=== PATIENT | female | born 1950 | race Caucasian/White ===

== ENCOUNTER 2017-05-10 08:34 | Observation (INO) | payer MEDICARE ==
[~2017-05-10] VITALS: Ht 147.3 cm; Wt 60.0 kg
[2017-05-10] VITALS (9 sets, daily range): BP systolic 115–145; BP diastolic 56–71; PULSE 70–76; RESP 15–18; TEMP 97.9–98.5; O2SAT 99–100
[2017-05-10] MEDS ORDERED: SODIUM CHLOR 0.9% 1000 ML INJ 1,000 ML IV SCH (09:15)
[2017-05-10] MEDS ORDERED: SODIUM CHLORIDE 0.9% FLUSH 10 ML FLUSH IVF PRN (09:15)
--- NOTE | 2017-05-10 09:28 | PD ---
HPI Chief Complaint: Abnormal Results Time Seen by Provider: 09:14 Travel History International Travel<30 days: No Contact w/Intl Traveler<30days: No Traveled to known affect area: No History of Present Illness HPI Patient is a 67-year-old female who presents to emergency room with complaints of anemia. Patient reports that she has history of anemia secondary to esophageal varices and liver cirrhosis. Patient reports that she is being worked up for her anemia by her physicians at home in [place] as she is here in [place] visiting. She reports that she has CBC checks every 2 weeks, patient reports that on Monday, she went to [facility] to have her CBC checked. Patient reports that she was called today and was told her hemoglobin was 6.7. Patient was told to come to the emergency room for a blood transfusion. Reports that she often does have blood transfusions every few weeks, reports that this is secondary to anemia. Patient reports that she is feeling weak and shortness breath at this time. Patient with no chest pain, no obvious source of bleeding at this time. Patient denies history of alcoholism the past, reports that she was told that her liver cirrhosis as well as esophageal varices was secondary to medications. PFSH Past Medical History Cardiac Catheterization: Yes Cardiovascular Problems: Yes ([place]) High Cholesterol: Yes Cirrhosis: Yes Diabetes: Yes Patient Takes Glucophage: No Hypertension: Yes Medical other: Yes (ESOPHAGEAL VARICES ) Myocardial Infarction: Yes Tetanus Vaccination: > 5 Years Influenza Vaccination: Yes ?: Not Past Surgical History Appendectomy: Yes Cardiac Surgery: Yes (1 STENT, TRIPLE BIPASS) Section: Yes Cholecystectomy: Yes Coronary Artery Bypass Graft: Yes Coronary Stent: Yes Hysterectomy: Yes Social History Alcohol Use: No Tobacco Use: No Substance Use: No Allergies-Medications (Allergen,Severity, Reaction): Coded Allergies: No Known Allergies (Unverified , 05/10/17) Review of Systems General / Constitutional: No: Fever Eyes: No: Visual changes HENT: No: Headaches Cardiovascular: No: Chest Pain or Discomfort Respiratory: Positive: Shortness of Breath, No: Cough, Wheezing Gastrointestinal: No: Abdominal Pain Genitourinary: No: Dysuria Musculoskeletal: No: Pain Skin: No Rash Neurologic: Positive: Weakness Psychiatric: No: Depression Endocrine: No: Polydipsia Hematologic/Lymphatic: No: Easy Bruising Physical Exam Narrative GENERAL: NAD SKIN: Focused skin assessment warm/dry. Pale appearing HEAD: Atraumatic. Normocephalic. EYES: Pupils equal and round. No scleral icterus. No injection or drainage. ENT: No nasal bleeding or discharge. Mucous membranes pink and moist. NECK: Trachea midline. No JVD. CARDIOVASCULAR: Regular rate and rhythm. No murmur appreciated. RESPIRATORY: No accessory muscle use. Clear to auscultation. Breath sounds equal bilaterally. GASTROINTESTINAL: Abdomen soft, non-tender, nondistended. Hepatic and splenic margins not palpable. MUSCULOSKELETAL: No obvious deformities. No clubbing. No cyanosis. No edema. NEUROLOGICAL: Awake and alert. No obvious cranial nerve deficits. Motor grossly within normal limits. Normal speech. PSYCHIATRIC: Appropriate mood and affect; insight and judgment normal. Data Data Last Documented VS Vital Signs Date Time Temp Pulse Resp B/P (MAP) Pulse Ox O2 Delivery O2 Flow Rate FiO2 05/10/17 12:59 72 15 130/60 (83) 100 Nasal Cannula 2.00 05/10/17 08:35 98.5 Orders Orders Basic Metabolic Panel (Bmp) (05/10/17 09:15) Complete Blood Count With Diff (05/10/17 09:15) Prothrombin Time / Inr (Pt) (05/10/17 09:15) Act Partial Throm Time (Ptt) (05/10/17 09:15) Type And Screen (05/10/17 09:15) Iv Access Insert/Monitor (05/10/17 09:15) Ecg Monitoring (05/10/17 09:15) Oxygen Administration (05/10/17 09:15) Sodium Chlor 0.9% 1000 Ml Inj (Ns 1000 M (05/10/17 09:15) Sodium Chloride 0.9% Flush (Ns Flush) (05/10/17 09:15) Blood Product Administration (05/10/17 14:23) Sodium Chlor 0.9% 250 Ml Inj (Ns 250 Ml (05/10/17 14:30) Red Blood Cells (Rbc) (05/10/17 15:04) Place In Observation (05/10/17 ) Vital Signs (Adult) Q4H (05/10/17 15:06) Activity Oob Ad Lesa (05/10/17 15:06) Intake + Output HUONG.QSHIFT (05/10/17 15:06) Diet Heart Healthy (05/10/17 Dinner) Sodium Chloride 0.9% Flush (Ns Flush) (05/10/17 15:15) Sodium Chloride 0.9% Flush (Ns Flush) (05/10/17 21:00) Complete Blood Count With Diff (05/11/17 06:00) Case Management Consult (05/10/17 15:06) Naloxone Inj (Narcan Inj) (05/10/17 15:15) Magnesium Hydroxide Liq (Milk Of Magnesi (05/10/17 15:15) Sennosides (Senokot) (05/10/17 15:15) Bisacodyl Supp (Dulcolax Supp) (05/10/17 15:15) Lactulose Liq (Lactulose Liq) (05/10/17 15:15) Labs Laboratory Tests Test 05/10/17 08:50 White Blood Count 2.6 TH/MM3 Red Blood Count 2.47 MIL/MM3 Hemoglobin 7.0 GM/DL Hematocrit 22.0 % Mean Corpuscular Volume 89.2 FL Mean Corpuscular Hemoglobin 28.5 PG Mean Corpuscular Hemoglobin Concent 31.9 % Red Cell Distribution Width 18.5 % Platelet Count 36 TH/MM3 Mean Platelet Volume 10.5 FL Neutrophils (%) (Auto) 74.0 % Lymphocytes (%) (Auto) 18.1 % Monocytes (%) (Auto) 4.8 % Eosinophils (%) (Auto) 2.4 % Basophils (%) (Auto) 0.7 % Neutrophils # (Auto) 1.9 TH/MM3 Lymphocytes # (Auto) 0.5 TH/MM3 Monocytes # (Auto) 0.1 TH/MM3 Eosinophils # (Auto) 0.1 TH/MM3 Basophils # (Auto) 0.0 TH/MM3 CBC Comment AUTO DIFF Differential Comment AUTO DIFF CONFIRMED Platelet Estimate LOW Platelet Morphology Comment NORMAL Ovalocytes 1+ Prothrombin Time 10.5 SEC Prothromb Time International Ratio 1.0 RATIO Activated Partial Thromboplast Time 23.7 SEC Blood Urea Nitrogen 26 MG/DL Creatinine 1.01 MG/DL Random Glucose 233 MG/DL Calcium Level 9.4 MG/DL Sodium Level 139 MEQ/L Potassium Level 4.9 MEQ/L Chloride Level 110 MEQ/L Carbon Dioxide Level 19.4 MEQ/L Anion Gap 10 MEQ/L Estimat Glomerular Filtration Rate 55 ML/MIN MDM Medical Decision Making Medical Screen Exam Complete: Yes Emergency Medical Condition: Yes Medical Record Reviewed: Yes Interpretation(s) Vital Signs Date Time Temp Pulse Resp B/P (MAP) Pulse Ox O2 Delivery O2 Flow Rate FiO2 05/10/17 09:03 73 16 Room Air 05/10/17 08:35 98.5 76 16 145/66 (92) 100 Room Air Differential Diagnosis Differential includes anemia Narrative Course 67-year-old female who presents to emergency room complaints of anemia with a hemoglobin of 6.7 which was drawn on Monday. Patient reports history of anemia requiring multiple blood transfusions in the past. She is symptomatic. CBC, BMP, type and screen ordered.. Plan to monitor on awake overnight monitor CBC & BMP Diagram 05/10/17 08:50 Calcium Level 9.4 Patient with hgb of 7.0. Call made to patient's salon assistant, Dr. 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 Request that her hemoglobin be At 7.5-8, request 1 unit of blood transfusion. Patient required admission to the hospital for blood transfusion for symptomatic anemia. Case reviewed with Dr. Lindsey who accepts pt to service Diagnosis Primary Impression: Anemia Qualified Codes: D64.9 - Anemia, unspecified Admitting Information Admitting Physician Requests: Lesli Mccormack DO May 10, 2017 09:28
[2017-05-10 09:46] LABS: AUTOMATED NEUTROPHIL # 1.9 TH/MM3 (1.8-7.7); BASOPHIL % 0.7 % (0.0-2.0); EOSINOPHIL # 0.1 TH/MM3 (0-0.4); EOSINOPHIL % 2.4 % (0.0-4.0); LYMPH % 18.1 % (9.0-44.0); LYMPHOCYTE # 0.5 TH/MM3 (1.0-4.8); MEAN CELL VOLUME 89.2 FL (80.0-100.0); MEAN CORPUSCULAR HEMOGLOBIN 28.5 PG (27.0-34.0); MEAN CORPUSCULAR HGB CONC 31.9 % (32.0-36.0); MONO % 4.8 % (0.0-8.0); PLATELET COUNT 36 TH/MM3 (150-450); RED BLOOD COUNT 2.47 MIL/MM3 (4.00-5.30); RED CELL DISTRIBUTION WIDTH 18.5 % (11.6-17.2); WHITE BLOOD COUNT 2.6 TH/MM3 (4.0-11.0)
[2017-05-10 09:54] LABS: BICARBONATE 19.4 MEQ/L (21.0-32.0); POTASSIUM 4.9 MEQ/L (3.5-5.1)
[2017-05-10 09:56] LABS: APTT (PATIENT) 23.7 SEC (24.3-30.1); PROTHROMBIN TIME - PATIENT 10.5 SEC (9.8-11.6)
[2017-05-10 10:03] LABS: HEMO FLAGS AUTO DIFF
[2017-05-10 10:27] LABS: OVALOCYTES 1+ (NORMAL); PLATELET ESTIMATE SMEAR LOW (NORMAL); PLATELET MORPHOLOGY NORMAL (NORMAL); SCAN/DIFF AUTO DIFF CONFIRMED
[2017-05-10] MEDS ORDERED: SODIUM CHLOR 0.9% 250 ML INJ 250 ML IV ONE (14:30)
[2017-05-10] MEDS ORDERED: BISACODYL 10 MG SUPP RECTAL PRN (15:15)
[2017-05-10] MEDS ORDERED: SENNOSIDES 8.6 MG TAB PO PRN (15:15)
[2017-05-10] MEDS ORDERED: SODIUM CHLORIDE 0.9% FLUSH 10 ML FLUSH IV FLUSH PRN (15:15)
[2017-05-10] MEDS ORDERED: NALOXONE HCL 0.4 MG/ML AMP IV PUSH PRN (15:15)
[2017-05-10] MEDS ORDERED: MAGNESIUM HYDROXIDE SUSP 30 ML CUP PO PRN (15:15)
[2017-05-10] MEDS ORDERED: LACTULOSE SYRUP 20 GM/30 ML CUP PO PRN (15:15)
[2017-05-10] MEDS ORDERED: GLIP5TAB8 PO (17:26)
[2017-05-10] MEDS ORDERED: METF1000 PO (17:26)
[2017-05-10] MEDS ORDERED: INSULIN ASPART SUPPLEMENTAL SCALE SQ SCH (17:40)
--- NOTE | 2017-05-10 17:45 | HHI.HP ---
[facility] Unknown Admission Diagnosis Symptomatic anemia Diagnoses: Chief Complaint: Generalized fatigue Travel History International Travel<30 Days: No Contact w/Intl Traveler <30 Da: No Traveled to Known Affected Are: No History of Present Illness 67-year-old female with a history of chronic anemia followed by hematology, CAd with history of CABG, diabetes mellitus on metformin and glipizide. Scheduled outpatient labs this Monday showed hemoglobin of 6.8, and her prepared foods production team member told her to present to the ER. Does report less fatigue over the past week. Denies any bleeding. Denies any chest pain or shortness of breath. Denies any nausea , vomiting, diarrhea, constipation. She is on vacation visiting her son for the past. She is planning to go back to [place] next week. ER physician has discussed with patient's primary oncologist, who recommends transfusion of 1 unit PRBCs, and follow-up with him as outpatient. Review of Systems Except as stated in HPI: all other systems reviewed are Neg Performed and negative except for history of present illness and past medical history. Past Family Social History Past Medical History Diabetes mellitus Coronary artery disease with CABG in the past. She is not on anticoagulation due to anemia. Chronic anemia. Past Surgical History CABG Cardiac catheter with stenting Hysterectomy Reported Medications Metformin 1000 mg by mouth twice daily Glipizide 25 mg by mouth twice daily. Allergies: Coded Allergies: No Known Allergies (Unverified , 05/10/17) Family History Family history reviewed with patient and currently noncontributory Social History Nonsmoker. Nondrinker. Denies illicit drugs. Patient is on vacation from [place]. Staying with her son and Physical Exam Vital Signs Vital Signs Date Time Temp Pulse Resp B/P (MAP) Pulse Ox O2 Delivery O2 Flow Rate FiO2 05/10/17 16:47 98.3 73 16 117/56 100 05/10/17 16:35 98.1 69 15 121/67 (85) 100 05/10/17 16:30 98.2 70 15 117/56 100 05/10/17 16:15 98.1 75 15 115/59 (77) 100 Room Air 05/10/17 16:10 98.1 71 15 115/59 100 05/10/17 16:01 98.0 73 15 128/60 100 05/10/17 12:59 72 15 130/60 (83) 100 Nasal Cannula 2.00 05/10/17 09:41 98 Nasal Cannula 2.00 05/10/17 09:03 73 16 Room Air 05/10/17 08:35 98.5 76 16 145/66 (92) 100 Room Air Physical Exam GENERAL: This is a well-nourished, well-developed patient, in no apparent distress. SKIN: No rashes, ecchymoses or lesions. Cool and dry. HEAD: Atraumatic. Normocephalic. No temporal or scalp tenderness. EYES: Pupils equal round and reactive. Extraocular motions intact. No scleral icterus. No injection or drainage. ENT: Nose without bleeding, purulent drainage or septal hematoma. Throat without erythema, tonsillar hypertrophy or exudate. Uvula midline. Airway patent. NECK: Trachea midline. No JVD or lymphadenopathy. Supple, nontender, no meningeal signs. CARDIOVASCULAR: Regular rate and rhythm without murmurs, gallops, or rubs. RESPIRATORY: Clear to auscultation. Breath sounds equal bilaterally. No wheezes , rales, or rhonchi. GASTROINTESTINAL: Abdomen soft, non-tender, nondistended. No hepato-splenomegaly , or palpable masses. No guarding. MUSCULOSKELETAL: Extremities without clubbing, cyanosis, or edema. No joint tenderness, effusion, or edema noted. No calf tenderness. Negative Homans sign bilaterally. NEUROLOGICAL: Awake and alert. Cranial nerves II through XII intact. Motor and sensory grossly within normal limits. Five out of 5 muscle strength in all muscle groups. Normal speech. Laboratory Laboratory Tests Test 05/10/17 08:50 White Blood Count 2.6 Red Blood Count 2.47 Hemoglobin 7.0 Hematocrit 22.0 Mean Corpuscular Volume 89.2 Mean Corpuscular Hemoglobin 28.5 Mean Corpuscular Hemoglobin Concent 31.9 Red Cell Distribution Width 18.5 Platelet Count 36 Mean Platelet Volume 10.5 Neutrophils (%) (Auto) 74.0 Lymphocytes (%) (Auto) 18.1 Monocytes (%) (Auto) 4.8 Eosinophils (%) (Auto) 2.4 Basophils (%) (Auto) 0.7 Neutrophils # (Auto) 1.9 Lymphocytes # (Auto) 0.5 Monocytes # (Auto) 0.1 Eosinophils # (Auto) 0.1 Basophils # (Auto) 0.0 CBC Comment AUTO DIFF Differential Comment AUTO DIFF CONFIRMED Platelet Estimate LOW Platelet Morphology Comment NORMAL Ovalocytes 1+ Prothrombin Time 10.5 Prothromb Time International Ratio 1.0 Activated Partial Thromboplast Time 23.7 Blood Urea Nitrogen 26 Creatinine 1.01 Random Glucose 233 Calcium Level 9.4 Sodium Level 139 Potassium Level 4.9 Chloride Level 110 Carbon Dioxide Level 19.4 Anion Gap 10 Estimat Glomerular Filtration Rate 55 Result Diagram: 05/10/1750 05/10/1750 Caprini VTE Risk Assessment Caprini VTE Risk Assessment: No/Low Risk (score <= 1) Caprini Risk Assessment Model Point Value = 1 Point Value = 2 Point Value = 3 Point Value = 5 Age 41-60 Minor surgery BMI > 25 kg/m2 Swollen legs Varicose veins or History of unexplained or recurrent spontaneous Oral contraceptives or hormone replacement Sepsis (< 1 month) Serious lung disease, including pneumonia (< 1 month) Abnormal pulmonary function Acute myocardial infarction Congestive heart failure (< 1 month) History of inflammatory bowel disease Medical patient at bed rest Age 61-74 Arthroscopic surgery Major open surgery (> 45 min) Laparoscopic surgery (> 45 min) Malignancy Confined to bed (> 72 hours) Immobilizing plaster cast Central venous access Age >= 75 History of VTE Family history of VTE Factor V Leiden Prothrombin [id number] Lupus anticoagulant Anticardiolipin antibodies Elevated serum homocysteine Heparin-induced thrombocytopenia Other congenital or acquired thrombophilia Stroke (< 1 month) Elective arthroplasty Hip, pelvis, or leg fracture Acute spinal cord injury (< 1 month) Prophylaxis Regimen Total Risk Factor Score Risk Level Prophylaxis Regimen 0-1 Low Early ambulation 2 Moderate Order ONE of the following: *Sequential Compression Device (SCD) *Heparin 5000 units SQ BID 3-4 Higher Order ONE of the following medications: *Heparin 5000 units SQ TID *Enoxaparin/Lovenox 40 mg SQ daily (WT < 150 kg, CrCl > 30 mL/min) *Enoxaparin/Lovenox 30 mg SQ daily (WT < 150 kg, CrCl > 10-29 mL/min) *Enoxaparin/Lovenox 30 mg SQ BID (WT < 150 kg, CrCl > 30 mL/min) AND/OR *Sequential Compression Device (SCD) 5 or more Highest Order ONE of the following medications: *Heparin 5000 units SQ TID (Preferred with Epidurals) *Enoxaparin/Lovenox 40 mg SQ daily (WT < 150 kg, CrCl > 30 mL/min) *Enoxaparin/Lovenox 30 mg SQ daily (WT < 150 kg, CrCl > 10-29 mL/min) *Enoxaparin/Lovenox 30 mg SQ BID (WT < 150 kg, CrCl > 30 mL/min) AND *Sequential Compression Device (SCD) Assessment and Plan Assessment and Plan //Acute on chronic anemia. //Pancytopenia. //Thrombocytopenia. Platelets 36. No signs of bleeding. -Chronic. -No signs of bleeding. Patient has had this for over a year. With extensive workup. receives transfusions about every month. -Hemoglobin 6.8 outpatient. 7.0 here. ED has discussed with primary oncologist recommends transfuse unit of blood. -Blood will be transfused, patient will be discharged to follow-up with prepared foods production team member as outpatient. She has repeat lab ordered outpatient for next nurse. //Diabetes. Chronic. Glucose 280 on admission. Possibly high secondary to stress. Insulin sliding scale while here. We'll discharge home on her home meds of metformin and glipizide. //CAD with history of CABG, stenting in the past. -Patient is not on anticoagulation due to chronic anemia, not on blood pressure control due to low blood pressure. Follow with primary care. //Prophylaxis. Patient is ambulatory. Discussed Condition With Patient, nurse, ED physician. Alexander Lindsey MD May 10, 2017 17:45
[2017-05-10] MEDS ORDERED: SODIUM CHLORIDE 0.9% FLUSH 10 ML FLUSH IV FLUSH SCH (21:00)
== END 2017-05-10 19:40 | disposition home or self-care (01) ==
LOC: NEPC 08:34 → NEDA 15:14 → NEPGCP 16:56
PROVIDERS: ADMIT Internal Medicine; ATTEND Internal Medicine
DX: D64.9 Anemia, unspecified (principal); I10 Essential (primary) hypertension; D61.818 Other pancytopenia; E78.00 Pure hypercholesterolemia, unspecified; K74.60 Unspecified cirrhosis of liver; E11.9 Type 2 diabetes mellitus without complications; I25.10 Atherosclerotic heart disease of native coronary artery without angina pectoris; I25.2 Old myocardial infarction; Z95.1 Presence of aortocoronary bypass graft; Z79.84 Long term (current) use of oral hypoglycemic drugs
CPT/HCPCS: 36430; 80048; 82948; 85025; 85610; 85730; 86850; 86900; 86901; 86920; 96360; 96372; 99285; G0378; J1815; J7030; J7050; P9016

== ENCOUNTER 2017-10-03 14:33 | Emergency (ER) | payer MEDICARE, MEDICAID ==
[~2017-10-03] VITALS: Ht 147.3 cm; Wt 60.0 kg
[2017-10-03] VITALS (7 sets, daily range): BP systolic 117–163; BP diastolic 61–84; PULSE 65–75; RESP 14–20; TEMP 98.1–98.3; O2SAT 99–100
[~2017-10-03 14:33] MED LIST: GLIP5TAB8 PO; METF1000 PO
[2017-10-03 16:42] LABS: BASOPHIL % 0.7 % (0.0-2.0); EOSINOPHIL # 0.1 TH/MM3 (0-0.4); EOSINOPHIL % 3.2 % (0.0-4.0); LYMPH % 19.8 % (9.0-44.0); LYMPHOCYTE # 0.6 TH/MM3 (1.0-4.8); MEAN CELL VOLUME 88.6 FL (80.0-100.0); MEAN CORPUSCULAR HEMOGLOBIN 29.4 PG (27.0-34.0); MEAN CORPUSCULAR HGB CONC 33.2 % (32.0-36.0); MEAN PLATELET VOLUME 11.1 FL (7.0-11.0); MONO % 8.2 % (0.0-8.0); MONOCYTE # 0.2 TH/MM3 (0-0.9); NEUT % 68.1 % (16.0-70.0); PLATELET COUNT 40 TH/MM3 (150-450); RED BLOOD COUNT 2.28 MIL/MM3 (4.00-5.30); RED CELL DISTRIBUTION WIDTH 16.7 % (11.6-17.2); WHITE BLOOD COUNT 2.9 TH/MM3 (4.0-11.0)
[2017-10-03 16:51] LABS: PROTHROMBIN TIME - PATIENT 10.4 SEC (9.8-11.6)
[2017-10-03 16:52] LABS: ALBUMIN 3.3 GM/DL (3.4-5.0); ALT (GPT) 28 U/L (10-53); AST (GOT) 21 U/L (15-37); BICARBONATE 20.2 MEQ/L (21.0-32.0); BLOOD UREA NITROGEN 21 MG/DL (7-18); CALCIUM 8.9 MG/DL (8.5-10.1); CHLORIDE 111 MEQ/L (98-107); CREATININE 0.91 MG/DL (0.50-1.00); GLOMERULAR FILTRATION RATE 62 ML/MIN (>89); GLUCOSE,RANDOM 210 MG/DL (74-106); SODIUM (NA) 142 MEQ/L (136-145)
[2017-10-03 16:55] LABS: ALKALINE PHOSPHATASE 132 U/L (45-117); TOTAL BILIRUBIN ADULT 0.4 MG/DL (0.2-1.0); TOTAL PROTEIN 6.4 GM/DL (6.4-8.2)
[2017-10-03 17:03] LABS: HEMATOCRIT 20.2 % (35.0-46.0); HEMOGLOBIN 6.7 GM/DL (11.6-15.3)
[2017-10-03] MEDS ORDERED: D200CAP PO (17:18)
[2017-10-03] MEDS ORDERED: ATOR20TA15 PO (17:18)
[2017-10-03] MEDS ORDERED: IRON1TAB7 PO (17:18)
[2017-10-03] MEDS ORDERED: PROP20TA3 PO (17:18)
[2017-10-03] MEDS ORDERED: PANT40TA3 PO (17:18)
[2017-10-03] MEDS ORDERED: CYAN100025 SL (17:18)
[2017-10-03] MEDS ORDERED: ASCO500T PO (17:18)
[2017-10-03] MEDS ORDERED: LISI2.5T3 PO (17:18)
[2017-10-03] MEDS ORDERED: SODIUM CHLOR 0.9% 250 ML INJ 250 ML IV ONE (17:30)
--- NOTE | 2017-10-03 17:32 | PD ---
HPI Chief Complaint: Medical Clearance Time Seen by Provider: 16:59 Travel History International Travel<30 days: No Contact w/Intl Traveler<30days: No Traveled to known affect area: No History of Present Illness HPI Is a 67-year-old woman who presents to the emergency department complaining of anemia symptoms. She is a history of long-standing pancytopenia. She has had extensive workup. She was getting transfusions every 2 weeks or so in [place] before she moved here. Is been about 2 weeks since her last transfusion. She has had extensive GI workup. She had esophageal banding. Her most recent workup was negative endoscopy after a pill endoscopy that showed a possible area of bleeding. She reports she has had low platelet counts. She will get transfused 1 or 2 units of red blood cells and occasionally some platelets every 2 weeks or so. She would also intermittent receive iron infusion. She otherwise had been feeling generally well. Still having some worsening symptoms today that she attributed to her anemia, and was worried because she has not yet been able to set up with a life insurance sales here. History Past Medical History Narrative Medical Diabetes Hypertension GERD Hyperlipidemia CAD, history of CABG History of esophageal varices History of pancytopenia Tetanus Vaccination: > 5 Years Influenza Vaccination: Yes Social History Alcohol Use: No Tobacco Use: No Allergies-Medications (Allergen,Severity, Reaction): Coded Allergies: No Known Allergies (Unverified Adverse Reaction, Unknown, 10/03/17) Reported Meds & Prescriptions Reported Meds & Active Scripts Active Reported Propranolol (Propranolol HCl) 20 Mg Tab 20 Mg PO Q12HR Pantoprazole (Pantoprazole Sodium) 40 Mg Tab 40 Mg PO DAILY Lisinopril 2.5 Mg Tab 2.5 Mg PO DAILY Nufera (Iron Combinations) 125-1-170 Tab 1 Tab PO DAILY B-12 (Cyanocobalamin) 1,000 Mcg Subl 1,000 Mcg SL DAILY D3 Super Strength (Cholecalciferol) 2,000 Unit Cap 1,000 Units PO DAILY Atorvastatin (Atorvastatin Calcium) 20 Mg Tab 20 Mg PO HS Ascorbic Acid 500 Mg Tab 1,000 Mg PO DAILY Glipizide 5 Mg Tab 10 Mg PO BIDAC Take 30 minutes before a meal Metformin (Metformin HCl) 1,000 Mg Tab 1,000 Mg PO BIDPC Review of Systems Except as stated in HPI: all other systems reviewed are Neg Physical Exam Narrative GENERAL: 67-year-old woman, generally well-appearing, little bit pale. SKIN: Focused skin assessment warm/dry. HEAD: Atraumatic. Normocephalic. EYES: Pupils equal and round. No scleral icterus. Pale conjunctiva. ENT: No nasal bleeding or discharge. Mucous membranes pink and moist. NECK: Trachea midline. No JVD. CARDIOVASCULAR: Regular rate and rhythm. No murmur appreciated. RESPIRATORY: No accessory muscle use. Clear to auscultation. Breath sounds equal bilaterally. GASTROINTESTINAL: Abdomen soft, non-tender, nondistended. Hepatic and splenic margins not palpable. MUSCULOSKELETAL: No obvious deformities. No clubbing. No cyanosis. No edema. NEUROLOGICAL: Awake and alert. No obvious cranial nerve deficits. Data Data Last Documented VS Vital Signs Date Time Temp Pulse Resp B/P (MAP) Pulse Ox O2 Delivery O2 Flow Rate FiO2 10/03/17 17:12 67 20 163/66 (98) 100 Room Air 10/03/17 14:51 98.3 Orders Orders Complete Blood Count With Diff (10/03/17 14:54) Comprehensive Metabolic Panel (10/03/17 14:54) Prothrombin Time / Inr (Pt) (10/03/17 14:54) Act Partial Throm Time (Ptt) (10/03/17 14:54) Electrocardiogram (10/03/17 ) Red Blood Cells (Rbc) (10/03/17 17:25) Blood Product Administration (10/03/17 17:25) Sodium Chlor 0.9% 250 Ml Inj (Ns 250 Ml (10/03/17 17:30) Type And Screen (10/03/17 17:25) Labs Laboratory Tests Test 10/03/17 15:53 White Blood Count 2.9 TH/MM3 Red Blood Count 2.28 MIL/MM3 Hemoglobin 6.7 GM/DL Hematocrit 20.2 % Mean Corpuscular Volume 88.6 FL Mean Corpuscular Hemoglobin 29.4 PG Mean Corpuscular Hemoglobin Concent 33.2 % Red Cell Distribution Width 16.7 % Platelet Count 40 TH/MM3 Mean Platelet Volume 11.1 FL Neutrophils (%) (Auto) 68.1 % Lymphocytes (%) (Auto) 19.8 % Monocytes (%) (Auto) 8.2 % Eosinophils (%) (Auto) 3.2 % Basophils (%) (Auto) 0.7 % Neutrophils # (Auto) 2.0 TH/MM3 Lymphocytes # (Auto) 0.6 TH/MM3 Monocytes # (Auto) 0.2 TH/MM3 Eosinophils # (Auto) 0.1 TH/MM3 Basophils # (Auto) 0.0 TH/MM3 CBC Comment AUTO DIFF Prothrombin Time 10.4 SEC Prothromb Time International Ratio 1.0 RATIO Activated Partial Thromboplast Time 23.8 SEC Blood Urea Nitrogen 21 MG/DL Creatinine 0.91 MG/DL Random Glucose 210 MG/DL Total Protein 6.4 GM/DL Albumin 3.3 GM/DL Calcium Level 8.9 MG/DL Alkaline Phosphatase 132 U/L Aspartate Amino Transf (AST/SGOT) 21 U/L Alanine Aminotransferase (ALT/SGPT) 28 U/L Total Bilirubin 0.4 MG/DL Sodium Level 142 MEQ/L Potassium Level 4.8 MEQ/L Chloride Level 111 MEQ/L Carbon Dioxide Level 20.2 MEQ/L Anion Gap 11 MEQ/L Estimat Glomerular Filtration Rate 62 ML/MIN MDM Medical Decision Making Medical Screen Exam Complete: Yes Emergency Medical Condition: Yes Interpretation(s) LABS: CBC remarkable for hemoglobin 6.7, white blood cell count 2.9, platelet count of 40. CMP remarkable for glucose 210, bicarb 20 Coags unremarkable Differential Diagnosis Pancytopenia, GI bleed, bone marrow dysfunction, other Narrative Course Medical decision making 67-year-old woman, known history of pancytopenia related to what sounds like some GI losses and also bone dysfunction. Is getting transfused biweekly. Is in the process of setting up with a primary physician and life insurance sales here. Looks otherwise well. No other evidence of bleeding or bruising or blood in the stools. At this point recommend transfusion and outpatient follow-up. Will give referral to oncology. Diagnosis Primary Impression: Pancytopenia Referrals: Bradley Nickerson MD call for appointment Additional Instructions: Follow-up with Dr. Tinajero as discussed. Return to the emergency department for any new or worsening symptoms. Med/Other Pt SpecificInfo: No Change to Meds Disposition: 01 DISCHARGE HOME Condition: Stable Viktor Polo MD Oct 03, 2017 17:32
[2017-10-04 01:45] VITALS: BP 130/66
--- NOTE | 2017-10-04 23:42 | EKG ---
Date Performed: 10/03/2017 Time Performed: 15:49:51 PTAGE: 67 years EKG: Sinus rhythm POSSIBLE LEFT ATRIAL ENLARGEMENT BORDERLINE ECG NO PREVIOUS TRACING DOCTOR: Earnest Cornejo Interpretating Date/Time 10/04/2017 23:39:18
== END 2017-10-04 01:46 | disposition home or self-care (01) ==
LOC: NEPC 14:33
DX: D61.818 Other pancytopenia (principal); E11.9 Type 2 diabetes mellitus without complications; E78.5 Hyperlipidemia, unspecified; I10 Essential (primary) hypertension; I25.10 Atherosclerotic heart disease of native coronary artery without angina pectoris; K21.9 Gastro-esophageal reflux disease without esophagitis; Z79.84 Long term (current) use of oral hypoglycemic drugs
CPT/HCPCS: 36430; 80053; 85025; 85610; 85730; 86850; 86900; 86901; 86920; 93005; 96360; 96361; 99284; J7050; P9016

== ENCOUNTER 2017-10-28 11:07 | Inpatient (IN) | payer MEDICARE, MEDICAID ==
[~2017-10-28] VITALS: Ht 147.3 cm; Wt 70.0 kg
[2017-10-28] VITALS (10 sets, daily range): BP systolic 112–149; BP diastolic 54–70; PULSE 62–75; RESP 16–21; TEMP 97.2–98.9; O2SAT 98–100
[~2017-10-28 11:07] MED LIST changes: +ASCO500T PO; +ATOR20TA15 PO; +CYAN100025 SL; +D200CAP PO; +IRON1TAB7 PO; +LISI2.5T3 PO; +PANT40TA3 PO; +PROP20TA3 PO
[2017-10-28] MEDS ORDERED: SODIUM CHLORIDE 0.9% FLUSH 10 ML FLUSH IVF PRN (11:30)
--- NOTE | 2017-10-28 11:42 | PD ---
HPI Chief Complaint: Cardiac Complaint Time Seen by Provider: 11:29 Travel History International Travel<30 days: No Contact w/Intl Traveler<30days: No Traveled to known affect area: No History of Present Illness HPI 67-year-old female patient with history of anemia, CAD status post CABG, presents to the ER today because she states that over the last few weeks she has been getting more chest discomfort and dyspnea on exertion, states that she usually feels like this when she gets anemic. She recently moved from [place] and has not yet been set up with a physician down here in [place]. She denies any fevers, diarrhea, abdominal pains, vomiting, or any other issues. She takes iron but has not noticed any changes in her stool. Modifying Factors: None Associated Signs & Symptoms: Chest discomfort, palpitations, dyspnea on exertion Risk Factors: History of anemia, cardiac history PFSH Past Medical History Anemia: Yes Arthritis: Yes Blood Disorders: No Cancer: No Cardiac Catheterization: Yes Cardiovascular Problems: Yes High Cholesterol: Yes Chest Pain: Yes Cirrhosis: Yes Diabetes: Yes Patient Takes Glucophage: Yes Diminished Hearing: No Endocrine: Yes Gastrointestinal Disorders: Yes (esophogeal varicies - banding x3) GERD: Yes Genitourinary: No Hypertension: Yes Immune Disorder: No Implanted Vascular Access Dvce: Yes Medical other: Yes (ESOPHAGEAL VARICES) Musculoskeletal: Yes (left knee replacment) Neurologic: No Psychiatric: No Reproductive: No Respiratory: No Myocardial Infarction: Yes ?: Not : 2 Para: 2 Past Surgical History Appendectomy: Yes Cardiac Surgery: Yes (1 STENT, TRIPLE BIPASS) Section: Yes (X 2) Cholecystectomy: Yes Coronary Artery Bypass Graft: Yes (TRIPLE BYPASS) Coronary Stent: Yes (X 1) Hysterectomy: Yes Joint Replacement: Yes (LEFT TOTAL KNEE REPLACEMENT) Other Surgery: Yes (triple bipass, stent, c section, gallbladder, appendix, carpel tunnel, lkr) Social History Alcohol Use: No Tobacco Use: No Substance Use: No Allergies-Medications (Allergen,Severity, Reaction): Coded Allergies: No Known Allergies (Unverified Adverse Reaction, Unknown, 10/28/17) Reported Meds & Prescriptions Reported Meds & Active Scripts Active Reported Propranolol (Propranolol HCl) 20 Mg Tab 20 Mg PO Q12HR Pantoprazole (Pantoprazole Sodium) 40 Mg Tab 40 Mg PO DAILY Lisinopril 2.5 Mg Tab 2.5 Mg PO DAILY Nufera (Iron Combinations) 125-1-170 Tab 1 Tab PO DAILY B-12 (Cyanocobalamin) 1,000 Mcg Subl 1,000 Mcg SL DAILY D3 Super Strength (Cholecalciferol) 2,000 Unit Cap 1,000 Units PO DAILY Atorvastatin (Atorvastatin Calcium) 20 Mg Tab 20 Mg PO HS Ascorbic Acid 500 Mg Tab 1,000 Mg PO DAILY Glipizide 5 Mg Tab 10 Mg PO BIDAC Take 30 minutes before a meal Metformin (Metformin HCl) 1,000 Mg Tab 1,000 Mg PO BIDPC Review of Systems Except as stated in HPI: all other systems reviewed are Neg Physical Exam Narrative GENERAL: Well-developed elderly female patient currently in mild distress. Awake and oriented 3. SKIN: Focused skin assessment warm/dry. HEAD: Atraumatic. Normocephalic. EYES: Pupils equal and round. No scleral icterus. No injection or drainage. ENT: No nasal bleeding or discharge. Mucous membranes pink and moist. NECK: Trachea midline. No JVD. Supple. CARDIOVASCULAR: Regular rate and rhythm. No murmur appreciated. RESPIRATORY: No accessory muscle use. Clear to auscultation. Breath sounds equal bilaterally. GASTROINTESTINAL: Abdomen soft, non-tender, nondistended. Hepatic and splenic margins not palpable. MUSCULOSKELETAL: No obvious deformities. No clubbing. No cyanosis. No edema. NEUROLOGICAL: Awake and alert. No obvious cranial nerve deficits. Motor grossly within normal limits. Normal speech. PSYCHIATRIC: Appropriate mood and affect; insight and judgment normal. Data Data Last Documented VS Vital Signs Date Time Temp Pulse Resp B/P (MAP) Pulse Ox O2 Delivery O2 Flow Rate FiO2 10/28/17 11:32 99 Room Air 10/28/17 11:32 98.2 72 21 149/70 (96) Orders Orders Electrocardiogram (10/28/17 ) Electrocardiogram (10/28/17 11:29) Complete Blood Count With Diff (10/28/17 11:29) Comprehensive Metabolic Panel (10/28/17 11:29) Magnesium (Mg) (10/28/17 11:29) Ckmb (Isoenzyme) Profile (10/28/17 11:29) Troponin I (10/28/17 11:29) Act Partial Throm Time (Ptt) (10/28/17 11:29) Prothrombin Time / Inr (Pt) (10/28/17 11:29) Chest, Single Ap (10/28/17 11:29) Ecg Monitoring (10/28/17 11:29) Iv Access Insert/Monitor (10/28/17 11:29) Oximetry (10/28/17 11:29) Sodium Chloride 0.9% Flush (Ns Flush) (10/28/17 11:30) Type And Screen (10/28/17 11:39) Red Blood Cells (Rbc) (10/28/17 12:18) Blood Product Administration (10/28/17 12:18) Sodium Chlor 0.9% 250 Ml Inj (Ns 250 Ml (10/28/17 12:30) Admit Order (Ed Use Only) (10/28/17 12:38) Labs Laboratory Tests Test 10/28/17 11:35 White Blood Count 2.5 TH/MM3 Red Blood Count 2.02 MIL/MM3 Hemoglobin 5.3 GM/DL Hematocrit 17.0 % Mean Corpuscular Volume 84.1 FL Mean Corpuscular Hemoglobin 26.2 PG Mean Corpuscular Hemoglobin Concent 31.1 % Red Cell Distribution Width 15.5 % Platelet Count 36 TH/MM3 Mean Platelet Volume 10.8 FL Neutrophils (%) (Auto) 66.6 % Lymphocytes (%) (Auto) 20.5 % Monocytes (%) (Auto) 8.1 % Eosinophils (%) (Auto) 4.1 % Basophils (%) (Auto) 0.7 % Neutrophils # (Auto) 1.7 TH/MM3 Lymphocytes # (Auto) 0.5 TH/MM3 Monocytes # (Auto) 0.2 TH/MM3 Eosinophils # (Auto) 0.1 TH/MM3 Basophils # (Auto) 0.0 TH/MM3 CBC Comment AUTO DIFF Prothrombin Time 10.5 SEC Prothromb Time International Ratio 1.0 RATIO Activated Partial Thromboplast Time 23.0 SEC Blood Urea Nitrogen 16 MG/DL Creatinine 0.84 MG/DL Random Glucose 263 MG/DL Total Protein 6.1 GM/DL Albumin 2.9 GM/DL Calcium Level 8.0 MG/DL Magnesium Level 1.9 MG/DL Alkaline Phosphatase 109 U/L Aspartate Amino Transf (AST/SGOT) 23 U/L Alanine Aminotransferase (ALT/SGPT) 22 U/L Total Bilirubin 0.5 MG/DL Sodium Level 135 MEQ/L Potassium Level 4.5 MEQ/L Chloride Level 107 MEQ/L Carbon Dioxide Level 19.3 MEQ/L Anion Gap 9 MEQ/L Estimat Glomerular Filtration Rate 68 ML/MIN Total Creatine Kinase 53 U/L Troponin I LESS THAN 0.02 NG/ML MDM Medical Decision Making Medical Screen Exam Complete: Yes Emergency Medical Condition: Yes Medical Record Reviewed: Yes Interpretation(s) EKG shows NSR, no ST elevation or depression, and no arrhythmias. No significant T-wave inversions. Laboratory Tests Test 10/28/17 11:35 White Blood Count 2.5 TH/MM3 (4.0-11.0) Red Blood Count 2.02 MIL/MM3 (4.00-5.30) Hemoglobin 5.3 GM/DL (11.6-15.3) Hematocrit 17.0 % (35.0-46.0) Mean Corpuscular Hemoglobin 26.2 PG (27.0-34.0) Mean Corpuscular Hemoglobin Concent 31.1 % (32.0-36.0) Platelet Count 36 TH/MM3 (150-450) Monocytes (%) (Auto) 8.1 % (0.0-8.0) Eosinophils (%) (Auto) 4.1 % (0.0-4.0) Neutrophils # (Auto) 1.7 TH/MM3 (1.8-7.7) Lymphocytes # (Auto) 0.5 TH/MM3 (1.0-4.8) Activated Partial Thromboplast Time 23.0 SEC (24.3-30.1) Random Glucose 263 MG/DL (74-106) Total Protein 6.1 GM/DL (6.4-8.2) Albumin 2.9 GM/DL (3.4-5.0) Calcium Level 8.0 MG/DL (8.5-10.1) Sodium Level 135 MEQ/L (136-145) Carbon Dioxide Level 19.3 MEQ/L (21.0-32.0) Estimat Glomerular Filtration Rate 68 ML/MIN (>89) Troponin I LESS THAN 0.02 NG/ML Last 24 hours Impressions Chest X-Ray 10/28/17 1129 Signed Impressions: Service Date/Time: Saturday, October 28, 2017 11:40 - CONCLUSION: Mild cardiomegaly without evidence of congestive heart failure. No evidence of airspace disease. Libra Keller MD Differential Diagnosis ACS versus dysrhythmias versus symptomatic anemia Narrative Course Lab work shows significant decreased hemoglobin of 5.9. 2 units of PRBCs ordered for the patient. She has pancytopenia and appears to be chronic on previous lab work as well. At this point, my plan would be to get her admitted for transfusion. Case is discussed with [facility] resident service for admission. Diagnosis Primary Impression: Pancytopenia Additional Impression: Symptomatic anemia Admitting Information Admitting Physician Requests: Admit Bandar Ackerman MD Oct 28, 2017 11:42
[2017-10-28 11:55] LABS: AUTOMATED NEUTROPHIL # 1.7 TH/MM3 (1.8-7.7); BASOPHIL % 0.7 % (0.0-2.0); EOSINOPHIL # 0.1 TH/MM3 (0-0.4); EOSINOPHIL % 4.1 % (0.0-4.0); LYMPH % 20.5 % (9.0-44.0); LYMPHOCYTE # 0.5 TH/MM3 (1.0-4.8); MEAN CELL VOLUME 84.1 FL (80.0-100.0); MEAN CORPUSCULAR HEMOGLOBIN 26.2 PG (27.0-34.0); MEAN CORPUSCULAR HGB CONC 31.1 % (32.0-36.0); MEAN PLATELET VOLUME 10.8 FL (7.0-11.0); MONO % 8.1 % (0.0-8.0); MONOCYTE # 0.2 TH/MM3 (0-0.9); NEUT % 66.6 % (16.0-70.0); PLATELET COUNT 36 TH/MM3 (150-450); RED BLOOD COUNT 2.02 MIL/MM3 (4.00-5.30); RED CELL DISTRIBUTION WIDTH 15.5 % (11.6-17.2); WHITE BLOOD COUNT 2.5 TH/MM3 (4.0-11.0)
--- NOTE | 2017-10-28 11:59 | RADRPT ---
EXAM DATE/TIME: 10/28/2017 11:40 [facility] COMPARISON: No previous studies available for comparison. INDICATIONS : Shortness of breath and palpitations. MEDICAL HISTORY : None given SURGICAL HISTORY : CABG. 1 cardiac stent. ENCOUNTER: Initial ACUITY: 1 day PAIN SCORE: 0/10 LOCATION: chest FINDINGS: AP semiupright portable view of the chest demonstrates post surgical changes related to prior CABG randle rgery. The heart is mildly enlarged. The pulmonary vasculature appears normal in caliber. The lungs a re clear. Osseous structures are unremarkable. CONCLUSION: Mild cardiomegaly without evidence of congestive heart failure. No evidence of airspace disease. Libra Keller MD on October 28, 2017 at 11:56 Board Certified Radiologist. This report was verified electronically.
[2017-10-28 12:04] LABS: PROTHROMBIN TIME - PATIENT 10.5 SEC (9.8-11.6)
[2017-10-28 12:08] LABS: HEMOGLOBIN 5.3 GM/DL (11.6-15.3)
[2017-10-28 12:10] LABS: ALBUMIN 2.9 GM/DL (3.4-5.0); AST (GOT) 23 U/L (15-37); BICARBONATE 19.3 MEQ/L (21.0-32.0); BLOOD UREA NITROGEN 16 MG/DL (7-18); CHLORIDE 107 MEQ/L (98-107); CREATININE 0.84 MG/DL (0.50-1.00); GLOMERULAR FILTRATION RATE 68 ML/MIN (>89); GLUCOSE,RANDOM 263 MG/DL (74-106); MAGNESIUM 1.9 MG/DL (1.5-2.5); SODIUM (NA) 135 MEQ/L (136-145)
[2017-10-28 12:11] LABS: ALT (GPT) 22 U/L (10-53)
[2017-10-28 12:15] LABS: ALKALINE PHOSPHATASE 109 U/L (45-117); TOTAL BILIRUBIN ADULT 0.5 MG/DL (0.2-1.0); TOTAL PROTEIN 6.1 GM/DL (6.4-8.2); TROPONIN I LESS THAN 0.02 NG/ML (0.02-0.05)
[2017-10-28] MEDS ORDERED: SODIUM CHLOR 0.9% 250 ML INJ 250 ML IV ONE (12:30)
[2017-10-28] MEDS ORDERED: SODIUM CHLORIDE 0.9% FLUSH 10 ML FLUSH IV FLUSH PRN (12:45)
[2017-10-28 12:56] LABS: OVALOCYTES 1+ (NORMAL)
[2017-10-28 13:08] LABS: IRON (FE) 16 MCG/DL (50-170)
[2017-10-28 13:17] LABS: FERRITIN 7 NG/ML (8-252); TOTAL IRON BINDING CAPACITY 400 MCG/DL (250-450)
--- NOTE | 2017-10-28 13:49 | HHI.HP ---
HPI Service Family Medicine Primary Care Physician Non-Staff Admission Diagnosis Pancytopenia/symptomatic anemia Diagnoses: International Travel<30 Days: No Contact w/Intl Traveler<30days: No Known Affected Area: No History of Present Illness Ms. Woo is a 67-year-old female with a past medical history of pancytopenia, diabetes mellitus, and hypertension presenting to the ED for fatigue, palpitations, shortness of breath of a few days duration. She was recently seen in the ED in September for anemia (hemoglobin 6.7) and received 2 units of packed red blood cells. She states when she starts feeling tired and getting the shortness of breath she knows that her blood levels have dropped. She was told by her automotive painter helper before to go to the ER if this occurs. She states that she was initially diagnosed with pancytopenia 3 years ago in 2014. She moved to [place] in August from [place], [place]. While in [place] she was seeing a automotive painter helper and verifying specialist. She had undergone 3 bone marrow aspirates, the last of which was in 2017. She stated that it was determined that she was having trouble producing blood cells, but the reason why was not known. She stated that her automotive painter helper would check a CBC and ferritin every 2 weeks. Depending on her blood level she would get a transfusion and/or therapies. She was on Procrit previously. Was initially referred to hematology for low platelets. It was also determined that she had esophageal varices. She is status post banding 6 the last of which was done in 2017. A pill camera study was done which showed bleeding in her small intestines, but when a EGD was subsequently done the source of bleeding was not found. It was determined that this bleeding was probably due to her low platelets. Recently she has had some chills, but no fever. She has felt fatigued with some feelings of weakness. No falls. She is also feeling very cold. No blood in her stools, her stools are usually dark due to iron supplementation. She has not yet established care with a PCP here in town. Her first appointment is on next week. (Latonia Jackson MD R1) Review of Systems Constitutional: COMPLAINS OF: Fatigue, Chills, Dizziness, DENIES: Fever, Change in appetite Eyes: COMPLAINS OF: Blurred vision (possible cataracts) Respiratory: COMPLAINS OF: Shortness of breath Cardiovascular: COMPLAINS OF: Palpitations, DENIES: Chest pain Gastrointestinal: DENIES: Black stools, Bloody stools Genitourinary: DENIES: Abnormal vaginal bleeding, Hematuria Hematologic/lymphatic: COMPLAINS OF: Bruising Neurologic: DENIES: Headache, Localized weakness (Latonia Jackson MD R1) Past Family Social History Past Medical History DM Hyperlipidemia Fatty liver Esophageal varices Splenomegaly Pancytopenia Past Surgical History 2 C sections hysterectomy appendectomy cholecystectomy left total knee replacement carpal tunnel surgery CAGB x3 and stent Reported Medications Reported Meds & Active Scripts Active Reported Propranolol (Propranolol HCl) 20 Mg Tab 20 Mg PO Q12HR Pantoprazole (Pantoprazole Sodium) 40 Mg Tab 40 Mg PO DAILY Lisinopril 2.5 Mg Tab 2.5 Mg PO DAILY Nufera (Iron Combinations) 125-1-170 Tab 1 Tab PO DAILY B-12 (Cyanocobalamin) 1,000 Mcg Subl 1,000 Mcg SL DAILY D3 Super Strength (Cholecalciferol) 2,000 Unit Cap 1,000 Units PO DAILY Atorvastatin (Atorvastatin Calcium) 20 Mg Tab 20 Mg PO HS Ascorbic Acid 500 Mg Tab 1,000 Mg PO DAILY Glipizide 5 Mg Tab 10 Mg PO BIDAC Take 30 minutes before a meal Metformin (Metformin HCl) 1,000 Mg Tab 1,000 Mg PO BIDPC (Latonia Jackson MD R1) Allergies: Coded Allergies: No Known Allergies (Unverified Adverse Reaction, Unknown, 10/28/17) Family History Mother- Hodgkin's lymphoma Father- CHF, DM Social History Originally from [place], [place]. Moved to [place]. Just moved to [place] in August. 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 SKIN: No rashes, ecchymoses or lesions. Cool and dry. Pale. Midline scar on chest. HEAD: Atraumatic. Normocephalic. No temporal or scalp tenderness. EYES: Pupils equal round and reactive. Extraocular motions intact. No scleral icterus. No injection or drainage. Pale sclera. ENT: Nose without bleeding, purulent drainage or septal hematoma. Throat without erythema, tonsillar hypertrophy or exudate. Uvula midline. Airway patent. NECK: Trachea midline. No JVD or lymphadenopathy. Supple, nontender, no meningeal signs. CARDIOVASCULAR: Regular rate and rhythm with a 2/6 holosystolic murmur, no gallops, or rubs. RESPIRATORY: Clear to auscultation. Breath sounds equal bilaterally. No wheezes , rales, or rhonchi. GASTROINTESTINAL: Abdomen soft, non-tender, slightly distended. No hepato- splenomegaly, or palpable masses. No guarding. MUSCULOSKELETAL: Extremities without clubbing, cyanosis, or edema. No joint tenderness, effusion, or edema noted. No calf tenderness. Vertical ridging and slight spooning of nails. NEUROLOGICAL: Awake and alert. Motor and sensory grossly within normal limits. Normal speech. Laboratory Laboratory Tests Test 10/28/17 11:35 White Blood Count 2.5 Red Blood Count 2.02 Hemoglobin 5.3 Hematocrit 17.0 Mean Corpuscular Volume 84.1 Mean Corpuscular Hemoglobin 26.2 Mean Corpuscular Hemoglobin Concent 31.1 Red Cell Distribution Width 15.5 Platelet Count 36 Mean Platelet Volume 10.8 Neutrophils (%) (Auto) 66.6 Lymphocytes (%) (Auto) 20.5 Monocytes (%) (Auto) 8.1 Eosinophils (%) (Auto) 4.1 Basophils (%) (Auto) 0.7 Neutrophils # (Auto) 1.7 Lymphocytes # (Auto) 0.5 Monocytes # (Auto) 0.2 Eosinophils # (Auto) 0.1 Basophils # (Auto) 0.0 CBC Comment AUTO DIFF Differential Comment AUTO DIFF CONFIRMED Platelet Estimate LOW Platelet Morphology Comment NORMAL Ovalocytes 1+ Prothrombin Time 10.5 Prothromb Time International Ratio 1.0 Activated Partial Thromboplast Time 23.0 Blood Urea Nitrogen 16 Creatinine 0.84 Random Glucose 263 Total Protein 6.1 Albumin 2.9 Calcium Level 8.0 Magnesium Level 1.9 Alkaline Phosphatase 109 Aspartate Amino Transf (AST/SGOT) 23 Alanine Aminotransferase (ALT/SGPT) 22 Total Bilirubin 0.5 Sodium Level 135 Potassium Level 4.5 Chloride Level 107 Carbon Dioxide Level 19.3 Anion Gap 9 Estimat Glomerular Filtration Rate 68 Iron Level 16 Total Iron Binding Capacity 400 Percent Iron Saturation 4.0 Ferritin 7 Total Creatine Kinase 53 Troponin I LESS THAN 0.02 (Latonia Jackson MD R1) Result Diagram: 10/28/17 1135 10/28/17 1135 Imaging Last Impressions Chest X-Ray 10/28/17 1129 Signed Impressions: Service Date/Time: Saturday, October 28, 2017 11:40 - CONCLUSION: Mild cardiomegaly without evidence of congestive heart failure. No evidence of airspace disease. Libra Keller MD (Latonia Jackson MD R1) Caprini VTE Risk Assessment Caprini VTE Risk Assessment: Mod/High Risk (score >= 2) VTE Pharm Contraindication: Thrombocytopenia(<50) Caprini Risk Assessment Model Point Value = 1 Point Value = 2 Point Value = 3 Point Value = 5 Age 41-60 Minor surgery BMI > 25 kg/m2 Swollen legs Varicose veins or History of unexplained or recurrent spontaneous Oral contraceptives or hormone replacement Sepsis (< 1 month) Serious lung disease, including pneumonia (< 1 month) Abnormal pulmonary function Acute myocardial infarction Congestive heart failure (< 1 month) History of inflammatory bowel disease Medical patient at bed rest Age 61-74 Arthroscopic surgery Major open surgery (> 45 min) Laparoscopic surgery (> 45 min) Malignancy Confined to bed (> 72 hours) Immobilizing plaster cast Central venous access Age >= 75 History of VTE Family history of VTE Factor V Leiden Prothrombin [id number] Lupus anticoagulant Anticardiolipin antibodies Elevated serum homocysteine Heparin-induced thrombocytopenia Other congenital or acquired thrombophilia Stroke (< 1 month) Elective arthroplasty Hip, pelvis, or leg fracture Acute spinal cord injury (< 1 month) Prophylaxis Regimen Total Risk Factor Score Risk Level Prophylaxis Regimen 0-1 Low Early ambulation 2 Moderate Order ONE of the following: *Sequential Compression Device (SCD) *Heparin 5000 units SQ BID 3-4 Higher Order ONE of the following medications: *Heparin 5000 units SQ TID *Enoxaparin/Lovenox 40 mg SQ daily (WT < 150 kg, CrCl > 30 mL/min) *Enoxaparin/Lovenox 30 mg SQ daily (WT < 150 kg, CrCl > 10-29 mL/min) *Enoxaparin/Lovenox 30 mg SQ BID (WT < 150 kg, CrCl > 30 mL/min) AND/OR *Sequential Compression Device (SCD) 5 or more Highest Order ONE of the following medications: *Heparin 5000 units SQ TID (Preferred with Epidurals) *Enoxaparin/Lovenox 40 mg SQ daily (WT < 150 kg, CrCl > 30 mL/min) *Enoxaparin/Lovenox 30 mg SQ daily (WT < 150 kg, CrCl > 10-29 mL/min) *Enoxaparin/Lovenox 30 mg SQ BID (WT < 150 kg, CrCl > 30 mL/min) AND *Sequential Compression Device (SCD) (Latonia Jackson MD R1) Assessment and Plan Assessment and Plan 67-year-old female with past medical history of pancytopenia presenting with symptomatic anemia. Hemoglobin on admission was 5.3. She is being admitted to our inpatient service Code Status Full code Discussed Condition With Doctors Helene and Elvira (Latonia Jackson MD R1) Attending Attestation Patient seen and examined. Case reviewed and discussed with the resident team. Agree with plan of care as discussed with me and documented in the resident note. pt seen on admission. agree with transfusion and close Heme follow up (Deirdre Narayan MD) Problem List: (1) Symptomatic anemia ICD Codes: D64.9 - Anemia, unspecified Status: Acute Plan: Is a 67-year-old female with 3 year history of pancytopenia of unknown cause. Upon admission hemoglobin was 5.3. Awaiting transfusion. MCV is normal at 84.1 Iron is low at 16. Ferritin is low at 7. TIBC normal at 400. -Peripheral smear ordered -Awaiting transfusion of 2 pRBCs -Repeat H&H after transfusion (2) Pancytopenia ICD Codes: D61.818 - Other pancytopenia Status: Chronic Plan: CBC on admission revealed WBC count of 2.5, hemoglobin of 5.3, platelet count at 36. Patient states that she has had extensive workup in the past including 3 bone marrow aspirates. She states that she would bring her medical records from home. She does endorse a past medical history of splenomegaly. -Neutropenic precautions -Hematology consult, appreciate recommendations (3) Diabetes mellitus ICD Codes: E11.9 - Type 2 diabetes mellitus without complications Status: Chronic Plan: Hold at home metformin and glipizide -low dose NovoLog SSI -Hypoglycemia protocol (4) Hypertension ICD Codes: I10 - Essential (primary) hypertension Status: Chronic Plan: Continue at home medications -Propranolol 20 mg p.o. every 12 hours -Lisinopril 2.5 mg p.o. daily (5) Hyperlipemia ICD Codes: E78.5 - Hyperlipidemia, unspecified Status: Chronic Plan: -Continue at home atorvastatin 20 mg p.o. at bedtime (6) FEN Status: Acute Plan: Fluids: tolerating PO Electrolytes: monitor and replete as needed Nutrition: ADA diet 1800-calorie DVT Prophylaxis: Early ambulation. Bilateral SCDs. Pharmacologic DVT prophylaxis is contraindicated due to thrombocytopenia GI Prophylaxis: Continue at home pantoprazole 40 mg p.o. daily Fever/pain management: Tylenol 650 mg as needed (Latonia Jackson MD R1) Physician Certification 2 Midnight Certification Type: Admission for Inpatient Services Order for Inpatient Services The services are ordered in accordance with Medicare regulations or non- Medicare payer requirements, as applicable. In the case of services not specified as inpatient-only, they are appropriately provided as inpatient services in accordance with the 2-midnight benchmark. Estimated LOS (days): 2 days is the estimated time the patient will need to remain in the hospital, assuming treatment plan goals are met and no additional complications. Post-Hospital Plan: Not yet determined (Latonia Jackson MD R1) Problem Qualifiers (1) Diabetes mellitus: Qualified Codes: E13.8 - Other specified diabetes mellitus with unspecified complications (2) Hypertension: Qualified Codes: I10 - Essential (primary) hypertension Latonia Jackson MD R1 Oct 28, 2017 13:49 Deirdre Narayan MD Oct 29, 2017 11:55
[2017-10-28] MEDS ORDERED: MAGNESIUM HYDROXIDE SUSP 30 ML CUP PO PRN (14:15)
[2017-10-28] MEDS ORDERED: GLUCAGON 1 MG/ML VIAL OTHER PRN (14:15)
[2017-10-28] MEDS ORDERED: LACTULOSE SYRUP 20 GM/30 ML CUP PO PRN (14:15)
[2017-10-28] MEDS ORDERED: DEXTROSE 50% IN WATER 50 ML VIAL(D50) IV PUSH PRN (14:15)
[2017-10-28] MEDS ORDERED: BISACODYL 10 MG SUPP RECTAL PRN (14:15)
[2017-10-28] MEDS ORDERED: ACETAMINOPHEN 325 MG TAB PO PRN (14:15)
[2017-10-28] MEDS ORDERED: NALOXONE HCL 0.4 MG/ML AMP IV PUSH PRN (14:15)
[2017-10-28] MEDS ORDERED: SENNOSIDES 8.6 MG TAB PO PRN (14:15)
[2017-10-28] MEDS: INSULIN ASPART SUPPLEMENTAL SCALE SQ SCH ×2 (17:00→20:52)
[2017-10-28] MEDS ORDERED: FUROSEMIDE 20 MG/2 ML VIAL IV PUSH ONE (17:30)
[2017-10-28 17:52] LABS: RETIC # 104.3 MIL/L (20.0-150.0); RETIC % 5.2 % (0.4-3.0)
[2017-10-28 18:50] LABS: FOLATE GREATER THAN 20.0 NG/ML (3.1-17.5)
[2017-10-28] MEDS: PROPRANOLOL HCL 20 MG TAB PO SCH (20:42)
[2017-10-28] MEDS: DOCUSATE SODIUM 50 MG/SENNA 8.6 MG TAB PO SCH (20:43)
[2017-10-28] MEDS: ATORVASTATIN 20 MG TAB PO SCH (20:43)
[2017-10-28] MEDS: SODIUM CHLORIDE 0.9% FLUSH 10 ML FLUSH IV FLUSH SCH (20:44)
[2017-10-29 01:27] VITALS: BP 111/65; PULSE 67; RESP 16; TEMP 98.2; O2SAT 96
[2017-10-29 04:45] VITALS: BP 108/52; PULSE 69; RESP 16; TEMP 97.8; O2SAT 97
[2017-10-29 07:05] LABS: AUTOMATED NEUTROPHIL # 1.7 TH/MM3 (1.8-7.7); BASOPHIL % 0.9 % (0.0-2.0); EOSINOPHIL # 0.1 TH/MM3 (0-0.4); EOSINOPHIL % 3.9 % (0.0-4.0); HEMOGLOBIN 7.1 GM/DL (11.6-15.3); LYMPH % 25.7 % (9.0-44.0); LYMPHOCYTE # 0.7 TH/MM3 (1.0-4.8); MEAN CELL VOLUME 81.9 FL (80.0-100.0); MEAN CORPUSCULAR HEMOGLOBIN 27.6 PG (27.0-34.0); MEAN CORPUSCULAR HGB CONC 33.6 % (32.0-36.0); MEAN PLATELET VOLUME 10.9 FL (7.0-11.0); MONO % 9.1 % (0.0-8.0); MONOCYTE # 0.3 TH/MM3 (0-0.9); NEUT % 60.4 % (16.0-70.0); PLATELET COUNT 34 TH/MM3 (150-450); RED BLOOD COUNT 2.56 MIL/MM3 (4.00-5.30); RED CELL DISTRIBUTION WIDTH 16.6 % (11.6-17.2); WHITE BLOOD COUNT 2.8 TH/MM3 (4.0-11.0)
[2017-10-29 07:53] LABS: ALKALINE PHOSPHATASE 105 U/L (45-117); ALT (GPT) 22 U/L (10-53); AST (GOT) 21 U/L (15-37); BICARBONATE 21.2 MEQ/L (21.0-32.0); BLOOD UREA NITROGEN 20 MG/DL (7-18); CALCIUM 8.5 MG/DL (8.5-10.1); CHLORIDE 110 MEQ/L (98-107); CREATININE 0.79 MG/DL (0.50-1.00); GLOMERULAR FILTRATION RATE 73 ML/MIN (>89); GLUCOSE,RANDOM 149 MG/DL (74-106); SODIUM (NA) 141 MEQ/L (136-145); TOTAL BILIRUBIN ADULT 1.4 MG/DL (0.2-1.0); TOTAL PROTEIN 5.9 GM/DL (6.4-8.2)
[2017-10-29 08:00] VITALS: BP 119/56; PULSE 65; PULSE 67; RESP 17; TEMP 98.1; O2SAT 98
[2017-10-29] MEDS: DOCUSATE SODIUM 50 MG/SENNA 8.6 MG TAB PO SCH ×3 (08:00→21:00)
[2017-10-29] MEDS: MULTIVITAMIN TAB PO SCH (08:00)
[2017-10-29] MEDS: LISINOPRIL 5 MG TAB PO SCH (08:00)
[2017-10-29] MEDS: PANTOPRAZOLE SOD 40 MG DELAYED RELEASE TAB PO SCH (08:00)
[2017-10-29] MEDS: PROPRANOLOL HCL 20 MG TAB PO SCH ×2 (08:00→23:13)
[2017-10-29] MEDS: FERROUS SULFATE 325 MG (65 MG ELEMENTAL IRON) TAB PO SCH (08:00)
[2017-10-29] MEDS: INSULIN ASPART SUPPLEMENTAL SCALE SQ SCH ×4 (08:01→21:00)
[2017-10-29] MEDS: SODIUM CHLORIDE 0.9% FLUSH 10 ML FLUSH IV FLUSH SCH ×2 (08:01→21:00)
[2017-10-29] MEDS ORDERED: IRON COMBINATIONS PO SCH (09:00)
--- NOTE | 2017-10-29 09:38 | HHI.HP ---
[facility] Service Family Medicine Primary Care Physician Non-Staff Admission Diagnosis Pancytopenia/symptomatic anemia Diagnoses: (1) Symptomatic anemia Diagnosis: Principal (2) Pancytopenia Diagnosis: Principal (3) Diabetes mellitus Diagnosis: Principal (4) Hypertension Diagnosis: Principal (5) Hyperlipemia Diagnosis: Principal (6) FEN International Travel<30 Days: No Contact w/Intl Traveler<30days: No Known Affected Area: No History of Present Illness Ms. Woo is a 67-year-old female with a past medical history of pancytopenia, diabetes mellitus, and hypertension presenting to the ED for fatigue, palpitations, shortness of breath of a few days duration. She was recently seen in the ED in September for anemia (hemoglobin 6.7) and received 2 units of packed red blood cells. She states when she starts feeling tired and getting the shortness of breath she knows that her blood levels have dropped. She was told by her astrochemist before to go to the ER if this occurs. She states that she was initially diagnosed with pancytopenia 3 years ago in 2014. She moved to [place] in August from [place], [place]. While in [place] she was seeing a astrochemist and closing manager. She had undergone 3 bone marrow aspirates, the last of which was in 2017. She stated that it was determined that she was having trouble producing blood cells, and myelodysplastic syndrome was suspected. She stated that her astrochemist would check a CBC and ferritin every 2 weeks. Depending on her blood level she would get a transfusion and/or therapies. She was on Procrit previously. Was initially referred to hematology for low platelets. It was also determined that she had esophageal varices. She is status post banding 6 the last of which was done in 2017. A pill camera study was done which showed bleeding in her small intestines, but when a EGD was subsequently done the source of bleeding was not found. It was determined that this bleeding was probably due to her low platelets. Recently she has had some chills, but no fever. She has felt fatigued with some feelings of weakness. No falls. She is also feeling very cold. No blood in her stools, her stools are usually dark due to iron supplementation. She has not yet established care with a PCP here in town. Her first appointment is on next week. She had her family member bring in old records which are in her room and include the bone marrow biopsies. She is s/p 2 units transfused and feels better today. With the exception of her H/H her CBC has remained stable with platelets in the mid thirties since Apr 2017 and a WBC less than 3 for the same time period. She has had splenomegaly and an enlarged liver and a heart murmur in her past history but feels her abdomen has enlarged recently and she has not had an echocardiogram for some time. Review of Systems Other Constitutional: COMPLAINS OF: Fatigue, Chills, Dizziness, DENIES: Fever, Change in appetite Eyes: COMPLAINS OF: Blurred vision (possible cataracts) Respiratory: COMPLAINS OF: Shortness of breath Cardiovascular: COMPLAINS OF: Palpitations, DENIES: Chest pain Gastrointestinal: DENIES: Black stools, Bloody stools Genitourinary: DENIES: Abnormal vaginal bleeding, Hematuria Hematologic/lymphatic: COMPLAINS OF: Bruising Neurologic: DENIES: Headache, Localized weakness Past Family Social History Past Medical History DM Hyperlipidemia Fatty liver Esophageal varices Splenomegaly Pancytopenia Past Surgical History 2 C sections hysterectomy appendectomy cholecystectomy left total knee replacement carpal tunnel surgery CAGB x3 and stent Allergies: Coded Allergies: No Known Allergies (Unverified Adverse Reaction, Unknown, 10/28/17) Family History Mother- Hodgkin's lymphoma Father- CHF, DM Social History Originally from [place] did her education in [place], [place]. Moved to [place]. Just moved to [place] in August. 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 No alcohol, no cigarettes, no illicit drug use Physical Exam Vital Signs Vital Signs Date Time Temp Pulse Resp B/P (MAP) Pulse Ox O2 Delivery O2 Flow Rate FiO2 10/29/17 08:00 98.1 65 17 119/56 (77) 98 10/29/17 04:45 97.8 69 16 108/52 (70) 97 10/29/17 01:27 98.2 67 16 111/65 96 10/28/17 22:48 98.9 71 16 122/57 98 10/28/17 22:33 98.4 75 17 131/63 99 10/28/17 19:43 98.8 70 16 116/54 98 10/28/17 17:57 98.4 65 18 115/55 100 10/28/17 17:40 98.4 65 18 118/58 99 10/28/17 16:00 97.7 63 17 119/58 (78) 100 10/28/17 15:00 97.2 62 18 112/58 (76) 100 10/28/17 14:30 10/28/17 13:20 97.9 65 17 126/60 (82) 100 Room Air 10/28/17 11:32 99 Room Air 10/28/17 11:32 98.2 72 21 149/70 (96) 100 Room Air 10/28/17 11:10 98.2 73 16 133/60 (84) 100 Physical Exam GENERAL: This is a well-nourished, well-developed female patient lying in bed, in no apparent distress. SKIN: No rashes, ecchymoses or lesions. Cool and dry. Pale. Midline scar on chest well healed from bypass. HEAD: Atraumatic. Normocephalic. s. EYES: Pupils equal round and reactive. Extraocular motions intact. No scleral icterus. No injection or drainage. Pale sclera. ENT: Nose without bleeding, purulent drainage or septal hematoma. Airway patent. NECK: Trachea midline. No JVD or lymphadenopathy. Supple, nontender, no meningeal signs. CARDIOVASCULAR: Regular rate and rhythm with a 2/6 holosystolic murmur, no gallops, or rubs. RESPIRATORY: Clear to auscultation. Breath sounds equal bilaterally. No wheezes , rales, or rhonchi. GASTROINTESTINAL: Abdomen soft, non-tender, slightly distended. hepato- splenomegaly with enlarged spleen palpable to near umbilicus. No guarding. MUSCULOSKELETAL: Extremities without clubbing, cyanosis, or edema. No joint tenderness, effusion, or edema noted. No calf tenderness. Vertical ridging and slight spooning of nails. NEUROLOGICAL: Awake and alert. Motor and sensory grossly within normal limits. Normal speech. Laboratory Laboratory Tests Test 10/28/17 11:35 10/29/17 05:45 White Blood Count 2.5 2.8 Red Blood Count 2.02 2.56 Hemoglobin 5.3 7.1 Hematocrit 17.0 21.0 Mean Corpuscular Volume 84.1 81.9 Mean Corpuscular Hemoglobin 26.2 27.6 Mean Corpuscular Hemoglobin Concent 31.1 33.6 Red Cell Distribution Width 15.5 16.6 Platelet Count 36 34 Mean Platelet Volume 10.8 10.9 Neutrophils (%) (Auto) 66.6 60.4 Lymphocytes (%) (Auto) 20.5 25.7 Monocytes (%) (Auto) 8.1 9.1 Eosinophils (%) (Auto) 4.1 3.9 Basophils (%) (Auto) 0.7 0.9 Neutrophils # (Auto) 1.7 1.7 Lymphocytes # (Auto) 0.5 0.7 Monocytes # (Auto) 0.2 0.3 Eosinophils # (Auto) 0.1 0.1 Basophils # (Auto) 0.0 0.0 CBC Comment AUTO DIFF AUTO DIFF Differential Comment AUTO DIFF CONFIRMED AUTO DIFF CONFIRMED Platelet Estimate LOW Platelet Morphology Comment NORMAL Ovalocytes 1+ Blood Smear Pathologist Review Reticulocyte Count 5.2 Absolute Reticulocyte Count 104.3 Haptoglobin 102 Prothrombin Time 10.5 Prothromb Time International Ratio 1.0 Activated Partial Thromboplast Time 23.0 Blood Urea Nitrogen 16 20 Creatinine 0.84 0.79 Random Glucose 263 149 Total Protein 6.1 5.9 Albumin 2.9 3.0 Calcium Level 8.0 8.5 Magnesium Level 1.9 Alkaline Phosphatase 109 105 Aspartate Amino Transf (AST/SGOT) 23 21 Alanine Aminotransferase (ALT/SGPT) 22 22 Total Bilirubin 0.5 1.4 Sodium Level 135 141 Potassium Level 4.5 4.2 Chloride Level 107 110 Carbon Dioxide Level 19.3 21.2 Anion Gap 9 10 Estimat Glomerular Filtration Rate 68 73 Iron Level 16 Total Iron Binding Capacity 400 Percent Iron Saturation 4.0 Ferritin 7 Lactate Dehydrogenase 128 Total Creatine Kinase 53 Troponin I LESS THAN 0.02 Vitamin B12 Level 909 Folate GREATER THAN 20.0 Result Diagram: 10/29/17 0545 10/29/17 0545 Imaging Last Impressions Chest X-Ray 10/28/17 1129 Signed Impressions: Service Date/Time: Saturday, October 28, 2017 11:40 - CONCLUSION: Mild cardiomegaly without evidence of congestive heart failure. No evidence of airspace disease. MD Cassandra Carrillo VTE Risk Assessment Cassandra VTE Risk Assessment: Mod/High Risk (score >= 2) VTE Pharm Contraindication: Thrombocytopenia(<50) Seanrini Risk Assessment Model Point Value = 1 Point Value = 2 Point Value = 3 Point Value = 5 Age 41-60 Minor surgery BMI > 25 kg/m2 Swollen legs Varicose veins or History of unexplained or recurrent spontaneous Oral contraceptives or hormone replacement Sepsis (< 1 month) Serious lung disease, including pneumonia (< 1 month) Abnormal pulmonary function Acute myocardial infarction Congestive heart failure (< 1 month) History of inflammatory bowel disease Medical patient at bed rest Age 61-74 Arthroscopic surgery Major open surgery (> 45 min) Laparoscopic surgery (> 45 min) Malignancy Confined to bed (> 72 hours) Immobilizing plaster cast Central venous access Age >= 75 History of VTE Family history of VTE Factor V Leiden Prothrombin [id number] Lupus anticoagulant Anticardiolipin antibodies Elevated serum homocysteine Heparin-induced thrombocytopenia Other congenital or acquired thrombophilia Stroke (< 1 month) Elective arthroplasty Hip, pelvis, or leg fracture Acute spinal cord injury (< 1 month) Prophylaxis Regimen Total Risk Factor Score Risk Level Prophylaxis Regimen 0-1 Low Early ambulation 2 Moderate Order ONE of the following: *Sequential Compression Device (SCD) *Heparin 5000 units SQ BID 3-4 Higher Order ONE of the following medications: *Heparin 5000 units SQ TID *Enoxaparin/Lovenox 40 mg SQ daily (WT < 150 kg, CrCl > 30 mL/min) *Enoxaparin/Lovenox 30 mg SQ daily (WT < 150 kg, CrCl > 10-29 mL/min) *Enoxaparin/Lovenox 30 mg SQ BID (WT < 150 kg, CrCl > 30 mL/min) AND/OR *Sequential Compression Device (SCD) 5 or more Highest Order ONE of the following medications: *Heparin 5000 units SQ TID (Preferred with Epidurals) *Enoxaparin/Lovenox 40 mg SQ daily (WT < 150 kg, CrCl > 30 mL/min) *Enoxaparin/Lovenox 30 mg SQ daily (WT < 150 kg, CrCl > 10-29 mL/min) *Enoxaparin/Lovenox 30 mg SQ BID (WT < 150 kg, CrCl > 30 mL/min) AND *Sequential Compression Device (SCD) Assessment and Plan Assessment and Plan 67-year-old female with past medical history of pancytopenia presenting with symptomatic anemia. Hemoglobin on admission was 5.3. She being admitted to our inpatient service. consulted Hematology as she will need care acutely but also longwall foreman as she has a chronic problem. Problem List: (1) Symptomatic anemia ICD Codes: D64.9 - Anemia, unspecified Status: Acute Plan: Is a 67-year-old female with 3 year history of pancytopenia from Myelodysplastic syndrome. Upon admission hemoglobin was 5.3. Hb 7.1 post transfusion MCV is normal at 84.1 Iron is low at 16. Ferritin is low at 7. TIBC normal at 400. -Peripheral smear ordered -Repeat H&H after transfusion is better unsure with her chronic inability to make the proper blood cells if she would benefit from another transfusion prior to discharge (2) Pancytopenia ICD Codes: D61.818 - Other pancytopenia Status: Chronic Plan: CBC on admission revealed WBC count of 2.5, hemoglobin of 5.3, platelet count at 36. Patient states that she has had extensive workup in the past including 3 bone marrow aspirates. She states that she would bring her medical records from home. She does endorse a past medical history of splenomegaly. -Neutropenic precautions -Hematology consult, appreciate recommendations (3) Diabetes mellitus ICD Codes: E11.9 - Type 2 diabetes mellitus without complications Status: Chronic Plan: Hold at home metformin and glipizide -low dose NovoLog SSI -Hypoglycemia protocol (4) Hypertension ICD Codes: I10 - Essential (primary) hypertension Status: Chronic Plan: Continue at home medications -Propranolol 20 mg p.o. every 12 hours, may also be for liver disease and varices -Lisinopril 2.5 mg p.o. daily (5) Hyperlipemia ICD Codes: E78.5 - Hyperlipidemia, unspecified Status: Chronic Plan: -Continue at home atorvastatin 20 mg p.o. at bedtime (6) Liver enlargement ICD Codes: R16.0 - Hepatomegaly, not elsewhere classified Status: Chronic Plan: unsure if she has worsening of her liver or splenic enlargement so will check ultrasound. her spleen was 15 cm at it's longest point on a prior ultrasound. she has had varices in her esophagus that were banded. will see if she has fatty liver vs cirrhosis (7) Murmur, cardiac ICD Codes: R01.1 - Cardiac murmur, unspecified Status: Chronic Plan: per pt she has a chronic murmur but she has not had an evaluation for some time. will check an echocardiogram (8) FEN Status: Acute Plan: Fluids: tolerating PO Electrolytes: monitor and replete as needed Nutrition: ADA diet 1800-calorie DVT Prophylaxis: Early ambulation. Bilateral SCDs. Pharmacologic DVT prophylaxis is contraindicated due to thrombocytopenia GI Prophylaxis: Continue at home pantoprazole 40 mg p.o. daily Fever/pain management: Tylenol 650 mg as needed Problem Qualifiers (1) Diabetes mellitus: Qualified Codes: E13.8 - Other specified diabetes mellitus with unspecified complications (2) Hypertension: Qualified Codes: I10 - Essential (primary) hypertension Deirdre Narayan MD Oct 29, 2017 09:38
[2017-10-29 12:00] VITALS: BP 108/53; PULSE 62; PULSE 72; RESP 17; TEMP 98.6; O2SAT 97
--- NOTE | 2017-10-29 13:08 | MB ---
cc: Catherine Archibald MD,Latonia HERMOSILLO DATE: 10/29/2017 REFERRING PHYSICIAN: Latonia Jackson MD CHIEF COMPLAINT: Dr. Jackson requests a consultation for Ms. Woo regarding pancytopenia. HISTORY OF PRESENT ILLNESS: Ms. Woo is a 67-year-old woman with history of myelodysplastic syndrome. She was diagnosed in [place] where she used to live. She was seen by several oncologists/hematologists including specialists at [facility]. She reports having several bone marrow biopsies done. She brought her records including a bone marrow biopsy from 09/15/2016 that showed a hypercellular bone marrow with mild dyshematopoiesis. 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 No increase in blasts. Peripheral blood showed pancytopenia. Dr. Fox coordinated FISH studies, next generation sequencing studies to complete the evaluation. It appears the cytogenetics shows a normal 46XX. There is no chromosomal abnormality seen. Flow cytometry shows no monoclonal B cell population, no aberrant T-cell antigen expression, no increased immunotype. There is no immunophenotypic evidence of paroxysmal nocturnal hemoglobinuria. Finally, ultrasound of the abdomen shows the liver had normal echogenicity without a focal mass. Next-Gen sequencing results were not available. Ms. Woo describes needing a transfusion or iron infusion every other week or so. She has been trying to establish herself to a primary physician and subsequently to a test driller/oncologist after her move here to the [facility]. She is living with her siblings. On 10/28/2017, she presented with chest discomfort, palpitations, and dyspnea on exertion. She was getting more symptoms over the last several weeks. She was found to have a hemoglobin of 5.3, white blood cell count of 2.5, platelet count of 36,000. Her haptoglobin is normal. B12 is normal. Folic acid is normal. Bilirubin slightly increased. She was transfused 2 units of packed red cells. The following day, her hemoglobin is 7.1. Her white cell count and platelet count are stable. Hematology/oncology is consulted for diagnosis of myelodysplastic syndrome. The rest of her review of systems is negative. PAST MEDICAL HISTORY: Diabetes, hyperlipidemia, fatty liver, esophageal varices, myelodysplastic syndrome. PAST SURGICAL HISTORY: x 2, hysterectomy, appendectomy, cholecystectomy, left total knee replacement, carpal tunnel surgery, CABG x 3, stent placement. ALLERGIES: NO KNOWN DRUG ALLERGIES. FAMILY HISTORY: Significant for mother with Hodgkin lymphoma. Father had congestive heart failure and diabetes. 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 She lives with her sister and brother. Moved here from [place], [place]. She denies any tobacco, alcohol, or illicit drug use. CURRENT MEDICATIONS: Include: 1. Protonix. 2. Lisinopril. 3. Theragran. 4. Ferrous sulfate. 5. Lipitor. 6. Inderal. PHYSICAL EXAMINATION: VITAL SIGNS: Temperature 98.1, heart rate 65, respiratory rate 17, blood pressure 119/56, saturation 98%. GENERAL: Ms. Woo is a well-developed, well-nourished elderly woman who is not in any acute distress. She has some generalized pallor. She looks comfortable. She is able to tell her history. HEENT: Pupils are round, reactive to light and accommodation. Oropharynx is clear. NECK: Supple. LUNGS: Clear. CARDIOVASCULAR: Reveals normal rate and rhythm. ABDOMEN: Benign. LOWER EXTREMITIES: With no clubbing, cyanosis, or edema. LABORATORY STUDIES: As described above. ASSESSMENT AND PLAN: Ms. Woo is a 67-year-old woman with multiple medical problems, diagnosed with myelodysplastic syndrome. She has tried erythropoietin therapy. She has required iron and red blood cell transfusions. The case was discussed with Dr. Narayan. She is stable from oncology standpoint for discharge and followup in outpatient clinic. Contact information to follow up in our oncology clinic is provided. I anticipate seeing Ms. Woo in clinic this week to repeat a CBC and transfuse as needed. Given the history provided, she has an established diagnosis of myelodysplastic syndrome. Bone marrow biopsy from 09/15/2016 is consistent with the above. We will need to obtain the next generation sequencing results that was not available. She has other medical records that we can review. I anticipate that she will require red cell transfusion and establishing in Hematology/Oncology Clinic. We could coordinate this. She offers no complaints. She has no chest pain or shortness of breath at present. She feels better after the blood transfusion. Her questions were answered to her satisfaction. MD HARRIET Miller/MIKI Araiza: 10/29/2017, 12:35 PM , 01:08 PM
[2017-10-29 16:00] VITALS: BP 119/55; PULSE 61; RESP 17; TEMP 98.6; O2SAT 99
--- NOTE | 2017-10-29 16:41 | EKG ---
Date Performed: 10/28/2017 Time Performed: 11:29:23 PTAGE: 67 years EKG: Sinus rhythm MINIMAL ST DEPRESSION Compared to previous tracing, the T wave changes are slightly more prominent B ORDERLINE ECG PREVIOUS TRACING : 10/03/2017 15.49 DOCTOR: Sumit Gonzalez Interpretating Date/Time 10/29/2017 16:41:18
--- NOTE | 2017-10-29 17:10 | RADRPT ---
EXAM DATE/TIME: 10/29/2017 16:22 [facility] COMPARISON: No previous studies available for comparison. INDICATIONS : Epigastric pain. MEDICAL HISTORY : Hypertension. Pancytopenia. Diabetes Mellitus. Esophageal varices. SURGICAL HISTORY : section. Appendectomy. Total knee replacement, left. Bone marrow aspirates x 3. Hysterectom y. Cholecystectomy. Carpal Tunnel surgery. CABG x 3 and stent. ENCOUNTER: Initial ACUITY: 2 days PAIN SCORE: 2/10 LOCATION: Right upper quadrant MEASUREMENTS: LIVER: 14.3 cm length COMMON DUCT: 5 mm RIGHT KIDNEY: 9.5 x 4.6 x 5.0 cm SPLEEN: 16.2 cm length FINDINGS: LIVER: Small heterogeneous liver with a surface that appears micronodular noted. No focal hepatic lesions se en. There is normal flow velocity and direction in the main portal vein. Small perihepatic ascites pr esent. COMMON DUCT: No intraluminal mass or stone visualized. GALLBLADDER: Previous cholecystectomy. PANCREAS: The visualized portions are within normal limits. RIGHT KIDNEY: No hydronephrosis, stone or mass. SPLEEN: No focal lesion. CONCLUSION: Small and probably cirrhotic liver. There is associated splenomegaly and small ascites. Main portal v ein patent. Edilberto Tavares MD on October 29, 2017 at 17:05 Board Certified Radiologist. This report was verified electronically.
[2017-10-29 20:00] VITALS: BP 118/57; PULSE 68; RESP 16; TEMP 98; O2SAT 97
[2017-10-29] MEDS: ATORVASTATIN 20 MG TAB PO SCH (23:13)
[2017-10-30] VITALS: BP 127/66; PULSE 63; RESP 16; TEMP 97.9; O2SAT 97
[2017-10-30 04:00] VITALS: BP 91/51; PULSE 60; RESP 16; TEMP 98.1; O2SAT 95
[2017-10-30 07:31] VITALS: BP 106/53; PULSE 69; RESP 19; TEMP 97.9; O2SAT 99
[2017-10-30] MEDS: INSULIN ASPART SUPPLEMENTAL SCALE SQ SCH ×2 (08:00→12:45)
[2017-10-30 08:04] LABS: AUTOMATED NEUTROPHIL # 1.8 TH/MM3 (1.8-7.7); EOSINOPHIL # 0.1 TH/MM3 (0-0.4); EOSINOPHIL % 4.8 % (0.0-4.0); HEMATOCRIT 22.5 % (35.0-46.0); HEMOGLOBIN 7.4 GM/DL (11.6-15.3); LYMPH % 25.7 % (9.0-44.0); LYMPHOCYTE # 0.8 TH/MM3 (1.0-4.8); MEAN CELL VOLUME 82.3 FL (80.0-100.0); MEAN CORPUSCULAR HEMOGLOBIN 27.2 PG (27.0-34.0); MONO % 8.3 % (0.0-8.0); MONOCYTE # 0.3 TH/MM3 (0-0.9); NEUT % 60.2 % (16.0-70.0); PLATELET COUNT 40 TH/MM3 (150-450); RED BLOOD COUNT 2.73 MIL/MM3 (4.00-5.30); RED CELL DISTRIBUTION WIDTH 16.6 % (11.6-17.2); WHITE BLOOD COUNT 3.1 TH/MM3 (4.0-11.0)
[2017-10-30] MEDS: PANTOPRAZOLE SOD 40 MG DELAYED RELEASE TAB PO SCH (08:13)
[2017-10-30] MEDS: FERROUS SULFATE 325 MG (65 MG ELEMENTAL IRON) TAB PO SCH (08:13)
[2017-10-30] MEDS: LISINOPRIL 5 MG TAB PO SCH (08:14)
[2017-10-30] MEDS: DOCUSATE SODIUM 50 MG/SENNA 8.6 MG TAB PO SCH (08:14)
[2017-10-30] MEDS: MULTIVITAMIN TAB PO SCH (08:14)
[2017-10-30] MEDS: PROPRANOLOL HCL 20 MG TAB PO SCH (08:17)
[2017-10-30 08:26] LABS: AST (GOT) 24 U/L (15-37); BICARBONATE 21.9 MEQ/L (21.0-32.0); BLOOD UREA NITROGEN 18 MG/DL (7-18); CALCIUM 8.8 MG/DL (8.5-10.1); CHLORIDE 109 MEQ/L (98-107); CREATININE 0.78 MG/DL (0.50-1.00); GLOMERULAR FILTRATION RATE 74 ML/MIN (>89); GLUCOSE,RANDOM 126 MG/DL (74-106); SODIUM (NA) 140 MEQ/L (136-145)
[2017-10-30 08:27] LABS: ALT (GPT) 22 U/L (10-53)
[2017-10-30 08:29] LABS: ALKALINE PHOSPHATASE 103 U/L (45-117); TOTAL BILIRUBIN ADULT 0.9 MG/DL (0.2-1.0); TOTAL PROTEIN 6.2 GM/DL (6.4-8.2)
[2017-10-30 08:55] LABS: OVALOCYTES 1+ (NORMAL)
--- NOTE | 2017-10-30 08:57 | HHI.DCPOC ---
Discharge Care Plan Diagnosis: (1) Pancytopenia (2) Symptomatic anemia Goals to Promote Your Health * To prevent worsening of your condition and complications * To maintain your health at the optimal level Directions to Meet Your Goals Take your medications as prescribed Follow your dietary instruction Follow activity as directed Keep your appointments as scheduled Take your immunizations and boosters as scheduled If your symptoms worsen call your PCP, if no PCP go to Urgent Care Center or Emergency Room Smoking is Dangerous to Your Health. Avoid second hand smoke Call the 24-hour hour crisis hotline for domestic abuse at Latonia Jackson MD R1 Oct 30, 2017 08:57
[2017-10-30] MEDS: SODIUM CHLORIDE 0.9% FLUSH 10 ML FLUSH IV FLUSH SCH (09:00)
--- NOTE | 2017-10-30 11:11 | HHI.FPPN ---
Subjective Remarks No acute events overnight. Afebrile, vitals stable. Patient states she does not have any specific complaints or concerns this morning. She denies fatigue, weakness, dizziness, fevers, chest pain, dyspnea. She is eager to go home. (Gordon Felix MD R2) Objective Vitals Vital Signs Date Time Temp Pulse Resp B/P (MAP) Pulse Ox O2 Delivery O2 Flow Rate FiO2 10/30/17 07:31 97.9 69 19 106/53 (70) 99 10/30/17 04:00 98.1 60 16 91/51 (64) 95 10/30/17 00:00 97.9 63 16 127/66 (86) 97 10/29/17 20:00 98.0 68 16 118/57 (77) 97 10/29/17 16:00 98.6 61 17 119/55 (76) 99 10/29/17 12:00 72 10/29/17 12:00 98.6 62 17 108/53 (71) 97 I/O 10/29/17 10/29/17 10/29/17 10/30/17 10/30/17 10/30/17 07:00 15:00 23:00 07:00 15:00 23:00 Intake Total 880 ml 480 ml 1680 ml Balance 880 ml 480 ml 1680 ml Intake Oral 480 ml 480 ml 1680 ml Packed Cells 400 ml # Voids 3 5 5 # Bowel Movements 0 0 4 (Gordon Felix MD R2) Result Diagram: 10/30/17 0627 10/30/17626 Objective Remarks GENERAL: This is a well-nourished, well-developed female patient lying in bed, in no apparent distress. SKIN: No rashes, ecchymoses or lesions. Cool and dry. Midline scar on chest. HEAD: Atraumatic. Normocephalic. EYES: Extraocular motions intact. No scleral icterus. No injection or drainage. Pale sclera. ENT: MMM. Uvula midline. Airway patent. NECK: Trachea midline. No JVD or lymphadenopathy. Supple, nontender, no meningeal signs. CARDIOVASCULAR: Regular rate and rhythm with a 2/6 holosystolic murmur, no gallops, or rubs. RESPIRATORY: Clear to auscultation. Breath sounds equal bilaterally. No wheezes , rales, or rhonchi. GASTROINTESTINAL: Abdomen soft, non-tender, slightly distended. Enlarged spleen palpable to near umbilicus. No guarding. MUSCULOSKELETAL: Extremities without edema. No joint tenderness, effusion, or edema noted. No calf tenderness. Vertical ridging and slight spooning of nails. NEUROLOGICAL: Awake and alert. Motor and sensory grossly within normal limits. Normal speech. (Gordon Felix MD R2) A/P Assessment and Plan 67-year-old female with past medical history of pancytopenia presenting with symptomatic anemia. Discharge Planning Anticipate discharge home today following echocardiogram (Gordon Felix MD R2) Attending Attestation Patient seen and examined. Case reviewed and discussed with the resident team. Agree with plan of care as discussed with me and documented in the resident note. she will be happy to go home and will have follow up with her primary and hematology (Deirdre Narayan MD) Problem List: (1) Symptomatic anemia ICD Codes: D64.9 - Anemia, unspecified Status: Acute Plan: 67-year-old female with 3 year history of pancytopenia from Myelodysplastic syndrome. Upon admission hemoglobin was 5.3. Hb 7.1 post transfusion and remaining stable this morning MCV is normal at 84.1 Iron is low at 16. Ferritin is low at 7. TIBC normal at 400. Peripheral smear ordered Folate greater than 20 B12 909 within normal limits No signs of hemolysis Will have patient follow up as an outpatient with Dr. Archibald, hematology/ oncology for her myelodysplastic syndrome (2) Myelodysplastic syndrome ICD Codes: D46.9 - Myelodysplastic syndrome, unspecified Plan: CBC on admission revealed WBC count of 2.5, RBC count 2.02 with hemoglobin of 5.3, platelet count 36,000 -Bone marrow biopsy from 09/15/2016 consistent with diagnosis of myelodysplastic syndrome -Neutropenic precautions -Hematology consulted, appreciate recommendations, plan as above (3) Diabetes mellitus ICD Codes: E11.9 - Type 2 diabetes mellitus without complications Status: Chronic Plan: Hold at home metformin and glipizide -low dose NovoLog SSI -Hypoglycemia protocol (4) Hypertension ICD Codes: I10 - Essential (primary) hypertension Status: Chronic Plan: Continue home medications -Propranolol 20 mg p.o. q12h, also for esophageal variceal prophylaxis -Lisinopril 2.5 mg p.o. daily (5) Hyperlipemia ICD Codes: E78.5 - Hyperlipidemia, unspecified Status: Chronic Plan: -Continue at home atorvastatin 20 mg p.o. at bedtime (6) Liver enlargement ICD Codes: R16.0 - Hepatomegaly, not elsewhere classified Status: Chronic Plan: unsure if she has worsening of her liver or splenic enlargement so will check ultrasound. her spleen was 15 cm at it's longest point on a prior ultrasound. she has had varices in her esophagus that were banded. will see if she has fatty liver vs cirrhosis Liver ultrasound 10/29 read per radiology as small and probably cirrhotic liver. There is associated splenomegaly and small ascites. Main portal vein patent. (7) Murmur, cardiac ICD Codes: R01.1 - Cardiac murmur, unspecified Status: Chronic Plan: per pt she has a chronic murmur but she has not had an evaluation for some time. will check an echocardiogram still pending today 10/30 (8) FEN Status: Acute Plan: Fluids: tolerating PO Electrolytes: monitor and replete as needed Nutrition: 1800 ADA DVT Prophylaxis: Early ambulation. Bilateral SCDs. Pharmacologic DVT prophylaxis is contraindicated due to thrombocytopenia GI Prophylaxis: Continue home pantoprazole 40 mg p.o. daily (Gordon Felix MD R2) Problem Qualifiers (1) Diabetes mellitus: Qualified Codes: E13.8 - Other specified diabetes mellitus with unspecified complications (2) Hypertension: Qualified Codes: I10 - Essential (primary) hypertension Gordon Felix MD R2 Oct 30, 2017 11:11 Deirdre Narayan MD Oct 31, 2017 13:21
--- NOTE | 2017-10-30 14:25 | PD.ONC.PN ---
Subjective Subjective Remarks Afebrile overnight. Patient resting in bed in nad. No complaints. denies weakness or lightheadedness. Objective Data Date Time Temp Pulse Resp B/P (MAP) Pulse Ox O2 Delivery O2 Flow Rate FiO2 10/30/17 07:31 97.9 69 19 106/53 (70) 99 10/30/17 04:00 98.1 60 16 91/51 (64) 95 10/30/17 00:00 97.9 63 16 127/66 (86) 97 10/29/17 20:00 98.0 68 16 118/57 (77) 97 10/29/17 16:00 98.6 61 17 119/55 (76) 99 10/30/17 10/30/17 10/30/17 07:00 15:00 23:00 Intake Total 1680 ml Balance 1680 ml Result Diagram: 10/30/1762610/30/17626 Laboratory Results Laboratory Tests Test 10/30/17 06:27 White Blood Count 3.1 TH/MM3 Red Blood Count 2.73 MIL/MM3 Hemoglobin 7.4 GM/DL Hematocrit 22.5 % Mean Corpuscular Volume 82.3 FL Mean Corpuscular Hemoglobin 27.2 PG Mean Corpuscular Hemoglobin Concent 33.0 % Red Cell Distribution Width 16.6 % Platelet Count 40 TH/MM3 Mean Platelet Volume 11.0 FL Neutrophils (%) (Auto) 60.2 % Lymphocytes (%) (Auto) 25.7 % Monocytes (%) (Auto) 8.3 % Eosinophils (%) (Auto) 4.8 % Basophils (%) (Auto) 1.0 % Neutrophils # (Auto) 1.8 TH/MM3 Lymphocytes # (Auto) 0.8 TH/MM3 Monocytes # (Auto) 0.3 TH/MM3 Eosinophils # (Auto) 0.1 TH/MM3 Basophils # (Auto) 0.0 TH/MM3 CBC Comment AUTO DIFF Differential Comment AUTO DIFF CONFIRMED Platelet Estimate LOW Platelet Morphology Comment NORMAL Ovalocytes 1+ Blood Urea Nitrogen 18 MG/DL Creatinine 0.78 MG/DL Random Glucose 126 MG/DL Total Protein 6.2 GM/DL Albumin 3.0 GM/DL Calcium Level 8.8 MG/DL Alkaline Phosphatase 103 U/L Aspartate Amino Transf (AST/SGOT) 24 U/L Alanine Aminotransferase (ALT/SGPT) 22 U/L Total Bilirubin 0.9 MG/DL Sodium Level 140 MEQ/L Potassium Level 4.5 MEQ/L Chloride Level 109 MEQ/L Carbon Dioxide Level 21.9 MEQ/L Anion Gap 9 MEQ/L Estimat Glomerular Filtration Rate 74 ML/MIN Administered Medications Medications (Trade) Dose Ordered Sig/Woody Route PRN Reason Start Time Stop Time Status Last Admin Dose Admin Sodium Chloride (NS Flush) 2 ml BID IV FLUSH 10/28/17 21:00 10/29/17 21:00 Senna/Docusate Sodium (Flower-Colace) 1 tab BID PO 10/28/17 21:00 10/30/17 08:14 Insulin Aspart (NovoLOG SUPPLEMENTAL SCALE) 1 ACHS SLIDING SCALE SQ 10/28/17 17:00 10/29/17 21:00 Atorvastatin Calcium (Lipitor) 20 mg HS PO 10/28/17 21:00 10/29/17 23:13 Pantoprazole Sodium (Protonix) 40 mg DAILY PO 10/29/17 09:00 10/30/17 08:13 Propranolol HCl (Inderal) 20 mg Q12HR PO 10/28/17 21:00 10/30/17 08:17 Lisinopril (Prinivil) 2.5 mg DAILY PO 10/29/17 09:00 10/30/17 08:14 Multivitamins (Theragran) 1 tab DAILY PO 10/29/17 09:00 10/30/17 08:14 Ferrous Sulfate (Ferrous Sulfate) 325 mg DAILY PO 10/29/17 09:00 10/30/17 08:13 Objective Remarks GENERAL: pleasant female, sitting up in bed in [place]. SKIN: Warm and dry. HEAD: Normocephalic. EYES: No injection or drainage. NECK: Supple, trachea midline. CARDIOVASCULAR: Regular rate and rhythm without murmurs. RESPIRATORY: Breath sounds equal bilaterally. No accessory muscle use. GASTROINTESTINAL: Abdomen soft, non-tender, nondistended. EXTREMITIES: No cyanosis, or edema. MUSCULOSKELETAL: Adequate muscle tone. NEUROLOGICAL: No obvious focal deficit. Awake, alert, and oriented x3. Assessment/Plan Problem List: (1) Myelodysplastic syndrome ICD Codes: D46.9 - Myelodysplastic syndrome, unspecified Plan: --diagnosed in [place] --bone marrow biopsy from 09/15/2016 showed hypercellular bone marrow with mild dyshematopoiesis. ++erythroid hypoplasia, mild megakaryocytic hyperplasia. No increase in blasts. Assessment 67y/o female with pancytopenia admitted with chest discomfort, palpitations and dyspnea on exertion. h/o Diabetes, hyperlipidemia, fatty liver, esophageal varices, myelodysplastic syndrome. Plan 1. monitor CBC, no transfusion needed at present. 2 face sheet faxed to new patient referrals for follow up in clinic in 3 weeks. Minnie Lorenzo Oct 30, 2017 14:25
--- NOTE | 2017-10-30 14:46 | ECHRPT ---
Indication: Heart Failure CONCLUSIONS The left ventricular systolic function is low normal with an estimated ejection fraction in the rang e of 50- 55%. Wall thickness is measured at the upper limits of normal. Mildly dilated left ventricle. The left atrial size is mildly dilated. Mitral annular calcification is present. Mild mitral valve regurgitation. Aortic valve sclerosis is present. Calcification of the non-coronary cusp. There is moderate tricuspid regurgitation. The estimated pulmonary arterial pressure is 39.4 mmHg. Trivial pulmonary valve regurgitation. BP: 106 / 53 HR: 69 Rhythm: Sinus MEASUREMENTS (Male / Female) Normal Values Technical Quality:Fair 2D ECHO LV Diastolic Diameter PLAX 5.4 cm 4.2 - 5.9 / 3.9 - 5.3 cm LV Systolic Diameter PLAX 3.7 cm IVS Diastolic Thickness 0.8 cm 0.6 - 1.0 / 0.6 - 0.9 cm LVPW Diastolic Thickness 0.8 cm 0.6 - 1.0 / 0.6 - 0.9 cm LV Relative Wall Thickness 0.3 RV Internal Dim ED PLAX 2.9 cm LVOT Diameter 1.9 cm LA Systolic Diameter LX 4.4 cm 3.0 - 4.0 / 2.7 - 3.8 cm M-MODE Aortic Root Diameter MM 2.4 cm LA Systolic Diameter MM 4.4 cm LA Ao Ratio MM 1.8 AV Cusp Separation MM 1.3 cm DOPPLER AV Peak Velocity 221.0 cm/s AV Peak Gradient 19.5 mmHg AV Mean Gradient 11.0 mmHg AV Velocity Time Integral 53.8 cm LVOT Peak Velocity 134.5 cm/s LVOT Peak Gradient 7.2 mmHg LVOT Velocity Time Integral 36.1 cm LVOT Cardiac Index 4099.0 cm/minm AV Area Cont Eq vti 1.9 cm AV Area Cont Eq pk 1.7 cm MV Area PHT 3.7 cm Mitral E Point Velocity 104.0 cm/s Mitral A Point Velocity 74.0 cm/s Mitral E to A Ratio 1.4 LV E' Lateral Velocity 14.7 cm/s Mitral E to LV E' Lateral Ratio 7.1 LV E' Septal Velocity 8.0 cm/s Mitral E to LV E' Septal Ratio 13.0 TR Peak Velocity 271.0 cm/s TR Peak Gradient 29.4 mmHg Right Atrial Pressure 10.0 mmHg Pulmonary Artery Systolic Pressu 39.4 mmHg Right Ventricular Systolic Press 39.4 mmHg FINDINGS LEFT VENTRICLE The left ventricular systolic function is low normal with an estimated ejection fraction in the rang e of 50- 55%. Wall thickness is measured at the upper limits of normal. Mildly dilated left ventricle. RIGHT VENTRICLE Normal right ventricular size and systolic function. LEFT ATRIUM The left atrial size is mildly dilated. RIGHT ATRIUM The right atrial size is normal. ATRIAL SEPTUM Normal atrial septal thickness without atrial level shunting by limited color doppler interrogation. AORTA The aortic root and proximal ascending aorta are normal in size on limited imaging. MITRAL VALVE Mitral annular calcification is present. Mild mitral valve regurgitation. AORTIC VALVE Aortic valve sclerosis is present. Calcification of the non-coronary cusp. TRICUSPID VALVE Structurally normal tricuspid valve. There is moderate tricuspid regurgitation. The estimated pulmonary arterial pressure is 39.4 mmHg. PULMONARY VALVE Trivial pulmonary valve regurgitation. VESSELS The inferior vena cava is normal in size. PERICARDIUM No pericardial effusion. Geo Catalan MD (Electronically Signed) Final Date:30 October 2017 14:45
--- NOTE | 2017-10-30 15:46 | HHI.DS ---
Discharge Summary Admission Date Oct 28, 2017 at 12:39 Discharge Date: Oct 30, 2017 Admitting Diagnosis Pancytopenia/symptomatic anemia (1) Symptomatic anemia Diagnosis: Principal Plan: 67-year-old female with 3 year history of pancytopenia from Myelodysplastic syndrome. Upon admission hemoglobin was 5.3. Hb 7.1 post transfusion and remaining stable this morning MCV is normal at 84.1 Iron is low at 16. Ferritin is low at 7. TIBC normal at 400. Peripheral smear ordered Folate greater than 20 B12 909 within normal limits No signs of hemolysis Will have patient follow up as an outpatient with Dr. Archibald, hematology/ oncology for her myelodysplastic syndrome ICD Codes: D64.9 - Anemia, unspecified Status: Acute (2) Myelodysplastic syndrome Diagnosis: Principal Plan: CBC on admission revealed WBC count of 2.5, RBC count 2.02 with hemoglobin of 5.3, platelet count 36,000 -Bone marrow biopsy from 09/15/2016 consistent with diagnosis of myelodysplastic syndrome -Neutropenic precautions -Hematology consulted, appreciate recommendations, plan as above ICD Codes: D46.9 - Myelodysplastic syndrome, unspecified (3) Diabetes mellitus Diagnosis: Secondary Plan: Hold at home metformin and glipizide -low dose NovoLog SSI -Hypoglycemia protocol ICD Codes: E11.9 - Type 2 diabetes mellitus without complications Status: Chronic (4) Hypertension Diagnosis: Secondary Plan: Continue home medications -Propranolol 20 mg p.o. q12h, also for esophageal variceal prophylaxis -Lisinopril 2.5 mg p.o. daily ICD Codes: I10 - Essential (primary) hypertension Status: Chronic (5) Hyperlipemia Diagnosis: Secondary Plan: -Continue at home atorvastatin 20 mg p.o. at bedtime ICD Codes: E78.5 - Hyperlipidemia, unspecified Status: Chronic (6) Liver enlargement Diagnosis: Secondary Plan: unsure if she has worsening of her liver or splenic enlargement so will check ultrasound. her spleen was 15 cm at it's longest point on a prior ultrasound. she has had varices in her esophagus that were banded. will see if she has fatty liver vs cirrhosis Liver ultrasound 10/29 read per radiology as small and probably cirrhotic liver. There is associated splenomegaly and small ascites. Main portal vein patent. ICD Codes: R16.0 - Hepatomegaly, not elsewhere classified Status: Chronic (7) Murmur, cardiac Diagnosis: Secondary Plan: per pt she has a chronic murmur but she has not had an evaluation for some time. will check an echocardiogram still pending today 10/30 ICD Codes: R01.1 - Cardiac murmur, unspecified Status: Chronic (8) FEN Diagnosis: Secondary Plan: Fluids: tolerating PO Electrolytes: monitor and replete as needed Nutrition: 1800 ADA DVT Prophylaxis: Early ambulation. Bilateral SCDs. Pharmacologic DVT prophylaxis is contraindicated due to thrombocytopenia GI Prophylaxis: Continue home pantoprazole 40 mg p.o. daily Status: Acute Consultants Hematology/oncology Brief History Ms. Woo is a 67-year-old female with a past medical history of pancytopenia, diabetes mellitus, and hypertension presenting to the ED for fatigue, palpitations, shortness of breath of a few days duration. She was recently seen in the ED in September for anemia (hemoglobin 6.7) and received 2 units of packed red blood cells. She states when she starts feeling tired and getting the shortness of breath she knows that her blood levels have dropped. She was told by her laborer golf course before to go to the ER if this occurs. She states that she was initially diagnosed with pancytopenia 3 years ago in 2014. She moved to [place] in August from [place], [place]. While in [place] she was seeing a laborer golf course and office machine punch operator. She had undergone 3 bone marrow aspirates, the last of which was in 2017. She stated that it was determined that she was having trouble producing blood cells, and myelodysplastic syndrome was suspected. She stated that her laborer golf course would check a CBC and ferritin every 2 weeks. Depending on her blood level she would get a transfusion and/or therapies. She was on Procrit previously. Was initially referred to hematology for low platelets. It was also determined that she had esophageal varices. She is status post banding 6 the last of which was done in 2017. A pill camera study was done which showed bleeding in her small intestines, but when a EGD was subsequently done the source of bleeding was not found. It was determined that this bleeding was probably due to her low platelets. Recently she has had some chills, but no fever. She has felt fatigued with some feelings of weakness. No falls. She is also feeling very cold. No blood in her stools, her stools are usually dark due to iron supplementation. She has not yet established care with a PCP here in town. Her first appointment is on next week. She had her family member bring in old records which are in her room and include the bone marrow biopsies. She is s/p 2 units transfused and feels better today. With the exception of her H/H her CBC has remained stable with platelets in the mid thirties since Apr 2017 and a WBC less than 3 for the same time period. She has had splenomegaly and an enlarged liver and a heart murmur in her past history but feels her abdomen has enlarged recently and she has not had an echocardiogram for some time. CBC/BMP: 10/30/17 0627 10/30/17 0627 Significant Findings Laboratory Tests Test 10/28/17 11:35 10/29/17 05:45 10/30/17 06:27 White Blood Count 2.5 TH/MM3 (4.0-11.0) 2.8 TH/MM3 (4.0-11.0) 3.1 TH/MM3 (4.0-11.0) Red Blood Count 2.02 MIL/MM3 (4.00-5.30) 2.56 MIL/MM3 (4.00-5.30) 2.73 MIL/MM3 (4.00-5.30) Hemoglobin 5.3 GM/DL (11.6-15.3) 7.1 GM/DL (11.6-15.3) 7.4 GM/DL (11.6-15.3) Hematocrit 17.0 % (35.0-46.0) 21.0 % (35.0-46.0) 22.5 % (35.0-46.0) Mean Corpuscular Hemoglobin 26.2 PG (27.0-34.0) Mean Corpuscular Hemoglobin Concent 31.1 % (32.0-36.0) Platelet Count 36 TH/MM3 (150-450) 34 TH/MM3 (150-450) 40 TH/MM3 (150-450) Monocytes (%) (Auto) 8.1 % (0.0-8.0) 9.1 % (0.0-8.0) 8.3 % (0.0-8.0) Eosinophils (%) (Auto) 4.1 % (0.0-4.0) 4.8 % (0.0-4.0) Neutrophils # (Auto) 1.7 TH/MM3 (1.8-7.7) 1.7 TH/MM3 (1.8-7.7) Lymphocytes # (Auto) 0.5 TH/MM3 (1.0-4.8) 0.7 TH/MM3 (1.0-4.8) 0.8 TH/MM3 (1.0-4.8) Platelet Estimate LOW (NORMAL) LOW (NORMAL) Ovalocytes 1+ (NORMAL) 1+ (NORMAL) Reticulocyte Count 5.2 % (0.4-3.0) Activated Partial Thromboplast Time 23.0 SEC (24.3-30.1) Random Glucose 263 MG/DL (74-106) 149 MG/DL (74-106) 126 MG/DL (74-106) Total Protein 6.1 GM/DL (6.4-8.2) 5.9 GM/DL (6.4-8.2) 6.2 GM/DL (6.4-8.2) Albumin 2.9 GM/DL (3.4-5.0) 3.0 GM/DL (3.4-5.0) 3.0 GM/DL (3.4-5.0) Calcium Level 8.0 MG/DL (8.5-10.1) Sodium Level 135 MEQ/L (136-145) Carbon Dioxide Level 19.3 MEQ/L (21.0-32.0) Estimat Glomerular Filtration Rate 68 ML/MIN (>89) 73 ML/MIN (>89) 74 ML/MIN (>89) Iron Level 16 MCG/DL (50-170) Percent Iron Saturation 4.0 % (20-50) Ferritin 7 NG/ML (8-252) Troponin I LESS THAN 0.02 NG/ML Folate GREATER THAN 20.0 NG/ML Blood Urea Nitrogen 20 MG/DL (7-18) Total Bilirubin 1.4 MG/DL (0.2-1.0) Chloride Level 110 MEQ/L (98-107) 109 MEQ/L (98-107) Imaging Last 72 hours Impressions Liver Ultrasound 10/29/17 0000 Signed Impressions: Service Date/Time: Sunday, October 29, 2017 16:22 - CONCLUSION: Small and probably cirrhotic liver. There is associated splenomegaly and small ascites. Main portal vein patent. Edilberto Tavares MD Chest X-Ray 10/28/17 1129 Signed Impressions: Service Date/Time: Saturday, October 28, 2017 11:40 - CONCLUSION: Mild cardiomegaly without evidence of congestive heart failure. No evidence of airspace disease. Libra Keller MD PE at Discharge GENERAL: This is a well-nourished, well-developed female patient lying in bed, in no apparent distress. SKIN: No rashes, ecchymoses or lesions. Cool and dry. Midline scar on chest. HEAD: Atraumatic. Normocephalic. EYES: Extraocular motions intact. No scleral icterus. No injection or drainage. Pale sclera. ENT: MMM. Uvula midline. Airway patent. NECK: Trachea midline. No JVD or lymphadenopathy. Supple, nontender, no meningeal signs. CARDIOVASCULAR: Regular rate and rhythm with a 2/6 holosystolic murmur, no gallops, or rubs. RESPIRATORY: Clear to auscultation. Breath sounds equal bilaterally. No wheezes , rales, or rhonchi. GASTROINTESTINAL: Abdomen soft, non-tender, slightly distended. Enlarged spleen palpable to near umbilicus. No guarding. MUSCULOSKELETAL: Extremities without edema. No joint tenderness, effusion, or edema noted. No calf tenderness. Vertical ridging and slight spooning of nails. NEUROLOGICAL: Awake and alert. Motor and sensory grossly within normal limits. Normal speech. Hospital Course Hemoglobin on admission 5.3. Patient was transfused 2 units of packed red blood cells. Post-transfusion hemoglobin 7.1 and remained stable after at 7.4. Hematology was consulted for recommendations regarding the patient's pancytopenia. Home records were reviewed which showed a bone marrow biopsy from 09/15/2016 showing hypercellular bone marrow with mild disc hematopoiesis, ++ erythroid hypoplasia, mild megakaryocytic hyperplasia; no increase in blasts. The patient had a 2-D echo on 10/30 which showed left ventricular systolic function low/normal, estimated EF 50-55%. Patient will follow-up with hematology as an outpatient. Pt Condition on Discharge: Stable Discharge Disposition: Discharge Home Discharge Instructions DIET: Follow Instructions for: Diabetic Diet Activities you can perform: Weight Bearing as Radha Follow up Referrals: Hematology - 2-3 Days with Catherine Archibald MD PCP Follow-up - 1 Week New Orders: CBC WITH DIFF - 2-3 Days Continued Medications: Ascorbic Acid (Ascorbic Acid) 500 Mg Tab 1000 MG PO DAILY, TAB Atorvastatin (Atorvastatin) 20 Mg Tab 20 MG PO HS for Cholesterol Management, #30 TAB 0 Refills Cholecalciferol (D3 Super Strength) 2,000 Unit Cap 1000 UNITS PO DAILY for Nutritional Supplement, #30 CAP 0 Refills Cyanocobalamin (B-12) 1,000 Mcg Subl 1000 MCG SL DAILY for Nutritional Supplement, TAB.SL 0 Refills Glipizide (Glipizide) 5 Mg Tab 10 MG PO BIDAC for Blood Sugar Management, #60 TAB 0 Refills Take 30 minutes before a meal Iron Combinations (Nufera) 125-1-170 Tab 1 TAB PO DAILY for Nutritional Supplement, TAB 0 Refills Lisinopril (Lisinopril) 2.5 Mg Tab 2.5 MG PO DAILY, #30 TAB 0 Refills Metformin (Metformin) 1,000 Mg Tab 1000 MG PO BIDPC for Blood Sugar Management, #60 TAB 0 Refills Pantoprazole (Pantoprazole) 40 Mg Tab 40 MG PO DAILY for Reflux, #30 TAB 0 Refills Propranolol (Propranolol) 20 Mg Tab 20 MG PO Q12HR, #60 TAB 0 Refills Gordon Felix MD R2 Oct 30, 2017 15:46
== END 2017-10-30 16:11 | disposition home or self-care (01) | DRG 812 ==
LOC: NEPC 11:07 → NEDA 12:39 → N06A 14:49
PROVIDERS: ADMIT Family Medicine; ATTEND Family Medicine
PROC: 30233N1 Transfusion of Nonautologous Red Blood Cells into Peripheral Vein, Percutaneous Approach (ICD-10-PCS; principal; 2017-10-28)
DX: D46.9 Myelodysplastic syndrome, unspecified (principal); D61.818 Other pancytopenia; I85.00 Esophageal varices without bleeding; R16.0 Hepatomegaly, not elsewhere classified; R16.2 Hepatomegaly with splenomegaly, not elsewhere classified; K76.0 Fatty (change of) liver, not elsewhere classified; I10 Essential (primary) hypertension; E11.9 Type 2 diabetes mellitus without complications; Z96.652 Presence of left artificial knee joint; E78.5 Hyperlipidemia, unspecified; R00.2 Palpitations; R01.1 Cardiac murmur, unspecified; Z79.84 Long term (current) use of oral hypoglycemic drugs; Z79.899 Other long term (current) drug therapy
CPT/HCPCS: 36430; 71045; 76705; 80053; 82550; 82607; 82668; 82728; 82746; 82948; 83010; 83540; 83550; 83615; 83735; 84484; 85025; 85044; 85610; 85730; 86850; 86900; 86901; 86920; 93005; 93306; J1815; J1940; J7050; P9016

== ENCOUNTER 2018-01-30 20:02 | Inpatient (IN) ==
[2018-01-30] MEDS ORDERED: Sod Chloride 0.9% Inj 1,000 ML IV.CONT SCH (23:15)
[2018-01-30] MEDS ORDERED: Pantoprazole Inj 80 MG in Sodium Chlor 0.9% Inj 35 ML IV.SIG ONE (23:17)
[2018-01-30 23:41] LABS: Baso # (Auto) 0.1 th/mm3 (0.0-0.2); Baso % (Auto) 1.1 % (0.0-2.0); Eos % (Auto) 0.2 % (0.0-4.0); Hematocrit 21.1 % (35.0-46.0); Lymph # (Auto) 1.1 th/mm3 (1.0-4.8); Lymph % (Auto) 14.2 % (9.0-44.0); Mean Corpuscular HGB Conc 31.7 % (32.0-36.0); Mean Corpuscular Hemoglobin 27.3 pg (27.0-34.0); Mean Corpuscular Volume 86.1 fL (80.0-100.0); Mean Platelet Volume 10.4 fL (7.0-11.0); Mono # (Auto) 0.7 th/mm3 (0.0-0.9); Mono % (Auto) 9.3 % (0.0-8.0); Neut # (Auto) 5.6 th/mm3 (1.8-7.7); Neut % (Auto) 75.2 % (16.0-70.0); Platelet Count 115 th/mm3 (150-450); Red Blood Count 2.45 mil/mm3 (4.00-5.30); Red Cell Distribution Width 16.3 % (11.6-17.2); White Blood Count 7.5 th/mm3 (4.0-11.0)
[2018-01-30 23:47] LABS: Hemoglobin 6.7 gm/dL (11.6-15.3)
[2018-01-31 00:02] LABS: Alanine Aminotransferase 26 U/L (10-53); Albumin 3.1 g/dL (3.4-5.0); Alkaline Phosphatase 84 U/L (45-117); Anion Gap 14 meq/L (5-15); Aspartate Aminotransferase 30 U/L (15-37); Blood Urea Nitrogen 29 mg/dL (7-18); Calcium 8.8 mg/dL (8.5-10.1); Carbon Dioxide 20.2 meq/L (21.0-32.0); Chloride 104 meq/L (98-107); Glomerular Filtration Rate 52 mL/min (>89); Glucose,Random 69 mg/dL (74-106); Lipase 213 U/L (73-393); Magnesium 1.9 mg/dL (1.5-2.5); Potassium 4.5 meq/L (3.5-5.1); Sodium 138 meq/L (136-145); Total Protein 6.2 g/dL (6.4-8.2)
[2018-01-31 00:04] LABS: Activated Partial Thrombo Time 23.1 sec (24.3-30.1); Prothrombin Time 10.4 sec (9.8-11.6)
--- NOTE | 2018-01-31 00:18 | ED ---
HPI General Chief complaint: GI Bleed Stated complaint: bloody stool Time Seen by Provider: 01/30/18 23:13 Source: patient Limitations: no limitations History of Present Illness HPI narrative: The patient is a 67 year old female who presents to the [facility] emergency department with a history of bright red blood in her stool that first began this morning. She denies ever having a GI bleed that she was aware of previously. She does however report having myelodysplastic disorder requiring blood transfusions or iron infusions on a weekly basis under the care of Dr. Archibald. The patient reports that she received an iron infusion on Monday of this week without a blood transfusion as her hemoglobin was noted to be 7.6 in the office. She reports that normally after receiving an iron infusion or blood transfusion, the next day she has nausea, generalized body aches, and sometimes some diarrhea. The patient reports that today she has had 4-5 episodes of bloody loose stools that are maroon colored. She reports having nausea without vomiting. She reports having a central abdominal pain, however she reports that this is chronic and thought to be related to ascites and cirrhosis of her liver that is idiopathic in origin. She denies having any new or worsening abdominal pain. She reports that it is more of a discomfort. She denies having any chest pain or chest pressure. She does report having some chronic dyspnea with exertion. She denies having any new cough or congestion. On review of systems otherwise, she denies having any fevers, neck pain, urinary symptoms, or neurologic symptoms. Related Data Home Medications Medication Instructions Recorded Confirmed atorvastatin 20 mg PO DAILY 01/31/18 01/31/18 furosemide 20 mg PO BID 01/31/18 01/31/18 glipizide 10 mg PO BID 01/31/18 01/31/18 metformin 1,000 mg PO BID 01/31/18 01/31/18 pantoprazole 40 mg PO BID 01/31/18 01/31/18 propranolol 40 mg PO BID 01/31/18 01/31/18 spironolactone 12.5 mg PO BID 01/31/18 01/31/18 vitamin E 400 unit PO DAILY 01/31/18 01/31/18 Allergies Allergy/AdvReac Type Severity Reaction Status Date / Time No Known Allergies Allergy Unverified 01/30/18 20:57 Review of Systems ROS Unobtainable All other systems reviewed negative except as stated in HPI [facility] Medical History Medical History Blood disorder (Acute) Cirrhosis (Acute) Diabetes (Acute) High cholesterol (Acute) Hypertension (Acute) Myelodysplastic syndrome (Acute) Surgical History Surgical History History of open heart surgery (Acute) Total knee replacement status (Acute) Social History Social History Second Hand Smoke Exposure: No Smoking Status: Never smoker How Often Do You Have a Drink Containing Alcohol: Never Recent Travel in [facility] within the Last 8 Weeks: No Recent Out of Country Travel within the Last 8 Weeks: No Immunization History Tetanus Immunization: >5 Years Hx Influenza Vaccine This Season: No Exam Const General: cooperative and well developed Nutritional Appearance: well nourished Orientation: alert, awake and oriented x3 HENMT Head: normocephalic and atraumatic Nose: no nasal discharge and no epistaxis Mouth: moist mucous membranes Eyes Sclera: normal sclerae Pupils: PERRL Neck Neck: trachea midline and no JVD Resp Effort & Inspection: no use of accessory muscles Auscultation: clear to auscultation bilaterally Cardio Rate: regular rate Rhythm: regular rhythm Heart Sounds: murmur (1/6 systolic murmur, no gallops or rubs.) GI Inspection: distended (Distended, soft to palpation, positive fluid wave noted. She denies any prior history of paracentesis) Palpation: soft and nontender Auscultation: normal bowel sounds Rectal Exam: other (Maroon colored stool, Hemoccult positive.) Skin General: dry skin (warm) Neuro General: alert, awake and oriented x3 Cranial Nerves: CN's II-XI intact bilaterally Speech: speech normal Motor: no movement abnormalities noted Sensory Exam: no sensory deficits noted Extrem General: normal to inspection, no clubbing, no cyanosis and edema (1+ pedal edema bilaterally. No calf tenderness on palpation. The patient reports that her edema is at baseline) Psych Mood: congruent mood Affect: normal affect Judgment: judgment good Course Hospital Course: The patient had IV access obtained. The patient was initially started on Protonix 80 mg IV followed by a Protonix drip. The patient was typed and screened for blood. Rectal examination was done that showed maroon positive. Consultations Consultation #1: The patient's case including history, pertinent physical examination findings, and laboratory studies were discussed with Dr. Samson. It was agreed that the patient would be admitted to the hospitalist service. Initial Documented Vital Signs Temperature 99.2 F 01/30/18 20:57 Pulse Rate 93 H 01/30/18 20:57 Respiratory Rate 14 01/30/18 20:57 Blood Pressure 109/54 L 01/30/18 20:57 Pulse Oximetry 100 01/30/18 20:57 Last Documented Vital Signs Temperature 98.1 F 01/31/18 05:00 Pulse Rate 80 01/31/18 05:00 Respiratory Rate 15 01/31/18 05:00 Blood Pressure 110/59 L 01/31/18 05:00 Pulse Oximetry 100 01/31/18 05:00 Critical Care Time Critical Care Time: Yes Total Critical Care Time: 33 Attestation: Aggregate critical care time was 33 minutes. Time to perform other separately billable procedures was not included in the critical care time. My time did not include minutes spent treating any other patients simultaneously or on activities that did not directly contribute to the patient's treatment. The services I provided to this patient were to treat and/or prevent clinically significant deterioration that could result in: Hemorrhagic shock, versus fluid overload from fluid resuscitation, versus respiratory failure I provided critical care services requiring my management, as noted below: Chart data review, documentation time, medication orders and management, vital sign assessments/reviewing monitor data, ordering and reviewing lab tests, ordering and interpreting/reviewing x-rays and diagnostic studies, care of the patient and discussion of the patient with the admitting physicians. Medical Decision Making MDM Narrative Medical decision making narrative: A workup ensued to help determine the cause and severity of the patient's GI bleeding. Diagnostic evaluation is remarkable for a white count of 7.5, platelets are 115 , neutrophil percent is 75.2, hemoglobin initially 6.7, PT 10.4, PTT 23.1, chemistries remarkable for an ammonia level of 84, troponin less than 0.02, total protein 6.2, GFR 52, creatinine 1.05, CO2 20.2, BUN 29, albumin 3.1, Accu- Chek was repeated after chemistry showed a glucose of 69 and was noted to be 117. Urinalysis shows few mucus otherwise unremarkable. CT scan of the abdomen and pelvis shows a cirrhotic liver with evidence for portal hypertension and gastroesophageal varices, small to moderate amount of ascites, sigmoid diverticulosis without definite evidence of diverticulitis. Given the finding of varices and a GI bleed, the patient was started on octreotide as a bolus and a drip. Given the patient's symptomatic anemia, the patient was typed and crossmatched for 4 units of packed red blood cells with 2 units to be placed on hold and 2 units to be administered. The patient's results were discussed with the patient, including the plan of care. I explained that further testing and/ or monitoring is indicated based on the patient's history, examination, and/ or laboratory findings. Therefore, I recommended admission for additional evaluation. The patient expressed understanding and was agreeable with this plan. The patient was admitted to the hospital in guarded condition and sent to a bed under the care of the [facility] service. Differential Diagnosis Differential Diagnosis: Diverticulosis, versus hemorrhoids, versus peptic ulcer bleeding, versus AVM, versus varices Medical Records Medical records reviewed: Yes I reviewed the patient's medical records. Lab Data Lab results reviewed: Yes I reviewed the patient's lab results. Result diagrams: 01/30/18 23:22 01/30/18 23:22 Lab Results 01/30/18 01/30/18 01/30/18 Range/Units 23:22 23:22 23:22 WBC 7.5 (4.0-11.0) th/mm3 RBC 2.45 L (4.00-5.30) mil/mm3 Hgb 6.7 L* (11.6-15.3) gm/dL Hct 21.1 L (35.0-46.0) % MCV 86.1 (80.0-100.0) fL MCH 27.3 (27.0-34.0) pg MCHC 31.7 L (32.0-36.0) % RDW 16.3 (11.6-17.2) % Plt Count 115 L D (150-450) th/mm3 MPV 10.4 (7.0-11.0) fL Prelim Diff (Auto) Slide review pending Neut % (Auto) 75.2 H (16.0-70.0) % Lymph % (Auto) 14.2 (9.0-44.0) % [place] % (Auto) 9.3 H (0.0-8.0) % Eos % (Auto) 0.2 (0.0-4.0) % Baso % (Auto) 1.1 (0.0-2.0) % Neut # (Auto) 5.6 (1.8-7.7) th/mm3 Lymph # (Auto) 1.1 (1.0-4.8) th/mm3 [place] # (Auto) 0.7 (0.0-0.9) th/mm3 Eos # (Auto) 0.0 (0.0-0.4) th/mm3 Baso # (Auto) 0.1 (0.0-0.2) th/mm3 WBC Differential . Diff Scan Auto diff confirmed Differential Comment . Platelet Estimate Low L (Normal) Platelet Morphology Normal (Normal) Polychromasia 3.0 H (0.0-1.9) % PT 10.4 (9.8-11.6) sec INR 1.0 Ratio APTT 23.1 L (24.3-30.1) sec Sodium 138 (136-145) meq/L Potassium 4.5 (3.5-5.1) meq/L Chloride 104 (98-107) meq/L Carbon Dioxide 20.2 L (21.0-32.0) meq/L Anion Gap 14 (5-15) meq/L BUN 29 H (7-18) mg/dL Creatinine 1.05 H (0.50-1.00) mg/dL Estimated GFR 52 L (>89) mL/min POC Glucose (68-110) mg/dl Random Glucose 69 L D (74-106) mg/dL Calcium 8.8 (8.5-10.1) mg/dL Magnesium 1.9 (1.5-2.5) mg/dL Total Bilirubin 0.6 (0.2-1.0) mg/dL AST 30 (15-37) U/L ALT 26 (10-53) U/L Alkaline Phosphatase 84 (45-117) U/L Ammonia (11-32) mcmol/L Troponin I Less than 0.02 L (0.02-0.05) ng/mL Total Protein 6.2 L (6.4-8.2) g/dL Albumin 3.1 L (3.4-5.0) g/dL Lipase 213 (73-393) U/L Urine Color (Yellw/Straw) Urine Clarity (Clear) Urine pH (5.0-8.5) Ur Specific [place] (1.002-1.035) Urine Protein (Neg-Trace) mg/dL Urine Glucose (UA) (Negative) mg/dL Urine Ketones (Negative) mg/dL Urine Occult Blood (Negative) Urine Nitrate (Negative) Urine Bilirubin (Negative) Urine Urobilinogen (Less than 2) mg/dL Ur Leukocyte Esterase (Negative) Urine WBC (0-5) /hpf Ur Squamous Epith Cells (0-5) /hpf Hyaline Casts (0-3) /lpf Urine Mucus (Occasional) /lpf Micro UA Comment Urine Culture Comments Blood Type Blood Type Recheck Antibody Screen MTS Gel Crossmatch 01/30/18 01/30/18 01/30/18 Range/Units 23:22 23:50 23:50 WBC (4.0-11.0) th/mm3 RBC (4.00-5.30) mil/mm3 Hgb (11.6-15.3) gm/dL Hct (35.0-46.0) % MCV (80.0-100.0) fL MCH (27.0-34.0) pg MCHC (32.0-36.0) % RDW (11.6-17.2) % Plt Count (150-450) th/mm3 MPV (7.0-11.0) fL Prelim Diff (Auto) Neut % (Auto) (16.0-70.0) % Lymph % (Auto) (9.0-44.0) % [place] % (Auto) (0.0-8.0) % Eos % (Auto) (0.0-4.0) % Baso % (Auto) (0.0-2.0) % Neut # (Auto) (1.8-7.7) th/mm3 Lymph # (Auto) (1.0-4.8) th/mm3 [place] # (Auto) (0.0-0.9) th/mm3 Eos # (Auto) (0.0-0.4) th/mm3 Baso # (Auto) (0.0-0.2) th/mm3 WBC Differential Diff Scan Differential Comment Platelet Estimate (Normal) Platelet Morphology (Normal) Polychromasia (0.0-1.9) % PT (9.8-11.6) sec INR Ratio APTT (24.3-30.1) sec Sodium (136-145) meq/L Potassium (3.5-5.1) meq/L Chloride (98-107) meq/L Carbon Dioxide (21.0-32.0) meq/L Anion Gap (5-15) meq/L BUN (7-18) mg/dL Creatinine (0.50-1.00) mg/dL Estimated GFR (>89) mL/min POC Glucose (68-110) mg/dl Random Glucose (74-106) mg/dL Calcium (8.5-10.1) mg/dL Magnesium (1.5-2.5) mg/dL Total Bilirubin (0.2-1.0) mg/dL AST (15-37) U/L ALT (10-53) U/L Alkaline Phosphatase (45-117) U/L Ammonia 84 H (11-32) mcmol/L Troponin I (0.02-0.05) ng/mL Total Protein (6.4-8.2) g/dL Albumin (3.4-5.0) g/dL Lipase (73-393) U/L Urine Color Straw (Yellw/Straw) Urine Clarity Clear (Clear) Urine pH 6.0 (5.0-8.5) Ur Specific [place] 1.004 (1.002-1.035) Urine Protein Negative (Neg-Trace) mg/dL Urine Glucose (UA) Negative (Negative) mg/dL Urine Ketones Negative (Negative) mg/dL Urine Occult Blood Negative (Negative) Urine Nitrate Negative (Negative) Urine Bilirubin Negative (Negative) Urine Urobilinogen Less than 2 (Less than 2) mg/dL Ur Leukocyte Esterase Negative (Negative) Urine WBC 1 (0-5) /hpf Ur Squamous Epith Cells 1 (0-5) /hpf Hyaline Casts 1 (0-3) /lpf Urine Mucus Few H (Occasional) /lpf Micro UA Comment Culture not ind Urine Culture Comments Culture not ind Blood Type O Positive Blood Type Recheck Not needed Antibody Screen Negative MTS Gel Crossmatch 01/31/18 01/31/18 01/31/18 Range/Units 00:14 03:53 05:09 WBC (4.0-11.0) th/mm3 RBC (4.00-5.30) mil/mm3 Hgb (11.6-15.3) gm/dL Hct (35.0-46.0) % MCV (80.0-100.0) fL MCH (27.0-34.0) pg MCHC (32.0-36.0) % RDW (11.6-17.2) % Plt Count (150-450) th/mm3 MPV (7.0-11.0) fL Prelim Diff (Auto) Neut % (Auto) (16.0-70.0) % Lymph % (Auto) (9.0-44.0) % [place] % (Auto) (0.0-8.0) % Eos % (Auto) (0.0-4.0) % Baso % (Auto) (0.0-2.0) % Neut # (Auto) (1.8-7.7) th/mm3 Lymph # (Auto) (1.0-4.8) th/mm3 [place] # (Auto) (0.0-0.9) th/mm3 Eos # (Auto) (0.0-0.4) th/mm3 Baso # (Auto) (0.0-0.2) th/mm3 WBC Differential Diff Scan Differential Comment Platelet Estimate (Normal) Platelet Morphology (Normal) Polychromasia (0.0-1.9) % PT (9.8-11.6) sec INR Ratio APTT (24.3-30.1) sec Sodium (136-145) meq/L Potassium (3.5-5.1) meq/L Chloride (98-107) meq/L Carbon Dioxide (21.0-32.0) meq/L Anion Gap (5-15) meq/L BUN (7-18) mg/dL Creatinine (0.50-1.00) mg/dL Estimated GFR (>89) mL/min POC Glucose 69 117 H (68-110) mg/dl Random Glucose (74-106) mg/dL Calcium (8.5-10.1) mg/dL Magnesium (1.5-2.5) mg/dL Total Bilirubin (0.2-1.0) mg/dL AST (15-37) U/L ALT (10-53) U/L Alkaline Phosphatase (45-117) U/L Ammonia (11-32) mcmol/L Troponin I (0.02-0.05) ng/mL Total Protein (6.4-8.2) g/dL Albumin (3.4-5.0) g/dL Lipase (73-393) U/L Urine Color (Yellw/Straw) Urine Clarity (Clear) Urine pH (5.0-8.5) Ur Specific [place] (1.002-1.035) Urine Protein (Neg-Trace) mg/dL Urine Glucose (UA) (Negative) mg/dL Urine Ketones (Negative) mg/dL Urine Occult Blood (Negative) Urine Nitrate (Negative) Urine Bilirubin (Negative) Urine Urobilinogen (Less than 2) mg/dL Ur Leukocyte Esterase (Negative) Urine WBC (0-5) /hpf Ur Squamous Epith Cells (0-5) /hpf Hyaline Casts (0-3) /lpf Urine Mucus (Occasional) /lpf Micro UA Comment Urine Culture Comments Blood Type Blood Type Recheck Antibody Screen MTS Gel Crossmatch See Detail Imaging Data Radiologist's impression: ITS Impressions Abdomen/Pelvis CT 01/31/18 02:17 CONCLUSION: 1. Cirrhotic liver with evidence for portal hypertension and gastroesophageal varices. 2. Small to moderate amount of ascites. 3. Sigmoid diverticulosis without definitive evidence for diverticulitis. Discharge Plan Discharge Disposition Patient Disposition: 30 Still Patient Discharge Details Diagnosis: Acute GI bleeding, Symptomatic anemia Physicians Team ED Provider: Micaela Catalan Attending Provider: Fan Mccarty Other Providers: Concepcion Javed Discharge Interventions Interventions: Vital Signs Last Done: 01/31/18 02:26 Status ED Status: Admitted Patient
[2018-01-31 00:32] LABS: Platelet Morphology Normal (Normal)
[2018-01-31 00:48] LABS: Bilirubin,Urine Negative (Negative); Clarity,Urine Clear (Clear); Color,Urine Straw (Yellw/Straw); Glucose,Urine (UA) Negative (Negative); Hyaline Casts,Urine 1 /lpf (0-3); Leukocyte Esterase,Urine Negative (Negative); Mucus,Urine Few /lpf (Occasional); Nitrite,Urine Negative (Negative); Specific Gravity,Urine 1.004 (1.002-1.035); Squamous Epithelial Cell,Urine 1 /hpf (0-5)
[2018-01-31] MEDS ORDERED: Sodium Chlor 0.9% Inj 250 ML IV.SIG SCH (01:00)
[2018-01-31] MEDS ORDERED: Dextrose 50% in Water 50 ML Vial IV.PUSH PRN ×2 (03:05→14:26)
--- NOTE | 2018-01-31 04:22 | CT ---
EXAM DATE: 01/31/2018 4:09 AM EDT AGE/SEX: 67 years / Female INDICATIONS: Abdomen pain, distention, blood in stool. CLINICAL DATA: This is the patient's initial encounter. Patient reports that signs and symptoms have been present for 1 day and indicates a pain score of 6/10. MEDICAL/SURGICAL HISTORY: Cirrhosis. Hypertension. Diabetes. CABG. ORAL CONTRAST: No oral contrast ingested. RADIATION DOSE: 6.64 CTDI (mGy) [place] [facility] [place]29/[place]. . TECHNIQUE: Multiple contiguous axial images were obtained through the abdomen and pelvis following b olus infusion of 70 ml Omnipaque 350 (iohexol) nonionic water-soluble contrast as a single exam dos e. No oral contrast ingested. Using automated exposure control and adjustment of the mA and/or kV ac cording to patient size, radiation dose was kept as low as reasonably achievable to obtain optimal di agnostic quality images. DICOM format image data is available electronically for review and comparis on. FINDINGS: LOWER LUNGS: The visualized lower lungs are clear. LIVER: Cirrhotic appearing liver without focal mass. Portal vein is patent. Gallbladder is surgicall y absent. SPLEEN: Spleen is enlarged. Multiple gastric and distal esophageal varices. PANCREAS: Unremarkable without mass or calcification. KIDNEYS: Kidneys demonstrate symmetrical enhancement and are symmetrical in size without evidence fo r radiopaque renal calculi or hydronephrosis. ADRENAL GLANDS: Unremarkable. AORTA: Loree-aneurysmal. BOWEL/MESENTERY: Sigmoid diverticulosis. Bowel appears grossly unremarkable without evidence for obs truction. Small to moderate amount of ascites. ABDOMINAL WALL: Intact. RETROPERITONEUM: No evidence of adenopathy in the retrocrural, para-aortic, or deep pelvic regions. BLADDER: Contours are smooth. REPRODUCTIVE: Uterus is not visualized and may be surgically absent. BONY STRUCTURES: Degenerative spondylosis of the lower lumbar spine. CONCLUSION: 1. Cirrhotic liver with evidence for portal hypertension and gastroesophageal varices. 2. Small to moderate amount of ascites. 3. Sigmoid diverticulosis without definitive evidence for diverticulitis. Electronically signed by: Denis Mckeon MD 01/31/2018 4:21 AM EDT
[2018-01-31] MEDS: Dextrose 5%/NaCl 0.9% Inj 1,000 ML IV.CONT SCH ×3 (04:36→22:22)
[2018-01-31] MEDS ORDERED: Octreotide Inj 50 MCG/ML Vial IV.PUSH ONE (05:47)
--- NOTE | 2018-01-31 11:14 | P.CONGI ---
History of Present Illness Consult date: 01/31/18 Consult reason: Bright red and maroon-colored rectal bleeding ,symptomatic anemia Chief complaint: GI Bleed History of Present Illness: This is an obese female who came to the hospital for evaluation and admission on 01/30/2018 late evening due to some bright red blood which she notes as a reddish pink tinge with her bowel movement this morning she also states that 2 days ago she had for 5 episodes of loose bloody stools that were maroon colored. Current hemoglobin is 7.6, platelet count 115, INR 1. , LFTs normal and patient is receiving 2 units packed RBCs at this time.. Patient recently moved here about 6 months ago from [place] with a known diagnosis of idiopathic cirrhosis with portal hypertension and esophageal gastric varices. Patient notes last banding of her varices was in [address] of abdomen did show some diverticulosis and the gastroesophageal varices varices and small to moderate amount of ascites. No gallbladder seen. Patient does see Dr. Archibald regularly for iron infusions and transfuses in which she states she has several weeks of loose stools after the infusions. She notes her bowel movements do start to form after that 2-week. Patient denies any previous paracentesis and states her last liver scan was in September and she thinks one is due in April 2018. She did see Dr. Goel in the office and had another appointment this coming Monday. Home medications did include pantoprazole 40 mg twice daily propanolol 40 mg twice daily, spironolactone 12.5 mg twice daily vitamin E 400 units p.o. daily and Lasix 20 mg twice daily. Patient also notes in the past she has had a PillCam done out in [place] which did show some mild bleeding in the small bowel. Patient does note some nausea but no vomiting which is sometimes a chronic thing after her iron infusions she denies any abdominal pain to light palpation but she is moderately distended with active bowel sounds <Letha Abreu - Last Filed: 01/31/18 14:09> Review of Systems All other systems reviewed negative except as stated in HPI <Letha Abreu - Last Filed: 01/31/18 14:09> PMFSH - History History Provided By: Patient - Medical History Medical History: Medical History (Last Updated 01/31/18 @ 00:51 by Micaela Catalan MD) Blood disorder Cirrhosis Diabetes High cholesterol Hypertension Myelodysplastic syndrome - Surgical History Surgical History: Surgical History (Last Reviewed 01/31/18 @ 00:51 by Micaela Catalan MD) History of open heart surgery Total knee replacement status - Tobacco History Second Hand Smoke Exposure: Yes Tobacco Use In Past 30 Days: No Smoking Status: Never smoker - Alcohol History How Often Do You Have a Drink Containing Alcohol: Never - Substance Use History Substance History: No History of Abuse - Travel History Recent Travel in the [place] Within the Last 8 Weeks: No Recent Travel Out of the Country Within the Last 8 Weeks: No - Immunization History Tetanus Immunization: <5 Years Hx Influenza Vaccine This Season: Yes <Letha Abreu - Last Filed: 01/31/18 14:09> - Medical History Medical History: Medical History (Last Updated 01/31/18 @ 00:51 by Micaela Catalan MD) Blood disorder Cirrhosis Diabetes High cholesterol Hypertension Myelodysplastic syndrome - Surgical History Surgical History: Surgical History (Last Reviewed 01/31/18 @ 00:51 by Micaela Catalan MD) History of open heart surgery Total knee replacement status <Concepcion Javed - Last Filed: 01/31/18 14:38> Medications and Allergies Active Medications: Active Medications Atorvastatin Calcium (Lipitor) 20 mg PO DAILY JUAN Dextrose (D50w Vial) 50 ml IV.PUSH UNSCH PRN PRN Reason: PER HYPOGLYCEMIA PROTOCOL Last Admin: 01/31/18 04:36 Dose: 50 ml Glucagon (Glucagon Inj) 1 mg OTHER PRN PRN PRN Reason: for Hypoglycemia Protocol Pantoprazole Sodium 80 mg/ (Sodium Chloride) 100 mls @ 10 mls/hr IV.CONT CONT JUAN Sodium Chloride (Ns Inj) 250 mls @ 15 mls/hr IV.SIG ONCE JUAN Stop: 01/31/18 17:39 Last Admin: 01/31/18 02:05 Dose: 15 mls/hr Dextrose/Sodium Chloride (D5w/Normal Saline Inj) 1,000 mls @ 125 mls/hr IV.CONT .Q8H JUAN Last Admin: 01/31/18 04:36 Dose: 125 mls/hr Octreotide Acetate 500 mcg/ (Sodium Chloride) 500.5 mls @ 50.05 mls/hr IV.CONT .Q10H JUAN Sodium Chloride (Ns Flush) 2 ml IV.FLUSH PRN PRN PRN Reason: FLUSH AFTER USING IV ACCESS Sodium Chloride (Ns Flush) 2 ml IV.FLUSH BID [facility] Last Admin: 01/31/18 08:55 Dose: Not Given Sodium Chloride (Ns Flush) 2 ml IV.FLUSH PRN PRN PRN Reason: FLUSH AFTER USING IV ACCESS <Letha Abreu - Last Filed: 01/31/18 14:09> Active Medications: Active Medications Atorvastatin Calcium (Lipitor) 20 mg PO DAILY JUAN Dextrose (D50w Vial) 50 ml IV.PUSH UNSCH PRN PRN Reason: PER HYPOGLYCEMIA PROTOCOL Last Admin: 01/31/18 04:36 Dose: 50 ml Dextrose (D50w Vial) 50 ml IV.PUSH UNSCH PRN PRN Reason: PER HYPOGLYCEMIA PROTOCOL Furosemide (Lasix) 20 mg PO BID@0900,1800 JUAN Glucagon (Glucagon Inj) 1 mg OTHER PRN PRN PRN Reason: for Hypoglycemia Protocol Glucagon (Glucagon Inj) 1 mg OTHER PRN PRN PRN Reason: for Hypoglycemia Protocol Pantoprazole Sodium 80 mg/ (Sodium Chloride) 100 mls @ 10 mls/hr IV.CONT CONT JUAN Sodium Chloride (Ns Inj) 250 mls @ 15 mls/hr IV.SIG ONCE JUAN Stop: 01/31/18 17:39 Last Admin: 01/31/18 02:05 Dose: 15 mls/hr Dextrose/Sodium Chloride (D5w/Normal Saline Inj) 1,000 mls @ 125 mls/hr IV.CONT .Q8H JUAN Last Admin: 01/31/18 04:36 Dose: 125 mls/hr Octreotide Acetate 500 mcg/ (Sodium Chloride) 500.5 mls @ 50.05 mls/hr IV.CONT .Q10H JUAN Insulin Human Regular (Novolin R Supplemental Scale) 2 units SQ ACHS JUAN; Protocol Polyethylene Glycol/Electrolytes (Colyte Liq) 0 ml PO ONCE ONE Stop: 02/01/18 19:01 Propranolol HCl (Inderal) 40 mg PO BID JUAN Sodium Chloride (Ns Flush) 2 ml IV.FLUSH PRN PRN PRN Reason: FLUSH AFTER USING IV ACCESS Sodium Chloride (Ns Flush) 2 ml IV.FLUSH BID [facility] Last Admin: 01/31/18 08:55 Dose: Not Given Sodium Chloride (Ns Flush) 2 ml IV.FLUSH PRN PRN PRN Reason: FLUSH AFTER USING IV ACCESS Spironolactone (Aldactone) 25 mg PO DAILY JUAN <Concepcion Javed A - Last Filed: 01/31/18 14:38> Allergies Allergy/AdvReac Type Severity Reaction Status Date / Time No Known Allergies Allergy Unverified 01/30/18 20:57 Home Medications Medication Instructions Recorded Confirmed Type atorvastatin 20 mg PO DAILY 01/31/18 01/31/18 History furosemide 20 mg PO BID 01/31/18 01/31/18 History glipizide 10 mg PO BID 01/31/18 01/31/18 History metformin 1,000 mg PO BID 01/31/18 01/31/18 History pantoprazole 40 mg PO BID 01/31/18 01/31/18 History propranolol 40 mg PO BID 01/31/18 01/31/18 History spironolactone 12.5 mg PO BID 01/31/18 01/31/18 History vitamin E 400 unit PO DAILY 01/31/18 01/31/18 History Exam Vital signs: Vital Signs 01/30/18 20:57 01/30/18 23:14 01/30/18 23:30 Temperature 99.2 F Pulse Rate 93 H 80 Respiratory Rate 14 14 Blood Pressure 109/54 L 122/58 L Pulse Oximetry 100 99 100 01/31/18 00:00 01/31/18 02:06 01/31/18 02:23 Temperature 97.7 F 97.9 F Pulse Rate 84 80 78 Respiratory Rate 15 15 14 Blood Pressure 99/53 L 99/54 L 100/56 L Pulse Oximetry 100 100 100 01/31/18 02:26 01/31/18 03:30 01/31/18 05:00 Temperature 97.9 F 98.1 F Pulse Rate 79 80 80 Respiratory Rate 14 13 15 Blood Pressure 100/56 L 103/70 110/59 L Pulse Oximetry 99 99 100 01/31/18 05:25 01/31/18 06:38 01/31/18 06:55 Temperature 97.7 F 97.7 F Pulse Rate 81 84 84 Respiratory Rate 18 20 20 Blood Pressure 109/56 L 100/55 L 101/55 L Pulse Oximetry 100 100 100 01/31/18 08:00 Temperature 98.1 F Pulse Rate 84 Respiratory Rate 20 Blood Pressure 107/57 L Pulse Oximetry 100 Intake & Output 01/30/18 01/31/18 01/31/18 18:59 06:59 18:59 Intake Total 415 / 415 Balance 415 / 415 Weight 61.9 kg Intake: Other Rbc As-3 Leukoreduced Unit [id number] Intake (Blood Product) Amt 400 / 400 Rbc As-3 Leukoreduced Unit 400 / 400 [id number] Rbc As-3 Leukoreduced Unit 0 / 0 [id number] Other: Date of Last Bowel Movement 01/30/18 Weight On Admission 61.9 kg - Constitutional morbidly obese, chronically ill appearing - Routine HEENT Exam Head: Present: normocephalic, atraumatic Eye: Present: EOMI ENT: Present: mucous membranes moist - Routine Neck Exam Present: supple - Routine Cardiovascular Exam Present: RRR - Routine Abdominal Exam Present: soft, normoactive bowel sounds, distended (Soft bowel sounds moderate) , guarding (None) - Routine Skin Exam Present: intact, pallor, warm - Routine Neurological Exam Present: alert, oriented X3 <Letha Abreu M - Last Filed: 01/31/18 14:09> Vital signs: Vital Signs 01/30/18 20:57 01/30/18 23:14 01/30/18 23:30 Temperature 99.2 F Pulse Rate 93 H 80 Respiratory Rate 14 14 Blood Pressure 109/54 L 122/58 L Pulse Oximetry 100 99 100 01/31/18 00:00 01/31/18 02:06 01/31/18 02:23 Temperature 97.7 F 97.9 F Pulse Rate 84 80 78 Respiratory Rate 15 15 14 Blood Pressure 99/53 L 99/54 L 100/56 L Pulse Oximetry 100 100 100 01/31/18 02:26 01/31/18 03:30 01/31/18 05:00 Temperature 97.9 F 98.1 F Pulse Rate 79 80 80 Respiratory Rate 14 13 15 Blood Pressure 100/56 L 103/70 110/59 L Pulse Oximetry 99 99 100 01/31/18 05:25 01/31/18 06:38 01/31/18 06:55 Temperature 97.7 F 97.7 F Pulse Rate 81 84 84 Respiratory Rate 18 20 20 Blood Pressure 109/56 L 100/55 L 101/55 L Pulse Oximetry 100 100 100 01/31/18 08:00 01/31/18 08:05 01/31/18 12:00 Temperature 98.1 F 98.0 F Pulse Rate 84 77 82 Respiratory Rate 20 20 Blood Pressure 107/57 L 108/56 L Pulse Oximetry 100 100 Intake & Output 01/30/18 01/31/18 01/31/18 18:59 06:59 18:59 Intake Total 415 / 415 Balance 415 / 415 Weight 61.9 kg Intake: Other Rbc As-3 Leukoreduced Unit [id number] Intake (Blood Product) Amt 400 / 400 Rbc As-3 Leukoreduced Unit 400 / 400 [id number] Rbc As-3 Leukoreduced Unit 0 / 0 [id number] Other: Date of Last Bowel Movement 01/30/18 Weight On Admission 61.9 kg <Concepcion Javed - Last Filed: 01/31/18 14:38> Results - Labs CBC & Chem 7: 01/30/18 23:22 01/30/18 23:22 Labs: Laboratory Results - last 24 hr 01/30/18 01/30/18 01/30/18 23:22 23:22 23:22 WBC 7.5 RBC 2.45 L Hgb 6.7 L* Hct 21.1 L MCV 86.1 MCH 27.3 MCHC 31.7 L RDW 16.3 Plt Count 115 L D MPV 10.4 Prelim Diff (Auto) Slide review pending Neut % (Auto) 75.2 H Lymph % (Auto) 14.2 Mitchell % (Auto) 9.3 H Eos % (Auto) 0.2 Baso % (Auto) 1.1 Neut # (Auto) 5.6 Lymph # (Auto) 1.1 Mitchell # (Auto) 0.7 Eos # (Auto) 0.0 Baso # (Auto) 0.1 WBC Differential . Diff Scan Auto diff confirmed Differential Comment . Platelet Estimate Low L Platelet Morphology Normal Polychromasia 3.0 H PT 10.4 INR 1.0 APTT 23.1 L Sodium 138 Potassium 4.5 Chloride 104 Carbon Dioxide 20.2 L Anion Gap 14 BUN 29 H Creatinine 1.05 H Estimated GFR 52 L POC Glucose Random Glucose 69 L D Calcium 8.8 Magnesium 1.9 Total Bilirubin 0.6 AST 30 ALT 26 Alkaline Phosphatase 84 Ammonia Troponin I Less than 0.02 L Total Protein 6.2 L Albumin 3.1 L Lipase 213 Urine Color Urine Clarity Urine pH Ur Specific [place] Urine Protein Urine Glucose (UA) Urine Ketones Urine Occult Blood Urine Nitrate Urine Bilirubin Urine Urobilinogen Ur Leukocyte Esterase Urine WBC Ur Squamous Epith Cells Hyaline Casts Urine Mucus Micro UA Comment Urine Culture Comments Blood Type Blood Type Recheck Antibody Screen MTS Gel Crossmatch 01/30/18 01/30/18 01/30/18 23:22 23:50 23:50 WBC RBC Hgb Hct MCV MCH MCHC RDW Plt Count MPV Prelim Diff (Auto) Neut % (Auto) Lymph % (Auto) Mitchell % (Auto) Eos % (Auto) Baso % (Auto) Neut # (Auto) Lymph # (Auto) Mitchell # (Auto) Eos # (Auto) Baso # (Auto) WBC Differential Diff Scan Differential Comment Platelet Estimate Platelet Morphology Polychromasia PT INR APTT Sodium Potassium Chloride Carbon Dioxide Anion Gap BUN Creatinine Estimated GFR POC Glucose Random Glucose Calcium Magnesium Total Bilirubin AST ALT Alkaline Phosphatase Ammonia 84 H Troponin I Total Protein Albumin Lipase Urine Color Straw Urine Clarity Clear Urine pH 6.0 Ur Specific U[place] 1.004 Urine Protein Negative Urine Glucose (UA) Negative Urine Ketones Negative Urine Occult Blood Negative Urine Nitrate Negative Urine Bilirubin Negative Urine Urobilinogen Less than 2 Ur Leukocyte Esterase Negative Urine WBC 1 Ur Squamous Epith Cells 1 Hyaline Casts 1 Urine Mucus Few H Micro UA Comment Culture not ind Urine Culture Comments Culture not ind Blood Type O Positive Blood Type Recheck Not needed Antibody Screen Negative MTS Gel Crossmatch 01/31/18 01/31/18 01/31/18 00:14 03:53 05:09 WBC RBC Hgb Hct MCV MCH MCHC RDW Plt Count MPV Prelim Diff (Auto) Neut % (Auto) Lymph % (Auto) Mitchell % (Auto) Eos % (Auto) Baso % (Auto) Neut # (Auto) Lymph # (Auto) Mitchell # (Auto) Eos # (Auto) Baso # (Auto) WBC Differential Diff Scan Differential Comment Platelet Estimate Platelet Morphology Polychromasia PT INR APTT Sodium Potassium Chloride Carbon Dioxide Anion Gap BUN Creatinine Estimated GFR POC Glucose 69 117 H Random Glucose Calcium Magnesium Total Bilirubin AST ALT Alkaline Phosphatase Ammonia Troponin I Total Protein Albumin Lipase Urine Color Urine Clarity Urine pH Ur Specific [place] Urine Protein Urine Glucose (UA) Urine Ketones Urine Occult Blood Urine Nitrate Urine Bilirubin Urine Urobilinogen Ur Leukocyte Esterase Urine WBC Ur Squamous Epith Cells Hyaline Casts Urine Mucus Micro UA Comment Urine Culture Comments Blood Type Blood Type Recheck Antibody Screen MTS Gel Crossmatch See Detail - Imaging Impressions Abdomen/Pelvis CT 01/31/18 02:17 CONCLUSION: 1. Cirrhotic liver with evidence for portal hypertension and gastroesophageal varices. 2. Small to moderate amount of ascites. 3. Sigmoid diverticulosis without definitive evidence for diverticulitis. <Letha Abreu - Last Filed: 01/31/18 14:09> - Labs CBC & Chem 7: 01/30/18 23:22 01/30/18 23:22 Labs: Laboratory Results - last 24 hr 01/30/18 01/30/18 01/30/18 23:22 23:22 23:22 WBC 7.5 RBC 2.45 L Hgb 6.7 L* Hct 21.1 L MCV 86.1 MCH 27.3 MCHC 31.7 L RDW 16.3 Plt Count 115 L D MPV 10.4 Prelim Diff (Auto) Slide review pending Neut % (Auto) 75.2 H Lymph % (Auto) 14.2 Mitchell % (Auto) 9.3 H Eos % (Auto) 0.2 Baso % (Auto) 1.1 Neut # (Auto) 5.6 Lymph # (Auto) 1.1 Mitchell # (Auto) 0.7 Eos # (Auto) 0.0 Baso # (Auto) 0.1 WBC Differential . Diff Scan Auto diff confirmed Differential Comment . Platelet Estimate Low L Platelet Morphology Normal Polychromasia 3.0 H PT 10.4 INR 1.0 APTT 23.1 L Sodium 138 Potassium 4.5 Chloride 104 Carbon Dioxide 20.2 L Anion Gap 14 BUN 29 H Creatinine 1.05 H Estimated GFR 52 L POC Glucose Random Glucose 69 L D Calcium 8.8 Magnesium 1.9 Total Bilirubin 0.6 AST 30 ALT 26 Alkaline Phosphatase 84 Ammonia Troponin I Less than 0.02 L Total Protein 6.2 L Albumin 3.1 L Lipase 213 Urine Color Urine Clarity Urine pH Ur Specific [place] Urine Protein Urine Glucose (UA) Urine Ketones Urine Occult Blood Urine Nitrate Urine Bilirubin Urine Urobilinogen Ur Leukocyte Esterase Urine WBC Ur Squamous Epith Cells Hyaline Casts Urine Mucus Micro UA Comment Urine Culture Comments Blood Type Blood Type Recheck Antibody Screen MTS Gel Crossmatch 01/30/18 01/30/18 01/30/18 23:22 23:50 23:50 WBC RBC Hgb Hct MCV MCH MCHC RDW Plt Count MPV Prelim Diff (Auto) Neut % (Auto) Lymph % (Auto) Mitchell % (Auto) Eos % (Auto) Baso % (Auto) Neut # (Auto) Lymph # (Auto) Mitchell # (Auto) Eos # (Auto) Baso # (Auto) WBC Differential Diff Scan Differential Comment Platelet Estimate Platelet Morphology Polychromasia PT INR APTT Sodium Potassium Chloride Carbon Dioxide Anion Gap BUN Creatinine Estimated GFR POC Glucose Random Glucose Calcium Magnesium Total Bilirubin AST ALT Alkaline Phosphatase Ammonia 84 H Troponin I Total Protein Albumin Lipase Urine Color Straw Urine Clarity Clear Urine pH 6.0 Ur Specific [place] 1.004 Urine Protein Negative Urine Glucose (UA) Negative Urine Ketones Negative Urine Occult Blood Negative Urine Nitrate Negative Urine Bilirubin Negative Urine Urobilinogen Less than 2 Ur Leukocyte Esterase Negative Urine WBC 1 Ur Squamous Epith Cells 1 Hyaline Casts 1 Urine Mucus Few H Micro UA Comment Culture not ind Urine Culture Comments Culture not ind Blood Type O Positive Blood Type Recheck Not needed Antibody Screen Negative MTS Gel Crossmatch 01/31/18 01/31/18 01/31/18 00:14 03:53 05:09 WBC RBC Hgb Hct MCV MCH MCHC RDW Plt Count MPV Prelim Diff (Auto) Neut % (Auto) Lymph % (Auto) Mitchell % (Auto) Eos % (Auto) Baso % (Auto) Neut # (Auto) Lymph # (Auto) Mitchell # (Auto) Eos # (Auto) Baso # (Auto) WBC Differential Diff Scan Differential Comment Platelet Estimate Platelet Morphology Polychromasia PT INR APTT Sodium Potassium Chloride Carbon Dioxide Anion Gap BUN Creatinine Estimated GFR POC Glucose 69 117 H Random Glucose Calcium Magnesium Total Bilirubin AST ALT Alkaline Phosphatase Ammonia Troponin I Total Protein Albumin Lipase Urine Color Urine Clarity Urine pH Ur Specific [place] Urine Protein Urine Glucose (UA) Urine Ketones Urine Occult Blood Urine Nitrate Urine Bilirubin Urine Urobilinogen Ur Leukocyte Esterase Urine WBC Ur Squamous Epith Cells Hyaline Casts Urine Mucus Micro UA Comment Urine Culture Comments Blood Type Blood Type Recheck Antibody Screen MTS Gel Crossmatch See Detail - Imaging Impressions Abdomen/Pelvis CT 01/31/18 02:17 CONCLUSION: 1. Cirrhotic liver with evidence for portal hypertension and gastroesophageal varices. 2. Small to moderate amount of ascites. 3. Sigmoid diverticulosis without definitive evidence for diverticulitis. <Concepcion Javed - Last Filed: 01/31/18 14:38> Assessment and Plan (1) Liver disease, chronic, with cirrhosis Status: Acute Code(s): K74.60 - Unspecified cirrhosis of liver; K76.9 - Liver disease, unspecified (2) Acute GI bleeding Status: Acute Code(s): K92.2 - Gastrointestinal hemorrhage, unspecified (3) Symptomatic anemia Status: Acute Code(s): D64.9 - Anemia, unspecified (4) Rectal bleeding Status: Acute Code(s): K62.5 - Hemorrhage of anus and rectum - Plan Chronic idiopathic liver cirrhosis with portal hypertension. Diagnosed about 2 years ago in the [place] area and patient's just recently moved here about 6 months ago to be with her sister. Patient is seen Dr. Archibald with hematology who is given her iron infusions and transfusions as needed. She also saw Dr. Goel and had a follow-up appointment with him this coming Monday. Diarrhea with maroon colored stools and some bright red rectal bleeding over the past 1-2 days. Patient states diarrhea is chronic after receiving her iron infusions and transfusions but does have stools to form back up after a few weeks. CT scan showed some diverticulosis and small to moderate amount of ascites. She is also noted to have gastroesophageal varices and banding x4 back in 2016. Previous cholecystectomy. GI bleeding current hemoglobin 7.6 in the office and on admission 6.7. Patient' s receiving 2 units of packed RBCs at this time and will have a recheck of her hemoglobin this afternoon around 2 PM. Platelet count is 115, PT/INR 1. On abdominal exam patient did have large obese abdomen soft with soft bowel sounds and mild fluid wave. Previous liver scan back in September back in [place] next liver scan due in April 2018. Plan Diet n.p.o. for now Small bowel follow-through study today EGD with banding and colonoscopy 02/02/2018 PPI drip, octreotide drip Anti-medics Will restart patient's home medications for her cirrhosis Further recommendations to follow Patient was seen per myself and Dr. Javed, this note was written on his behalf <Letha Abreu - Last Filed: 01/31/18 14:09> (1) Liver disease, chronic, with cirrhosis Status: Acute Code(s): K74.60 - Unspecified cirrhosis of liver; K76.9 - Liver disease, unspecified (2) Acute GI bleeding Status: Acute Code(s): K92.2 - Gastrointestinal hemorrhage, unspecified (3) Symptomatic anemia Status: Acute Code(s): D64.9 - Anemia, unspecified (4) Rectal bleeding Status: Acute Code(s): K62.5 - Hemorrhage of anus and rectum - Attending Attestation Seen and examined, plan as above. Further recommendations to follow. Thank you for the consult. <Concepcion Javed - Last Filed: 01/31/18 14:38>
[2018-01-31] MEDS: Octreotide Inj 500 MCG in Sodium Chlor 0.9% Inj 500 ML IV.CONT SCH ×2 (12:00→15:14)
[2018-01-31] MEDS ORDERED: Diatrizoate Meglum/Diatrizoate Sod Liq 120 ML Bottle (for RAD diag) PO ONE ×2 (12:35→14:15)
--- NOTE | 2018-01-31 13:39 | P.HP ---
History of Present Illness Primary Care Physician: Ed Javier History of Present Illness: 67-year-old female with past medical history of diabetes type 2, cirrhosis of the liver presented to the ED for evaluation of bright red blood per rectum since yesterday January 30, 2018. Patient has a history of anemia for which he has been receiving blood transfusion 1 year, however on Monday, January patient was transfused Venofer. While in the ED, patient was found to have H&H of 6.7/21.1 for which 2 units packed red blood cells were retained. She denies any shortness of breath. Denies any prior history of paracenteses. Currently denies any hemoptysis or hematuria. - Diagnosis (1) Acute GI bleeding (2) Symptomatic anemia (3) Liver disease, chronic, with cirrhosis Inpatient Certification: I certify that the inpatient services were ordered in accordance with Medicare regulations governing the order. This includes certification that hospital inpatient services are reasonable and necessary and in the case of services not specified as inpatient-only under 42 CFR 419.22(n), that they are appropriately provided as inpatient services in accordance to with the 2-midnight benchmark under 43 CFR 412.3(e) Estimated Total Length of Stay (Days): 3 Plans for Post Hospital Care: Not yet determined Review of Systems All other systems reviewed negative except as stated in HPI PMFSH - History History Provided By: Patient - Medical History Medical History: Medical History (Last Updated 01/31/18 @ 00:51 by Micaela Catalan MD) Blood disorder Cirrhosis Diabetes High cholesterol Hypertension Myelodysplastic syndrome - Surgical History Surgical History: Surgical History (Last Reviewed 01/31/18 @ 00:51 by Micaela Catalan MD) History of open heart surgery Total knee replacement status - Tobacco History Second Hand Smoke Exposure: Yes Tobacco Use In Past 30 Days: No Smoking Status: Never smoker - Alcohol History How Often Do You Have a Drink Containing Alcohol: Never - Substance Use History Substance History: No History of Abuse - Travel History Recent Travel in the [place] Within the Last 8 Weeks: No Recent Travel Out of the Country Within the Last 8 Weeks: No - Immunization History Tetanus Immunization: <5 Years Hx Influenza Vaccine This Season: Yes Medications and Allergies Active Medications: Active Medications Atorvastatin Calcium (Lipitor) 20 mg PO DAILY JUAN Dextrose (D50w Vial) 50 ml IV.PUSH UNSCH PRN PRN Reason: PER HYPOGLYCEMIA PROTOCOL Last Admin: 01/31/18 04:36 Dose: 50 ml Furosemide (Lasix) 20 mg PO BID@0900,1800 JUAN Glucagon (Glucagon Inj) 1 mg OTHER PRN PRN PRN Reason: for Hypoglycemia Protocol Pantoprazole Sodium 80 mg/ (Sodium Chloride) 100 mls @ 10 mls/hr IV.CONT CONT JUAN Sodium Chloride (Ns Inj) 250 mls @ 15 mls/hr IV.SIG ONCE JUAN Stop: 01/31/18 17:39 Last Admin: 01/31/18 02:05 Dose: 15 mls/hr Dextrose/Sodium Chloride (D5w/Normal Saline Inj) 1,000 mls @ 125 mls/hr IV.CONT .Q8H JUAN Last Admin: 01/31/18 04:36 Dose: 125 mls/hr Octreotide Acetate 500 mcg/ (Sodium Chloride) 500.5 mls @ 50.05 mls/hr IV.CONT .Q10H JUAN Propranolol HCl (Inderal) 40 mg PO BID JUAN Sodium Chloride (Ns Flush) 2 ml IV.FLUSH PRN PRN PRN Reason: FLUSH AFTER USING IV ACCESS Sodium Chloride (Ns Flush) 2 ml IV.FLUSH BID JUAN Last Admin: 01/31/18 08:55 Dose: Not Given Sodium Chloride (Ns Flush) 2 ml IV.FLUSH PRN PRN PRN Reason: FLUSH AFTER USING IV ACCESS Spironolactone (Aldactone) 25 mg PO DAILY JUAN Allergies Allergy/AdvReac Type Severity Reaction Status Date / Time No Known Allergies Allergy Unverified 01/30/18 20:57 Home Medications Medication Instructions Recorded Confirmed Type atorvastatin 20 mg PO DAILY 01/31/18 01/31/18 History furosemide 20 mg PO BID 01/31/18 01/31/18 History glipizide 10 mg PO BID 01/31/18 01/31/18 History metformin 1,000 mg PO BID 01/31/18 01/31/18 History pantoprazole 40 mg PO BID 01/31/18 01/31/18 History propranolol 40 mg PO BID 01/31/18 01/31/18 History spironolactone 12.5 mg PO BID 01/31/18 01/31/18 History vitamin E 400 unit PO DAILY 01/31/18 01/31/18 History Exam Vital signs: Vital Signs 01/30/18 20:57 01/30/18 23:14 01/30/18 23:30 Temperature 99.2 F Pulse Rate 93 H 80 Respiratory Rate 14 14 Blood Pressure 109/54 L 122/58 L Pulse Oximetry 100 99 100 01/31/18 00:00 01/31/18 02:06 01/31/18 02:23 Temperature 97.7 F 97.9 F Pulse Rate 84 80 78 Respiratory Rate 15 15 14 Blood Pressure 99/53 L 99/54 L 100/56 L Pulse Oximetry 100 100 100 01/31/18 02:26 01/31/18 03:30 01/31/18 05:00 Temperature 97.9 F 98.1 F Pulse Rate 79 80 80 Respiratory Rate 14 13 15 Blood Pressure 100/56 L 103/70 110/59 L Pulse Oximetry 99 99 100 01/31/18 05:25 01/31/18 06:38 01/31/18 06:55 Temperature 97.7 F 97.7 F Pulse Rate 81 84 84 Respiratory Rate 18 20 20 Blood Pressure 109/56 L 100/55 L 101/55 L Pulse Oximetry 100 100 100 01/31/18 08:00 01/31/18 08:05 Temperature 98.1 F Pulse Rate 84 77 Respiratory Rate 20 Blood Pressure 107/57 L Pulse Oximetry 100 Intake & Output 01/30/18 01/31/18 01/31/18 18:59 06:59 18:59 Intake Total 415 / 415 Balance 415 / 415 Weight 61.9 kg Intake: Other 15 / 15 Rbc As-3 Leukoreduced Unit 15 / 15 [id number] Intake (Blood Product) Amt 400 / 400 Rbc As-3 Leukoreduced Unit 400 / 400 [id number] Rbc As-3 Leukoreduced Unit 0 / 0 [id number] Other: Date of Last Bowel Movement 01/30/18 Weight On Admission 61.9 kg Narrative: GENERAL: NAD SKIN: Warm and dry. HEAD: Atraumatic. Normocephalic. EYES: Pupils equal and round. No scleral icterus. No injection or drainage. ENT: No nasal bleeding or discharge. Mucous membranes pink and moist. NECK: Trachea midline. No JVD. CARDIOVASCULAR: Regular rate and rhythm. RESPIRATORY: No accessory muscle use. Clear to auscultation. Breath sounds equal bilaterally. GASTROINTESTINAL: Abdomen soft, non-tender, distended. Hepatic and splenic margins not palpable. MUSCULOSKELETAL: Extremities without clubbing, cyanosis, or edema. No obvious deformities. NEUROLOGICAL: Awake and alert. No obvious cranial nerve deficits. Motor grossly within normal limits. Five out of 5 muscle strength in the arms and legs. Normal speech. PSYCHIATRIC: Appropriate mood and affect; insight and judgment normal. Results - Labs CBC & Chem 7: 01/30/18 23:22 01/30/18 23:22 Labs: Laboratory Results - last 24 hr 01/30/18 01/30/18 01/30/18 23:22 23:22 23:22 WBC 7.5 RBC 2.45 L Hgb 6.7 L* Hct 21.1 L MCV 86.1 MCH 27.3 MCHC 31.7 L RDW 16.3 Plt Count 115 L D MPV 10.4 Prelim Diff (Auto) Slide review pending Neut % (Auto) 75.2 H Lymph % (Auto) 14.2 [place] % (Auto) 9.3 H Eos % (Auto) 0.2 Baso % (Auto) 1.1 Neut # (Auto) 5.6 Lymph # (Auto) 1.1 [place] # (Auto) 0.7 Eos # (Auto) 0.0 Baso # (Auto) 0.1 WBC Differential . Diff Scan Auto diff confirmed Differential Comment . Platelet Estimate Low L Platelet Morphology Normal Polychromasia 3.0 H PT 10.4 INR 1.0 APTT 23.1 L Sodium 138 Potassium 4.5 Chloride 104 Carbon Dioxide 20.2 L Anion Gap 14 BUN 29 H Creatinine 1.05 H Estimated GFR 52 L POC Glucose Random Glucose 69 L D Calcium 8.8 Magnesium 1.9 Total Bilirubin 0.6 AST 30 ALT 26 Alkaline Phosphatase 84 Ammonia Troponin I Less than 0.02 L Total Protein 6.2 L Albumin 3.1 L Lipase 213 Urine Color Urine Clarity Urine pH Ur Specific [place] Urine Protein Urine Glucose (UA) Urine Ketones Urine Occult Blood Urine Nitrate Urine Bilirubin Urine Urobilinogen Ur Leukocyte Esterase Urine WBC Ur Squamous Epith Cells Hyaline Casts Urine Mucus Micro UA Comment Urine Culture Comments Blood Type Blood Type Recheck Antibody Screen MTS Gel Crossmatch 01/30/18 01/30/18 01/30/18 23:22 23:50 23:50 WBC RBC Hgb Hct MCV MCH MCHC RDW Plt Count MPV Prelim Diff (Auto) Neut % (Auto) Lymph % (Auto) [place] % (Auto) Eos % (Auto) Baso % (Auto) Neut # (Auto) Lymph # (Auto) [place] # (Auto) Eos # (Auto) Baso # (Auto) WBC Differential Diff Scan Differential Comment Platelet Estimate Platelet Morphology Polychromasia PT INR APTT Sodium Potassium Chloride Carbon Dioxide Anion Gap BUN Creatinine Estimated GFR POC Glucose Random Glucose Calcium Magnesium Total Bilirubin AST ALT Alkaline Phosphatase Ammonia 84 H Troponin I Total Protein Albumin Lipase Urine Color Straw Urine Clarity Clear Urine pH 6.0 Ur Specific [place] 1.004 Urine Protein Negative Urine Glucose (UA) Negative Urine Ketones Negative Urine Occult Blood Negative Urine Nitrate Negative Urine Bilirubin Negative Urine Urobilinogen Less than 2 Ur Leukocyte Esterase Negative Urine WBC 1 Ur Squamous Epith Cells 1 Hyaline Casts 1 Urine Mucus Few H Micro UA Comment Culture not ind Urine Culture Comments Culture not ind Blood Type O Positive Blood Type Recheck Not needed Antibody Screen Negative MTS Gel Crossmatch 01/31/18 01/31/18 01/31/18 00:14 03:53 05:09 WBC RBC Hgb Hct MCV MCH MCHC RDW Plt Count MPV Prelim Diff (Auto) Neut % (Auto) Lymph % (Auto) [place] % (Auto) Eos % (Auto) Baso % (Auto) Neut # (Auto) Lymph # (Auto) [place] # (Auto) Eos # (Auto) Baso # (Auto) WBC Differential Diff Scan Differential Comment Platelet Estimate Platelet Morphology Polychromasia PT INR APTT Sodium Potassium Chloride Carbon Dioxide Anion Gap BUN Creatinine Estimated GFR POC Glucose 69 117 H Random Glucose Calcium Magnesium Total Bilirubin AST ALT Alkaline Phosphatase Ammonia Troponin I Total Protein Albumin Lipase Urine Color Urine Clarity Urine pH Ur Specific [place] Urine Protein Urine Glucose (UA) Urine Ketones Urine Occult Blood Urine Nitrate Urine Bilirubin Urine Urobilinogen Ur Leukocyte Esterase Urine WBC Ur Squamous Epith Cells Hyaline Casts Urine Mucus Micro UA Comment Urine Culture Comments Blood Type Blood Type Recheck Antibody Screen MTS Gel Crossmatch See Detail - Imaging Impressions Abdomen/Pelvis CT 01/31/18 02:17 CONCLUSION: 1. Cirrhotic liver with evidence for portal hypertension and gastroesophageal varices. 2. Small to moderate amount of ascites. 3. Sigmoid diverticulosis without definitive evidence for diverticulitis. Caprini VTE Risk Assessment Caprini VTE Risk Assessment: Moderate/High Risk (score >= 2) VTE Pharmacological Exception Reason: Active bleeding Caprini Risk Assessment Model: Point Value = 1 Point Value = 2 Point Value = 3 Point Value = 5 Age 41-60 Minor surgery BMI > 25 kg/m2 Swollen legs Varicose veins or History of unexplained or recurrent spontaneous Oral contraceptives or hormone replacement Sepsis (< 1 month) Serious lung disease, including pneumonia (< 1 month) Abnormal pulmonary function Acute myocardial infarction Congestive heart failure (< 1 month) History of inflammatory bowel disease Medical patient at bed rest Age 61-74 Arthroscopic surgery Major open surgery (> 45 min) Laparoscopic surgery (> 45 min) Malignancy Confined to bed (> 72 hours) Immobilizing plaster cast Central venous access Age >= 75 History of VTE Family history of VTE Factor V Leiden Prothrombin [id number] Lupus anticoagulant Anticardiolipin antibodies Elevated serum homocysteine Heparin-induced thrombocytopenia Other congenital or acquired thrombophilia Stroke (< 1 month) Elective arthroplasty Hip, pelvis, or leg fracture Acute spinal cord injury (< 1 month) Prophylaxis Regimen: Total Risk Factor Score Risk Level Prophylaxis Regimen 0-1 Low Early ambulation 2 Moderate Order ONE of the following: *Sequential Compression Device (SCD) *Heparin 5000 units SQ BID 3-4 Higher Order ONE of the following medications: *Heparin 5000 units SQ TID *Enoxaparin/Lovenox 40 mg SQ daily (WT < 150 kg, CrCl > 30 mL/min) *Enoxaparin/Lovenox 30 mg SQ daily (WT < 150 kg, CrCl > 10-29 mL/min) *Enoxaparin/Lovenox 30 mg SQ BID (WT < 150 kg, CrCl > 30 mL/min) AND/OR *Sequential Compression Device (SCD) 5 or more Highest Order ONE of the following medications: *Heparin 5000 units SQ TID (Preferred with Epidurals) *Enoxaparin/Lovenox 40 mg SQ daily (WT < 150 kg, CrCl > 30 mL/min) *Enoxaparin/Lovenox 30 mg SQ daily (WT < 150 kg, CrCl > 10-29 mL/min) *Enoxaparin/Lovenox 30 mg SQ BID (WT < 150 kg, CrCl > 30 mL/min) AND *Sequential Compression Device (SCD) Assessment and Plan - Assessment (1) Acute GI bleeding Code(s): K92.2 - Gastrointestinal hemorrhage, unspecified Status: Acute (2) Symptomatic anemia Code(s): D64.9 - Anemia, unspecified Status: Acute (3) Liver disease, chronic, with cirrhosis Code(s): K74.60 - Unspecified cirrhosis of liver; K76.9 - Liver disease, unspecified Status: Acute - Plan 67-year-old female with Acute GI bleed Symptomatic anemia Transfused 2 units packed red blood cell and monitor H&H GI consultation for evaluation for possible panendoscopy Continue with octreotide and Protonix drip History of cirrhosis of liver CT abdomen noted and reviewed by me Resume outpatient medications Diabetes type 2 Hold oral hypoglycemic agents Continue with insulin sliding scale with fingerstick blood glucose monitoring Acute renal failure Prerenal secondary to GI loss Gentle IV fluid hydration, and continue with blood transfusion Monitor BUN and creatinine DVT prophylaxis: Chemical antiplatelet is contraindicated, bilateral SCDs
[2018-01-31 14:57] LABS: Hematocrit 30.1 % (35.0-46.0); Hemoglobin 9.9 gm/dL (11.6-15.3)
--- NOTE | 2018-01-31 15:17 | FL ---
EXAM DATE: 01/31/2018 2:00 PM EDT AGE/SEX: 67 years / Female INDICATIONS: Rectal bleeding and anemia. CLINICAL DATA: This is the patient's initial encounter. Patient reports that signs and symptoms have been present for 3 days and indicates a pain score of 0/10. MEDICAL/SURGICAL HISTORY: . Cirrhosis. Hypertension. Diabetes. CABG. Appendectomy. Cholecyst ectomy. COMPARISON: No prior exams available for comparison. FLUORO TIME: 0.3 IMAGE COUNT: 16 CONTRAST: FINDINGS: Preliminary film is unremarkable. The stomach is grossly unremarkable. Examination of the small bowel demonstrates normal mucosal pattern involving the jejunum and ileum. T here is no evidence for obstruction. There is mild edema in the small bowel. CONCLUSION: There is no evidence for obstruction. Electronically signed by: Edd Moore MD 01/31/2018 3:16 PM EDT
[2018-01-31] MEDS: Insulin NovoLIN Regular Correctional Sugar Inj SQ SCH ×2 (18:30→22:24)
[2018-01-31] MEDS: Furosemide 20 MG Tablet PO SCH (18:32)
[2018-01-31] MEDS: Propranolol 40 MG Tablet PO SCH (21:11)
[2018-01-31 21:35] LABS: Hematocrit 24.2 % (35.0-46.0); Hemoglobin 7.8 gm/dL (11.6-15.3)
[2018-01-31] MEDS: Pantoprazole Inj 80 MG in Sodium Chlor 0.9% Inj 100 ML IV.CONT SCH (22:21)
[2018-02-01] MEDS: Octreotide Inj 500 MCG in Sodium Chlor 0.9% Inj 500 ML IV.CONT SCH ×3 (01:19→22:16)
[2018-02-01] MEDS: Dextrose 5%/NaCl 0.9% Inj 1,000 ML IV.CONT SCH (06:30)
[2018-02-01] MEDS: Furosemide 20 MG Tablet PO SCH ×2 (09:08→19:15)
[2018-02-01] MEDS: Insulin NovoLIN Regular Correctional Sugar Inj SQ SCH ×4 (09:08→22:09)
[2018-02-01] MEDS: Propranolol 40 MG Tablet PO SCH ×3 (09:08→22:14)
[2018-02-01] MEDS: Spironolactone 25 MG Tablet PO SCH (09:09)
[2018-02-01 11:26] LABS: Baso % (Auto) 1.2 % (0.0-2.0); Eos % (Auto) 0.5 % (0.0-4.0); Hemoglobin 7.7 gm/dL (11.6-15.3); Lymph # (Auto) 0.5 th/mm3 (1.0-4.8); Lymph % (Auto) 15.1 % (9.0-44.0); Mean Corpuscular HGB Conc 32.1 % (32.0-36.0); Mean Corpuscular Hemoglobin 28.7 pg (27.0-34.0); Mean Corpuscular Volume 89.3 fL (80.0-100.0); Mean Platelet Volume 10.4 fL (7.0-11.0); Mono # (Auto) 0.3 th/mm3 (0.0-0.9); Mono % (Auto) 7.6 % (0.0-8.0); Neut # (Auto) 2.6 th/mm3 (1.8-7.7); Neut % (Auto) 75.6 % (16.0-70.0); Platelet Count 69 th/mm3 (150-450); Red Blood Count 2.68 mil/mm3 (4.00-5.30); Red Cell Distribution Width 16.5 % (11.6-17.2); White Blood Count 3.4 th/mm3 (4.0-11.0)
[2018-02-01 12:01] LABS: Calcium 7.8 mg/dL (8.5-10.1); Potassium 3.5 meq/L (3.5-5.1)
[2018-02-01 12:22] LABS: Platelet Morphology Normal (Normal)
[2018-02-01] MEDS ORDERED: Acetaminophen 325 MG Tablet PO PRN (12:51)
--- NOTE | 2018-02-01 12:55 | P.PN ---
Subjective Interval history: Follow-up symptomatic anemia February 01, 2018-patient seen and examined, she had EGD yesterday and was transfused 2 units packed red blood cells however H&H dropping. No other issues Physical Exam Vital signs: Vital Signs 01/31/18 16:00 01/31/18 18:00 01/31/18 20:00 Temperature 98.4 F 97.6 F Pulse Rate 96 H 83 100 H Respiratory Rate 20 16 Blood Pressure 110/58 L 129/59 L Pulse Oximetry 100 100 02/01/18 00:00 02/01/18 04:00 02/01/18 08:00 Temperature 98.4 F 97.4 F L Pulse Rate 77 72 Respiratory Rate 16 16 Blood Pressure 102/57 L 102/56 L Pulse Oximetry 98 98 100 02/01/18 09:00 Temperature Pulse Rate 74 Respiratory Rate Blood Pressure Pulse Oximetry Intake & Output 01/31/18 02/01/18 02/01/18 18:59 06:59 18:59 Intake Total 1400 / 1400 2980.5 / 2980.5 500.5 / 500.5 Balance 1400 / 1400 2980.5 / 2980.5 500.5 / 500.5 Weight 63.9 kg Intake: IV 1000 / 1000 2500.5 / 2500.5 500.5 / 500.5 D5W/Normal Saline Inj 1,000 ML 1000 / 1000 2000 / 2000 @ 125 mls/hr IV.CONT .Q8H JUAN Rx#:[id number] SandoSTATIN Inj 500 MCG In NS 500.5 / 500.5 500.5 / 500.5 Inj 500 ML @ 50 MCG/HR 50.05 mls/hr IV.CONT .Q10H JUAN Rx#: [id number] Oral 480 / 480 Intake (Blood Product) Amt 400 / 400 Rbc As-3 Leukoreduced Unit 400 / 400 [id number] Other: # Voids 5 Date of Last Bowel Movement 01/31/18 # Bowel Movements 5 Narrative: GENERAL: NAD SKIN: Warm and dry. HEAD: Normocephalic. EYES: No scleral icterus. No injection or drainage. NECK: Supple, trachea midline. No JVD or lymphadenopathy. CARDIOVASCULAR: Regular rate and rhythm without murmurs, gallops, or rubs. RESPIRATORY: Breath sounds equal bilaterally. No accessory muscle use. GASTROINTESTINAL: Abdomen soft, non-tender, distended. MUSCULOSKELETAL: No cyanosis, or edema. BACK: Nontender without obvious deformity. No CVA tenderness. Results - Labs CBC & Chem 7: 02/01/18 10:47 02/01/18 10:47 Laboratory Results - last 24 hr 01/31/18 01/31/18 01/31/18 00:14 14:34 14:39 WBC RBC Hgb 9.9 L D Hct 30.1 L MCV MCH MCHC RDW Plt Count MPV Prelim Diff (Auto) Neut % (Auto) Lymph % (Auto) [place] % (Auto) Eos % (Auto) Baso % (Auto) Neut # (Auto) Lymph # (Auto) [place] # (Auto) Eos # (Auto) Baso # (Auto) WBC Differential Diff Scan Differential Comment Platelet Estimate Platelet Morphology Sodium Potassium Chloride Carbon Dioxide Anion Gap BUN Creatinine Estimated GFR POC Glucose 181 H Random Glucose Calcium MTS Gel Crossmatch See Detail 01/31/18 01/31/18 01/31/18 16:41 20:31 21:03 WBC RBC Hgb 7.8 L D Hct 24.2 L MCV MCH MCHC RDW Plt Count MPV Prelim Diff (Auto) Neut % (Auto) Lymph % (Auto) [place] % (Auto) Eos % (Auto) Baso % (Auto) Neut # (Auto) Lymph # (Auto) [place] # (Auto) Eos # (Auto) Baso # (Auto) WBC Differential Diff Scan Differential Comment Platelet Estimate Platelet Morphology Sodium Potassium Chloride Carbon Dioxide Anion Gap BUN Creatinine Estimated GFR POC Glucose 196 H 295 H Random Glucose Calcium MTS Gel Crossmatch 02/01/18 02/01/18 02/01/18 09:06 10:47 10:47 WBC 3.4 L RBC 2.68 L Hgb 7.7 L Hct 24.0 L MCV 89.3 MCH 28.7 MCHC 32.1 RDW 16.5 Plt Count 69 L D MPV 10.4 Prelim Diff (Auto) Slide review pending Neut % (Auto) 75.6 H Lymph % (Auto) 15.1 [place] % (Auto) 7.6 Eos % (Auto) 0.5 Baso % (Auto) 1.2 Neut # (Auto) 2.6 Lymph # (Auto) 0.5 L [place] # (Auto) 0.3 Eos # (Auto) 0.0 Baso # (Auto) 0.0 WBC Differential . Diff Scan Auto diff confirmed Differential Comment . Platelet Estimate Low L Platelet Morphology Normal Sodium 146 H Potassium 3.5 D Chloride 116 H D Carbon Dioxide 18.0 L Anion Gap 12 BUN 18 Creatinine 0.93 Estimated GFR 60 L POC Glucose 141 H Random Glucose 205 H D Calcium 7.8 L D MTS Gel Crossmatch - Imaging Impressions Small Bowel X-Ray 01/31/18 00:00 CONCLUSION: There is no evidence for obstruction. Assessment and Plan - Assessment (1) Acute GI bleeding Code(s): K92.2 - Gastrointestinal hemorrhage, unspecified Status: Acute (2) Symptomatic anemia Code(s): D64.9 - Anemia, unspecified Status: Acute (3) Liver disease, chronic, with cirrhosis Code(s): K74.60 - Unspecified cirrhosis of liver; K76.9 - Liver disease, unspecified Status: Acute - Plan 67-year-old female with Acute GI bleed Symptomatic anemia Transfuse 1 more unit packed red blood cell today February 01, 2018 for a total of 3 this admission and monitor H&H Appreciate input from GI, patient status post EGD and pending colonoscopy Continue with octreotide drip History of cirrhosis of liver CT abdomen noted and reviewed by me Continue outpatient medications Diabetes type 2 Hold oral hypoglycemic agents Continue with insulin sliding scale with fingerstick blood glucose monitoring Acute renal failure-resolved Prerenal secondary to GI loss Monitor BUN and creatinine DVT prophylaxis: Chemical antiplatelet is contraindicated, bilateral SCDs
[2018-02-01] MEDS ORDERED: Sodium Chlor 0.9% Inj 250 ML IV.SIG SCH (13:00)
--- NOTE | 2018-02-01 18:18 | P.PNGI ---
Subjective Interval history: GI Full consult dictated. Consult called in to [facility] today 02/01/18. (Patient's primary gastroenterology group) IMP: 1. Acute on chronic Anemia 2. GI bleeding upper vs lower gi bleeding 3. Hx of liver cirrhosis 4. Transfusion dependent anemia PLAN: 1. Diet as tolerated today 2. EGD with Possible banding, hemostasis 3. Pt getting transfusion currently - weak, and overall unwell, will not tolerate bowel preparation at this time. (she has had a negative colon within the last 5 yrs.) 4. Ok to continue PPI and octreotide for now. 5. Risks benefits discussed with pt. Physical Exam Vital signs: Vital Signs 01/31/18 20:00 02/01/18 00:00 02/01/18 04:00 Temperature 97.6 F 98.4 F 97.4 F L Pulse Rate 100 H 77 72 Respiratory Rate 16 16 16 Blood Pressure 129/59 L 102/57 L 102/56 L Pulse Oximetry 100 98 98 02/01/18 08:00 02/01/18 09:00 02/01/18 12:00 Temperature 98.6 F 97.9 F Pulse Rate 74 74 78 Respiratory Rate 16 16 Blood Pressure 94/53 L 106/56 L Pulse Oximetry 100 100 02/01/18 14:45 02/01/18 15:01 02/01/18 16:00 Temperature 98.6 F 99.3 F Pulse Rate 77 79 78 Respiratory Rate 18 20 Blood Pressure 107/54 L 108/52 L Pulse Oximetry 99 100 Intake & Output 01/31/18 02/01/18 02/01/18 18:59 06:59 18:59 Intake Total 1400 / 1400 2980.5 / 2980.5 500.5 / 500.5 Balance 1400 / 1400 2980.5 / 2980.5 500.5 / 500.5 Weight 63.9 kg Intake: IV 1000 / 1000 2500.5 / 2500.5 500.5 / 500.5 D5W/Normal Saline Inj 1,000 ML 1000 / 1000 2000 / 2000 @ 125 mls/hr IV.CONT .Q8H JUAN Rx#:[id number] SandoSTATIN Inj 500 MCG In NS 500.5 / 500.5 500.5 / 500.5 Inj 500 ML @ 50 MCG/HR 50.05 mls/hr IV.CONT .Q10H JUAN Rx#: [id number] Oral 480 / 480 Intake (Blood Product) Amt 400 / 400 0 / 0 Rbc As-3 Leukoreduced Unit 0 / 0 [id number] Rbc As-3 Leukoreduced Unit 400 / 400 [id number] Other: # Voids 5 Date of Last Bowel Movement 01/31/18 # Bowel Movements 5 Results - Labs CBC & Chem 7: 02/01/18 10:47 02/01/18 10:47 Laboratory Results - last 24 hr 01/31/18 01/31/18 01/31/18 00:14 20:31 21:03 WBC RBC Hgb 7.8 L D Hct 24.2 L MCV MCH MCHC RDW Plt Count MPV Prelim Diff (Auto) Neut % (Auto) Lymph % (Auto) [place] % (Auto) Eos % (Auto) Baso % (Auto) Neut # (Auto) Lymph # (Auto) [place] # (Auto) Eos # (Auto) Baso # (Auto) WBC Differential Diff Scan Differential Comment Platelet Estimate Platelet Morphology Sodium Potassium Chloride Carbon Dioxide Anion Gap BUN Creatinine Estimated GFR POC Glucose 295 H Random Glucose Calcium MTS Gel Crossmatch See Detail 02/01/18 02/01/18 02/01/18 09:06 10:47 10:47 WBC 3.4 L RBC 2.68 L Hgb 7.7 L Hct 24.0 L MCV 89.3 MCH 28.7 MCHC 32.1 RDW 16.5 Plt Count 69 L D MPV 10.4 Prelim Diff (Auto) Slide review pending Neut % (Auto) 75.6 H Lymph % (Auto) 15.1 [place] % (Auto) 7.6 Eos % (Auto) 0.5 Baso % (Auto) 1.2 Neut # (Auto) 2.6 Lymph # (Auto) 0.5 L [place] # (Auto) 0.3 Eos # (Auto) 0.0 Baso # (Auto) 0.0 WBC Differential . Diff Scan Auto diff confirmed Differential Comment . Platelet Estimate Low L Platelet Morphology Normal Sodium 146 H Potassium 3.5 D Chloride 116 H D Carbon Dioxide 18.0 L Anion Gap 12 BUN 18 Creatinine 0.93 Estimated GFR 60 L POC Glucose 141 H Random Glucose 205 H D Calcium 7.8 L D MTS Gel Crossmatch 02/01/18 02/01/18 12:55 17:49 WBC RBC Hgb Hct MCV MCH MCHC RDW Plt Count MPV Prelim Diff (Auto) Neut % (Auto) Lymph % (Auto) [place] % (Auto) Eos % (Auto) Baso % (Auto) Neut # (Auto) Lymph # (Auto) [place] # (Auto) Eos # (Auto) Baso # (Auto) WBC Differential Diff Scan Differential Comment Platelet Estimate Platelet Morphology Sodium Potassium Chloride Carbon Dioxide Anion Gap BUN Creatinine Estimated GFR POC Glucose 190 H 157 H Random Glucose Calcium MTS Gel Crossmatch
[2018-02-01] MEDS ORDERED: PEG 3350/E-Lyte Soln 4000 ML Bottle PO ONE (19:00)
--- NOTE | 2018-02-01 19:18 | MB ---
cc: Irene Steele MD, Ketul R MD DATE: 02/01/2018 PRIMARY EXPLOSIVES HANDLER: Faisal Goel MD REASON FOR CONSULTATION: GI bleed, liver cirrhosis. HISTORY OF PRESENT ILLNESS: This is a very pleasant 67-year-old female well known to our practice from the office, who has a history of liver cirrhosis and has a longstanding history of symptomatic anemia, which has been transfusion dependent and follows with Dr. Archibald on a regular basis. She came into the hospital on 01/30/2018 complaining of having some small amount of bright red blood and pink-tinged bowel movements for 2 days prior to admission. She denied any abdominal pain, nausea or vomiting associated with it. She also complained of having increase in abdominal distention and abdominal girth over the last several weeks, slowly worsening. In the ER, she had blood work done showing, hemoglobin of 7.6. Due to her symptoms, she was admitted and transfused with packed RBCs. She relocated here 6 months ago from [place]. At that time, she had undergone significant workup for her liver cirrhosis ,which is deemed to be idiopathic. She has a history of esophageal varices and chronic anemia with history of GI bleeding. She tells me she has had significant outpatient workup including EGD, colonoscopy, small bowel video capsule endoscopy in 2017. She admits that she has undergone esophageal varices banding x4 in 2017. She recalls having a Pill Cam that showed possible angiectasias in the small bowel. She also underwent an endoscopic small bowel enteroscopy, but no active bleeding sites were identified. In her last colonoscopy, she recalls no colon polyps and no bleeding tissues were noted. Since then, she had done well initially on intermittent transfusions with IV iron or blood transfusion, but she states lately her requiring blood transfusion has been more often. She was actually due to see Dr. Goel in the office this coming Monday. Since her admission, she has insisted on requesting to see Dr. Goel. Unfortunately, for unclear reasons, we were not consulted until 02/01/2018. She has been seen by the other group. Finally, at her insistence we were consulted today. Workup thus far has included a small bowel follow through, which was negative for any acute obstruction. She underwent a CT scan of the abdomen and pelvis, which was significant for evidence of cirrhotic liver with portal hypertension and gastroesophageal varices, small to moderate ascites as well as sigmoid diverticulosis without diverticulitis. Hemoglobin on admission was 6.7 with an MCV of 86.6. PAST MEDICAL HISTORY: 1. Idiopathic liver cirrhosis. 2. Diabetes mellitus. 3. Hypertension. 4. Myelodysplastic syndrome. PAST SURGICAL HISTORY: 1. Coronary artery bypass graft. 2. Total knee replacement. FAMILY HISTORY: No GI malignancies. SOCIAL HISTORY: Denies any tobacco use or any alcohol use. Denies any illicit drug use. ALLERGIES: NO KNOWN DRUG ALLERGIES. HOME MEDICATIONS: 1. Atorvastatin 20 mg a day. 2. Lasix 20 mg b.i.d. 3. Glipizide 10 mg b.i.d. 4. Metformin 1000 mg b.i.d. 5. Pantoprazole 40 mg b.i.d. 6. Propranolol 40 mg b.i.d. 7. Spironolactone 12.5 mg p.o. b.i.d. 8. Vitamin E 400 units daily. REVIEW OF SYSTEMS: A 10-point review of system was obtained by ak and showed to be negative or noncontributory except for the above-mentioned in HPI. PHYSICAL EXAMINATION: VITAL SIGNS: Temperature 99.3, heart rate 79, respiration 20, blood pressure 108/52, O2 saturation 100% on room air. GENERAL: Alert, oriented. No focal deficits. No acute distress noted. HEENT: Normocephalic, atraumatic. Pupils equal, round, reactive to light and accommodations. No scleral icterus noted. NECK: Supple, nontender. No carotid bruits. No thyromegaly appreciated. No lymphadenopathy noted. CARDIOVASCULAR: Regular rate and rhythm. No murmurs heard. RESPIRATORY: Lungs are clear to auscultation bilaterally. No wheezing, no abnormal breath sounds. ABDOMEN: Soft, protuberant, slightly tympanic. Slight fluid shift with ascites noted. Slight hepatomegaly appreciated. Difficult to palpate the spleen. No periumbilical ecchymosis identified. No rebound appreciated. GENITOURINARY: No CV angle tenderness noted. No lymphadenopathy noted. MUSCULOSKELETAL: Equal strength upper and lower extremities. Mild peripheral edema noted. NEUROLOGIC: Alert, oriented. No focal deficits. No asterixis identified. Cranial nerves 2-12 grossly intact. PSYCHIATRIC: Cooperative, appropriate mood and affect. LABORATORY DATA: WBC 3.5, hemoglobin 7.7, MCV 89.3, platelet count 69. INR 1.0. Sodium 146, potassium 3.5, chloride 116, bicarbonate 18, BUN 12, creatinine 0.93, total bilirubin 0.6, AST 30, ALT 26, alkaline phosphatase 84, ammonia 84, troponin less than 0.02. Albumin 3.1, lipase 213. Urinalysis negative. IMPRESSION: 1. Gastrointestinal bleeding, which may be acute on chronic in nature. The patient has had significant outpatient workup for history of gastrointestinal bleed, including EGD, colonoscopy, small bowel enteroscopy, pill cam enteroscopy without any active diagnosis. 2. Symptomatic anemia, transfusion dependent, which may be multifactorial including an occult obscure gastrointestinal bleeding as well as myelodysplasia. 3. History of esophageal varices. 4. Abdominal distention with ascites. 5. Idiopathic liver cirrhosis with portal hypertension. RECOMMENDATIONS: 1. Today, I had a long discussion with the patient. She is very appreciative of following up with her known physicians. At this time, she is receiving packed red blood cells. She has not had any overt bloody bowel movements today. At this time, she feels weak. She states that just while sitting here after mild exertion, she sometimes falls asleep. Her main issue currently she feels is that her abdominal distention is still present. 2. At this time, I recommend continuing her transfusion. 3. Nothing by mouth after midnight. 4. We will plan for EGD with possible band ligation of varices and/or hemostasis of any active bleeding sites. Differential diagnosis includes portal hypertensive gastropathy, arteriovenous malformations, angiectasias or gastric antral vascular ectasia. 5. At this time, I do not believe putting her through a bowel preparation at this time would be beneficial for her. I suspect that she may become more symptomatic in regard to anemia and weakness; therefore, we will hold off on this for now. She has undergone a colonoscopy within the last 5 years, which was negative. I have explained to her that this certainly can be done as outpatient if needed once she is improved from her acute symptoms. Risks and benefits of the procedures were all explained. She is agreeable to undergoing the upper endoscopy with therapeutic intervention. Additionally, I recommend an ultrasound-guided paracentesis for therapeutic reasons. 6. Continue proton pump inhibitor drip for now. 7. Continue octreotide drip for now and we will adjust these once the upper endoscopy has been completed. All questions were answered and the patient is agreeable and satisfied with the above-mentioned plan. Thank you for allowing [facility] to participate in the care of this patient. We will follow along with you and make recommendation as per patient's clinical course. MD RICK Ewing/ , 06:32 PM , 07:16 PM
[2018-02-01] MEDS: Pantoprazole Inj 80 MG in Sodium Chlor 0.9% Inj 100 ML IV.CONT SCH (20:12)
[2018-02-01] MEDS ORDERED: Chlorhexidine Gluconate 2% 1 Pack (2 Cloths) TOPICAL SCH (21:30)
[2018-02-01] MEDS ORDERED: Metoprolol Tartrate 25 MG Tablet PO SCH (21:30)
[2018-02-01] MEDS ORDERED: Sodium Chlor 0.9% Inj 500 ML IV.SIG SCH (22:00)
[2018-02-02] MEDS: Pantoprazole Inj 80 MG in Sodium Chlor 0.9% Inj 100 ML IV.CONT SCH (06:13)
--- NOTE | 2018-02-02 09:13 | GIPROC ---
[facility] [address] [facility]. [facility], [address] EGD PROCEDURE REPORT EXAM DATE: 02/02/2018 PATIENT NAME: Shikha Woo MR#: [id number] BIRTHDATE: 1950 STATUS: inpatient ATTENDING: Irene Steele MD VISIT ID: [id number] TERRITORY REPRESENTATIVE: Megan Owen Terrie ORDER #: [id number] INDICATIONS: The patient is a 67 yr old female here for an EGD due to gi bleeding, anemia, cirrhosis, hx of esophageal varices, therapeutic procedure, and diagnostic procedure. PROCEDURE PERFORMED: EGD w/ band ligation of varices and EGD w/ control of bleeding MEDICATIONS: None and Per Anesthesia. ASA CLASS: Class IV PHYSICAL EXAM: normal CONSENT: The patient understands the risks and benefits of the procedure and understands that these risks include, but are not limited to: sedation, allergic reaction, infection, perforation and/or bleeding. Alternative means of evaluation and treatment include, among others: physical exam, x-rays, and/or surgical intervention. The patient elects to proceed with this endoscopic procedure. DESCRIPTION OF PROCEDURE: for proper function. Hand hygiene and appropriate measures for infection prevention was taken. After the risks, benefits and alternatives of the procedure were thoroughly explained, Informed consent was verified, confirmed and timeout was successfully executed by the treatment team. The Pentax [id number] endoscope was introduced through the mouth and advanced to the second portion of the duodenum. The instrument was slowly withdrawn as the mucosa was fully examined. ESOPHAGUS: There were 3 columns of medium sized varices in the distal esophagus and mid esophagus. There was evidence of prior scarring. Scars noted in the distal esophagus from previous band ligation. Band ligation of the esophageal varices was performed. Three bands were placed. STOMACH: A few diminutive sessile polyps with friable surfaces were found in the gastric body. Moderate portal hypertensive gastropathy/Gasric antral vascular ectasia were found in the gastric antrum. Argon plasma coagulation was applied to the site(s). With good treatment effect. DUODENUM: The duodenal mucosa appeared normal in the bulb and second portion of the duodenum. Retroflexed views revealed no abnormalities The gastroscope was then slowly withdrawn and removed. COMPLICATIONS: There were no complications. IMPRESSIONS: 1. Grade III esophageal varices noted, band ligation x 3 performed. Scars noted in the distal esophagus from previous band ligation 2. Few diminutive sessile/inflammatory polyps were found in the gastric body 3. Portal hypertensive gastropathy/GAVE was found in the gastric antrum. APC ablation was performed for hemostasis. 4. Normal duodenal mucosa in the bulb and second portion of the duodenum 5. Retroflexed views revealed no abnormalities RECOMMENDATIONS: 1. Retrun to hospital room 2. Advance diet to regular as tolerated 3. Protonix 40 mg PO BID 4. Carafate 1 gm po QID x 1 mo 5. Will Wean Octreotide drip 6. Will need RPT EGD with Banding and APC with ablation in one month. (With Dr Goel). PATIENT CONDITION: stable DISPOSITION: Inpatient REPEAT EXAM: Return 1 month EGD Irene Steele MD eSigned: Irene Steele MD 02/02/2018 9:13 AM cc: PATIENT NAME: Shikha Woo MR#: [id number]
--- NOTE | 2018-02-02 09:41 | P.PNGI ---
Subjective Interval history: Post procedure note EGD with banding x 3 and APC ablation of GAVE 1. Grade III esophageal varices banding x 3 2. GAVE with bleeding s/p APC ablation PLAN: 1. Chage PPI drip to Protonix 40 mg PO bid 2. Add carafate 1 gm po QID x 1 mo 3. Wean octreotide to 25 mcg/hr x 6 hr then stop 4. U/S paracentesis today 5. Resume Diet to regular as tolerated after the paracentesis. 6. Anticipate D/c tomorrow if feeling well from gi stand point. Physical Exam Vital signs: Vital Signs 02/01/18 12:00 02/01/18 14:45 02/01/18 15:01 Temperature 97.9 F 98.6 F 99.3 F Pulse Rate 78 77 79 Respiratory Rate 16 18 20 Blood Pressure 106/56 L 107/54 L 108/52 L Pulse Oximetry 100 99 100 02/01/18 16:00 02/01/18 20:00 02/01/18 21:22 Temperature 98.5 F 98.7 F Pulse Rate 78 78 Respiratory Rate 18 18 Blood Pressure 106/59 L 101/58 L Pulse Oximetry 99 98 97 02/01/18 23:54 02/02/18 00:00 02/02/18 04:00 Temperature 98.7 F 98.7 F Pulse Rate 75 73 74 Respiratory Rate 18 18 Blood Pressure 107/55 L 111/56 L Pulse Oximetry 98 98 02/02/18 08:10 02/02/18 09:17 Temperature 98.6 F Pulse Rate 76 92 H Respiratory Rate 18 Blood Pressure 110/53 L 115/57 L Pulse Oximetry 97 Intake & Output 02/01/18 02/02/18 02/02/18 18:59 06:59 18:59 Intake Total 1960.5 / 1960.5 840.5 / 840.5 350 / 350 Output Total 200 / 200 250 / 250 Balance 1760.5 / 1760.5 590.5 / 590.5 350 / 350 Weight 66.2 kg Intake: IV 600.5 / 600.5 600.5 / 600.5 SandoSTATIN Inj 500 MCG In NS 500.5 / 500.5 500.5 / 500.5 Inj 500 ML @ 50 MCG/HR 50.05 mls/hr IV.CONT .Q10H [facility] Rx#: [id number] Protonix Inj 80 MG In NS Inj 100 / 100 100 / 100 100 ML @ 10 mls/hr IV.CONT CONT [facility] Rx#:[id number] Oral 960 / 960 240 / 240 Anesthesia Amount 350 / 350 Intake (Blood Product) Amt 400 / 400 Rbc As-3 Leukoreduced Unit 400 / 400 [id number] Output: Urine 200 / 200 250 / 250 Other: Date of Last Bowel Movement 02/01/18 02/01/18 # Bowel Movements 1 Results - Labs CBC & Chem 7: 02/01/18 10:47 02/01/18 10:47 Laboratory Results - last 24 hr 01/31/18 02/01/18 02/01/18 00:14 10:47 10:47 WBC 3.4 L RBC 2.68 L Hgb 7.7 L Hct 24.0 L MCV 89.3 MCH 28.7 MCHC 32.1 RDW 16.5 Plt Count 69 L D MPV 10.4 Prelim Diff (Auto) Slide review pending Neut % (Auto) 75.6 H Lymph % (Auto) 15.1 [place] % (Auto) 7.6 Eos % (Auto) 0.5 Baso % (Auto) 1.2 Neut # (Auto) 2.6 Lymph # (Auto) 0.5 L [place] # (Auto) 0.3 Eos # (Auto) 0.0 Baso # (Auto) 0.0 WBC Differential . Diff Scan Auto diff confirmed Differential Comment . Platelet Estimate Low L Platelet Morphology Normal Sodium 146 H Potassium 3.5 D Chloride 116 H D Carbon Dioxide 18.0 L Anion Gap 12 BUN 18 Creatinine 0.93 Estimated GFR 60 L POC Glucose Random Glucose 205 H D Calcium 7.8 L D MTS Gel Crossmatch See Detail 02/01/18 02/01/18 02/01/18 12:55 17:49 20:15 WBC RBC Hgb Hct MCV MCH MCHC RDW Plt Count MPV Prelim Diff (Auto) Neut % (Auto) Lymph % (Auto) [place] % (Auto) Eos % (Auto) Baso % (Auto) Neut # (Auto) Lymph # (Auto) [place] # (Auto) Eos # (Auto) Baso # (Auto) WBC Differential Diff Scan Differential Comment Platelet Estimate Platelet Morphology Sodium Potassium Chloride Carbon Dioxide Anion Gap BUN Creatinine Estimated GFR POC Glucose 190 H 157 H 180 H Random Glucose Calcium MTS Gel Crossmatch 02/02/18 07:51 WBC RBC Hgb Hct MCV MCH MCHC RDW Plt Count MPV Prelim Diff (Auto) Neut % (Auto) Lymph % (Auto) [place] % (Auto) Eos % (Auto) Baso % (Auto) Neut # (Auto) Lymph # (Auto) [place] # (Auto) Eos # (Auto) Baso # (Auto) WBC Differential Diff Scan Differential Comment Platelet Estimate Platelet Morphology Sodium Potassium Chloride Carbon Dioxide Anion Gap BUN Creatinine Estimated GFR POC Glucose 106 Random Glucose Calcium MTS Gel Crossmatch
--- NOTE | 2018-02-02 10:47 | P.RAD ---
Post Procedure Progress Note - Pre Procedure Diagnosis (1) Ascites - Post Procedure Diagnosis (1) Ascites - Procedure Information Supervising Radiologist: César Maya MD Anesthesia: Local - Plan of Activity Patient Condition: Fair See PACS Report for procedural detail/treatment. Drainage Procedure Ultrasound right Paracentesis Macanese Tube Size: 6 Fluid Description: Clear, Yellow
[2018-02-02] MEDS: Insulin NovoLIN Regular Correctional Sugar Inj SQ SCH ×4 (10:50→20:38)
--- NOTE | 2018-02-02 11:41 | US ---
EXAM DATE: 02/02/2018 11:09 AM EDT AGE/SEX: 67 years / Female INDICATIONS: Ascites. CLINICAL DATA: This is the patient's initial encounter. Patient reports that signs and symptoms have been present for 1 day and indicates a pain score of 2/10. MEDICAL/SURGICAL HISTORY: . Hypertension. Pancytopenia. Diabetes Mellitus. Esophageal varices. . section. Appendectomy. Total knee replacement, left. Bone marrow aspirates x 3. Hysterect yudy. Cholecystectomy. Carpal Tunnel surgery. CABG x 3 and stent. COMPARISON: [facility] [place]IVER, 10/29/2017. . FLUID: Total volume of 1500 cc of clear, yellow fluid was removed. Fluid was sent to lab for ordered studies . . . TECHNIQUE: Ultrasound guidance for abdominal paracentesis. Paracentesis. The risks, benefits, and alternatives to ultrasound guided paracentesis were explained to the patient in detail including the risk of bleeding and infection. Written and verbal informed consent was obt ained. With the patient on the ultrasound table, ultrasound imaging was used to select the most appropriate approach for paracentesis. Overlying skin was prepped and draped in the usual sterile fashion and wi th a local anesthetic, a dermatotomy was made with an 11 blade scalpel. A 6 Azeri [id number] ca theter was introduced into the peritoneal cavity and fluid was collected. Post procedure scanning reveals no hematoma or other complication. The patient tolerated the procedu re well and left the ultrasound suite in stable condition. CONCLUSION: Uncomplicated ultrasound-guided paracentesis. Electronically signed by: César Maya MD 02/02/2018 11:39 AM EDT
[2018-02-02] MEDS ORDERED: Lidocaine PF 1% Inj 30 ML Vial ONE (11:43)
[2018-02-02] MEDS ORDERED: Phenylephrine/NS 1000 MCG/10ML Syringe IV.PUSH ONE (12:00)
[2018-02-02] MEDS ORDERED: Succinylcholine Inj 100 MG/5 ML Syringe IV.PUSH ONE (12:00)
[2018-02-02] MEDS ORDERED: Lidocaine PF 1% Inj 5 ML Syringe INFILTRATN ONE (12:00)
--- NOTE | 2018-02-02 12:19 | P.PN ---
Subjective Interval history: Follow-up symptomatic anemia February 01, 2018-patient seen and examined, she had EGD yesterday and was transfused 2 units packed red blood cells however H&H dropping. No other issues February 02, 2018-patient seen and examined, she had ultrasound-guided paracentesis today. H&H stable. Physical Exam Vital signs: Vital Signs 02/01/18 14:45 02/01/18 15:01 02/01/18 16:00 Temperature 98.6 F 99.3 F 98.5 F Pulse Rate 77 79 78 Respiratory Rate 18 20 18 Blood Pressure 107/54 L 108/52 L 106/59 L Pulse Oximetry 99 100 99 02/01/18 20:00 02/01/18 21:22 02/01/18 23:54 Temperature 98.7 F 98.7 F Pulse Rate 78 75 Respiratory Rate 18 18 Blood Pressure 101/58 L 107/55 L Pulse Oximetry 98 97 98 02/02/18 00:00 02/02/18 04:00 02/02/18 08:10 Temperature 98.7 F Pulse Rate 73 74 76 Respiratory Rate 18 18 Blood Pressure 111/56 L 110/53 L Pulse Oximetry 98 97 02/02/18 08:17 02/02/18 09:17 02/02/18 09:37 Temperature 98.6 F Pulse Rate 75 92 H 87 Respiratory Rate Blood Pressure 115/57 L 119/55 L Pulse Oximetry 97 02/02/18 09:54 02/02/18 09:57 Temperature 99.0 F Pulse Rate 80 Respiratory Rate 18 Blood Pressure 117/67 Pulse Oximetry 99 99 Intake & Output 02/01/18 02/02/18 02/02/18 18:59 06:59 18:59 Intake Total 1960.5 / 1960.5 840.5 / 840.5 350 / 350 Output Total 200 / 200 250 / 250 Balance 1760.5 / 1760.5 590.5 / 590.5 350 / 350 Weight 66.2 kg Intake: IV 600.5 / 600.5 600.5 / 600.5 SandoSTATIN Inj 500 MCG In NS 500.5 / 500.5 500.5 / 500.5 Inj 500 ML @ 50 MCG/HR 50.05 mls/hr IV.CONT .Q10H [facility] Rx#: [id number] Protonix Inj 80 MG In NS Inj 100 / 100 100 / 100 100 ML @ 10 mls/hr IV.CONT [facility] Rx#:[id number] Oral 960 / 960 240 / 240 Anesthesia Amount 350 / 350 Intake (Blood Product) Amt 400 / 400 Rbc As-3 Leukoreduced Unit 400 / 400 [id number] Output: Urine 200 / 200 250 / 250 Other: Date of Last Bowel Movement 02/01/18 02/01/18 # Bowel Movements 1 Narrative: GENERAL: NAD SKIN: Warm and dry. HEAD: Normocephalic. EYES: No scleral icterus. No injection or drainage. NECK: Supple, trachea midline. No JVD or lymphadenopathy. CARDIOVASCULAR: Regular rate and rhythm without murmurs, gallops, or rubs. RESPIRATORY: Breath sounds equal bilaterally. No accessory muscle use. GASTROINTESTINAL: Abdomen soft, non-tender, nondistended. MUSCULOSKELETAL: No cyanosis, or edema. BACK: Nontender without obvious deformity. No CVA tenderness. Results - Labs CBC & Chem 7: 02/01/18 10:47 02/01/18 10:47 Laboratory Results - last 24 hr 01/31/18 02/01/18 02/01/18 00:14 10:47 12:55 WBC Differential . Diff Scan Auto diff confirmed Platelet Estimate Low L Platelet Morphology Normal POC Glucose 190 H MTS Gel Crossmatch See Detail 02/01/18 02/01/18 02/02/18 17:49 20:15 07:51 WBC Differential Diff Scan Platelet Estimate Platelet Morphology POC Glucose 157 H 180 H 106 MTS Gel Crossmatch 02/02/18 12:00 WBC Differential Diff Scan Platelet Estimate Platelet Morphology POC Glucose 123 H MTS Gel Crossmatch - Imaging Impressions Paracentesis Ultrasound 02/02/18 00:00 CONCLUSION: Uncomplicated ultrasound-guided paracentesis. Assessment and Plan - Assessment (1) Acute GI bleeding Code(s): K92.2 - Gastrointestinal hemorrhage, unspecified Status: Acute (2) Symptomatic anemia Code(s): D64.9 - Anemia, unspecified Status: Acute (3) Liver disease, chronic, with cirrhosis Code(s): K74.60 - Unspecified cirrhosis of liver; K76.9 - Liver disease, unspecified Status: Acute (4) Ascites Code(s): R18.8 - Other ascites Status: Acute - Plan 67-year-old female with Acute GI bleed Symptomatic anemia Transfused 3 units total packed red blood cell Appreciate input from GI, patient status post EGD with banding x, APC ablation of GAVE Currently on Protonix 40 mg p.o. twice daily and continue with octreotide drip, however wean off to a complete stop today Ascites Status post ultrasound-guided paracentesis today February 02, 2018 History of cirrhosis of liver Continue outpatient medications Diabetes type 2 Resume oral hypoglycemic agents Continue with insulin sliding scale with fingerstick blood glucose monitoring Acute renal failure-resolved Prerenal secondary to GI loss Monitor BUN and creatinine DVT prophylaxis: Chemical antiplatelet is contraindicated, bilateral SCDs
[2018-02-02] MEDS: Spironolactone 25 MG Tablet PO SCH (12:35)
[2018-02-02] MEDS: Furosemide 20 MG Tablet PO SCH ×2 (12:35→18:01)
[2018-02-02] MEDS: Propranolol 40 MG Tablet PO SCH ×2 (12:35→20:40)
[2018-02-02] MEDS: Octreotide Inj 500 MCG in Sodium Chlor 0.9% Inj 500 ML IV.CONT SCH ×2 (12:36→18:00)
[2018-02-02] MEDS: Sucralfate 1 GM Tablet PO SCH ×3 (12:39→20:38)
[2018-02-02 13:25] LABS: RBC,Peritoneal Fluid 144 /mm3 (0-0)
[2018-02-02 14:59] LABS: Baso % (Auto) 0.8 % (0.0-2.0); Hematocrit 27.2 % (35.0-46.0); Hemoglobin 8.8 gm/dL (11.6-15.3); Lymph # (Auto) 0.6 th/mm3 (1.0-4.8); Lymph % (Auto) 14.2 % (9.0-44.0); Mean Corpuscular HGB Conc 32.2 % (32.0-36.0); Mean Corpuscular Hemoglobin 28.8 pg (27.0-34.0); Mean Corpuscular Volume 89.4 fL (80.0-100.0); Mean Platelet Volume 9.7 fL (7.0-11.0); Mono # (Auto) 0.2 th/mm3 (0.0-0.9); Mono % (Auto) 4.5 % (0.0-8.0); Neut # (Auto) 3.2 th/mm3 (1.8-7.7); Neut % (Auto) 80.5 % (16.0-70.0); Platelet Count 64 th/mm3 (150-450); Red Blood Count 3.05 mil/mm3 (4.00-5.30); Red Cell Distribution Width 16.2 % (11.6-17.2); White Blood Count 3.9 th/mm3 (4.0-11.0)
[2018-02-02 15:32] LABS: Alanine Aminotransferase 36 U/L (10-53); Albumin 2.4 g/dL (3.4-5.0); Alkaline Phosphatase 78 U/L (45-117); Anion Gap 11 meq/L (5-15); Aspartate Aminotransferase 57 U/L (15-37); Blood Urea Nitrogen 11 mg/dL (7-18); Calcium 7.5 mg/dL (8.5-10.1); Carbon Dioxide 20.2 meq/L (21.0-32.0); Chloride 114 meq/L (98-107); Glomerular Filtration Rate 67 mL/min (>89); Glucose,Random 119 mg/dL (74-106); Potassium 3.7 meq/L (3.5-5.1); Sodium 145 meq/L (136-145); Total Protein 4.9 g/dL (6.4-8.2)
[2018-02-02 15:53] LABS: Platelet Morphology Normal (Normal)
--- NOTE | 2018-02-02 17:36 | ECG ---
Date Performed: 02/01/2018 Time Performed: 20:30:05 PTAGE: 67 years EKG: Sinus rhythm NORMAL ECG PREVIOUS TRACING : 10/28/2017 11.29 Since the previous tracing, no significant change noted DOCTOR: Earnest Cornejo Interpretating Date/Time 02/02/2018 17:35:54
[2018-02-02] MEDS ORDERED: Acetaminophen 325 MG Tablet PO PRN (20:07)
[2018-02-02] MEDS: glipiZIDE 10 MG Tablet PO SCH (20:39)
[2018-02-03] MEDS: Octreotide Inj 500 MCG in Sodium Chlor 0.9% Inj 500 ML IV.CONT SCH ×2 (02:05→05:43)
[2018-02-03] MEDS: Insulin NovoLIN Regular Correctional Sugar Inj SQ SCH (09:24)
[2018-02-03] MEDS: Propranolol 40 MG Tablet PO SCH (09:25)
[2018-02-03] MEDS: Sucralfate 1 GM Tablet PO SCH (09:25)
[2018-02-03] MEDS: Furosemide 20 MG Tablet PO SCH (09:25)
[2018-02-03] MEDS: Spironolactone 25 MG Tablet PO SCH (09:25)
[2018-02-03] MEDS: glipiZIDE 10 MG Tablet PO SCH (09:25)
[2018-02-03 09:55] VITALS: BP 113/53; RESP 18; TEMP 98.4; O2SAT 96
--- NOTE | 2018-02-03 10:15 | P.PN ---
Subjective Interval history: Follow-up symptomatic anemia February 01, 2018-patient seen and examined, she had EGD yesterday and was transfused 2 units packed red blood cells however H&H dropping. No other issues February 02, 2018-patient seen and examined, she had ultrasound-guided paracentesis today. H&H stable. February 03, 2018-patient seen and examined, stable ,denies any abdominal pain. No reported GI bleed identified. Vital stable. Physical Exam Vital signs: Vital Signs 02/02/18 12:00 02/02/18 12:09 02/02/18 16:00 Temperature 100.2 F H 99.5 F Pulse Rate 79 76 85 Respiratory Rate 17 17 Blood Pressure 122/57 L 117/55 L Pulse Oximetry 92 L 93 L 02/02/18 17:52 02/02/18 20:00 02/03/18 00:00 Temperature 97.9 F 98 F Pulse Rate 76 63 Respiratory Rate 16 16 Blood Pressure 129/60 106/59 L Pulse Oximetry 93 L 99 96 02/03/18 04:00 02/03/18 08:00 Temperature 97.9 F 98.4 F Pulse Rate 63 63 Respiratory Rate 16 18 Blood Pressure 110/58 L 113/53 L Pulse Oximetry 97 96 Intake & Output 02/02/18 02/03/18 02/03/18 18:59 06:59 18:59 Intake Total 1471.0 / 1471.0 1220.5 / 1220.5 Balance 1471.0 / 1471.0 1220.5 / 1220.5 Weight 66.7 kg Intake: IV 1001.0 / 1001.0 500.5 / 500.5 SandoSTATIN Inj 500 MCG In NS 1001.0 / 1001.0 500.5 / 500.5 Inj 500 ML @ 50 MCG/HR 50.05 mls/hr IV.CONT .Q10H JUAN Rx#: [id number] Oral 120 / 120 720 / 720 Anesthesia Amount 350 / 350 Other: # Voids 1 Date of Last Bowel Movement 02/02/18 # Bowel Movements 0 3 Narrative: GENERAL: NAD SKIN: Warm and dry. HEAD: Normocephalic. EYES: No scleral icterus. No injection or drainage. NECK: Supple, trachea midline. No JVD or lymphadenopathy. CARDIOVASCULAR: Regular rate and rhythm without murmurs, gallops, or rubs. RESPIRATORY: Breath sounds equal bilaterally. No accessory muscle use. GASTROINTESTINAL: Abdomen soft, non-tender, nondistended. MUSCULOSKELETAL: No cyanosis, or edema. BACK: Nontender without obvious deformity. No CVA tenderness. Results - Labs CBC & Chem 7: 02/02/18 14:30 02/02/18 14:30 Laboratory Results - last 24 hr 02/02/18 02/02/18 02/02/18 10:40 10:40 10:40 WBC RBC Hgb Hct MCV MCH MCHC RDW Plt Count MPV Prelim Diff (Auto) Neut % (Auto) Lymph % (Auto) Butler % (Auto) Eos % (Auto) Baso % (Auto) Neut # (Auto) Lymph # (Auto) Butler # (Auto) Eos # (Auto) Baso # (Auto) WBC Differential Diff Scan Differential Comment Platelet Estimate Platelet Morphology Sodium Potassium Chloride Carbon Dioxide Anion Gap BUN Creatinine Estimated GFR POC Glucose Random Glucose Calcium Total Bilirubin AST ALT Alkaline Phosphatase Total Protein Albumin Peritoneal RBC 144 H Periton Nuc Cells 144 H Periton Neutrophils 12 Periton Lymphocytes 70 Peritoneal Monocytes 13 Periton Mesothelial 3 Periton Histiocytes 2 Peritoneal Fld Comment 14 Peritoneal Tot Protein 0.6 Peritoneal Albumin 0.3 02/02/18 02/02/18 02/02/18 12:00 14:30 14:30 WBC 3.9 L RBC 3.05 L Hgb 8.8 L Hct 27.2 L MCV 89.4 MCH 28.8 MCHC 32.2 RDW 16.2 Plt Count 64 L MPV 9.7 Prelim Diff (Auto) Slide review pending Neut % (Auto) 80.5 H Lymph % (Auto) 14.2 Butler % (Auto) 4.5 Eos % (Auto) 0.0 Baso % (Auto) 0.8 Neut # (Auto) 3.2 Lymph # (Auto) 0.6 L Butler # (Auto) 0.2 Eos # (Auto) 0.0 Baso # (Auto) 0.0 WBC Differential . Diff Scan Auto diff confirmed Differential Comment . Platelet Estimate Low L Platelet Morphology Normal Sodium 145 Potassium 3.7 Chloride 114 H Carbon Dioxide 20.2 L Anion Gap 11 BUN 11 Creatinine 0.85 Estimated GFR 67 L POC Glucose 123 H Random Glucose 119 H Calcium 7.5 L Total Bilirubin 1.5 H AST 57 H ALT 36 Alkaline Phosphatase 78 Total Protein 4.9 L D Albumin 2.4 L Peritoneal RBC Periton Nuc Cells Periton Neutrophils Periton Lymphocytes Peritoneal Monocytes Periton Mesothelial Periton Histiocytes Peritoneal Fld Comment Peritoneal Tot Protein Peritoneal Albumin 02/02/18 02/02/18 02/03/18 16:27 20:20 09:23 WBC RBC Hgb Hct MCV MCH MCHC RDW Plt Count MPV Prelim Diff (Auto) Neut % (Auto) Lymph % (Auto) Butler % (Auto) Eos % (Auto) Baso % (Auto) Neut # (Auto) Lymph # (Auto) Butler # (Auto) Eos # (Auto) Baso # (Auto) WBC Differential Diff Scan Differential Comment Platelet Estimate Platelet Morphology Sodium Potassium Chloride Carbon Dioxide Anion Gap BUN Creatinine Estimated GFR POC Glucose 120 H 123 H 124 H Random Glucose Calcium Total Bilirubin AST ALT Alkaline Phosphatase Total Protein Albumin Peritoneal RBC Periton Nuc Cells Periton Neutrophils Periton Lymphocytes Peritoneal Monocytes Periton Mesothelial Periton Histiocytes Peritoneal Fld Comment Peritoneal Tot Protein Peritoneal Albumin Microbiology 02/02/18 10:40 Fluid - Peritoneal fluid Gram Stain - Final - Imaging Impressions Paracentesis Ultrasound 02/02/18 00:00 CONCLUSION: Uncomplicated ultrasound-guided paracentesis. Assessment and Plan - Assessment (1) Acute GI bleeding Code(s): K92.2 - Gastrointestinal hemorrhage, unspecified Status: Resolved (2) Symptomatic anemia Code(s): D64.9 - Anemia, unspecified Status: Resolved (3) Liver disease, chronic, with cirrhosis Code(s): K74.60 - Unspecified cirrhosis of liver; K76.9 - Liver disease, unspecified Status: Chronic (4) Ascites Code(s): R18.8 - Other ascites Status: Resolved - Plan 67-year-old female with Acute GI bleed Symptomatic anemia Transfused 3 units total packed red blood cell Appreciate input from GI, patient status post EGD with banding x, APC ablation of GAVE Currently on Protonix 40 mg p.o. twice daily and s/p octreotide drip Ascites Status post ultrasound-guided paracentesis February 02, 2018 History of cirrhosis of liver Continue outpatient medications Diabetes type 2 Continue oral hypoglycemic agents Continue with insulin sliding scale with fingerstick blood glucose monitoring Acute renal failure-resolved Prerenal secondary to GI loss Monitor BUN and creatinine DVT prophylaxis: Chemical antiplatelet is contraindicated, bilateral SCDs
[2018-02-03 10:21] VITALS: PULSE 69
--- NOTE | 2018-02-03 10:23 | P.DS ---
Date of admission: 01/31/18 02:19 Primary care physician: Ed Javier Anticipated date of discharge: 02/03/18 Brief History from admission: 67-year-old female with past medical history of diabetes type 2, cirrhosis of the liver presented to the ED for evaluation of bright red blood per rectum since yesterday January 30, 2018. Patient has a history of anemia for which he has been receiving blood transfusion 1 year, however on Monday, January patient was transfused Venofer. While in the ED, patient was found to have H&H of 6.7/21.1 for which 2 units packed red blood cells were retained. She denies any shortness of breath. Denies any prior history of paracenteses. Currently denies any hemoptysis or hematuria. DS: Diagnosis - Discharge Diagnosis (1) Acute GI bleeding Status: Chronic (2) Symptomatic anemia Status: Chronic (3) Liver disease, chronic, with cirrhosis Status: Chronic (4) Ascites Status: Resolved DS: Summary Hospital Course: While in hospital, patient was treated for: Acute GI bleed Symptomatic anemia Transfused 3 units total packed red blood cell Appreciate input from GI, patient status post EGD with banding x, APC ablation of GAVE Treated with PPI drip and switched to Protonix 40 mg p.o. twice daily and s/ p octreotide drip She will will need repeat EGD banding/APC ablation in 1 mo per GI Ascites Status post ultrasound-guided paracentesis February 02, 2018 History of cirrhosis of liver Continued on chronic outpatient medications Diabetes type 2 Initial held oral hypoglycemic agents however resumed prior to discharge Treated with insulin sliding scale with fingerstick blood glucose monitoring Acute renal failure-resolved Monitor BUN and creatinine DVT prophylaxis: Chemical antiplatelet is contraindicated, bilateral SCDs - Time Spent with Patient Total time spent providing and/or coordinating discharge services: Less than 30 minutes - Quality: VTE Deep Vein Thrombosis/Pulmonary Embolism Present on Admission: No Exam Vital signs: Vital Signs 02/02/18 12:00 02/02/18 12:09 02/02/18 16:00 Temperature 100.2 F H 99.5 F Pulse Rate 79 76 85 Respiratory Rate 17 17 Blood Pressure 122/57 L 117/55 L Pulse Oximetry 92 L 93 L 02/02/18 17:52 02/02/18 20:00 02/03/18 00:00 Temperature 97.9 F 98 F Pulse Rate 76 63 Respiratory Rate 16 16 Blood Pressure 129/60 106/59 L Pulse Oximetry 93 L 99 96 02/03/18 04:00 02/03/18 08:00 Temperature 97.9 F 98.4 F Pulse Rate 63 63 Respiratory Rate 16 18 Blood Pressure 110/58 L 113/53 L Pulse Oximetry 97 96 Intake & Output 02/02/18 02/03/18 02/03/18 18:59 06:59 18:59 Intake Total 1471.0 / 1471.0 1220.5 / 1220.5 Balance 1471.0 / 1471.0 1220.5 / 1220.5 Weight 66.7 kg Intake: IV 1001.0 / 1001.0 500.5 / 500.5 SandoSTATIN Inj 500 MCG In NS 1001.0 / 1001.0 500.5 / 500.5 Inj 500 ML @ 50 MCG/HR 50.05 mls/hr IV.CONT .Q10H JUAN Rx#: [id number] Oral 120 / 120 720 / 720 Anesthesia Amount 350 / 350 Other: # Voids 1 Date of Last Bowel Movement 02/02/18 # Bowel Movements 0 3 Narrative: GENERAL: NAD SKIN: Warm and dry. HEAD: Normocephalic. EYES: No scleral icterus. No injection or drainage. NECK: Supple, trachea midline. No JVD or lymphadenopathy. CARDIOVASCULAR: Regular rate and rhythm without murmurs, gallops, or rubs. RESPIRATORY: Breath sounds equal bilaterally. No accessory muscle use. GASTROINTESTINAL: Abdomen soft, non-tender, nondistended. MUSCULOSKELETAL: No cyanosis, or edema. BACK: Nontender without obvious deformity. No CVA tenderness. Results Procedures completed during hospitalization: none Pending studies at discharge: Pending at discharge 02/02/18 Cytology [PTH] Routine Labs on day of discharge: Labs from last 24 hours 02/03/18 02/02/18 02/02/18 09:23 20:20 16:27 WBC RBC Hgb Hct MCV MCH MCHC RDW Plt Count MPV Prelim Diff (Auto) Neut % (Auto) Lymph % (Auto) Sanders % (Auto) Eos % (Auto) Baso % (Auto) Neut # (Auto) Lymph # (Auto) Sanders # (Auto) Eos # (Auto) Baso # (Auto) WBC Differential Diff Scan Differential Comment Platelet Estimate Platelet Morphology Sodium Potassium Chloride Carbon Dioxide Anion Gap BUN Creatinine Estimated GFR POC Glucose 124 H 123 H 120 H Random Glucose Calcium Total Bilirubin AST ALT Alkaline Phosphatase Total Protein Albumin Peritoneal RBC Periton Nuc Cells Periton Neutrophils Periton Lymphocytes Peritoneal Monocytes Periton Mesothelial Periton Histiocytes Peritoneal Fld Comment Peritoneal Tot Protein Peritoneal Albumin 02/02/18 02/02/18 02/02/18 14:30 14:30 12:00 WBC 3.9 L RBC 3.05 L Hgb 8.8 L Hct 27.2 L MCV 89.4 MCH 28.8 MCHC 32.2 RDW 16.2 Plt Count 64 L MPV 9.7 Prelim Diff (Auto) Slide review pending Neut % (Auto) 80.5 H Lymph % (Auto) 14.2 Sanders % (Auto) 4.5 Eos % (Auto) 0.0 Baso % (Auto) 0.8 Neut # (Auto) 3.2 Lymph # (Auto) 0.6 L Sanders # (Auto) 0.2 Eos # (Auto) 0.0 Baso # (Auto) 0.0 WBC Differential . Diff Scan Auto diff confirmed Differential Comment . Platelet Estimate Low L Platelet Morphology Normal Sodium 145 Potassium 3.7 Chloride 114 H Carbon Dioxide 20.2 L Anion Gap 11 BUN 11 Creatinine 0.85 Estimated GFR 67 L POC Glucose 123 H Random Glucose 119 H Calcium 7.5 L Total Bilirubin 1.5 H AST 57 H ALT 36 Alkaline Phosphatase 78 Total Protein 4.9 L D Albumin 2.4 L Peritoneal RBC Periton Nuc Cells Periton Neutrophils Periton Lymphocytes Peritoneal Monocytes Periton Mesothelial Periton Histiocytes Peritoneal Fld Comment Peritoneal Tot Protein Peritoneal Albumin 02/02/18 02/02/18 02/02/18 10:40 10:40 10:40 WBC RBC Hgb Hct MCV MCH MCHC RDW Plt Count MPV Prelim Diff (Auto) Neut % (Auto) Lymph % (Auto) Sanders % (Auto) Eos % (Auto) Baso % (Auto) Neut # (Auto) Lymph # (Auto) Sanders # (Auto) Eos # (Auto) Baso # (Auto) WBC Differential Diff Scan Differential Comment Platelet Estimate Platelet Morphology Sodium Potassium Chloride Carbon Dioxide Anion Gap BUN Creatinine Estimated GFR POC Glucose Random Glucose Calcium Total Bilirubin AST ALT Alkaline Phosphatase Total Protein Albumin Peritoneal RBC 144 H Periton Nuc Cells 144 H Periton Neutrophils 12 Periton Lymphocytes 70 Peritoneal Monocytes 13 Periton Mesothelial 3 Periton Histiocytes 2 Peritoneal Fld Comment 14 Peritoneal Tot Protein 0.6 Peritoneal Albumin 0.3 - Impressions ITS Impressions Small Bowel X-Ray 01/31/18 00:00 CONCLUSION: There is no evidence for obstruction. Abdomen/Pelvis CT 01/31/18 02:17 CONCLUSION: 1. Cirrhotic liver with evidence for portal hypertension and gastroesophageal varices. 2. Small to moderate amount of ascites. 3. Sigmoid diverticulosis without definitive evidence for diverticulitis. Paracentesis Ultrasound 02/02/18 00:00 CONCLUSION: Uncomplicated ultrasound-guided paracentesis. Discharge Plan - Discharge Disposition Patient Disposition: 01 Discharge Home - Discharge Condition Condition: Good - Discharge Order Discharge Orders: Discharge Order (Routine); Ordered 02/03/18 Ordered By: Fan Mccarty - Discharge Details Anticipated Discharge Date: 02/03/18 - Physicians Team Attending Provider: Fan Mccarty Other Providers: Concepcion Javed MD ; Irene Steele MD
--- NOTE | 2018-02-03 11:28 | P.PNGI ---
Subjective Interval history: pt seen feels well, going home today s/p egd and paracentesis yesterday no bleeding, no cp, no fever or chills Physical Exam Vital signs: Vital Signs 02/02/18 12:00 02/02/18 12:09 02/02/18 16:00 Temperature 100.2 F H 99.5 F Pulse Rate 79 76 85 Respiratory Rate 17 17 Blood Pressure 122/57 L 117/55 L Pulse Oximetry 92 L 93 L 02/02/18 17:52 02/02/18 20:00 02/03/18 00:00 Temperature 97.9 F 98 F Pulse Rate 76 63 Respiratory Rate 16 16 Blood Pressure 129/60 106/59 L Pulse Oximetry 93 L 99 96 02/03/18 04:00 02/03/18 08:00 Temperature 97.9 F 98.4 F Pulse Rate 63 69 Respiratory Rate 16 18 Blood Pressure 110/58 L 113/53 L Pulse Oximetry 97 96 Intake & Output 02/02/18 02/03/18 02/03/18 18:59 06:59 18:59 Intake Total 1471.0 / 1471.0 1220.5 / 1220.5 Balance 1471.0 / 1471.0 1220.5 / 1220.5 Weight 66.7 kg Intake: IV 1001.0 / 1001.0 500.5 / 500.5 SandoSTATIN Inj 500 MCG In NS 1001.0 / 1001.0 500.5 / 500.5 Inj 500 ML @ 50 MCG/HR 50.05 mls/hr IV.CONT .Q10H JUAN Rx#: [id number] Oral 120 / 120 720 / 720 Anesthesia Amount 350 / 350 Other: # Voids 1 Date of Last Bowel Movement 02/02/18 # Bowel Movements 0 3 - Constitutional no acute distress - Routine HEENT Exam Head: Present: normocephalic Eye: Present: EOMI, cataracts ENT: Present: mucous membranes moist - Routine Neck Exam Present: supple, full ROM - Routine Respiratory Exam Present: CTA bilaterally. Absent: accessory muscle use - Routine Cardiovascular Exam Present: RRR, S1. Absent: murmur, bradycardia, tachycardia - Routine Abdominal Exam Present: soft, normoactive bowel sounds, distended. Absent: tenderness, rebound , guarding Comments: dressing at RLQ, wet. Changed and redressed. - Routine Skin Exam Present: intact - Routine Neurological Exam Present: alert, oriented X3, normal speech. Absent: asterixis - Detailed Neurological Exam: Coma Scale Verbal Response: Oriented - Routine Psychiatric Exam Present: normal affect, normal thought process Results - Labs CBC & Chem 7: 02/02/18 14:30 02/02/18 14:30 Laboratory Results - last 24 hr 02/02/18 02/02/18 02/02/18 10:40 10:40 10:40 WBC RBC Hgb Hct MCV MCH MCHC RDW Plt Count MPV Prelim Diff (Auto) Neut % (Auto) Lymph % (Auto) Sully % (Auto) Eos % (Auto) Baso % (Auto) Neut # (Auto) Lymph # (Auto) Sully # (Auto) Eos # (Auto) Baso # (Auto) WBC Differential Diff Scan Differential Comment Platelet Estimate Platelet Morphology Sodium Potassium Chloride Carbon Dioxide Anion Gap BUN Creatinine Estimated GFR POC Glucose Random Glucose Calcium Total Bilirubin AST ALT Alkaline Phosphatase Total Protein Albumin Peritoneal RBC 144 H Periton Nuc Cells 144 H Periton Neutrophils 12 Periton Lymphocytes 70 Peritoneal Monocytes 13 Periton Mesothelial 3 Periton Histiocytes 2 Peritoneal Fld Comment 14 Peritoneal Tot Protein 0.6 Peritoneal Albumin 0.3 02/02/18 02/02/18 02/02/18 12:00 14:30 14:30 WBC 3.9 L RBC 3.05 L Hgb 8.8 L Hct 27.2 L MCV 89.4 MCH 28.8 MCHC 32.2 RDW 16.2 Plt Count 64 L MPV 9.7 Prelim Diff (Auto) Slide review pending Neut % (Auto) 80.5 H Lymph % (Auto) 14.2 Sully % (Auto) 4.5 Eos % (Auto) 0.0 Baso % (Auto) 0.8 Neut # (Auto) 3.2 Lymph # (Auto) 0.6 L Sully # (Auto) 0.2 Eos # (Auto) 0.0 Baso # (Auto) 0.0 WBC Differential . Diff Scan Auto diff confirmed Differential Comment . Platelet Estimate Low L Platelet Morphology Normal Sodium 145 Potassium 3.7 Chloride 114 H Carbon Dioxide 20.2 L Anion Gap 11 BUN 11 Creatinine 0.85 Estimated GFR 67 L POC Glucose 123 H Random Glucose 119 H Calcium 7.5 L Total Bilirubin 1.5 H AST 57 H ALT 36 Alkaline Phosphatase 78 Total Protein 4.9 L D Albumin 2.4 L Peritoneal RBC Periton Nuc Cells Periton Neutrophils Periton Lymphocytes Peritoneal Monocytes Periton Mesothelial Periton Histiocytes Peritoneal Fld Comment Peritoneal Tot Protein Peritoneal Albumin 02/02/18 02/02/18 02/03/18 16:27 20:20 09:23 WBC RBC Hgb Hct MCV MCH MCHC RDW Plt Count MPV Prelim Diff (Auto) Neut % (Auto) Lymph % (Auto) Sully % (Auto) Eos % (Auto) Baso % (Auto) Neut # (Auto) Lymph # (Auto) Sully # (Auto) Eos # (Auto) Baso # (Auto) WBC Differential Diff Scan Differential Comment Platelet Estimate Platelet Morphology Sodium Potassium Chloride Carbon Dioxide Anion Gap BUN Creatinine Estimated GFR POC Glucose 120 H 123 H 124 H Random Glucose Calcium Total Bilirubin AST ALT Alkaline Phosphatase Total Protein Albumin Peritoneal RBC Periton Nuc Cells Periton Neutrophils Periton Lymphocytes Peritoneal Monocytes Periton Mesothelial Periton Histiocytes Peritoneal Fld Comment Peritoneal Tot Protein Peritoneal Albumin Microbiology 02/02/18 10:40 Fluid - Peritoneal fluid Gram Stain - Final - Imaging Impressions Paracentesis Ultrasound 02/02/18 00:00 CONCLUSION: Uncomplicated ultrasound-guided paracentesis. Assessment and Plan (1) Acute GI bleeding Status: Resolved Code(s): K92.2 - Gastrointestinal hemorrhage, unspecified (2) GAVE (gastric antral vascular ectasia) Status: Acute Code(s): K31.819 - Angiodysplasia of stomach and duodenum without bleeding (3) Varices, esophageal Status: Acute Code(s): I85.00 - Esophageal varices without bleeding (4) Liver disease, chronic, with cirrhosis Status: Chronic Code(s): K74.60 - Unspecified cirrhosis of liver; K76.9 - Liver disease, unspecified (5) Symptomatic anemia Status: Resolved Code(s): D64.9 - Anemia, unspecified (6) Ascites Status: Resolved Code(s): R18.8 - Other ascites - Plan PLAN: 1. S/p EGD with band x 3 and APC ablation of GAVE 2. Continue PPI bid 3. Carafate 1 gm po QID x 1 mo 4. Will need rpt EGD banding/APC ablation in 1 mo 5. S/p U/s guided para (no clear evidence of SPB) cytology pending. (6) Ascites Qualifiers: Ascites type: other type Qualified Code(s): R18.8 - Other ascites
[2018-02-05 13:00] LABS: Neutrophils,Peritoneal Fluid 15 %
[2018-02-05 13:01] LABS: Mesothelial,Peritoneal Fluid 2 %
== END 2018-02-03 12:36 | disposition home or self-care (01) ==
LOC: NEPE 20:02 → NEDA 01-31 02:19 → N04 01-31 05:23
PROVIDERS: ADMIT Hospitalist; ATTEND Hospitalist
PROC: PANENDO (2018-02-02 08:21)

== ENCOUNTER 2018-02-19 21:41 | Inpatient (IN) ==
[2018-02-19] MEDS ORDERED: Pantoprazole Inj 40 MG Vial IV.PUSH ONE ×2 (22:03→23:38)
[2018-02-19] MEDS ORDERED: Pantoprazole Inj 80 MG in Sodium Chlor 0.9% Inj 35 ML IV.SIG ONE (22:03)
[2018-02-19] MEDS ORDERED: Octreotide Inj 50 MCG/ML Vial IV.PUSH ONE (22:04)
--- NOTE | 2018-02-19 22:19 | ED ---
HPI General Chief complaint: GI Bleed Stated complaint: Medical Time Seen by Provider: 02/19/18 21:46 Source: patient Mode of arrival: EMS Limitations: no limitations History of Present Illness HPI Narrative: Today before going to bed she had a bowel movement and she noted [id number] female that presents to the ED via [facility] for evaluation of GI bleed. Patient has a significant history of anemia, cirrhosis, previous GI bleeds with esophageal and stomach paresis. Patient was just admitted 3 weeks ago for similar. Patient reports that since being released from the hospital she has been doing well but per patient she is follow with her hammer runner Dr. Archibald as well as with her GI doctor Dr. Lei. Per patient she actually just saw them today. Per patient she is scheduled to have an EGD in 2 weeks to recheck the esophageal viruses as well as to get a transfusion tomorrow. Per patient she is been doing okay except has been having some diarrhea. Tonight she had a bowel movement where she had diarrhea as well as clots and blood in it. Per patient she had no pain. She denies any new symptoms. Per patient she is always weak as she is always anemic. Per patient she gets frequent transfusions by her oncologist. Per patient she does not make blood cells because of her disease. She also has a history of ascites and states that for the most part her fluid has been better. Per patient she was started on diuretics with improvement of symptoms. Related Data Home Medications Medication Instructions Recorded Confirmed atorvastatin 20 mg PO DAILY 01/31/18 02/19/18 furosemide 20 mg PO BID 01/31/18 02/19/18 glipizide 10 mg PO BID 01/31/18 02/19/18 metformin 1,000 mg PO BID 01/31/18 02/19/18 vitamin E 400 unit PO DAILY 01/31/18 02/19/18 nitazoxanide [Alinia] 500 mg PO BID 02/19/18 02/19/18 spironolactone 50 mg PO BID 02/19/18 02/19/18 Previous Rx's Medication Instructions Recorded propranolol 40 mg PO BID #60 tab 02/03/18 sucralfate 1 gm PO ACHS #60 tab 02/03/18 Allergies Allergy/AdvReac Type Severity Reaction Status Date / Time No Known Allergies Allergy Verified 02/19/18 21:49 Review of Systems ROS Unobtainable All other systems reviewed negative except as stated in HPI [facility] Medical History Medical History Cirrhosis (Acute) Myelodysplastic syndrome (Acute) Hypertension (Acute) High cholesterol (Acute) Diabetes (Acute) Blood disorder (Acute) Surgical History Surgical History Total knee replacement status (Acute) History of open heart surgery (Acute) Family History Family History Father CHF (congestive heart failure) Mother Non Hodgkin's lymphoma Social History Social History Substance History: No History of Abuse Second Hand Smoke Exposure: Yes Smoking Status: Never smoker How Often Do You Have a Drink Containing Alcohol: Never Recent Travel in [facility] within the Last 8 Weeks: No Recent Out of Country Travel within the Last 8 Weeks: No Immunization History Tetanus Immunization: <5 Years Hx Influenza Vaccine This Season: Yes Exam Narrative Exam Narrative: GENERAL: Well-appearing SKIN: Focused skin assessment warm/dry. HEAD: Atraumatic. Normocephalic. EYES: Pupils equal and round. No scleral icterus. No injection or drainage. ENT: No nasal bleeding or discharge. Mucous membranes pink and moist. Tongue is midline. No uvula deviation. NECK: Trachea midline. No JVD. CARDIOVASCULAR: Regular rate and rhythm. No murmur appreciated. RESPIRATORY: No accessory muscle use. Clear to auscultation. Breath sounds equal bilaterally. GASTROINTESTINAL: Abdomen soft, non-tender, slightly distended. Hepatic and splenic margins not palpable. MUSCULOSKELETAL: No obvious deformities. No clubbing. No cyanosis. No edema. Full range of motion of the upper and lower extremities bilaterally. 2+ pulses bilaterally. NEUROLOGICAL: Awake and alert. No obvious cranial nerve deficits. Motor grossly within normal limits. Normal speech. PSYCHIATRIC: Appropriate mood and affect; insight and judgment normal. Procedures Hemaprompt Stool Procedural Steps Taken: specimen placed in appropriate test area, developer placed on specimen and control areas and controls appropriately positive and negative Hemaprompt Stool Result: positive Course Hospital Course: pt treated with octreotide push and drip and protonix push and drip and transfused PRBC and admitted by this MD to ICU to DR LINDSEY Initial Documented Vital Signs Temperature 98.0 F 02/19/18 21:50 Pulse Rate 98 H 02/19/18 21:50 Respiratory Rate 20 02/19/18 21:50 Blood Pressure 131/61 02/19/18 21:50 Pulse Oximetry 99 02/19/18 21:50 Last Documented Vital Signs Temperature 98.7 F 02/20/18 02:50 Pulse Rate 66 02/20/18 02:50 Respiratory Rate 20 02/20/18 02:50 Blood Pressure 94/50 L 02/20/18 02:50 Pulse Oximetry 99 02/19/18 21:54 Medical Decision Making LEANNE Attestation LEANNE supervised visit: Yes Attestation: pt treated by PA reviewed his plan and dispo and then I admitted pt myself to ICU MDM Narrative Medical decision making narrative: episode of blood in her stool she got really concerned.67-year-old female that presents to the ED for evaluation of possible GI bleed and anemia. Patient was properly examined and was found to have signs and symptoms consistent appears to be GI bleed. Patient actually had blood work on Monday and came with her paperwork. Apparently her hemoglobin on Monday was 7.6. Per patient she is due to have a transfusion tomorrow but because of the labs and imaging were ordered. 2 units of blood ordered. Patient was started on Protonix. Case discussed with my attending who recommends that also start patient on octreotide secondary to the patient's history of esophageal varices. Case signed out to my attending pending admission. Lab Data Result diagrams: 02/19/18 22:05 02/19/18 22:05 Lab Results 02/19/18 02/19/18 02/19/18 Range/Units 09:46 22:05 22:05 WBC 6.7 (4.0-11.0) th/mm3 RBC 2.36 L (4.00-5.30) mil/mm3 Hgb 6.6 L* (11.6-15.3) gm/dL Hct 20.6 L* (35.0-46.0) % MCV 87.4 (80.0-100.0) fL MCH 28.0 (27.0-34.0) pg MCHC 32.1 (32.0-36.0) % RDW 17.2 (11.6-17.2) % Plt Count 95 L D (150-450) th/mm3 MPV 11.1 H (7.0-11.0) fL Prelim Diff (Auto) Slide review pending Neut % (Auto) 80.6 H (16.0-70.0) % Lymph % (Auto) 11.6 (9.0-44.0) % [place] % (Auto) 5.2 (0.0-8.0) % Eos % (Auto) 1.4 (0.0-4.0) % Baso % (Auto) 1.2 (0.0-2.0) % Neut # (Auto) 5.4 (1.8-7.7) th/mm3 Lymph # (Auto) 0.8 L (1.0-4.8) th/mm3 [place] # (Auto) 0.3 (0.0-0.9) th/mm3 Eos # (Auto) 0.1 (0.0-0.4) th/mm3 Baso # (Auto) 0.1 (0.0-0.2) th/mm3 WBC Differential . Differential Comment . Platelet Estimate Low L (Normal) Platelet Morphology Enlarged H (Normal) PT 10.4 (9.8-11.6) sec INR 1.0 Ratio APTT 23.6 L (24.3-30.1) sec Sodium (136-145) meq/L Potassium (3.5-5.1) meq/L Chloride (98-107) meq/L Carbon Dioxide (21.0-32.0) meq/L Anion Gap (5-15) meq/L BUN (7-18) mg/dL Creatinine (0.50-1.00) mg/dL Estimated GFR (>89) mL/min Random Glucose (74-106) mg/dL Calcium (8.5-10.1) mg/dL Total Bilirubin (0.2-1.0) mg/dL AST (15-37) U/L ALT (10-53) U/L Alkaline Phosphatase (45-117) U/L Total Protein (6.4-8.2) g/dL Albumin (3.4-5.0) g/dL MTS Gel Crossmatch See Detail 02/19/18 Range/Units 22:05 WBC (4.0-11.0) th/mm3 RBC (4.00-5.30) mil/mm3 Hgb (11.6-15.3) gm/dL Hct (35.0-46.0) % MCV (80.0-100.0) fL MCH (27.0-34.0) pg MCHC (32.0-36.0) % RDW (11.6-17.2) % Plt Count (150-450) th/mm3 MPV (7.0-11.0) fL Prelim Diff (Auto) Neut % (Auto) (16.0-70.0) % Lymph % (Auto) (9.0-44.0) % [place] % (Auto) (0.0-8.0) % Eos % (Auto) (0.0-4.0) % Baso % (Auto) (0.0-2.0) % Neut # (Auto) (1.8-7.7) th/mm3 Lymph # (Auto) (1.0-4.8) th/mm3 [place] # (Auto) (0.0-0.9) th/mm3 Eos # (Auto) (0.0-0.4) th/mm3 Baso # (Auto) (0.0-0.2) th/mm3 WBC Differential Differential Comment Platelet Estimate (Normal) Platelet Morphology (Normal) PT (9.8-11.6) sec INR Ratio APTT (24.3-30.1) sec Sodium 135 L (136-145) meq/L Potassium 4.8 (3.5-5.1) meq/L Chloride 102 (98-107) meq/L Carbon Dioxide 21.1 (21.0-32.0) meq/L Anion Gap 12 (5-15) meq/L BUN 21 H (7-18) mg/dL Creatinine 1.44 H (0.50-1.00) mg/dL Estimated GFR 36 L (>89) mL/min Random Glucose 124 H (74-106) mg/dL Calcium 8.4 L (8.5-10.1) mg/dL Total Bilirubin 0.7 (0.2-1.0) mg/dL AST 28 (15-37) U/L ALT 24 (10-53) U/L Alkaline Phosphatase 100 (45-117) U/L Total Protein 6.0 L (6.4-8.2) g/dL Albumin 2.8 L (3.4-5.0) g/dL MTS Gel Crossmatch Discharge Plan Discharge Disposition Patient Disposition: 30 Still Patient Discharge Details Diagnosis: GI (gastrointestinal hemorrhage) Physicians Team ED Provider: Ross Kim ED Midlevel Provider: Alejandro Otero Primary Care Provider: UNKNOWN, Attending Provider: Alexander Lindsey Other Providers: Hellen Ch ; Alonso Johnson Discharge Interventions Interventions: Vital Signs Last Done: 02/20/18 01:54 Status ED Status: Admitted Patient
[2018-02-19 22:36] LABS: Baso # (Auto) 0.1 th/mm3 (0.0-0.2); Baso % (Auto) 1.2 % (0.0-2.0); Eos # (Auto) 0.1 th/mm3 (0.0-0.4); Eos % (Auto) 1.4 % (0.0-4.0); Lymph # (Auto) 0.8 th/mm3 (1.0-4.8); Lymph % (Auto) 11.6 % (9.0-44.0); Mean Corpuscular HGB Conc 32.1 % (32.0-36.0); Mean Corpuscular Volume 87.4 fL (80.0-100.0); Mean Platelet Volume 11.1 fL (7.0-11.0); Mono # (Auto) 0.3 th/mm3 (0.0-0.9); Mono % (Auto) 5.2 % (0.0-8.0); Neut # (Auto) 5.4 th/mm3 (1.8-7.7); Neut % (Auto) 80.6 % (16.0-70.0); Platelet Count 95 th/mm3 (150-450); Red Blood Count 2.36 mil/mm3 (4.00-5.30); Red Cell Distribution Width 17.2 % (11.6-17.2); White Blood Count 6.7 th/mm3 (4.0-11.0)
[2018-02-19 22:49] LABS: Activated Partial Thrombo Time 23.6 sec (24.3-30.1); Hematocrit 20.6 % (35.0-46.0); Hemoglobin 6.6 gm/dL (11.6-15.3); Prothrombin Time 10.4 sec (9.8-11.6)
[2018-02-19 23:00] LABS: Alanine Aminotransferase 24 U/L (10-53)
[2018-02-19 23:01] LABS: Alkaline Phosphatase 100 U/L (45-117)
[2018-02-19 23:02] LABS: Albumin 2.8 g/dL (3.4-5.0); Anion Gap 12 meq/L (5-15); Aspartate Aminotransferase 28 U/L (15-37); Blood Urea Nitrogen 21 mg/dL (7-18); Calcium 8.4 mg/dL (8.5-10.1); Carbon Dioxide 21.1 meq/L (21.0-32.0); Chloride 102 meq/L (98-107); Glomerular Filtration Rate 36 mL/min (>89); Glucose,Random 124 mg/dL (74-106); Potassium 4.8 meq/L (3.5-5.1); Sodium 135 meq/L (136-145)
[2018-02-19] MEDS: Octreotide Inj 500 MCG in Sodium Chlor 0.9% Inj 500 ML IV.CONT SCH (23:44)
[2018-02-19] MEDS ORDERED: Pantoprazole Inj 80 MG in Sodium Chlor 0.9% Inj 100 ML IV.CONT SCH (23:45)
[2018-02-20] MEDS ORDERED: Dextrose 50% in Water 50 ML Vial IV.PUSH PRN (00:55)
--- NOTE | 2018-02-20 01:00 | P.HPIM ---
History of Present Illness Primary Care Physician: UNKNOWN History of Present Illness: 67-year-old female with a history of cirrhosis, MDS, esophageal varices with recent banding several weeks ago who presents with acute onset of bloody diarrhea this afternoon with associated lightheadedness worse with standing. She denies any chest pain, shortness of breath. She does report fatigue which is gotten worse today. She does report nausea earlier but this has resolved. Inpatient Certification: I certify that the inpatient services were ordered in accordance with Medicare regulations governing the order. This includes certification that hospital inpatient services are reasonable and necessary and in the case of services not specified as inpatient-only under 42 CFR 419.22(n), that they are appropriately provided as inpatient services in accordance to with the 2-midnight benchmark under 43 CFR 412.3(e) Estimated Total Length of Stay (Days): 2 Plans for Post Hospital Care: Not yet determined Review of Systems All other systems reviewed negative except as stated in HPI PMFSH - History History Provided By: Patient - Medical History Medical History: Medical History (Last Reviewed 02/19/18 @ 22:16 by YADIEL Worley) Cirrhosis (Acute) Myelodysplastic syndrome (Acute) Hypertension (Acute) High cholesterol (Acute) Diabetes (Acute) Blood disorder (Acute) - Surgical History Surgical History: Surgical History (Last Reviewed 02/19/18 @ 22:16 by YADIEL Worley) Total knee replacement status (Acute) History of open heart surgery (Acute) - Family History Family History: Family History (Last Updated 02/20/18 @ 00:59 by Alexander Lindsey MD) Father CHF (congestive heart failure) Mother Non Hodgkin's lymphoma - Tobacco History Second Hand Smoke Exposure: Yes Smoking Status: Never smoker - Alcohol History How Often Do You Have a Drink Containing Alcohol: Never - Substance Use History Substance History: No History of Abuse - Travel History Recent Travel in the [place] Within the Last 8 Weeks: No Recent Travel Out of the Country Within the Last 8 Weeks: No - Immunization History Tetanus Immunization: <5 Years Hx Influenza Vaccine This Season: Yes Medications and Allergies Active Medications: Active Medications Dextrose (D50w Vial) 50 ml IV.PUSH UNSCH PRN PRN Reason: PER HYPOGLYCEMIA PROTOCOL Glucagon (Glucagon Inj) 1 mg OTHER PRN PRN PRN Reason: for Hypoglycemia Protocol Octreotide Acetate 500 mcg/ (Sodium Chloride) 500.5 mls @ 25.02 mls/hr IV.CONT .Q20H1M [facility] Last Infusion: 02/20/18 00:30 Dose: Infused Ceftriaxone Sodium 1,000 mg/ (Sodium Chloride) 100 mls @ 200 mls/hr IV.SIG Q24H [facility] Last Infusion: 02/20/18 00:29 Dose: Infused Pantoprazole Sodium 80 mg/ (Sodium Chloride) 100 mls @ 10 mls/hr IV.CONT CONT JUAN Insulin Aspart (Novolog Insulin Correctional Sugar Inj) 0 unit SQ ACHS JUAN; Protocol Propranolol HCl (Inderal) 40 mg PO BID JUAN Sodium Chloride (Ns Flush) 2 ml IV.FLUSH BID JUAN Sodium Chloride (Ns Flush) 2 ml IV.FLUSH PRN PRN PRN Reason: FLUSH AFTER USING IV ACCESS Spironolactone (Aldactone) 50 mg PO BID [facility] Allergies Allergy/AdvReac Type Severity Reaction Status Date / Time No Known Allergies Allergy Verified 02/19/18 21:49 Home Medications Medication Instructions Recorded Confirmed Type atorvastatin 20 mg PO DAILY 01/31/18 02/19/18 History furosemide 20 mg PO BID 01/31/18 02/19/18 History glipizide 10 mg PO BID 01/31/18 02/19/18 History metformin 1,000 mg PO BID 01/31/18 02/19/18 History vitamin E 400 unit PO DAILY 01/31/18 02/19/18 History nitazoxanide [Alinia] 500 mg PO BID 02/19/18 02/19/18 History spironolactone 50 mg PO BID 02/19/18 02/19/18 History Exam Vital signs: Vital Signs 02/19/18 21:50 02/19/18 21:54 02/20/18 00:34 Temperature 98.0 F 98.5 F 98.6 F Pulse Rate 98 H 94 H 89 Respiratory Rate 20 20 20 Blood Pressure 131/61 128/66 100/52 L Pulse Oximetry 99 99 02/20/18 00:50 Temperature 98.6 F Pulse Rate 88 Respiratory Rate 20 Blood Pressure 102/58 L Pulse Oximetry Intake & Output 02/19/18 02/19/18 02/20/18 06:59 18:59 06:59 Intake Total 635.5 / 635.5 Balance 635.5 / 635.5 Weight 72.91 kg Intake: IV 635.5 / 635.5 SandoSTATIN Inj 500 MCG In NS 500.5 / 500.5 Inj 500 ML @ 25 MCG/HR 25.02 mls/hr IV.CONT .Q20H1M [facility] Rx#: [id number] Protonix Inj 80 MG In NS Inj 35 35 / 35 ML @ 420 mls/hr IV.SIG BOLUS ONE Rx#:[id number] Rocephin Inj 1,000 MG In NS Inj 100 / 100 100 ML @ 200 mls/hr IV.SIG Q24H [facility] Rx#:[id number] Intake (Blood Product) Amt 0 / 0 Rbc As-3 Leukoreduced Unit 0 / 0 [id number] Narrative: GENERAL: Patient sitting up in bed. Appears comfortable. Somnolent but oriented 3. SKIN: Warm and dry. Patient appears pale. HEAD: Atraumatic. Normocephalic. EYES: Pupils equal and round. No scleral icterus. No injection or drainage. ENT: No nasal bleeding or discharge. Mucous membranes pink and moist. NECK: Trachea midline. No JVD. CARDIOVASCULAR: Regular rate and rhythm. RESPIRATORY: No accessory muscle use. Clear to auscultation. Breath sounds equal bilaterally. GASTROINTESTINAL: Abdomen soft, non-tender, patient does have ascites, however abdomen is not distended.. Hepatic and splenic margins not palpable. MUSCULOSKELETAL: Extremities without clubbing, cyanosis, or edema. No obvious deformities. NEUROLOGICAL: Awake and alert. No obvious cranial nerve deficits. Motor grossly within normal limits. Five out of 5 muscle strength in the arms and legs. Normal speech. PSYCHIATRIC: Appropriate mood and affect; insight and judgment normal. Results - Labs CBC & Chem 7: 02/19/18 22:05 02/19/18 22:05 Labs: Short CBC 02/19/18 Range/Units 22:05 WBC 6.7 (4.0-11.0) th/mm3 Hgb 6.6 L* (11.6-15.3) gm/dL Hct 20.6 L* (35.0-46.0) % Plt Count 95 L D (150-450) th/mm3 BMP 02/19/18 22:05 Sodium 135 L Potassium 4.8 Chloride 102 Carbon Dioxide 21.1 BUN 21 H Creatinine 1.44 H Calcium 8.4 L Liver Function 02/19/18 Range/Units 22:05 Total Bilirubin 0.7 (0.2-1.0) mg/dL AST 28 (15-37) U/L ALT 24 (10-53) U/L Alkaline Phosphatase 100 (45-117) U/L Albumin 2.8 L (3.4-5.0) g/dL Caprini VTE Risk Assessment Caprini VTE Risk Assessment: Moderate/High Risk (score >= 2) Caprini Risk Assessment Model: Point Value = 1 Point Value = 2 Point Value = 3 Point Value = 5 Age 41-60 Minor surgery BMI > 25 kg/m2 Swollen legs Varicose veins or History of unexplained or recurrent spontaneous Oral contraceptives or hormone replacement Sepsis (< 1 month) Serious lung disease, including pneumonia (< 1 month) Abnormal pulmonary function Acute myocardial infarction Congestive heart failure (< 1 month) History of inflammatory bowel disease Medical patient at bed rest Age 61-74 Arthroscopic surgery Major open surgery (> 45 min) Laparoscopic surgery (> 45 min) Malignancy Confined to bed (> 72 hours) Immobilizing plaster cast Central venous access Age >= 75 History of VTE Family history of VTE Factor V Leiden Prothrombin [id number] Lupus anticoagulant Anticardiolipin antibodies Elevated serum homocysteine Heparin-induced thrombocytopenia Other congenital or acquired thrombophilia Stroke (< 1 month) Elective arthroplasty Hip, pelvis, or leg fracture Acute spinal cord injury (< 1 month) Prophylaxis Regimen: Total Risk Factor Score Risk Level Prophylaxis Regimen 0-1 Low Early ambulation 2 Moderate Order ONE of the following: *Sequential Compression Device (SCD) *Heparin 5000 units SQ BID 3-4 Higher Order ONE of the following medications: *Heparin 5000 units SQ TID *Enoxaparin/Lovenox 40 mg SQ daily (WT < 150 kg, CrCl > 30 mL/min) *Enoxaparin/Lovenox 30 mg SQ daily (WT < 150 kg, CrCl > 10-29 mL/min) *Enoxaparin/Lovenox 30 mg SQ BID (WT < 150 kg, CrCl > 30 mL/min) AND/OR *Sequential Compression Device (SCD) 5 or more Highest Order ONE of the following medications: *Heparin 5000 units SQ TID (Preferred with Epidurals) *Enoxaparin/Lovenox 40 mg SQ daily (WT < 150 kg, CrCl > 30 mL/min) *Enoxaparin/Lovenox 30 mg SQ daily (WT < 150 kg, CrCl > 10-29 mL/min) *Enoxaparin/Lovenox 30 mg SQ BID (WT < 150 kg, CrCl > 30 mL/min) AND *Sequential Compression Device (SCD) Assessment and Plan - Plan //Acute GI bleed. //Chronic cirrhosis //Symptomatic anemia -Hemoglobin 6.6 on admission We will continue on octreotide drip and pantoprazole drip = Continue propranolol and spironolactone Consult patient's breakfast host. //Diabetes mellitus. Insulin sliding scale. //Hypertension. Blood pressure acceptable. Continue home medications. //Hyperlipidemia. Chronic. Will hold home meds for now Discussed Condition With: Patient, nurse, ED physician.
[2018-02-20] MEDS: Pantoprazole Inj 80 MG in Sodium Chlor 0.9% Inj 100 ML IV.CONT SCH ×3 (03:16→23:31)
[2018-02-20] MEDS: Propranolol 40 MG Tablet PO SCH ×2 (08:01→23:07)
[2018-02-20] MEDS: Insulin NovoLOG Aspart Correctional Sugar Inj SQ SCH ×4 (08:02→23:07)
--- NOTE | 2018-02-20 09:24 | MB ---
cc: Sean Hanson MD,Alexander Goel,Faisal HERMOSILLO DATE: 02/20/2018 REASON FOR CONSULTATION: We were asked to see this patient at the request Dr. Alexander Lindsey for evaluation of GI bleeding. HISTORY OF PRESENT ILLNESS: The patient is a pleasant 67-year-old female with a history of cirrhosis and a myelodysplastic syndrome. She was seen at this hospital several weeks ago for GI bleeding and upper endoscopy revealed esophageal varices were banded and portal hypertensive gastropathy which is coagulated. There has also been gastric polyps noted. She was doing well and was actually seen in our office yesterday. She did complain of some loose stools, but was doing well until last night when she went to the bathroom and passed dark clots. It was black, but when it hit the water it turned red. She does have known diverticulosis and hemorrhoids - the last colonoscopy was in November of this year. The patient denies any dysphagia, diarrhea or vomiting. The patient had some nausea. No fever or chills. She is normally constipated. She had some diarrhea, which is better now. She said throughout the night she did pass some clots. PAST MEDICAL HISTORY: Cirrhosis, mildly dysplastic syndrome, hypertension, coronary artery disease, dyslipidemia, diabetes, iron deficient anemia also, portal hypertensive gastropathy, gastric antral vascular ectasia, esophageal varices, ascites, cirrhosis, hypertension, diverticulosis and internal hemorrhoids. PAST SURGICAL HISTORY: , upper endoscopy and colonoscopy, knee replacement, appendectomy, hysterectomy, cholecystectomy, open heart surgery. Last colonoscopy was 11/2017. FAMILY HISTORY: Significant in that mother had non-Hodgkin lymphoma. SOCIAL HISTORY: Does not smoke or drink. REVIEW OF SYSTEMS: No weight loss, fever or chills. CARDIOPULMONARY: No chest pain, palpitation, wheezing, or shortness of breath. GASTROINTESTINAL: Please see above, otherwise unremarkable 12-point review of systems. PHYSICAL EXAMINATION: VITAL SIGNS: Blood pressure currently on the monitor is 92/50, pulse of 80, respiratory rate 20, she is afebrile. GENERAL: She is a 67-year-old female who looks older than her stated age. She appears to be in no acute GI distress at this time. HEENT: Pupils equal and reactive to light. No obvious scleral icterus. Oropharynx, she has dental caries. No tongue deviation or Candidal lesions. Hearing was intact. NECK: Supple without lymphadenopathy. LUNGS: Clear to auscultation. HEART: Regular rate and rhythm. No murmurs heard. ABDOMEN: Soft, protuberant. There is a suggestion of ascites, but it was not tense. No organomegaly or masses. Bowel sounds positive in all 4 quadrants. EXTREMITIES: No cyanosis, clubbing or edema. NEUROLOGIC: Cranial nerves II-XII are grossly intact. No gross sensory deficits. She is alert and oriented x 3, no asterixis. SKIN: Warm and moist. RECTAL: Not done. I did not assess her gait. MEDICATIONS AT HOME: 1. Lasix. 2. Glipizide. 3. Metformin. 4. Vitamin E. 5. Alinia. 6. Spironolactone. 7. Atorvastatin. 8. Lasix. 9. She has also been on Propranolol and Carafate. ALLERGIES: NO KNOWN DRUG ALLERGIES. MEDICATIONS IN THE HOSPITAL: 1. Ceftriaxone. 2. Glucagon. 3. Insulin. 4. Octreotide. 5. Pantoprazole drip. 6. Propranolol. 7. Aldactone. DATABASE: Laboratories revealed the last hemoglobin of 6.6, hematocrit 20.6, white blood cell count 6700, MCV 87.4, platelet count low at 95,000. Prothrombin time 10.4, INR 1.0, PTT of 22.7. The BUN was 21, creatinine of 1.44, sodium 135, potassium 4.8, SGOT 28, SGPT 24, alkaline phosphatase of 100, total neutrophils 0.7-all fours are negative, albumin 2.8 was low, total protein 6.0 is low, glucose 124 is elevated. IMPRESSIONS: 1. Gastrointestinal bleeding - Described dark stool with dark black clot which would turn red as it hit the toilet bowl. ER mentioned she may have had red stools. She does have known varices and portal hypertensive gastropathy as well as with gastric antral vascular ectasia and with bleeding. She may be bleeding from the variceal banding site also. I cannot rule out diverticular bleed. 2. Portal hypertensive gastropathy - Gastric antral vascular ectasia, esophageal varices. 3. Colonic diverticulosis. 4. Internal hemorrhoids. 5. Cirrhosis of the liver - So far no etiology has been found. RECOMMENDATIONS: 1. Continue octreotide and pantoprazole drips. 2. Transfuse as needed. 3. Continue ceftriaxone. 4. Upper endoscopy with possible variceal banding and argon plasma cautery today. All indications, risks, complications, and benefits discussed and consent was given for the procedure. She understands the risks of bleeding, perforation, infection, arrhythmias, small possibility of . She understands she may have a higher risk of esophageal rupture, especially with the previous banding. 5. Further recommendations dependent on how she does. 6. Dr. Goel to see the patient tomorrow and make further recommendations. Sean Hanson MD SPP/DL , 08:49 AM , 09:03 AM
[2018-02-20 10:06] LABS: Hemoglobin 8.6 gm/dL (11.6-15.3)
--- NOTE | 2018-02-20 10:47 | P.PNIM ---
Subjective Interval history: 67-year-old female with a history of cirrhosis, MDS, esophageal varices with recent banding several weeks ago who presents with acute onset of bloody diarrhea this afternoon with associated lightheadedness worse with standing. She denies any chest pain, shortness of breath. She does report fatigue which is gotten worse today. She does report nausea earlier but this has resolved. 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) AND PORTAL HYPERTENSIVE GASTROPATHY AND VARICES AND CIRRHOSIS OF LIVER Physical Exam Vital signs: Vital Signs 02/19/18 21:50 02/19/18 21:54 02/20/18 00:34 Temperature 98.0 F 98.5 F 98.6 F Pulse Rate 98 H 94 H 89 Respiratory Rate 20 20 20 Blood Pressure 131/61 128/66 100/52 L Pulse Oximetry 99 99 02/20/18 00:50 02/20/18 01:17 02/20/18 01:40 Temperature 98.6 F 98.2 F 97.7 F Pulse Rate 88 88 86 Respiratory Rate 20 20 20 Blood Pressure 102/58 L 97/54 L 103/54 L Pulse Oximetry 02/20/18 01:54 02/20/18 02:50 02/20/18 03:08 Temperature 98.2 F 98.7 F 98.2 F Pulse Rate 86 66 82 Respiratory Rate 20 20 20 Blood Pressure 95/53 L 94/50 L 100/58 L Pulse Oximetry 02/20/18 04:26 02/20/18 05:41 02/20/18 06:00 Temperature 98.2 F Pulse Rate 86 102 H Respiratory Rate 20 Blood Pressure 95/62 L Pulse Oximetry 100 02/20/18 08:00 02/20/18 10:00 02/20/18 10:22 Temperature 98.8 F Pulse Rate 93 H 77 Respiratory Rate 17 Blood Pressure 92/53 L Pulse Oximetry 100 100 Intake & Output 02/19/18 02/20/18 02/20/18 18:59 06:59 18:59 Intake Total 1435.5 / 1435.5 Output Total 700 / 700 Balance 735.5 / 735.5 Weight 57.153 kg Intake: IV 635.5 / 635.5 SandoSTATIN Inj 500 MCG In NS 500.5 / 500.5 Inj 500 ML @ 25 MCG/HR 25.02 mls/hr IV.CONT .Q20H1M [facility] Rx#: [id number] Protonix Inj 80 MG In NS Inj 35 35 / 35 ML @ 420 mls/hr IV.SIG BOLUS ONE Rx#:[id number] Rocephin Inj 1,000 MG In NS Inj 100 / 100 100 ML @ 200 mls/hr IV.SIG Q24H [facility] Rx#:[id number] Oral 0 / 0 Intake (Blood Product) Amt 800 / 800 Rbc As-3 Leukoreduced Unit 400 / 400 [id number] Rbc As-3 Leukoreduced Unit 400 / 400 [id number] Output: Urine 400 / 400 Stool 300 / 300 Other: Date of Last Bowel Movement 02/19/18 02/20/18 Weight On Admission 57.153 kg Narrative: GENERAL: AWAKE ALERT AND ORIENTED X3 TALKATIVE AND COOPERATIVE SKIN: Warm and dry. HEAD: Atraumatic. Normocephalic. EYES: Pupils equal and round. No scleral icterus. No injection or drainage. ENT: No nasal bleeding or discharge. Mucous membranes pink and moist. NECK: Trachea midline. No JVD. CARDIOVASCULAR: Regular rate and rhythm. S1, S2 NO S3 OR S4 RESPIRATORY: No accessory muscle use. Clear to auscultation. Breath sounds equal bilaterally. GASTROINTESTINAL: Abdomen soft, non-tender, nondistended. Hepatic and splenic margins not palpable. SOME DISTENTION- NONTENDER MUSCULOSKELETAL: Extremities without clubbing, cyanosis, or edema. No obvious deformities. NEUROLOGICAL: Awake and alert. No obvious cranial nerve deficits. Motor grossly within normal limits. Five out of 5 muscle strength in the arms and legs. Normal speech. PSYCHIATRIC: Appropriate mood and affect; insight and judgment normal. Results - Labs CBC & Chem 7: 02/20/18 09:33 02/19/18 22:05 Laboratory Results - last 24 hr 02/19/18 02/19/18 02/19/18 09:46 22:05 22:05 WBC 6.7 RBC 2.36 L Hgb 6.6 L* Hct 20.6 L* MCV 87.4 MCH 28.0 MCHC 32.1 RDW 17.2 Plt Count 95 L D MPV 11.1 H Prelim Diff (Auto) Slide review pending Neut % (Auto) 80.6 H Lymph % (Auto) 11.6 Clinch % (Auto) 5.2 Eos % (Auto) 1.4 Baso % (Auto) 1.2 Neut # (Auto) 5.4 Lymph # (Auto) 0.8 L Clinch # (Auto) 0.3 Eos # (Auto) 0.1 Baso # (Auto) 0.1 WBC Differential . Differential Comment . Platelet Estimate Low L Platelet Morphology Enlarged H PT 10.4 INR 1.0 APTT 23.6 L Sodium Potassium Chloride Carbon Dioxide Anion Gap BUN Creatinine Estimated GFR POC Glucose Random Glucose Calcium Total Bilirubin AST ALT Alkaline Phosphatase Total Protein Albumin MTS Gel Crossmatch See Detail 02/19/18 02/20/18 02/20/18 22:05 05:40 07:34 WBC RBC Hgb Hct MCV MCH MCHC RDW Plt Count MPV Prelim Diff (Auto) Neut % (Auto) Lymph % (Auto) Clinch % (Auto) Eos % (Auto) Baso % (Auto) Neut # (Auto) Lymph # (Auto) Clinch # (Auto) Eos # (Auto) Baso # (Auto) WBC Differential Differential Comment Platelet Estimate Platelet Morphology PT INR APTT Sodium 135 L Potassium 4.8 Chloride 102 Carbon Dioxide 21.1 Anion Gap 12 BUN 21 H Creatinine 1.44 H Estimated GFR 36 L POC Glucose 124 H 139 H Random Glucose 124 H Calcium 8.4 L Total Bilirubin 0.7 AST 28 ALT 24 Alkaline Phosphatase 100 Total Protein 6.0 L Albumin 2.8 L MTS Gel Crossmatch 02/20/18 09:33 WBC RBC Hgb 8.6 L D Hct 26.0 L MCV MCH MCHC RDW Plt Count MPV Prelim Diff (Auto) Neut % (Auto) Lymph % (Auto) Clinch % (Auto) Eos % (Auto) Baso % (Auto) Neut # (Auto) Lymph # (Auto) Clinch # (Auto) Eos # (Auto) Baso # (Auto) WBC Differential Differential Comment Platelet Estimate Platelet Morphology PT INR APTT Sodium Potassium Chloride Carbon Dioxide Anion Gap BUN Creatinine Estimated GFR POC Glucose Random Glucose Calcium Total Bilirubin AST ALT Alkaline Phosphatase Total Protein Albumin MTS Gel Crossmatch Assessment and Plan - Plan Acute GI bleed. Gastroenterology has been consulted. Patient is scheduled to go for EGD with possible banding and cautery later today Chronic cirrhosis unknown etiology Symptomatic anemia -Hemoglobin 6.6 on admission We will continue on octreotide drip and pantoprazole drip = Continue propranolol and spironolactone Consult patient's historic site administrator. Patient is scheduled to undergo an EGD later today //Diabetes mellitus. Insulin sliding scale. //Hypertension. Blood pressure acceptable. Continue home medications. //Hyperlipidemia. Chronic. 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
[2018-02-20] MEDS ORDERED: Lidocaine PF 1% Inj 5 ML Syringe INFILTRATN ONE (12:00)
[2018-02-20] MEDS ORDERED: Phenylephrine/NS 1000 MCG/10ML Syringe IV.PUSH ONE (12:00)
[2018-02-20] MEDS ORDERED: Succinylcholine Inj 100 MG/5 ML Syringe IV.PUSH ONE (12:00)
[2018-02-20] MEDS: Octreotide Inj 500 MCG in Sodium Chlor 0.9% Inj 500 ML IV.CONT SCH ×2 (12:35→23:06)
[2018-02-20 16:29] LABS: Hematocrit 23.5 % (35.0-46.0); Hemoglobin 7.7 gm/dL (11.6-15.3)
[2018-02-20] MEDS ORDERED: fentaNYL Citrate Inj 250 MCG/5 ML Ampul ONE (16:29)
[2018-02-20] MEDS ORDERED: Sugammadex Inj 200 MG/2 ML Vial IV.PUSH ONE (16:29)
--- NOTE | 2018-02-20 17:16 | GIPROC ---
[facility] [address] [facility]. [facility], [id number] EGD PROCEDURE REPORT EXAM DATE: 02/20/2018 PATIENT NAME: Shikha Woo MR #: [id number] BIRTHDATE: 1950 ATTENDING: Sean Hanson MD ORDER #: [id number] FINISHING FRAME RUNNER: Ayaan Noel and Anita Perea STATUS: inpatient INDICATIONS: The patient is a 67 yr old female here for an EGD due to melena PROCEDURE PERFORMED: EGD w/ control of bleeding MEDICATIONS: None and Per Anesthesia. TOPICAL ANESTHETIC: none CONSENT: The patient understands the risks and benefits of the procedure and understands that these risks include, but are not limited to: sedation, allergic reaction, infection, perforation and/or bleeding. Alternative means of evaluation and treatment include, among others: physical exam, x-rays, and/or surgical intervention. The patient elects to proceed with this endoscopic procedure. medical equipment was checked for proper function. Hand hygiene and appropriate measures for infection prevention was taken. After the risks, benefits and alternatives of the procedure were thoroughly explained, Informed consent was verified, confirmed and timeout was successfully executed by the treatment team. The patient was anesthetized with topical anesthesia and the Pentax EG-[id number] endoscope was introduced through the mouth and advanced to the second portion of the duodenum. Retroflexion was performed and was normal The gastroscope was then slowly withdrawn and removed. 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 The varices were not bleeding. There was evidence of prior scarring. The varix would completely flatten out. There was evidence of previous banding . The distal esophagus was scarred and the scope passed with mild difficulty. STOMACH: A sessile polyp ranging between 3-5mm in size with a friable surface was found in the gastric body. Argon plasma coagulation was applied to the site. With complete hemostasis achieved. Multiple non-bleeding, deep and clean-based ulcers ranging between 3-7mm in size were found in the gastric antrum. There was gastropathy (GAVE) . There was erythematous gastropathy in the prepyloric region of the stomach; Argon plasma coagulation was applied to the site(s); with complete hemostasis achieved DUODENUM: Normal to the 2nd portion ADVERSE EVENTS: There were no complications. IMPRESSIONS: 1. The varix would completely flatten out. There was evidence of previous banding . The distal esophagus was scarred and the scope passed with mild difficulty 2. Sessile polyp ranging between 3-5mm in size was found in the gastric body; Argon plasma coagulation was applied to the site; with complete hemostasis achieved 3. Multiple ulcers ranging between 3-7mm in size were found in the gastric antrum 4. There was erythematous gastropathy in the prepyloric region of the stomach; Argon plasma coagulation was applied to the site(s); with complete hemostasis achieved 5. Retroflexion was performed and was normal 6. Normal duodenum RECOMMENDATIONS: 1. Begin feeding tomorrow 2. Avoid NSAIDS PATIENT CONDITION: stable DISPOSITION: Inpatient REPEAT EXAM: Return 2 months EGD with APC Sean Hanson MD eSigned: Sean Hanson MD 02/20/2018 5:16 PM cc: PATIENT NAME: Shikha Woo MR#: [id number]
[2018-02-20] MEDS ORDERED: Acetaminophen 325 MG Tablet PO PRN (18:48)
[2018-02-20] MEDS: Sucralfate Liq 1 GM/10 ML UDC PO SCH (19:08)
--- NOTE | 2018-02-20 19:47 | MB ---
cc: Catherine Archibald MD, Ruby Anne E MD Grieper, Steven M DO DATE: 02/20/2018 REFERRING PHYSICIAN: Dr. Edd Ogden CHIEF COMPLAINT: Dr. Ogden requests a consultation for Mrs. Woo regarding myelodysplastic syndrome complicated by liver disease and gastrointestinal bleeding. HISTORY OF PRESENT ILLNESS: Mrs. Woo is a 67-year-old woman, well known patient. She is followed in the outpatient setting. She is confirmed to have a diagnosis of myelodysplastic syndrome. Her bone marrow biopsy from 09/15/2016 shows a hypercellular marrow with mild dyshematopoiesis. She was tried on erythropoietin therapy support; however, because of her GI bleeding her ferritin and iron saturation was difficult to maintain. She did not appear to show a response. She also had continued bleeding, therefore, difficult to assess a response. She was seen last in clinic yesterday. Her hemoglobin was noted to be less than 8. She was having some symptoms. She had recent EGD evaluation, esophageal banding, by Dr. Goel. She saw Dr. Goel and was ready to receive 2 units of packed red cells in outpatient setting Monday when she developed acute bright red blood per rectum the evening prior to her appointment. She was brought into the hospital by her family. She had persistent bright red blood per rectum. She was seen by Dr. Hanson. Upper endoscopy was performed. The findings showed improvement in her esophageal varices. However, she has multiple small gastric ulcers that were cauterized with argon gas. There appears to be hemostasis achieved. Ms. Woo was seen after her endoscopy. She is doing well. She is mildly hypotensive with systolic blood pressure in the 90s. She is pale. She denies any abdominal pain. She denies any urinary complaints. She has no leg swelling given the persistent elevation. PAST MEDICAL HISTORY: Diabetes, hyperlipidemia, fatty liver, esophageal varices treated, myelodysplastic syndrome, ascites, GI bleed. PAST SURGICAL HISTORY: x2, hysterectomy, appendectomy, cholecystectomy, left total knee replacement, carpal tunnel surgery, CABG x3, stents. ALLERGIES: NO KNOWN DRUG ALLERGIES. FAMILY HISTORY: Significant for mother with history of Hodgkin's lymphoma. Father had congestive heart failure and diabetes. She lives with an older sister and a younger brother. 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 She has moved to the area from [place], [place]. She denies any tobacco, alcohol or illicit drug use. ALLERGIES: NO KNOWN DRUG ALLERGIES. CURRENT MEDICATIONS: 1. Ceftriaxone. 2. Glucagon. 3. Insulin. 4. Octreotide. 5. Pantoprazole. 6. Inderal 7. Spironolactone. 8. Carafate. PHYSICAL EXAMINATION: VITAL SIGNS: Temperature 98.8, heart rate 73, respiratory rate 18, blood pressure 92/52, saturation 100%. GENERAL: Ms. Woo is a well-developed, well-nourished, short statured woman who is tired appearing. HEENT: Pupils are round, reactive to light and accommodation. Conjunctivae are pale. Palms are pale. Oropharynx is pale. NECK: Supple with no adenopathy. LUNGS: Clear. CARDIOVASCULAR: Reveals a normal rate and rhythm. ABDOMEN: Distended, more distended than yesterday. Fluid wave is noted. Tympanic to percussion. LOWER EXTREMITIES: No edema. Good pulses. LABORATORY DATA: Hemoglobin on admission 6.6, platelet count 95,000. Current hemoglobin 7.7 at 3:27 p.m. PT, PTT are normal. BUN of 21, creatinine 1.44. ASSESSMENT AND PLAN: Ms. Woo is a 67-year-old woman with multiple medical problems described above. Her more acute problem is the gastrointestinal bleeding secondary to esophageal varices and gastric ulcer. She was recently treated with endoscopy and hemostasis achieved. She is planned to start diet tomorrow. She has myelodysplastic syndrome. She has poor hematopoiesis. Retic count will be checked. She will need transfusion support. One unit of packed red cells will be given today, given her last hemoglobin is 7.7. She is quite fatigued with a systolic blood pressure in the 90s. Further treatment for her myelodysplastic syndrome will be coordinated as an outpatient. She will need support during this acute gastrointestinal bleeding. No specific therapy is required for the thrombocytopenia. MD HARRIET Miller/ , 06:58 PM , 07:12 PM
[2018-02-20] MEDS ORDERED: Sodium Chlor 0.9% Inj 250 ML IV.SIG SCH (21:00)
[2018-02-21] MEDS: Sucralfate Liq 1 GM/10 ML UDC PO SCH ×4 (00:18→18:14)
[2018-02-21] MEDS ORDERED: Chlorhexidine Gluconate 2% 1 Pack (2 Cloths) TOPICAL PRN (04:00)
[2018-02-21] MEDS: Chlorhexidine Gluconate 2% 1 Pack (2 Cloths) TOPICAL SCH (06:03)
[2018-02-21 07:44] LABS: INR 1.1 Ratio; Prothrombin Time 11.1 sec (9.8-11.6)
[2018-02-21 07:48] LABS: Reticulocyte Percent 4.1 % (0.4-3.0)
[2018-02-21 07:51] LABS: Albumin 2.4 g/dL (3.4-5.0); Calcium 7.2 mg/dL (8.5-10.1); Carbon Dioxide 25.7 meq/L (21.0-32.0); Free T4 (Free Thyroxine) 1.02 ng/dL (0.76-1.46); Magnesium 1.7 mg/dL (1.5-2.5); Phosphorus 4.2 mg/dL (2.5-4.9); Thyroid Stimulating Hormone 0.221 uIU/mL (0.358-3.740); Total Protein 5.2 g/dL (6.4-8.2)
[2018-02-21 07:52] LABS: Baso % (Auto) 0.7 % (0.0-2.0); Eos # (Auto) 0.2 th/mm3 (0.0-0.4); Eos % (Auto) 3.5 % (0.0-4.0); Hematocrit 25.9 % (35.0-46.0); Hemoglobin 8.6 gm/dL (11.6-15.3); Lymph # (Auto) 0.7 th/mm3 (1.0-4.8); Lymph % (Auto) 14.1 % (9.0-44.0); Mean Corpuscular HGB Conc 33.2 % (32.0-36.0); Mean Corpuscular Hemoglobin 29.6 pg (27.0-34.0); Mean Corpuscular Volume 89.4 fL (80.0-100.0); Mean Platelet Volume 10.9 fL (7.0-11.0); Mono # (Auto) 0.3 th/mm3 (0.0-0.9); Mono % (Auto) 7.4 % (0.0-8.0); Neut # (Auto) 3.5 th/mm3 (1.8-7.7); Neut % (Auto) 74.3 % (16.0-70.0); Platelet Count 59 th/mm3 (150-450); Red Blood Count 2.89 mil/mm3 (4.00-5.30); Red Cell Distribution Width 16.3 % (11.6-17.2); White Blood Count 4.7 th/mm3 (4.0-11.0)
[2018-02-21] MEDS: Insulin NovoLOG Aspart Correctional Sugar Inj SQ SCH ×4 (08:45→20:35)
--- NOTE | 2018-02-21 09:43 | P.PNIM ---
Subjective Interval history: 67-year-old female with a history of cirrhosis, MDS, esophageal varices with recent banding several weeks ago who presents with acute onset of bloody diarrhea this afternoon with associated lightheadedness worse with standing. She denies any chest pain, shortness of breath. She does report fatigue which is gotten worse today. She does report nausea earlier but this has resolved. 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) AND PORTAL HYPERTENSIVE GASTROPATHY AND VARICES AND CIRRHOSIS OF LIVER 8-1 HAD GI PROCEDURES- HAD MULTIPLE ULCERS CAUTERIZED DW RN AND PT WILL DEFER DIET TO GI AM LABS HAD TO HAVE A BLOOD TRANSFUSION AGAIN LAST BLOCKER AND SEWER IN ICU Physical Exam Vital signs: Vital Signs 02/20/18 10:00 02/20/18 10:22 02/20/18 11:00 Temperature Pulse Rate 75 74 Respiratory Rate 15 18 Blood Pressure 92/51 L 97/53 L Pulse Oximetry 100 100 100 02/20/18 12:00 02/20/18 13:00 02/20/18 13:01 Temperature 98.8 F Pulse Rate 74 78 79 Respiratory Rate 18 30 H 19 Blood Pressure 95/52 L 83/44 L Pulse Oximetry 100 100 100 02/20/18 13:02 02/20/18 13:21 02/20/18 13:29 Temperature Pulse Rate 79 76 76 Respiratory Rate 16 17 23 Blood Pressure 87/45 L 86/51 L 94/52 L Pulse Oximetry 100 100 100 02/20/18 14:00 02/20/18 15:00 02/20/18 15:54 Temperature Pulse Rate 74 73 74 Respiratory Rate 15 26 H 16 Blood Pressure 85/51 L 90/51 L 94/50 L Pulse Oximetry 100 100 98 02/20/18 16:00 02/20/18 16:04 02/20/18 17:07 Temperature Pulse Rate 73 73 70 Respiratory Rate 17 18 Blood Pressure 110/58 L 91/53 L Pulse Oximetry 99 98 94 L 02/20/18 17:15 02/20/18 17:16 02/20/18 17:20 Temperature 97.7 F Pulse Rate 81 70 83 Respiratory Rate 21 16 11 L Blood Pressure 110/53 L 110/53 L 122/57 L Pulse Oximetry 96 98 97 02/20/18 17:30 02/20/18 17:45 02/20/18 17:48 Temperature Pulse Rate 80 74 77 Respiratory Rate 16 16 15 Blood Pressure 93/51 L 101/59 L 93/51 L Pulse Oximetry 96 96 99 02/20/18 17:49 02/20/18 18:00 02/20/18 18:20 Temperature Pulse Rate 75 76 76 Respiratory Rate 12 16 20 Blood Pressure 101/59 L 102/58 L 92/51 L Pulse Oximetry 97 96 96 02/20/18 19:00 02/20/18 19:15 02/20/18 19:30 Temperature 99.8 F H Pulse Rate 76 74 74 Respiratory Rate 16 21 23 Blood Pressure 97/52 L 92/51 L 95/53 L Pulse Oximetry 93 L 94 L 96 02/20/18 19:33 02/20/18 19:37 02/20/18 19:43 Temperature Pulse Rate 74 75 Respiratory Rate 23 Blood Pressure 95/53 L Pulse Oximetry 96 96 02/20/18 20:00 02/20/18 20:15 02/20/18 20:30 Temperature 99.0 F 99.1 F 99.0 F Pulse Rate 76 76 74 Respiratory Rate 21 16 14 Blood Pressure 84/52 L 84/52 L 93/52 L Pulse Oximetry 94 L 94 L 93 L 02/20/18 20:45 02/20/18 21:00 02/20/18 21:08 Temperature 99.0 F 99.0 F 99.5 F Pulse Rate 74 74 75 Respiratory Rate 11 L 11 L 17 Blood Pressure 91/50 L 97/54 L 97/54 L Pulse Oximetry 95 95 97 02/20/18 21:15 02/20/18 21:30 02/20/18 21:45 Temperature 99.0 F 99.0 F 99.0 F Pulse Rate 74 73 75 Respiratory Rate 20 13 12 Blood Pressure 87/53 L 93/55 L 90/51 L Pulse Oximetry 95 95 95 02/20/18 22:00 02/20/18 22:15 02/20/18 22:30 Temperature 99.0 F 99.0 F 99.0 F Pulse Rate 72 71 71 Respiratory Rate 11 L 11 L 12 Blood Pressure 94/53 L 92/51 L 92/52 L Pulse Oximetry 93 L 93 L 93 L 02/20/18 22:45 02/20/18 23:00 02/20/18 23:15 Temperature 99.0 F 99.0 F 99.0 F Pulse Rate 72 70 70 Respiratory Rate 11 L 10 L 10 L Blood Pressure 94/52 L 92/55 L 91/53 L Pulse Oximetry 93 L 96 95 02/20/18 23:30 02/20/18 23:42 02/20/18 23:45 Temperature 99.0 F 99.1 F 99.0 F Pulse Rate 69 67 67 Respiratory Rate 11 L 10 L 10 L Blood Pressure 95/53 L 95/53 L 92/53 L Pulse Oximetry 95 95 95 02/21/18 00:00 02/21/18 00:15 02/21/18 00:30 Temperature 99.0 F 99.0 F 99.0 F Pulse Rate 68 68 68 Respiratory Rate 9 L 10 L 11 L Blood Pressure 94/55 L 94/55 L 108/56 L Pulse Oximetry 94 L 94 L 95 02/21/18 00:45 02/21/18 01:00 02/21/18 01:15 Temperature 99.0 F 99.0 F 99.0 F Pulse Rate 69 80 68 Respiratory Rate 11 L 12 19 Blood Pressure 96/58 L 101/55 L 84/49 L Pulse Oximetry 96 96 95 02/21/18 01:30 02/21/18 01:45 02/21/18 02:00 Temperature 98.7 F 98.9 F 98.9 F Pulse Rate 68 69 71 Respiratory Rate 13 11 L 11 L Blood Pressure 94/54 L 107/58 L 107/58 L Pulse Oximetry 95 98 98 02/21/18 02:15 02/21/18 02:30 02/21/18 02:45 Temperature 99.0 F 98.0 F 98.9 F Pulse Rate 68 70 68 Respiratory Rate 14 14 14 Blood Pressure 82/51 L 88/54 L 91/50 L Pulse Oximetry 96 93 L 93 L 02/21/18 03:00 02/21/18 03:15 02/21/18 03:30 Temperature 98 F 99.0 F Pulse Rate 68 69 68 Respiratory Rate 18 20 20 Blood Pressure 94/52 L 92/50 L 93/54 L Pulse Oximetry 92 L 96 97 02/21/18 03:45 02/21/18 04:00 02/21/18 04:15 Temperature 99.0 F 99.0 F Pulse Rate 65 65 65 Respiratory Rate 16 14 14 Blood Pressure 94/53 L 96/58 L 96/58 L Pulse Oximetry 96 95 95 02/21/18 04:30 02/21/18 04:45 02/21/18 05:00 Temperature 98.6 F 98.6 F 98.6 F Pulse Rate 71 68 66 Respiratory Rate 25 H 16 21 Blood Pressure 89/55 L 89/55 L 87/52 L Pulse Oximetry 95 95 95 02/21/18 05:15 02/21/18 05:30 02/21/18 05:45 Temperature 98.6 F 98.6 F 98.6 F Pulse Rate 73 73 90 Respiratory Rate 19 28 H 16 Blood Pressure 126/55 L 103/55 L 98/88 L Pulse Oximetry 95 95 98 02/21/18 06:00 02/21/18 06:15 02/21/18 06:30 Temperature 98.6 F 98.6 F 98.6 F Pulse Rate 86 66 66 Respiratory Rate 14 16 11 L Blood Pressure 114/56 L 93/52 L 93/51 L Pulse Oximetry 99 95 94 L 02/21/18 06:45 02/21/18 07:00 02/21/18 07:15 Temperature 98.6 F 98.6 F 98.6 F Pulse Rate 68 68 67 Respiratory Rate 13 13 17 Blood Pressure 94/54 L 97/51 L 96/51 L Pulse Oximetry 95 95 96 02/21/18 08:00 Temperature Pulse Rate 67 Respiratory Rate Blood Pressure Pulse Oximetry Intake & Output 02/20/18 02/21/18 02/21/18 18:59 06:59 18:59 Intake Total 400 / 400 730 / 730 Output Total 450 / 450 Balance 400 / 400 730 / 730 -450 / -450 Intake: IV 100 / 100 700 / 700 SandoSTATIN Inj 500 MCG In NS 500 / 500 Inj 500 ML @ 50 MCG/HR 50.05 mls/hr IV.CONT .Q10H JUAN Rx#: [id number] Protonix Inj 80 MG In NS Inj 100 / 100 100 / 100 100 ML @ 10 mls/hr IV.CONT CONT JUAN Rx#:[id number] Rocephin Inj 1,000 MG In NS Inj 100 / 100 100 ML @ 200 mls/hr IV.SIG Q24H JUAN Rx#:[id number] Oral 0 / 0 Anesthesia Amount 300 / 300 Other Rbc As-3 Leukoreduced Unit [id number] Intake (Blood Product) Amt 0 / 0 Rbc As-3 Leukoreduced Unit 0 / 0 [id number] Output: Urine 400 / 400 Stool 50 / 50 Other: Other Intake Source Rbc As-3 Leukoreduced Unit Saline Solution [id number] # Voids 2 2 Date of Last Bowel Movement 02/20/18 02/20/18 02/20/18 # Bowel Movements 6 1 # Incontinent Bowel Movements 0 Narrative: GENERAL: AWAKE ALERT AND ORIENTED X3 TALKATIVE AND COOPERATIVE SKIN: Warm and dry. HEAD: Atraumatic. Normocephalic. EYES: Pupils equal and round. No scleral icterus. No injection or drainage. ENT: No nasal bleeding or discharge. Mucous membranes pink and moist. NECK: Trachea midline. No JVD. CARDIOVASCULAR: Regular rate and rhythm. S1, S2 NO S3 OR S4 RESPIRATORY: No accessory muscle use. Clear to auscultation. Breath sounds equal bilaterally. GASTROINTESTINAL: Abdomen soft, non-tender, nondistended. Hepatic and splenic margins not palpable. SOME DISTENTION- NONTENDER MUSCULOSKELETAL: Extremities without clubbing, cyanosis, or edema. No obvious deformities. NEUROLOGICAL: Awake and alert. No obvious cranial nerve deficits. Motor grossly within normal limits. Five out of 5 muscle strength in the arms and legs. Normal speech. PSYCHIATRIC: Appropriate mood and affect; insight and judgment normal. Results - Labs CBC & Chem 7: 02/21/18 07:03 02/21/18 07:03 Laboratory Results - last 24 hr 02/19/18 02/20/18 02/20/18 09:46 05:00 09:33 WBC RBC Hgb 8.6 L D Hct 26.0 L MCV MCH MCHC RDW Plt Count MPV Prelim Diff (Auto) Neut % (Auto) Lymph % (Auto) Brooke % (Auto) Eos % (Auto) Baso % (Auto) Neut # (Auto) Lymph # (Auto) Brooke # (Auto) Eos # (Auto) Baso # (Auto) WBC Differential Diff Scan Differential Comment Platelet Estimate Platelet Morphology Retic Count Absolute Retic PT INR Sodium Potassium Chloride Carbon Dioxide Anion Gap BUN Creatinine Estimated GFR POC Glucose Random Glucose Calcium Prot Corrected Calcium Phosphorus Magnesium Total Bilirubin AST ALT Alkaline Phosphatase Ammonia Total Protein Albumin TSH Free T4 Nasal Screen MRSA (PCR) Not detected MTS Gel Crossmatch See Detail 02/20/18 02/20/18 02/20/18 11:33 15:27 18:32 WBC RBC Hgb 7.7 L Hct 23.5 L MCV MCH MCHC RDW Plt Count MPV Prelim Diff (Auto) Neut % (Auto) Lymph % (Auto) Brooke % (Auto) Eos % (Auto) Baso % (Auto) Neut # (Auto) Lymph # (Auto) Brooke # (Auto) Eos # (Auto) Baso # (Auto) WBC Differential Diff Scan Differential Comment Platelet Estimate Platelet Morphology Retic Count Absolute Retic PT INR Sodium Potassium Chloride Carbon Dioxide Anion Gap BUN Creatinine Estimated GFR POC Glucose 169 H 115 H Random Glucose Calcium Prot Corrected Calcium Phosphorus Magnesium Total Bilirubin AST ALT Alkaline Phosphatase Ammonia Total Protein Albumin TSH Free T4 Nasal Screen MRSA (PCR) MTS Gel Crossmatch 02/20/18 02/20/18 02/21/18 20:29 20:35 07:03 WBC 4.7 RBC 2.89 L Hgb 8.6 L Hct 25.9 L MCV 89.4 MCH 29.6 MCHC 33.2 RDW 16.3 Plt Count 59 L D MPV 10.9 Prelim Diff (Auto) Slide review pending Neut % (Auto) 74.3 H Lymph % (Auto) 14.1 Brooke % (Auto) 7.4 Eos % (Auto) 3.5 Baso % (Auto) 0.7 Neut # (Auto) 3.5 Lymph # (Auto) 0.7 L Brooke # (Auto) 0.3 Eos # (Auto) 0.2 Baso # (Auto) 0.0 WBC Differential . Diff Scan Auto diff confirmed Differential Comment . Platelet Estimate Low L Platelet Morphology Enlarged H Retic Count Absolute Retic PT INR Sodium Potassium Chloride Carbon Dioxide Anion Gap BUN Creatinine Estimated GFR POC Glucose 120 H Random Glucose Calcium Prot Corrected Calcium Phosphorus Magnesium Total Bilirubin AST ALT Alkaline Phosphatase Ammonia Total Protein Albumin TSH Free T4 Nasal Screen MRSA (PCR) MTS Gel Crossmatch See Detail 02/21/18 02/21/18 02/21/18 07:03 07:03 07:03 WBC RBC Hgb Hct MCV MCH MCHC RDW Plt Count MPV Prelim Diff (Auto) Neut % (Auto) Lymph % (Auto) Brooke % (Auto) Eos % (Auto) Baso % (Auto) Neut # (Auto) Lymph # (Auto) Brooke # (Auto) Eos # (Auto) Baso # (Auto) WBC Differential Diff Scan Differential Comment Platelet Estimate Platelet Morphology Retic Count Absolute Retic PT 11.1 INR 1.1 Sodium 143 Potassium 4.0 D Chloride 110 H D Carbon Dioxide 25.7 Anion Gap 7 BUN 25 H Creatinine 1.37 H Estimated GFR 38 L POC Glucose Random Glucose 103 Calcium 7.2 L* D Prot Corrected Calcium 8.2 L Phosphorus 4.2 Magnesium 1.7 Total Bilirubin 1.0 AST 24 ALT 20 Alkaline Phosphatase 75 Ammonia 19 Total Protein 5.2 L D Albumin 2.4 L TSH 0.221 L Free T4 1.02 Nasal Screen MRSA (PCR) MTS Gel Crossmatch 02/21/18 02/21/18 07:03 08:41 WBC RBC Hgb Hct MCV MCH MCHC RDW Plt Count MPV Prelim Diff (Auto) Neut % (Auto) Lymph % (Auto) Brooke % (Auto) Eos % (Auto) Baso % (Auto) Neut # (Auto) Lymph # (Auto) Brooke # (Auto) Eos # (Auto) Baso # (Auto) WBC Differential Diff Scan Differential Comment Platelet Estimate Platelet Morphology Retic Count 4.1 H Absolute Retic 118.9 PT INR Sodium Potassium Chloride Carbon Dioxide Anion Gap BUN Creatinine Estimated GFR POC Glucose 105 Random Glucose Calcium Prot Corrected Calcium Phosphorus Magnesium Total Bilirubin AST ALT Alkaline Phosphatase Ammonia Total Protein Albumin TSH Free T4 Nasal Screen MRSA (PCR) MTS Gel Crossmatch - Procedures INDICATIONS: The patient is a 67 yr old female here for an EGD due to melena PROCEDURE PERFORMED: EGD w/ control of bleeding MEDICATIONS: None and Per Anesthesia. TOPICAL ANESTHETIC: none CONSENT: The patient understands the risks and benefits of the procedure and understands that these risks include, but are not limited to: sedation, allergic reaction, infection, perforation and/or bleeding. Alternative means of evaluation and treatment include, among others: physical exam, x-rays, and/or surgical intervention. The patient elects to proceed with this endoscopic procedure. medical equipment was checked for proper function. Hand hygiene and appropriate measures for infection prevention was taken. After the risks, benefits and alternatives of the procedure were thoroughly explained, Informed consent was verified, confirmed and timeout was successfully executed by the treatment team. The patient was anesthetized with topical anesthesia and the Pentax [id number] endoscope was introduced through the mouth and advanced to the second portion of the duodenum. Retroflexion was performed and was normal The gastroscope was then slowly withdrawn and removed. 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 The varices were not bleeding. There was evidence of prior scarring. The varix would completely flatten out. There was evidence of previous banding . The distal esophagus was scarred and the scope passed with mild difficulty. STOMACH: A sessile polyp ranging between 3-5mm in size with a friable surface was found in the gastric body. Argon plasma coagulation was applied to the site. With complete hemostasis achieved. Multiple non-bleeding, deep and clean-based ulcers ranging between 3-7mm in size were found in the gastric antrum. There was gastropathy (GAVE) . There was erythematous gastropathy in the prepyloric region of the stomach; Argon plasma coagulation was applied to the site(s); with complete hemostasis achieved DUODENUM: Normal to the 2nd portion ADVERSE EVENTS: There were no complications. IMPRESSIONS: 1. The varix would completely flatten out. There was evidence of previous banding . The distal esophagus was scarred and the scope passed with mild difficulty 2. Sessile polyp ranging between 3-5mm in size was found in the gastric body; Argon plasma coagulation was applied to the site; with complete hemostasis achieved 3. Multiple ulcers ranging between 3-7mm in size were found in the gastric antrum 4. There was erythematous gastropathy in the prepyloric region of the stomach; Argon plasma coagulation was applied to the site(s); with complete hemostasis achieved 5. Retroflexion was performed and was normal 6. Normal duodenum RECOMMENDATIONS: 1. Begin feeding tomorrow 2. Avoid NSAIDS PATIENT CONDITION: stable DISPOSITION: Inpatient REPEAT EXAM: Return 2 months EGD with APC Assessment and Plan - Plan Acute GI bleed. Gastroenterology has been consulted. 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 Patient is scheduled to undergo an EGD later today //Diabetes mellitus. Insulin sliding scale. //Hypertension. Blood pressure acceptable. Continue home medications. //Hyperlipidemia. Chronic. 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
[2018-02-21] MEDS: Pantoprazole Inj 80 MG in Sodium Chlor 0.9% Inj 100 ML IV.CONT SCH ×2 (09:45→20:27)
[2018-02-21] MEDS: Octreotide Inj 500 MCG in Sodium Chlor 0.9% Inj 500 ML IV.CONT SCH ×2 (09:47→20:27)
[2018-02-21] MEDS: Propranolol 40 MG Tablet PO SCH (09:48)
--- NOTE | 2018-02-21 10:40 | P.PN ---
Subjective Interval history: NO new complaints. S/P EGD with [facility] of GAVE yesterday. She received one unit PRBCs last evening. Passing liquid green stool; no blood. Afebrile, VSS, though her blood pressure had dropped a bit, so her lasix was stopped. Alert and oriented. No distress. Lungs clear. RRR with a 2/6 murmur. Abd is soft and non-tender. Minimal/no pedal edema. Labs noted. MELD is 11. IMP: cirrhosis with portal hypertension. She has intermittent hypotension. We' ll decrease inderal from 40mg bid to 10mg bid; we'll continue the aldactone at 50mg bid and we'll add lasix at 20mg bid. Physical Exam Vital signs: Vital Signs 02/20/18 11:00 02/20/18 12:00 02/20/18 13:00 Temperature 98.8 F Pulse Rate 74 74 78 Respiratory Rate 18 18 30 H Blood Pressure 97/53 L 95/52 L Pulse Oximetry 100 100 100 02/20/18 13:01 02/20/18 13:02 02/20/18 13:21 Temperature Pulse Rate 79 79 76 Respiratory Rate 19 16 17 Blood Pressure 83/44 L 87/45 L 86/51 L Pulse Oximetry 100 100 100 02/20/18 13:29 02/20/18 14:00 02/20/18 15:00 Temperature Pulse Rate 76 74 73 Respiratory Rate 23 15 26 H Blood Pressure 94/52 L 85/51 L 90/51 L Pulse Oximetry 100 100 100 02/20/18 15:54 02/20/18 16:00 02/20/18 16:04 Temperature Pulse Rate 74 73 73 Respiratory Rate 16 17 18 Blood Pressure 94/50 L 110/58 L 91/53 L Pulse Oximetry 98 99 98 02/20/18 17:07 02/20/18 17:15 02/20/18 17:16 Temperature 97.7 F Pulse Rate 70 81 70 Respiratory Rate 21 16 Blood Pressure 110/53 L 110/53 L Pulse Oximetry 94 L 96 98 02/20/18 17:20 02/20/18 17:30 02/20/18 17:45 Temperature Pulse Rate 83 80 74 Respiratory Rate 11 L 16 16 Blood Pressure 122/57 L 93/51 L 101/59 L Pulse Oximetry 97 96 96 02/20/18 17:48 02/20/18 17:49 02/20/18 18:00 Temperature Pulse Rate 77 75 76 Respiratory Rate 15 12 16 Blood Pressure 93/51 L 101/59 L 102/58 L Pulse Oximetry 99 97 96 02/20/18 18:20 02/20/18 19:00 02/20/18 19:15 Temperature Pulse Rate 76 76 74 Respiratory Rate 20 16 21 Blood Pressure 92/51 L 97/52 L 92/51 L Pulse Oximetry 96 93 L 94 L 02/20/18 19:30 02/20/18 19:33 02/20/18 19:37 Temperature 99.8 F H Pulse Rate 74 74 75 Respiratory Rate 23 23 Blood Pressure 95/53 L 95/53 L Pulse Oximetry 96 96 02/20/18 19:43 02/20/18 20:00 02/20/18 20:15 Temperature 99.0 F 99.1 F Pulse Rate 76 76 Respiratory Rate 21 16 Blood Pressure 84/52 L 84/52 L Pulse Oximetry 96 94 L 94 L 02/20/18 20:30 02/20/18 20:45 02/20/18 21:00 Temperature 99.0 F 99.0 F 99.0 F Pulse Rate 74 74 74 Respiratory Rate 14 11 L 11 L Blood Pressure 93/52 L 91/50 L 97/54 L Pulse Oximetry 93 L 95 95 02/20/18 21:08 02/20/18 21:15 02/20/18 21:30 Temperature 99.5 F 99.0 F 99.0 F Pulse Rate 75 74 73 Respiratory Rate 17 20 13 Blood Pressure 97/54 L 87/53 L 93/55 L Pulse Oximetry 97 95 95 02/20/18 21:45 02/20/18 22:00 02/20/18 22:15 Temperature 99.0 F 99.0 F 99.0 F Pulse Rate 75 72 71 Respiratory Rate 12 11 L 11 L Blood Pressure 90/51 L 94/53 L 92/51 L Pulse Oximetry 95 93 L 93 L 02/20/18 22:30 02/20/18 22:45 02/20/18 23:00 Temperature 99.0 F 99.0 F 99.0 F Pulse Rate 71 72 70 Respiratory Rate 12 11 L 10 L Blood Pressure 92/52 L 94/52 L 92/55 L Pulse Oximetry 93 L 93 L 96 02/20/18 23:15 02/20/18 23:30 02/20/18 23:42 Temperature 99.0 F 99.0 F 99.1 F Pulse Rate 70 69 67 Respiratory Rate 10 L 11 L 10 L Blood Pressure 91/53 L 95/53 L 95/53 L Pulse Oximetry 95 95 95 02/20/18 23:45 02/21/18 00:00 02/21/18 00:15 Temperature 99.0 F 99.0 F 99.0 F Pulse Rate 67 68 68 Respiratory Rate 10 L 9 L 10 L Blood Pressure 92/53 L 94/55 L 94/55 L Pulse Oximetry 95 94 L 94 L 02/21/18 00:30 02/21/18 00:45 02/21/18 01:00 Temperature 99.0 F 99.0 F 99.0 F Pulse Rate 68 69 80 Respiratory Rate 11 L 11 L 12 Blood Pressure 108/56 L 96/58 L 101/55 L Pulse Oximetry 95 96 96 02/21/18 01:15 02/21/18 01:30 02/21/18 01:45 Temperature 99.0 F 98.7 F 98.9 F Pulse Rate 68 68 69 Respiratory Rate 19 13 11 L Blood Pressure 84/49 L 94/54 L 107/58 L Pulse Oximetry 95 95 98 02/21/18 02:00 02/21/18 02:15 02/21/18 02:30 Temperature 98.9 F 99.0 F 98.0 F Pulse Rate 71 68 70 Respiratory Rate 11 L 14 14 Blood Pressure 107/58 L 82/51 L 88/54 L Pulse Oximetry 98 96 93 L 02/21/18 02:45 02/21/18 03:00 02/21/18 03:15 Temperature 98.9 F 98 F Pulse Rate 68 68 69 Respiratory Rate 14 18 20 Blood Pressure 91/50 L 94/52 L 92/50 L Pulse Oximetry 93 L 92 L 96 02/21/18 03:30 02/21/18 03:45 02/21/18 04:00 Temperature 99.0 F 99.0 F Pulse Rate 68 65 65 Respiratory Rate 20 16 14 Blood Pressure 93/54 L 94/53 L 96/58 L Pulse Oximetry 97 96 95 02/21/18 04:15 02/21/18 04:30 02/21/18 04:45 Temperature 99.0 F 98.6 F 98.6 F Pulse Rate 65 71 68 Respiratory Rate 14 25 H 16 Blood Pressure 96/58 L 89/55 L 89/55 L Pulse Oximetry 95 95 95 02/21/18 05:00 02/21/18 05:15 02/21/18 05:30 Temperature 98.6 F 98.6 F 98.6 F Pulse Rate 66 73 73 Respiratory Rate 21 19 28 H Blood Pressure 87/52 L 126/55 L 103/55 L Pulse Oximetry 95 95 95 02/21/18 05:45 02/21/18 06:00 02/21/18 06:15 Temperature 98.6 F 98.6 F 98.6 F Pulse Rate 90 86 66 Respiratory Rate 16 14 16 Blood Pressure 98/88 L 114/56 L 93/52 L Pulse Oximetry 98 99 95 02/21/18 06:30 02/21/18 06:45 02/21/18 07:00 Temperature 98.6 F 98.6 F 98.6 F Pulse Rate 66 68 68 Respiratory Rate 11 L 13 13 Blood Pressure 93/51 L 94/54 L 97/51 L Pulse Oximetry 94 L 95 95 02/21/18 07:15 02/21/18 08:00 Temperature 98.6 F Pulse Rate 67 67 Respiratory Rate 17 Blood Pressure 96/51 L Pulse Oximetry 96 Intake & Output 02/20/18 02/21/18 02/21/18 18:59 06:59 18:59 Intake Total 400 / 400 730 / 730 600.5 / 600.5 Output Total 450 / 450 Balance 400 / 400 730 / 730 150.5 / 150.5 Intake: IV 100 / 100 700 / 700 600.5 / 600.5 SandoSTATIN Inj 500 MCG In NS 500 / 500 500.5 / 500.5 Inj 500 ML @ 50 MCG/HR 50.05 mls/hr IV.CONT .Q10H JUAN Rx#: [id number] Protonix Inj 80 MG In NS Inj 100 / 100 100 / 100 100 / 100 100 ML @ 10 mls/hr IV.CONT CONT JUAN Rx#:[id number] Rocephin Inj 1,000 MG In NS Inj 100 / 100 100 ML @ 200 mls/hr IV.SIG Q24H JUAN Rx#:[id number] Oral 0 / 0 Anesthesia Amount 300 / 300 Other 30 / 30 Rbc As-3 Leukoreduced Unit 30 / 30 [id number] Intake (Blood Product) Amt 0 / 0 Rbc As-3 Leukoreduced Unit 0 / 0 [id number] Output: Urine 400 / 400 Stool 50 / 50 Other: Other Intake Source Rbc As-3 Leukoreduced Unit Saline Solution [id number] # Voids 2 2 Date of Last Bowel Movement 02/20/18 02/20/18 02/20/18 # Bowel Movements 6 1 # Incontinent Bowel Movements 0 Results - Labs CBC & Chem 7: 02/21/18 07:03 02/21/18 07:03 Laboratory Results - last 24 hr 02/19/18 02/20/18 02/20/18 09:46 05:00 11:33 WBC RBC Hgb Hct MCV MCH MCHC RDW Plt Count MPV Prelim Diff (Auto) Neut % (Auto) Lymph % (Auto) [place] % (Auto) Eos % (Auto) Baso % (Auto) Neut # (Auto) Lymph # (Auto) [place] # (Auto) Eos # (Auto) Baso # (Auto) WBC Differential Diff Scan Differential Comment Platelet Estimate Platelet Morphology Retic Count Absolute Retic PT INR Sodium Potassium Chloride Carbon Dioxide Anion Gap BUN Creatinine Estimated GFR POC Glucose 169 H Random Glucose Calcium Prot Corrected Calcium Phosphorus Magnesium Total Bilirubin AST ALT Alkaline Phosphatase Ammonia Total Protein Albumin TSH Free T4 Nasal Screen MRSA (PCR) Not detected MTS Gel Crossmatch See Detail 02/20/18 02/20/18 02/20/18 15:27 18:32 20:29 WBC RBC Hgb 7.7 L Hct 23.5 L MCV MCH MCHC RDW Plt Count MPV Prelim Diff (Auto) Neut % (Auto) Lymph % (Auto) [place] % (Auto) Eos % (Auto) Baso % (Auto) Neut # (Auto) Lymph # (Auto) [place] # (Auto) Eos # (Auto) Baso # (Auto) WBC Differential Diff Scan Differential Comment Platelet Estimate Platelet Morphology Retic Count Absolute Retic PT INR Sodium Potassium Chloride Carbon Dioxide Anion Gap BUN Creatinine Estimated GFR POC Glucose 115 H Random Glucose Calcium Prot Corrected Calcium Phosphorus Magnesium Total Bilirubin AST ALT Alkaline Phosphatase Ammonia Total Protein Albumin TSH Free T4 Nasal Screen MRSA (PCR) MTS Gel Crossmatch See Detail 02/20/18 02/21/18 02/21/18 20:35 07:03 07:03 WBC 4.7 RBC 2.89 L Hgb 8.6 L Hct 25.9 L MCV 89.4 MCH 29.6 MCHC 33.2 RDW 16.3 Plt Count 59 L D MPV 10.9 Prelim Diff (Auto) Slide review pending Neut % (Auto) 74.3 H Lymph % (Auto) 14.1 [place] % (Auto) 7.4 Eos % (Auto) 3.5 Baso % (Auto) 0.7 Neut # (Auto) 3.5 Lymph # (Auto) 0.7 L [place] # (Auto) 0.3 Eos # (Auto) 0.2 Baso # (Auto) 0.0 WBC Differential . Diff Scan Auto diff confirmed Differential Comment . Platelet Estimate Low L Platelet Morphology Enlarged H Retic Count Absolute Retic PT 11.1 INR 1.1 Sodium Potassium Chloride Carbon Dioxide Anion Gap BUN Creatinine Estimated GFR POC Glucose 120 H Random Glucose Calcium Prot Corrected Calcium Phosphorus Magnesium Total Bilirubin AST ALT Alkaline Phosphatase Ammonia Total Protein Albumin TSH Free T4 Nasal Screen MRSA (PCR) MTS Gel Crossmatch 02/21/18 02/21/18 02/21/18 07:03 07:03 07:03 WBC RBC Hgb Hct MCV MCH MCHC RDW Plt Count MPV Prelim Diff (Auto) Neut % (Auto) Lymph % (Auto) [place] % (Auto) Eos % (Auto) Baso % (Auto) Neut # (Auto) Lymph # (Auto) [place] # (Auto) Eos # (Auto) Baso # (Auto) WBC Differential Diff Scan Differential Comment Platelet Estimate Platelet Morphology Retic Count 4.1 H Absolute Retic 118.9 PT INR Sodium 143 Potassium 4.0 D Chloride 110 H D Carbon Dioxide 25.7 Anion Gap 7 BUN 25 H Creatinine 1.37 H Estimated GFR 38 L POC Glucose Random Glucose 103 Calcium 7.2 L* D Prot Corrected Calcium 8.2 L Phosphorus 4.2 Magnesium 1.7 Total Bilirubin 1.0 AST 24 ALT 20 Alkaline Phosphatase 75 Ammonia 19 Total Protein 5.2 L D Albumin 2.4 L TSH 0.221 L Free T4 1.02 Nasal Screen MRSA (PCR) MTS Gel Crossmatch 02/21/18 08:41 WBC RBC Hgb Hct MCV MCH MCHC RDW Plt Count MPV Prelim Diff (Auto) Neut % (Auto) Lymph % (Auto) [place] % (Auto) Eos % (Auto) Baso % (Auto) Neut # (Auto) Lymph # (Auto) [place] # (Auto) Eos # (Auto) Baso # (Auto) WBC Differential Diff Scan Differential Comment Platelet Estimate Platelet Morphology Retic Count Absolute Retic PT INR Sodium Potassium Chloride Carbon Dioxide Anion Gap BUN Creatinine Estimated GFR POC Glucose 105 Random Glucose Calcium Prot Corrected Calcium Phosphorus Magnesium Total Bilirubin AST ALT Alkaline Phosphatase Ammonia Total Protein Albumin TSH Free T4 Nasal Screen MRSA (PCR) MTS Gel Crossmatch - Procedures INDICATIONS: The patient is a 67 yr old female here for an EGD due to melena PROCEDURE PERFORMED: EGD w/ control of bleeding MEDICATIONS: None and Per Anesthesia. TOPICAL ANESTHETIC: none CONSENT: The patient understands the risks and benefits of the procedure and understands that these risks include, but are not limited to: sedation, allergic reaction, infection, perforation and/or bleeding. Alternative means of evaluation and treatment include, among others: physical exam, x-rays, and/or surgical intervention. The patient elects to proceed with this endoscopic procedure. medical equipment was checked for proper function. Hand hygiene and appropriate measures for infection prevention was taken. After the risks, benefits and alternatives of the procedure were thoroughly explained, Informed consent was verified, confirmed and timeout was successfully executed by the treatment team. The patient was anesthetized with topical anesthesia and the [employer] [id number] endoscope was introduced through the mouth and advanced to the second portion of the duodenum. Retroflexion was performed and was normal The gastroscope was then slowly withdrawn and removed. 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 The varices were not bleeding. There was evidence of prior scarring. The varix would completely flatten out. There was evidence of previous banding . The distal esophagus was scarred and the scope passed with mild difficulty. STOMACH: A sessile polyp ranging between 3-5mm in size with a friable surface was found in the gastric body. Argon plasma coagulation was applied to the site. With complete hemostasis achieved. Multiple non-bleeding, deep and clean-based ulcers ranging between 3-7mm in size were found in the gastric antrum. There was gastropathy (GAVE) . There was erythematous gastropathy in the prepyloric region of the stomach; Argon plasma coagulation was applied to the site(s); with complete hemostasis achieved DUODENUM: Normal to the 2nd portion ADVERSE EVENTS: There were no complications. IMPRESSIONS: 1. The varix would completely flatten out. There was evidence of previous banding . The distal esophagus was scarred and the scope passed with mild difficulty 2. Sessile polyp ranging between 3-5mm in size was found in the gastric body; Argon plasma coagulation was applied to the site; with complete hemostasis achieved 3. Multiple ulcers ranging between 3-7mm in size were found in the gastric antrum 4. There was erythematous gastropathy in the prepyloric region of the stomach; Argon plasma coagulation was applied to the site(s); with complete hemostasis achieved 5. Retroflexion was performed and was normal 6. Normal duodenum RECOMMENDATIONS: 1. Begin feeding tomorrow 2. Avoid NSAIDS PATIENT CONDITION: stable DISPOSITION: Inpatient REPEAT EXAM: Return 2 months EGD with APC
--- NOTE | 2018-02-21 12:53 | P.PNONC ---
Subjective Interval history: Afebrile Patient denies any further bleeding Feels like eating some Jell-O Denies nausea No other acute complaints Objective Vital Signs/Intake & Output: Vital Signs 02/20/18 13:00 02/20/18 13:01 02/20/18 13:02 Temperature Pulse Rate 78 79 79 Respiratory Rate 30 H 19 16 Blood Pressure 83/44 L 87/45 L Pulse Oximetry 100 100 100 02/20/18 13:21 02/20/18 13:29 02/20/18 14:00 Temperature Pulse Rate 76 76 74 Respiratory Rate 17 23 15 Blood Pressure 86/51 L 94/52 L 85/51 L Pulse Oximetry 100 100 100 02/20/18 15:00 02/20/18 15:54 02/20/18 16:00 Temperature Pulse Rate 73 74 73 Respiratory Rate 26 H 16 17 Blood Pressure 90/51 L 94/50 L 110/58 L Pulse Oximetry 100 98 99 02/20/18 16:04 02/20/18 17:07 02/20/18 17:15 Temperature Pulse Rate 73 70 81 Respiratory Rate 18 21 Blood Pressure 91/53 L 110/53 L Pulse Oximetry 98 94 L 96 02/20/18 17:16 02/20/18 17:20 02/20/18 17:30 Temperature 97.7 F Pulse Rate 70 83 80 Respiratory Rate 16 11 L 16 Blood Pressure 110/53 L 122/57 L 93/51 L Pulse Oximetry 98 97 96 02/20/18 17:45 02/20/18 17:48 02/20/18 17:49 Temperature Pulse Rate 74 77 75 Respiratory Rate 16 15 12 Blood Pressure 101/59 L 93/51 L 101/59 L Pulse Oximetry 96 99 97 02/20/18 18:00 02/20/18 18:20 02/20/18 19:00 Temperature Pulse Rate 76 76 76 Respiratory Rate 16 20 16 Blood Pressure 102/58 L 92/51 L 97/52 L Pulse Oximetry 96 96 93 L 02/20/18 19:15 02/20/18 19:30 02/20/18 19:33 Temperature 99.8 F H Pulse Rate 74 74 74 Respiratory Rate 21 23 23 Blood Pressure 92/51 L 95/53 L 95/53 L Pulse Oximetry 94 L 96 96 02/20/18 19:37 02/20/18 19:43 02/20/18 20:00 Temperature 99.0 F Pulse Rate 75 76 Respiratory Rate 21 Blood Pressure 84/52 L Pulse Oximetry 96 94 L 02/20/18 20:15 02/20/18 20:30 02/20/18 20:45 Temperature 99.1 F 99.0 F 99.0 F Pulse Rate 76 74 74 Respiratory Rate 16 14 11 L Blood Pressure 84/52 L 93/52 L 91/50 L Pulse Oximetry 94 L 93 L 95 02/20/18 21:00 02/20/18 21:08 02/20/18 21:15 Temperature 99.0 F 99.5 F 99.0 F Pulse Rate 74 75 74 Respiratory Rate 11 L 17 20 Blood Pressure 97/54 L 97/54 L 87/53 L Pulse Oximetry 95 97 95 02/20/18 21:30 02/20/18 21:45 02/20/18 22:00 Temperature 99.0 F 99.0 F 99.0 F Pulse Rate 73 75 72 Respiratory Rate 13 12 11 L Blood Pressure 93/55 L 90/51 L 94/53 L Pulse Oximetry 95 95 93 L 02/20/18 22:15 02/20/18 22:30 02/20/18 22:45 Temperature 99.0 F 99.0 F 99.0 F Pulse Rate 71 71 72 Respiratory Rate 11 L 12 11 L Blood Pressure 92/51 L 92/52 L 94/52 L Pulse Oximetry 93 L 93 L 93 L 02/20/18 23:00 02/20/18 23:15 02/20/18 23:30 Temperature 99.0 F 99.0 F 99.0 F Pulse Rate 70 70 69 Respiratory Rate 10 L 10 L 11 L Blood Pressure 92/55 L 91/53 L 95/53 L Pulse Oximetry 96 95 95 02/20/18 23:42 02/20/18 23:45 02/21/18 00:00 Temperature 99.1 F 99.0 F 99.0 F Pulse Rate 67 67 68 Respiratory Rate 10 L 10 L 9 L Blood Pressure 95/53 L 92/53 L 94/55 L Pulse Oximetry 95 95 94 L 02/21/18 00:15 02/21/18 00:30 02/21/18 00:45 Temperature 99.0 F 99.0 F 99.0 F Pulse Rate 68 68 69 Respiratory Rate 10 L 11 L 11 L Blood Pressure 94/55 L 108/56 L 96/58 L Pulse Oximetry 94 L 95 96 02/21/18 01:00 02/21/18 01:15 02/21/18 01:30 Temperature 99.0 F 99.0 F 98.7 F Pulse Rate 80 68 68 Respiratory Rate 12 19 13 Blood Pressure 101/55 L 84/49 L 94/54 L Pulse Oximetry 96 95 95 02/21/18 01:45 02/21/18 02:00 02/21/18 02:15 Temperature 98.9 F 98.9 F 99.0 F Pulse Rate 69 71 68 Respiratory Rate 11 L 11 L 14 Blood Pressure 107/58 L 107/58 L 82/51 L Pulse Oximetry 98 98 96 02/21/18 02:30 02/21/18 02:45 02/21/18 03:00 Temperature 98.0 F 98.9 F 98 F Pulse Rate 70 68 68 Respiratory Rate 14 14 18 Blood Pressure 88/54 L 91/50 L 94/52 L Pulse Oximetry 93 L 93 L 92 L 02/21/18 03:15 02/21/18 03:30 02/21/18 03:45 Temperature 99.0 F Pulse Rate 69 68 65 Respiratory Rate 20 20 16 Blood Pressure 92/50 L 93/54 L 94/53 L Pulse Oximetry 96 97 96 02/21/18 04:00 02/21/18 04:15 02/21/18 04:30 Temperature 99.0 F 99.0 F 98.6 F Pulse Rate 65 65 71 Respiratory Rate 14 14 25 H Blood Pressure 96/58 L 96/58 L 89/55 L Pulse Oximetry 95 95 95 02/21/18 04:45 02/21/18 05:00 02/21/18 05:15 Temperature 98.6 F 98.6 F 98.6 F Pulse Rate 68 66 73 Respiratory Rate 16 21 19 Blood Pressure 89/55 L 87/52 L 126/55 L Pulse Oximetry 95 95 95 02/21/18 05:30 02/21/18 05:45 02/21/18 06:00 Temperature 98.6 F 98.6 F 98.6 F Pulse Rate 73 90 86 Respiratory Rate 28 H 16 14 Blood Pressure 103/55 L 98/88 L 114/56 L Pulse Oximetry 95 98 99 02/21/18 06:15 02/21/18 06:30 0801/18 06:45 Temperature 98.6 F 98.6 F 98.6 F Pulse Rate 66 66 68 Respiratory Rate 16 11 L 13 Blood Pressure 93/52 L 93/51 L 94/54 L Pulse Oximetry 95 94 L 95 02/21/18 07:00 02/21/18 07:15 02/21/18 08:00 Temperature 97.9 F 98.6 F Pulse Rate 69 67 67 Respiratory Rate 18 17 13 Blood Pressure 97/51 L 96/51 L 90/53 L Pulse Oximetry 99 96 96 02/21/18 09:00 02/21/18 09:01 02/21/18 10:00 Temperature Pulse Rate 67 66 67 Respiratory Rate 14 15 18 Blood Pressure 118/56 L 103/51 L Pulse Oximetry 95 98 96 02/21/18 11:00 Temperature Pulse Rate 60 Respiratory Rate 13 Blood Pressure 105/57 L Pulse Oximetry 99 Intake & Output 02/20/18 02/21/18 02/21/18 18:59 06:59 18:59 Intake Total 400 / 400 730 / 730 600.5 / 600.5 Output Total 450 / 450 Balance 400 / 400 730 / 730 150.5 / 150.5 Intake: IV 100 / 100 700 / 700 600.5 / 600.5 SandoSTATIN Inj 500 MCG In NS 500 / 500 500.5 / 500.5 Inj 500 ML @ 50 MCG/HR 50.05 mls/hr IV.CONT .Q10H JUAN Rx#: [id number] Protonix Inj 80 MG In NS Inj 100 / 100 100 / 100 100 / 100 100 ML @ 10 mls/hr IV.CONT CONT JUAN Rx#:[id number] Rocephin Inj 1,000 MG In NS Inj 100 / 100 100 ML @ 200 mls/hr IV.SIG Q24H JUAN Rx#:[id number] Oral 0 / 0 Anesthesia Amount 300 / 300 Other 30 / 30 Rbc As-3 Leukoreduced Unit 30 [id number] Intake (Blood Product) Amt 0 / 0 Rbc As-3 Leukoreduced Unit 0 / 0 [id number] Output: Urine 400 / 400 Stool 50 / 50 Other: Other Intake Source Rbc As-3 Leukoreduced Unit Saline Solution [id number] # Voids 2 2 Date of Last Bowel Movement 07/02/20/18 02/20/18 # Bowel Movements 6 1 # Incontinent Bowel Movements 0 Result Diagrams: 02/21/18 07:03 02/21/18 07:03 Laboratory Results: Laboratory Results - last 24 hr 02/19/18 02/20/18 02/20/18 09:46 15:27 18:32 WBC RBC Hgb 7.7 L Hct 23.5 L MCV MCH MCHC RDW Plt Count MPV Prelim Diff (Auto) Neut % (Auto) Lymph % (Auto) Marion % (Auto) Eos % (Auto) Baso % (Auto) Neut # (Auto) Lymph # (Auto) Marion # (Auto) Eos # (Auto) Baso # (Auto) WBC Differential Diff Scan Differential Comment Platelet Estimate Platelet Morphology Retic Count Absolute Retic PT INR Sodium Potassium Chloride Carbon Dioxide Anion Gap BUN Creatinine Estimated GFR POC Glucose 115 H Random Glucose Calcium Prot Corrected Calcium Phosphorus Magnesium Total Bilirubin AST ALT Alkaline Phosphatase Ammonia Total Protein Albumin TSH Free T4 MTS Gel Crossmatch See Detail 02/20/18 02/20/18 02/21/18 20:29 20:35 07:03 WBC 4.7 RBC 2.89 L Hgb 8.6 L Hct 25.9 L MCV 89.4 MCH 29.6 MCHC 33.2 RDW 16.3 Plt Count 59 L D MPV 10.9 Prelim Diff (Auto) Slide review pending Neut % (Auto) 74.3 H Lymph % (Auto) 14.1 Marion % (Auto) 7.4 Eos % (Auto) 3.5 Baso % (Auto) 0.7 Neut # (Auto) 3.5 Lymph # (Auto) 0.7 L Marion # (Auto) 0.3 Eos # (Auto) 0.2 Baso # (Auto) 0.0 WBC Differential . Diff Scan Auto diff confirmed Differential Comment . Platelet Estimate Low L Platelet Morphology Enlarged H Retic Count Absolute Retic PT INR Sodium Potassium Chloride Carbon Dioxide Anion Gap BUN Creatinine Estimated GFR POC Glucose 120 H Random Glucose Calcium Prot Corrected Calcium Phosphorus Magnesium Total Bilirubin AST ALT Alkaline Phosphatase Ammonia Total Protein Albumin TSH Free T4 MTS Gel Crossmatch See Detail 02/21/18 02/21/18 02/21/18 07:03 07:03 07:03 WBC RBC Hgb Hct MCV MCH MCHC RDW Plt Count MPV Prelim Diff (Auto) Neut % (Auto) Lymph % (Auto) Marion % (Auto) Eos % (Auto) Baso % (Auto) Neut # (Auto) Lymph # (Auto) Marion # (Auto) Eos # (Auto) Baso # (Auto) WBC Differential Diff Scan Differential Comment Platelet Estimate Platelet Morphology Retic Count Absolute Retic PT 11.1 INR 1.1 Sodium 143 Potassium 4.0 D Chloride 110 H D Carbon Dioxide 25.7 Anion Gap 7 BUN 25 H Creatinine 1.37 H Estimated GFR 38 L POC Glucose Random Glucose 103 Calcium 7.2 L* D Prot Corrected Calcium 8.2 L Phosphorus 4.2 Magnesium 1.7 Total Bilirubin 1.0 AST 24 ALT 20 Alkaline Phosphatase 75 Ammonia 19 Total Protein 5.2 L D Albumin 2.4 L TSH 0.221 L Free T4 1.02 MTS Gel Crossmatch 02/21/18 02/21/18 07:03 08:41 WBC RBC Hgb Hct MCV MCH MCHC RDW Plt Count MPV Prelim Diff (Auto) Neut % (Auto) Lymph % (Auto) Marion % (Auto) Eos % (Auto) Baso % (Auto) Neut # (Auto) Lymph # (Auto) Marion # (Auto) Eos # (Auto) Baso # (Auto) WBC Differential Diff Scan Differential Comment Platelet Estimate Platelet Morphology Retic Count 4.1 H Absolute Retic 118.9 PT INR Sodium Potassium Chloride Carbon Dioxide Anion Gap BUN Creatinine Estimated GFR POC Glucose 105 Random Glucose Calcium Prot Corrected Calcium Phosphorus Magnesium Total Bilirubin AST ALT Alkaline Phosphatase Ammonia Total Protein Albumin TSH Free T4 MTS Gel Crossmatch Medications: Active Medications Generic Name Dose Route Start Last Admin Trade Name Freq PRN Reason Stop Dose Admin Chlorhexidine Gluconate 3 pack 02/21/18 04:00 02/21/18 06:03 Chlorhexidine 2% Cloth TOPICAL 02/26/18 03:59 3 pack DAILY@0400 JUAN Administration Octreotide Acetate 500 mcg/ 500.5 mls @ 50.05 mls/hr 02/19/18 23:00 02/21/18 09:47 Sodium Chloride IV.CONT 50 mcg/hr .Q10H JUAN 50.05 mls/hr Administration 50 MCG/HR Ceftriaxone Sodium 1,000 mg/ 100 mls @ 200 mls/hr 02/20/18 00:00 02/21/18 06: 00 Sodium Chloride IV.SIG Infused Q24H JUAN Infusion Pantoprazole Sodium 80 mg/ 100 mls @ 10 mls/hr 02/19/18 23:45 02/21/18 09:45 Sodium Chloride IV.CONT 10 mls/hr CONT JUAN Administration Sodium Chloride 250 mls @ 15 mls/hr 02/20/18 21:00 02/20/18 23:07 Ns Inj IV.SIG 02/21/18 13:39 15 mls/hr ONCE JUAN Administration Insulin Aspart 0 unit 02/20/18 08:00 02/21/18 08:45 Novolog Insulin Correctional Sugar Inj SQ Not Given ACHS JUAN Protocol Sodium Chloride 2 ml 02/20/18 09:00 02/21/18 08:46 Ns Flush IV.FLUSH 2 ml BID JUAN Administration Spironolactone 50 mg 02/20/18 09:00 02/21/18 09:48 Aldactone PO 50 mg BID JUAN Administration Sucralfate 1 gm 02/20/18 18:00 02/21/18 06:03 Carafate Liq PO 1 gm Q6HR JUAN Administration Objective Remarks: GENERAL: Elderly female resting in bed talking with visitor at bedside. She appears comfortable and is laughing and smiling throughout exam. SKIN: Warm and dry. HEAD: Normocephalic. EYES: No scleral icterus. No injection or drainage. NECK: Supple, trachea midline. No JVD or lymphadenopathy. CARDIOVASCULAR: 3/6 systolic murmur. Regular rate/rhythm RESPIRATORY: Breath sounds equal bilaterally. No accessory muscle use. GASTROINTESTINAL: Abdomen distended but soft. Nontender. EXTREMITIES: Trace bilateral lower extremity edema MUSCULOSKELETAL: Adequate muscle tone. NEUROLOGICAL: No obvious focal deficit. Awake, alert, and oriented x3. Assessment/Plan - Plan 67-year-old female with myelodysplastic syndrome complicated by cirrhosis and GI bleeding 1. Blood count stable today. No need for transfusion 2. Monitor CBC 3. Follow-up in clinic with Dr Archibald once discharged - Attending Statement The exam, history, and the medical decision-making described in the above note were completed with the assistance of the mid-level provider. I reviewed and agree with the findings presented. I attest that I had a [id number] encounter with the patient on the same day, and personally performed and documented my assessment and findings in the medical record. Pt seen with brother at bedside. Discussed Dr. Goel recommendations. Offers no complaints, tolerating a lunch of clear liquid. Discussed the immediate concern for the GI bleed. This complicates her treatment for MDS with JUANY. We discussed follow up as out pt. We have been checking weekly CBC. I'll see her back in clinic when
[2018-02-21 16:52] LABS: Hemoglobin A1c 4.9 % (4.3-6.0)
[2018-02-21] MEDS: Furosemide 20 MG Tablet PO SCH (20:33)
[2018-02-21] MEDS: Propranolol 10 MG Tablet PO SCH (20:35)
[2018-02-22] MEDS: Sucralfate Liq 1 GM/10 ML UDC PO SCH ×5 (00:46→23:55)
[2018-02-22 04:45] LABS: Baso % (Auto) 0.9 % (0.0-2.0); Eos # (Auto) 0.2 th/mm3 (0.0-0.4); Eos % (Auto) 4.2 % (0.0-4.0); Hematocrit 26.8 % (35.0-46.0); Hemoglobin 8.7 gm/dL (11.6-15.3); Lymph # (Auto) 0.8 th/mm3 (1.0-4.8); Lymph % (Auto) 17.8 % (9.0-44.0); Mean Corpuscular HGB Conc 32.3 % (32.0-36.0); Mean Corpuscular Hemoglobin 29.4 pg (27.0-34.0); Mean Corpuscular Volume 90.9 fL (80.0-100.0); Mean Platelet Volume 10.7 fL (7.0-11.0); Mono # (Auto) 0.3 th/mm3 (0.0-0.9); Mono % (Auto) 7.2 % (0.0-8.0); Neut # (Auto) 2.9 th/mm3 (1.8-7.7); Neut % (Auto) 69.9 % (16.0-70.0); Platelet Count 69 th/mm3 (150-450); Red Blood Count 2.95 mil/mm3 (4.00-5.30); Red Cell Distribution Width 16.9 % (11.6-17.2); White Blood Count 4.2 th/mm3 (4.0-11.0)
[2018-02-22 04:50] LABS: INR 1.1 Ratio; Prothrombin Time 11.4 sec (9.8-11.6)
[2018-02-22 05:08] LABS: Albumin 2.3 g/dL (3.4-5.0); Calcium 7.4 mg/dL (8.5-10.1); Carbon Dioxide 23.9 meq/L (21.0-32.0); Magnesium 1.7 mg/dL (1.5-2.5); Phosphorus 2.8 mg/dL (2.5-4.9); Potassium 4.1 meq/L (3.5-5.1); Total Protein 5.4 g/dL (6.4-8.2)
[2018-02-22] MEDS: Chlorhexidine Gluconate 2% 1 Pack (2 Cloths) TOPICAL SCH (05:41)
[2018-02-22] MEDS: Octreotide Inj 500 MCG in Sodium Chlor 0.9% Inj 500 ML IV.CONT SCH ×2 (06:38→11:57)
[2018-02-22] MEDS: Insulin NovoLOG Aspart Correctional Sugar Inj SQ SCH ×4 (08:16→21:02)
[2018-02-22] MEDS: Furosemide 20 MG Tablet PO SCH ×2 (08:19→20:53)
[2018-02-22] MEDS: Pantoprazole Inj 80 MG in Sodium Chlor 0.9% Inj 100 ML IV.CONT SCH (08:59)
[2018-02-22] MEDS: Propranolol 10 MG Tablet PO SCH ×2 (09:45→20:53)
--- NOTE | 2018-02-22 11:06 | P.PNIM ---
Subjective Interval history: 67-year-old female with a history of cirrhosis, MDS, esophageal varices with recent banding several weeks ago who presents with acute onset of bloody diarrhea this afternoon with associated lightheadedness worse with standing. She denies any chest pain, shortness of breath. She does report fatigue which is gotten worse today. She does report nausea earlier but this has resolved. 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 8-2 FOLLOW UP GI BLEED WITH PORTAL HYPERTENSIVE GASTROPATHY WITH GAVE AND PORTAL HYPERTENSIVE GASTROPATHY AND VARICES AND CIRRHOSIS OF LIVER STILL ON PROTONIX DRIP AND SANDOSTATIN DRIPS DIET PER GI AM LABS INCREASE ACTIVITY Physical Exam Vital signs: Vital Signs 02/21/18 12:00 02/21/18 12:03 02/21/18 13:00 Temperature 98.6 F Pulse Rate 61 62 63 Respiratory Rate 26 H 19 Blood Pressure 118/58 L 114/66 Pulse Oximetry 100 100 02/21/18 14:00 02/21/18 14:02 02/21/18 15:00 Temperature Pulse Rate 65 63 61 Respiratory Rate 20 15 Blood Pressure 117/59 L Pulse Oximetry 99 93 L 02/21/18 15:13 02/21/18 16:00 02/21/18 16:08 Temperature 98.8 F Pulse Rate 63 62 61 Respiratory Rate 21 24 Blood Pressure 105/53 L 95/52 L Pulse Oximetry 95 97 02/21/18 18:00 02/21/18 19:00 02/21/18 20:00 Temperature 98.9 F Pulse Rate 59 L 62 Respiratory Rate 18 Blood Pressure 98/53 L Pulse Oximetry 98 94 L 02/21/18 22:00 02/22/18 00:00 02/22/18 02:00 Temperature 98.7 F Pulse Rate 61 59 L 59 L Respiratory Rate 11 L Blood Pressure 92/53 L Pulse Oximetry 93 L 02/22/18 04:00 02/22/18 06:00 02/22/18 08:00 Temperature 98.2 F Pulse Rate 61 61 Respiratory Rate 18 Blood Pressure 117/58 L Pulse Oximetry 95 99 02/22/18 09:27 Temperature Pulse Rate Respiratory Rate Blood Pressure Pulse Oximetry 99 Intake & Output 02/21/18 02/22/18 02/22/18 18:59 06:59 18:59 Intake Total 600.5 / 600.5 2261.0 / 2261.0 Output Total 450 / 450 1050 / 1050 650 / 650 Balance 150.5 / 150.5 1211.0 / 1211.0 -650 / -650 Intake: IV 600.5 / 600.5 1301.0 / 1301.0 SandoSTATIN Inj 500 MCG In NS 500.5 / 500.5 1001.0 / 1001.0 Inj 500 ML @ 50 MCG/HR 50.05 mls/hr IV.CONT .Q10H JUAN Rx#: [id number] Protonix Inj 80 MG In NS Inj 100 / 100 200 / 200 100 ML @ 10 mls/hr IV.CONT CONT JUAN Rx#:[id number] Rocephin Inj 1,000 MG In NS Inj 100 / 100 100 ML @ 200 mls/hr IV.SIG Q24H JUAN Rx#:[id number] Oral 960 / 960 Output: Urine 400 / 400 1050 / 1050 650 / 650 Stool 50 / 50 Other: # Voids 2 2 1 Date of Last Bowel Movement 02/20/18 02/21/18 # Bowel Movements 1 0 # Incontinent Bowel Movements 0 0 Narrative: GENERAL: AWAKE ALERT AND ORIENTED X3 TALKATIVE AND COOPERATIVE SKIN: Warm and dry. HEAD: Atraumatic. Normocephalic. EYES: Pupils equal and round. No scleral icterus. No injection or drainage. ENT: No nasal bleeding or discharge. Mucous membranes pink and moist. NECK: Trachea midline. No JVD. CARDIOVASCULAR: Regular rate and rhythm. S1, S2 NO S3 OR S4 RESPIRATORY: No accessory muscle use. Clear to auscultation. Breath sounds equal bilaterally. GASTROINTESTINAL: Abdomen soft, non-tender, nondistended. Hepatic and splenic margins not palpable. SOME DISTENTION- NONTENDER MUSCULOSKELETAL: Extremities without clubbing, cyanosis, or edema. No obvious deformities. NEUROLOGICAL: Awake and alert. No obvious cranial nerve deficits. Motor grossly within normal limits. Five out of 5 muscle strength in the arms and legs. Normal speech. PSYCHIATRIC: Appropriate mood and affect; insight and judgment normal. Results - Labs CBC & Chem 7: 02/22/18 03:22 02/22/18 03:22 Laboratory Results - last 24 hr 02/21/18 02/21/18 02/21/18 07:03 12:52 16:21 WBC RBC Hgb Hct MCV MCH MCHC RDW Plt Count MPV Prelim Diff (Auto) Neut % (Auto) Lymph % (Auto) Cochran % (Auto) Eos % (Auto) Baso % (Auto) Neut # (Auto) Lymph # (Auto) Cochran # (Auto) Eos # (Auto) Baso # (Auto) WBC Differential Differential Comment Platelet Estimate Platelet Morphology PT INR Sodium Potassium Chloride Carbon Dioxide Anion Gap BUN Creatinine Estimated GFR POC Glucose 112 H 162 H Random Glucose Hemoglobin A1c 4.9 Calcium Prot Corrected Calcium Phosphorus Magnesium Total Bilirubin AST ALT Alkaline Phosphatase Total Protein Albumin 02/21/18 02/22/18 02/22/18 20:31 03:22 03:22 WBC 4.2 RBC 2.95 L Hgb 8.7 L Hct 26.8 L MCV 90.9 MCH 29.4 MCHC 32.3 RDW 16.9 Plt Count 69 L MPV 10.7 Prelim Diff (Auto) Slide review pending Neut % (Auto) 69.9 Lymph % (Auto) 17.8 Cochran % (Auto) 7.2 Eos % (Auto) 4.2 H Baso % (Auto) 0.9 Neut # (Auto) 2.9 Lymph # (Auto) 0.8 L Cochran # (Auto) 0.3 Eos # (Auto) 0.2 Baso # (Auto) 0.0 WBC Differential . Differential Comment . Platelet Estimate Low L Platelet Morphology Enlarged H PT 11.4 INR 1.1 Sodium Potassium Chloride Carbon Dioxide Anion Gap BUN Creatinine Estimated GFR POC Glucose 147 H Random Glucose Hemoglobin A1c Calcium Prot Corrected Calcium Phosphorus Magnesium Total Bilirubin AST ALT Alkaline Phosphatase Total Protein Albumin 02/22/18 02/22/18 03:22 08:05 WBC RBC Hgb Hct MCV MCH MCHC RDW Plt Count MPV Prelim Diff (Auto) Neut % (Auto) Lymph % (Auto) Cochran % (Auto) Eos % (Auto) Baso % (Auto) Neut # (Auto) Lymph # (Auto) Cochran # (Auto) Eos # (Auto) Baso # (Auto) WBC Differential Differential Comment Platelet Estimate Platelet Morphology PT INR Sodium 143 Potassium 4.1 Chloride 111 H Carbon Dioxide 23.9 Anion Gap 8 BUN 16 Creatinine 1.04 H Estimated GFR 53 L POC Glucose 126 H Random Glucose 101 Hemoglobin A1c Calcium 7.4 L* Prot Corrected Calcium 8.3 L Phosphorus 2.8 D Magnesium 1.7 Total Bilirubin 0.6 AST 26 ALT 18 Alkaline Phosphatase 76 Total Protein 5.4 L Albumin 2.3 L - Procedures INDICATIONS: The patient is a 67 yr old female here for an EGD due to melena PROCEDURE PERFORMED: EGD w/ control of bleeding MEDICATIONS: None and Per Anesthesia. TOPICAL ANESTHETIC: none CONSENT: The patient understands the risks and benefits of the procedure and understands that these risks include, but are not limited to: sedation, allergic reaction, infection, perforation and/or bleeding. Alternative means of evaluation and treatment include, among others: physical exam, x-rays, and/or surgical intervention. The patient elects to proceed with this endoscopic procedure. medical equipment was checked for proper function. Hand hygiene and appropriate measures for infection prevention was taken. After the risks, benefits and alternatives of the procedure were thoroughly explained, Informed consent was verified, confirmed and timeout was successfully executed by the treatment team. The patient was anesthetized with topical anesthesia and the Pentax [id number] endoscope was introduced through the mouth and advanced to the second portion of the duodenum. Retroflexion was performed and was normal The gastroscope was then slowly withdrawn and removed. 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 The varices were not bleeding. There was evidence of prior scarring. The varix would completely flatten out. There was evidence of previous banding . The distal esophagus was scarred and the scope passed with mild difficulty. STOMACH: A sessile polyp ranging between 3-5mm in size with a friable surface was found in the gastric body. Argon plasma coagulation was applied to the site. With complete hemostasis achieved. Multiple non-bleeding, deep and clean-based ulcers ranging between 3-7mm in size were found in the gastric antrum. There was gastropathy (GAVE) . There was erythematous gastropathy in the prepyloric region of the stomach; Argon plasma coagulation was applied to the site(s); with complete hemostasis achieved DUODENUM: Normal to the 2nd portion ADVERSE EVENTS: There were no complications. IMPRESSIONS: 1. The varix would completely flatten out. There was evidence of previous banding . The distal esophagus was scarred and the scope passed with mild difficulty 2. Sessile polyp ranging between 3-5mm in size was found in the gastric body; Argon plasma coagulation was applied to the site; with complete hemostasis achieved 3. Multiple ulcers ranging between 3-7mm in size were found in the gastric antrum 4. There was erythematous gastropathy in the prepyloric region of the stomach; Argon plasma coagulation was applied to the site(s); with complete hemostasis achieved 5. Retroflexion was performed and was normal 6. Normal duodenum RECOMMENDATIONS: 1. Begin feeding tomorrow 2. Avoid NSAIDS PATIENT CONDITION: stable DISPOSITION: Inpatient REPEAT EXAM: Return 2 months EGD with APC Assessment and Plan - Plan Acute GI bleed. Gastroenterology has been consulted. 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 Patient is scheduled to undergo an EGD later today Diabetes mellitus. Insulin sliding scale. Hypertension. Blood pressure acceptable. Continue home medications.- MEDS ADJUSTED BY GI- PROPRANOLOL DECREASED Hyperlipidemia. Chronic. 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
--- NOTE | 2018-02-22 15:20 | P.PNGI ---
Subjective Interval history: She feels stronger; asking for solid food. No complaints Physical Exam Vital signs: Vital Signs 02/21/18 15:13 02/21/18 16:00 02/21/18 16:08 Temperature 98.8 F Pulse Rate 63 62 61 Respiratory Rate 21 24 Blood Pressure 105/53 L 95/52 L Pulse Oximetry 95 97 02/21/18 18:00 02/21/18 19:00 02/21/18 20:00 Temperature 98.9 F Pulse Rate 59 L 62 Respiratory Rate 18 Blood Pressure 98/53 L Pulse Oximetry 98 94 L 02/21/18 22:00 02/22/18 00:00 02/22/18 02:00 Temperature 98.7 F Pulse Rate 61 59 L 59 L Respiratory Rate 11 L Blood Pressure 92/53 L Pulse Oximetry 93 L 02/22/18 04:00 02/22/18 06:00 02/22/18 08:00 Temperature 98.2 F Pulse Rate 61 61 Respiratory Rate 18 Blood Pressure 117/58 L Pulse Oximetry 95 99 02/22/18 09:27 Temperature Pulse Rate Respiratory Rate Blood Pressure Pulse Oximetry 99 Intake & Output 02/21/18 02/22/18 02/22/18 18:59 06:59 18:59 Intake Total 600.5 / 600.5 2261.0 / 2261.0 500.5 / 500.5 Output Total 450 / 450 1050 / 1050 1125 / 1125 Balance 150.5 / 150.5 1211.0 / 1211.0 -624.5 / -624.5 Intake: IV 600.5 / 600.5 1301.0 / 1301.0 500.5 / 500.5 SandoSTATIN Inj 500 MCG In NS 500.5 / 500.5 1001.0 / 1001.0 500.5 / 500.5 Inj 500 ML @ 50 MCG/HR 50.05 mls/hr IV.CONT .Q10H JUAN Rx#: [id number] Protonix Inj 80 MG In NS Inj 100 / 100 200 / 200 100 ML @ 10 mls/hr IV.CONT CONT JUAN Rx#:[id number] Rocephin Inj 1,000 MG In NS Inj 100 / 100 100 ML @ 200 mls/hr IV.SIG Q24H JUAN Rx#:[id number] Oral 960 / 960 Output: Urine 400 / 400 1050 / 1050 1125 / 1125 Stool 50 / 50 Other: # Voids 2 2 1 Date of Last Bowel Movement 02/20/18 02/21/18 # Bowel Movements 1 0 # Incontinent Bowel Movements 0 0 - Constitutional no acute distress - Routine HEENT Exam Eye: Present: EOMI - Routine Respiratory Exam Present: CTA bilaterally - Detailed Abdominal Exam Comments: Mildly distended, tympanitic, no appreciable ascites. - Detailed Extremities Exam: Vascular Comments: No pedal edema - Routine Neurological Exam No asterixis or nystagmus Results - Labs CBC & Chem 7: 02/22/18 03:22 02/22/18 03:22 Laboratory Results - last 24 hr 02/21/18 02/21/18 02/21/18 07:03 16:21 20:31 WBC RBC Hgb Hct MCV MCH MCHC RDW Plt Count MPV Prelim Diff (Auto) Neut % (Auto) Lymph % (Auto) [place] % (Auto) Eos % (Auto) Baso % (Auto) Neut # (Auto) Lymph # (Auto) [place] # (Auto) Eos # (Auto) Baso # (Auto) WBC Differential Differential Comment Platelet Estimate Platelet Morphology PT INR Sodium Potassium Chloride Carbon Dioxide Anion Gap BUN Creatinine Estimated GFR POC Glucose 162 H 147 H Random Glucose Hemoglobin A1c 4.9 Calcium Prot Corrected Calcium Phosphorus Magnesium Total Bilirubin AST ALT Alkaline Phosphatase Total Protein Albumin 02/22/18 02/22/18 02/22/18 03:22 03:22 03:22 WBC 4.2 RBC 2.95 L Hgb 8.7 L Hct 26.8 L MCV 90.9 MCH 29.4 MCHC 32.3 RDW 16.9 Plt Count 69 L MPV 10.7 Prelim Diff (Auto) Slide review pending Neut % (Auto) 69.9 Lymph % (Auto) 17.8 [place] % (Auto) 7.2 Eos % (Auto) 4.2 H Baso % (Auto) 0.9 Neut # (Auto) 2.9 Lymph # (Auto) 0.8 L [place] # (Auto) 0.3 Eos # (Auto) 0.2 Baso # (Auto) 0.0 WBC Differential . Differential Comment . Platelet Estimate Low L Platelet Morphology Enlarged H PT 11.4 INR 1.1 Sodium 143 Potassium 4.1 Chloride 111 H Carbon Dioxide 23.9 Anion Gap 8 BUN 16 Creatinine 1.04 H Estimated GFR 53 L POC Glucose Random Glucose 101 Hemoglobin A1c Calcium 7.4 L* Prot Corrected Calcium 8.3 L Phosphorus 2.8 D Magnesium 1.7 Total Bilirubin 0.6 AST 26 ALT 18 Alkaline Phosphatase 76 Total Protein 5.4 L Albumin 2.3 L 02/22/18 02/22/18 08:05 11:52 WBC RBC Hgb Hct MCV MCH MCHC RDW Plt Count MPV Prelim Diff (Auto) Neut % (Auto) Lymph % (Auto) [place] % (Auto) Eos % (Auto) Baso % (Auto) Neut # (Auto) Lymph # (Auto) [place] # (Auto) Eos # (Auto) Baso # (Auto) WBC Differential Differential Comment Platelet Estimate Platelet Morphology PT INR Sodium Potassium Chloride Carbon Dioxide Anion Gap BUN Creatinine Estimated GFR POC Glucose 126 H 215 H Random Glucose Hemoglobin A1c Calcium Prot Corrected Calcium Phosphorus Magnesium Total Bilirubin AST ALT Alkaline Phosphatase Total Protein Albumin - Procedures INDICATIONS: The patient is a 67 yr old female here for an EGD due to melena PROCEDURE PERFORMED: EGD w/ control of bleeding MEDICATIONS: None and Per Anesthesia. TOPICAL ANESTHETIC: none CONSENT: The patient understands the risks and benefits of the procedure and understands that these risks include, but are not limited to: sedation, allergic reaction, infection, perforation and/or bleeding. Alternative means of evaluation and treatment include, among others: physical exam, x-rays, and/or surgical intervention. The patient elects to proceed with this endoscopic procedure. medical equipment was checked for proper function. Hand hygiene and appropriate measures for infection prevention was taken. After the risks, benefits and alternatives of the procedure were thoroughly explained, Informed consent was verified, confirmed and timeout was successfully executed by the treatment team. The patient was anesthetized with topical anesthesia and the Pentax [id number] endoscope was introduced through the mouth and advanced to the second portion of the duodenum. Retroflexion was performed and was normal The gastroscope was then slowly withdrawn and removed. 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 The varices were not bleeding. There was evidence of prior scarring. The varix would completely flatten out. There was evidence of previous banding . The distal esophagus was scarred and the scope passed with mild difficulty. STOMACH: A sessile polyp ranging between 3-5mm in size with a friable surface was found in the gastric body. Argon plasma coagulation was applied to the site. With complete hemostasis achieved. Multiple non-bleeding, deep and clean-based ulcers ranging between 3-7mm in size were found in the gastric antrum. There was gastropathy (GAVE) . There was erythematous gastropathy in the prepyloric region of the stomach; Argon plasma coagulation was applied to the site(s); with complete hemostasis achieved DUODENUM: Normal to the 2nd portion ADVERSE EVENTS: There were no complications. IMPRESSIONS: 1. The varix would completely flatten out. There was evidence of previous banding . The distal esophagus was scarred and the scope passed with mild difficulty 2. Sessile polyp ranging between 3-5mm in size was found in the gastric body; Argon plasma coagulation was applied to the site; with complete hemostasis achieved 3. Multiple ulcers ranging between 3-7mm in size were found in the gastric antrum 4. There was erythematous gastropathy in the prepyloric region of the stomach; Argon plasma coagulation was applied to the site(s); with complete hemostasis achieved 5. Retroflexion was performed and was normal 6. Normal duodenum RECOMMENDATIONS: 1. Begin feeding tomorrow 2. 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 We discussed cirrhosis again in detail. She's receiving inderal 10m bid as well as lasix, 20mg bid and aldactone, 50mg bid. We'll advance her diet to 2gm sodium, mechanical soft. She may transfer out of the [facility] [place]. Sandostatin is to be tapered and stopped. Protonix can change from IV to PO.
[2018-02-23 00:52] VITALS: O2SAT 100
[2018-02-23] MEDS: Sucralfate Liq 1 GM/10 ML UDC PO SCH ×2 (05:43→12:18)
[2018-02-23] MEDS: Chlorhexidine Gluconate 2% 1 Pack (2 Cloths) TOPICAL SCH (05:43)
[2018-02-23 06:02] LABS: Baso % (Auto) 0.5 % (0.0-2.0); Eos # (Auto) 0.1 th/mm3 (0.0-0.4); Eos % (Auto) 1.8 % (0.0-4.0); Hematocrit 29.3 % (35.0-46.0); Hemoglobin 9.8 gm/dL (11.6-15.3); Lymph # (Auto) 0.6 th/mm3 (1.0-4.8); Lymph % (Auto) 9.3 % (9.0-44.0); Mean Corpuscular HGB Conc 33.4 % (32.0-36.0); Mean Corpuscular Hemoglobin 29.5 pg (27.0-34.0); Mean Corpuscular Volume 88.3 fL (80.0-100.0); Mean Platelet Volume 10.4 fL (7.0-11.0); Mono # (Auto) 0.3 th/mm3 (0.0-0.9); Mono % (Auto) 5.2 % (0.0-8.0); Neut # (Auto) 5.4 th/mm3 (1.8-7.7); Neut % (Auto) 83.2 % (16.0-70.0); Platelet Count 78 th/mm3 (150-450); Red Blood Count 3.31 mil/mm3 (4.00-5.30); Red Cell Distribution Width 16.9 % (11.6-17.2); White Blood Count 6.4 th/mm3 (4.0-11.0)
[2018-02-23 06:09] LABS: INR 1.1 Ratio; Prothrombin Time 11.2 sec (9.8-11.6)
[2018-02-23 06:27] LABS: Albumin 2.7 g/dL (3.4-5.0); Anion Gap 9 meq/L (5-15); Aspartate Aminotransferase 33 U/L (15-37); Blood Urea Nitrogen 13 mg/dL (7-18); Calcium 7.8 mg/dL (8.5-10.1); Carbon Dioxide 26.9 meq/L (21.0-32.0); Chloride 104 meq/L (98-107); Glomerular Filtration Rate 57 mL/min (>89); Glucose,Random 88 mg/dL (74-106); Magnesium 1.6 mg/dL (1.5-2.5); Potassium 3.7 meq/L (3.5-5.1); Sodium 140 meq/L (136-145)
[2018-02-23 06:28] LABS: Alanine Aminotransferase 20 U/L (10-53); Phosphorus 2.7 mg/dL (2.5-4.9)
[2018-02-23 06:31] LABS: Alkaline Phosphatase 101 U/L (45-117)
[2018-02-23 07:12] LABS: Platelet Morphology Normal (Normal); RBC Morphology Normal (Normal)
[2018-02-23 09:20] VITALS: RESP 18
[2018-02-23] MEDS: Insulin NovoLOG Aspart Correctional Sugar Inj SQ SCH ×2 (09:24→12:17)
[2018-02-23] MEDS: Propranolol 10 MG Tablet PO SCH (09:26)
[2018-02-23] MEDS: Furosemide 20 MG Tablet PO SCH (09:26)
--- NOTE | 2018-02-23 10:03 | P.PNGI ---
Subjective Interval history: No complaints; tolerating diet with no N/V, early satiety. No lightheadedness or dizziness; no further hypotension. Physical Exam Vital signs: Vital Signs 02/22/18 10:00 02/22/18 12:00 02/22/18 14:00 Temperature 98 F Pulse Rate 66 55 L 62 Respiratory Rate 13 Blood Pressure 103/56 L Pulse Oximetry 100 02/22/18 16:00 02/22/18 17:00 02/22/18 17:04 Temperature 97.8 F Pulse Rate 60 64 63 Respiratory Rate 24 26 H 20 Blood Pressure 128/68 103/58 L Pulse Oximetry 100 100 100 02/22/18 18:00 02/22/18 19:00 02/22/18 20:00 Temperature 99 F Pulse Rate 62 59 L 63 Respiratory Rate 17 14 16 Blood Pressure 93/51 L 95/51 L 97/56 L Pulse Oximetry 98 99 97 02/22/18 20:08 02/22/18 20:10 02/22/18 21:00 Temperature Pulse Rate 68 64 63 Respiratory Rate 18 20 17 Blood Pressure 115/53 L 97/56 L Pulse Oximetry 91 L 100 97 02/22/18 22:00 02/23/18 00:00 02/23/18 08:00 Temperature 97.9 F 98.3 F Pulse Rate 61 64 66 Respiratory Rate 12 17 18 Blood Pressure 96/51 L 134/63 111/54 L Pulse Oximetry 94 L 100 100 Intake & Output 02/22/18 02/23/18 02/23/18 18:59 06:59 18:59 Intake Total 1496.0 / 1496.0 480 / 480 Output Total 2375 / 2375 500 / 500 Balance -879.0 / -879.0 -20 / -20 Intake: IV 1076.0 / 1076.0 SandoSTATIN Inj 500 MCG In NS 751.0 / 751.0 Inj 500 ML @ 50 MCG/HR 50.05 mls/hr IV.CONT .Q10H JUAN Rx#: [id number] Protonix Inj 80 MG In NS Inj 75 / 75 100 ML @ 10 mls/hr IV.CONT CONT JUAN Rx#:[id number] Oral 420 / 420 480 / 480 Output: Urine 2375 / 2375 500 / 500 Other: # Voids 2 5 Date of Last Bowel Movement 02/21/18 02/22/18 # Bowel Movements 2 - Constitutional no acute distress - Routine HEENT Exam Eye: Present: EOMI - Routine Respiratory Exam Present: CTA bilaterally - Routine Cardiovascular Exam Present: RRR Comments: A 2/6 systolic murmur is noted - Detailed Abdominal Exam Comments: Good bowel sounds; mildly distended with a fluid wave; no tenderness No pedal edema or asterixis. Results - Labs CBC & Chem 7: 02/23/18 03:43 02/23/18 03:43 Laboratory Results - last 24 hr 02/22/18 02/22/18 02/22/18 11:52 17:15 20:56 WBC RBC Hgb Hct MCV MCH MCHC RDW Plt Count MPV Prelim Diff (Auto) Neut % (Auto) Lymph % (Auto) [place] % (Auto) Eos % (Auto) Baso % (Auto) Neut # (Auto) Lymph # (Auto) [place] # (Auto) Eos # (Auto) Baso # (Auto) WBC Differential Diff Scan Differential Comment Platelet Estimate Platelet Morphology RBC Morphology PT INR Sodium Potassium Chloride Carbon Dioxide Anion Gap BUN Creatinine Estimated GFR POC Glucose 215 H 113 H 235 H Random Glucose Calcium Phosphorus Magnesium Total Bilirubin AST ALT Alkaline Phosphatase Total Protein Albumin 02/23/18 02/23/18 02/23/18 03:43 03:43 03:43 WBC 6.4 RBC 3.31 L Hgb 9.8 L Hct 29.3 L MCV 88.3 MCH 29.5 MCHC 33.4 RDW 16.9 Plt Count 78 L MPV 10.4 Prelim Diff (Auto) Slide review pending Neut % (Auto) 83.2 H Lymph % (Auto) 9.3 [place] % (Auto) 5.2 Eos % (Auto) 1.8 Baso % (Auto) 0.5 Neut # (Auto) 5.4 Lymph # (Auto) 0.6 L [place] # (Auto) 0.3 Eos # (Auto) 0.1 Baso # (Auto) 0.0 WBC Differential . Diff Scan Auto diff confirmed Differential Comment . Platelet Estimate Low L Platelet Morphology Normal RBC Morphology Normal PT 11.2 INR 1.1 Sodium 140 Potassium 3.7 Chloride 104 Carbon Dioxide 26.9 Anion Gap 9 BUN 13 Creatinine 0.98 Estimated GFR 57 L POC Glucose Random Glucose 88 Calcium 7.8 L Phosphorus 2.7 Magnesium 1.6 Total Bilirubin 0.6 AST 33 ALT 20 Alkaline Phosphatase 101 Total Protein 6.0 L D Albumin 2.7 L 02/23/18 07:40 WBC RBC Hgb Hct MCV MCH MCHC RDW Plt Count MPV Prelim Diff (Auto) Neut % (Auto) Lymph % (Auto) [place] % (Auto) Eos % (Auto) Baso % (Auto) Neut # (Auto) Lymph # (Auto) [place] # (Auto) Eos # (Auto) Baso # (Auto) WBC Differential Diff Scan Differential Comment Platelet Estimate Platelet Morphology RBC Morphology PT INR Sodium Potassium Chloride Carbon Dioxide Anion Gap BUN Creatinine Estimated GFR POC Glucose 134 H Random Glucose Calcium Phosphorus Magnesium Total Bilirubin AST ALT Alkaline Phosphatase Total Protein Albumin - Procedures INDICATIONS: The patient is a 67 yr old female here for an EGD due to melena PROCEDURE PERFORMED: EGD w/ control of bleeding MEDICATIONS: None and Per Anesthesia. TOPICAL ANESTHETIC: none CONSENT: The patient understands the risks and benefits of the procedure and understands that these risks include, but are not limited to: sedation, allergic reaction, infection, perforation and/or bleeding. Alternative means of evaluation and treatment include, among others: physical exam, x-rays, and/or surgical intervention. The patient elects to proceed with this endoscopic procedure. medical equipment was checked for proper function. Hand hygiene and appropriate measures for infection prevention was taken. After the risks, benefits and alternatives of the procedure were thoroughly explained, Informed consent was verified, confirmed and timeout was successfully executed by the treatment team. The patient was anesthetized with topical anesthesia and the Pentax [id number] endoscope was introduced through the mouth and advanced to the second portion of the duodenum. Retroflexion was performed and was normal The gastroscope was then slowly withdrawn and removed. 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 The varices were not bleeding. There was evidence of prior scarring. The varix would completely flatten out. There was evidence of previous banding . The distal esophagus was scarred and the scope passed with mild difficulty. STOMACH: A sessile polyp ranging between 3-5mm in size with a friable surface was found in the gastric body. Argon plasma coagulation was applied to the site. With complete hemostasis achieved. Multiple non-bleeding, deep and clean-based ulcers ranging between 3-7mm in size were found in the gastric antrum. There was gastropathy (GAVE) . There was erythematous gastropathy in the prepyloric region of the stomach; Argon plasma coagulation was applied to the site(s); with complete hemostasis achieved DUODENUM: Normal to the 2nd portion ADVERSE EVENTS: There were no complications. IMPRESSIONS: 1. The varix would completely flatten out. There was evidence of previous banding . The distal esophagus was scarred and the scope passed with mild difficulty 2. Sessile polyp ranging between 3-5mm in size was found in the gastric body; Argon plasma coagulation was applied to the site; with complete hemostasis achieved 3. Multiple ulcers ranging between 3-7mm in size were found in the gastric antrum 4. There was erythematous gastropathy in the prepyloric region of the stomach; Argon plasma coagulation was applied to the site(s); with complete hemostasis achieved 5. Retroflexion was performed and was normal 6. Normal duodenum RECOMMENDATIONS: 1. Begin feeding tomorrow 2. Avoid NSAIDS PATIENT CONDITION: stable DISPOSITION: Inpatient REPEAT EXAM: Return 2 months EGD with APC Assessment and Plan (1) Acute GI bleeding Status: Resolved Code(s): K92.2 - Gastrointestinal hemorrhage, unspecified (2) Liver disease, chronic, with cirrhosis Status: Chronic Code(s): K74.60 - Unspecified cirrhosis of liver; K76.9 - Liver disease, unspecified (3) GAVE (gastric antral vascular ectasia) Status: Acute Code(s): K31.819 - Angiodysplasia of stomach and duodenum without bleeding - Plan Advanced liver disease; stable, with portal hypertension, ascites, GAVE. Currently, she's tolerating the regimen of inderal, 10mg bid, lasix, 20mg bid with aldactone, 50mg bid. This is to be continued as an out patient. She'll adhere to a two gram sodium, high-protein diet. She'll follow up with me in the office in 2-3 weeks.
--- NOTE | 2018-02-23 15:04 | P.DS ---
Date of admission: 02/19/18 23:34 Primary care physician: UNKNOWN Anticipated date of discharge: 02/23/18 Brief History from admission: 67-year-old female with a history of cirrhosis, MDS, esophageal varices with recent banding several weeks ago who presents with acute onset of bloody diarrhea this afternoon with associated lightheadedness worse with standing. She denies any chest pain, shortness of breath. She does report fatigue which is gotten worse today. She does report nausea earlier but this has resolved. DS: Diagnosis - Discharge Diagnosis (1) Varices, esophageal Status: Acute (2) GAVE (gastric antral vascular ectasia) Status: Acute (3) GI (gastrointestinal hemorrhage) Status: Acute (4) Cirrhosis Status: Acute (5) Diabetes Status: Acute DS: Medications - Discharge Medications Prescriptions: pantoprazole 40 mg PO DAILY #30 tab propranolol 10 mg PO BID #60 tab DS: Summary Hospital Course: The pt has a history of GAVE, cirrhosis, varices and portal hypertensive gastropathy. Gastroenterology has been consulted. We continued on octreotide and pantoprazole drips. She received red blood cells. Hematology was consulted as the pt has a history of myelodysplastic syndrome. EGD showed: The varix would completely flattened out; There was evidence of previous banding; The distal esophagus was scarred and the scope passed with mild difficulty; Sessile polyp ranging between 3-5mm in size was found in the gastric body; Argon plasma coagulation was applied to the site with complete hemostasis achieved; Multiple ulcers ranging between 3-7mm in size were found in the gastric antrum; There was erythematous gastropathy in the prepyloric region of the stomach; Argon plasma coagulation was applied to the sites with complete hemostasis. Her diet was advanced. There was no further bleeding noted. She will follow up with GI in two weeks. It was recommended to have a repeat EGD in two months. Her medications were adjusted. She is to avoid NSAIDs. - Time Spent with Patient Total time spent providing and/or coordinating discharge services: Greater than 30 minutes - Quality: VTE Deep Vein Thrombosis/Pulmonary Embolism Present on Admission: No Exam Vital signs: Vital Signs 02/22/18 16:00 02/22/18 17:00 02/22/18 17:04 Temperature 97.8 F Pulse Rate 60 64 63 Respiratory Rate 24 26 H 20 Blood Pressure 128/68 103/58 L Pulse Oximetry 100 100 100 02/22/18 18:00 02/22/18 19:00 02/22/18 20:00 Temperature 99 F Pulse Rate 62 59 L 63 Respiratory Rate 17 14 16 Blood Pressure 93/51 L 95/51 L 97/56 L Pulse Oximetry 98 99 97 02/22/18 20:08 02/22/18 20:10 02/22/18 21:00 Temperature Pulse Rate 68 64 63 Respiratory Rate 18 20 17 Blood Pressure 115/53 L 97/56 L Pulse Oximetry 91 L 100 97 02/22/18 22:00 02/23/18 00:00 02/23/18 08:00 Temperature 97.9 F 98.3 F Pulse Rate 61 64 66 Respiratory Rate 12 17 18 Blood Pressure 96/51 L 134/63 111/54 L Pulse Oximetry 94 L 100 100 02/23/18 12:00 Temperature 98.8 F Pulse Rate 62 Respiratory Rate 18 Blood Pressure 101/53 L Pulse Oximetry 100 Intake & Output 02/22/18 02/23/18 02/23/18 18:59 06:59 18:59 Intake Total 1496.0 / 1496.0 480 / 480 Output Total 2375 / 2375 500 / 500 Balance -879.0 / -879.0 -20 / -20 Intake: IV 1076.0 / 1076.0 SandoSTATIN Inj 500 MCG In NS 751.0 / 751.0 Inj 500 ML @ 50 MCG/HR 50.05 mls/hr IV.CONT .Q10H JUAN Rx#: [id number] Protonix Inj 80 MG In NS Inj 75 / 75 100 ML @ 10 mls/hr IV.CONT CONT JUAN Rx#:[id number] Oral 420 / 420 480 / 480 Output: Urine 2375 / 2375 500 / 500 Other: # Voids 2 5 Date of Last Bowel Movement 02/21/18 02/22/18 # Bowel Movements 2 Narrative: GENERAL: AWAKE ALERT AND ORIENTED X3 TALKATIVE AND COOPERATIVE SKIN: Warm and dry. HEAD: Atraumatic. Normocephalic. EYES: Pupils equal and round. No scleral icterus. No injection or drainage. ENT: No nasal bleeding or discharge. Mucous membranes pink and moist. NECK: Trachea midline. No JVD. CARDIOVASCULAR: Regular rate and rhythm. S1, S2 NO S3 OR S4 RESPIRATORY: No accessory muscle use. Clear to auscultation. Breath sounds equal bilaterally. GASTROINTESTINAL: Abdomen soft, non-tender, nondistended. Hepatic and splenic margins not palpable. SOME DISTENTION- NONTENDER MUSCULOSKELETAL: Extremities without clubbing, cyanosis, or edema. No obvious deformities. NEUROLOGICAL: Awake and alert. No obvious cranial nerve deficits. Motor grossly within normal limits. Five out of 5 muscle strength in the arms and legs. Normal speech. PSYCHIATRIC: Appropriate mood and affect; insight and judgment normal. Results Procedures completed during hospitalization: INDICATIONS: The patient is a 67 yr old female here for an EGD due to melena PROCEDURE PERFORMED: EGD w/ control of bleeding MEDICATIONS: None and Per Anesthesia. TOPICAL ANESTHETIC: none CONSENT: The patient understands the risks and benefits of the procedure and understands that these risks include, but are not limited to: sedation, allergic reaction, infection, perforation and/or bleeding. Alternative means of evaluation and treatment include, among others: physical exam, x-rays, and/or surgical intervention. The patient elects to proceed with this endoscopic procedure. medical equipment was checked for proper function. Hand hygiene and appropriate measures for infection prevention was taken. After the risks, benefits and alternatives of the procedure were thoroughly explained, Informed consent was verified, confirmed and timeout was successfully executed by the treatment team. The patient was anesthetized with topical anesthesia and the Pentax EG-[id number] endoscope was introduced through the mouth and advanced to the second portion of the duodenum. Retroflexion was performed and was normal The gastroscope was then slowly withdrawn and removed. 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 The varices were not bleeding. There was evidence of prior scarring. The varix would completely flatten out. There was evidence of previous banding . The distal esophagus was scarred and the scope passed with mild difficulty. STOMACH: A sessile polyp ranging between 3-5mm in size with a friable surface was found in the gastric body. Argon plasma coagulation was applied to the site. With complete hemostasis achieved. Multiple non-bleeding, deep and clean-based ulcers ranging between 3-7mm in size were found in the gastric antrum. There was gastropathy (GAVE) . There was erythematous gastropathy in the prepyloric region of the stomach; Argon plasma coagulation was applied to the site(s); with complete hemostasis achieved DUODENUM: Normal to the 2nd portion ADVERSE EVENTS: There were no complications. IMPRESSIONS: 1. The varix would completely flatten out. There was evidence of previous banding . The distal esophagus was scarred and the scope passed with mild difficulty 2. Sessile polyp ranging between 3-5mm in size was found in the gastric body; Argon plasma coagulation was applied to the site; with complete hemostasis achieved 3. Multiple ulcers ranging between 3-7mm in size were found in the gastric antrum 4. There was erythematous gastropathy in the prepyloric region of the stomach; Argon plasma coagulation was applied to the site(s); with complete hemostasis achieved 5. Retroflexion was performed and was normal 6. Normal duodenum RECOMMENDATIONS: 1. Begin feeding tomorrow 2. Avoid NSAIDS PATIENT CONDITION: stable DISPOSITION: Inpatient REPEAT EXAM: Return 2 months EGD with [facility] Labs on day of discharge: Labs from last 24 hours 02/23/18 02/23/18 02/23/18 11:22 07:40 03:43 WBC RBC Hgb Hct MCV MCH MCHC RDW Plt Count MPV Prelim Diff (Auto) Neut % (Auto) Lymph % (Auto) [place] % (Auto) Eos % (Auto) Baso % (Auto) Neut # (Auto) Lymph # (Auto) [place] # (Auto) Eos # (Auto) Baso # (Auto) WBC Differential Diff Scan Differential Comment Platelet Estimate Platelet Morphology RBC Morphology PT INR Sodium 140 Potassium 3.7 Chloride 104 Carbon Dioxide 26.9 Anion Gap 9 BUN 13 Creatinine 0.98 Estimated GFR 57 L POC Glucose 263 H 134 H Random Glucose 88 Calcium 7.8 L Phosphorus 2.7 Magnesium 1.6 Total Bilirubin 0.6 AST 33 ALT 20 Alkaline Phosphatase 101 Total Protein 6.0 L D Albumin 2.7 L 02/23/18 02/23/18 02/22/18 03:43 03:43 20:56 WBC 6.4 RBC 3.31 L Hgb 9.8 L Hct 29.3 L MCV 88.3 MCH 29.5 MCHC 33.4 RDW 16.9 Plt Count 78 L MPV 10.4 Prelim Diff (Auto) Slide review pending Neut % (Auto) 83.2 H Lymph % (Auto) 9.3 [place] % (Auto) 5.2 Eos % (Auto) 1.8 Baso % (Auto) 0.5 Neut # (Auto) 5.4 Lymph # (Auto) 0.6 L [place] # (Auto) 0.3 Eos # (Auto) 0.1 Baso # (Auto) 0.0 WBC Differential . Diff Scan Auto diff confirmed Differential Comment . Platelet Estimate Low L Platelet Morphology Normal RBC Morphology Normal PT 11.2 INR 1.1 Sodium Potassium Chloride Carbon Dioxide Anion Gap BUN Creatinine Estimated GFR POC Glucose 235 H Random Glucose Calcium Phosphorus Magnesium Total Bilirubin AST ALT Alkaline Phosphatase Total Protein Albumin 02/22/18 17:15 WBC RBC Hgb Hct MCV MCH MCHC RDW Plt Count MPV Prelim Diff (Auto) Neut % (Auto) Lymph % (Auto) [place] % (Auto) Eos % (Auto) Baso % (Auto) Neut # (Auto) Lymph # (Auto) [place] # (Auto) Eos # (Auto) Baso # (Auto) WBC Differential Diff Scan Differential Comment Platelet Estimate Platelet Morphology RBC Morphology PT INR Sodium Potassium Chloride Carbon Dioxide Anion Gap BUN Creatinine Estimated GFR POC Glucose 113 H Random Glucose Calcium Phosphorus Magnesium Total Bilirubin AST ALT Alkaline Phosphatase Total Protein Albumin Discharge Plan - Discharge Disposition Patient Disposition: 01 Discharge Home - Discharge Condition Condition: Stable - Discharge Order Discharge Orders: Discharge Order (Routine); Ordered 02/23/18 Ordered By: Paulie Collins - Discharge Details Anticipated Discharge Date: 02/23/18 - Physicians Team Primary Care Provider: UNKNOWN, Attending Provider: Paulie Collins Other Providers: Alonso Johnson MD ; Catherine Archibald MD ; InSample, Insurance
[2018-02-27 18:04] VITALS: BP 101/53; PULSE 62; TEMP 98.8
== END 2018-02-23 15:44 | disposition home or self-care (01) ==
LOC: NEPC 21:41 → NEDA 23:40 → HIMC 02-20 04:30 → N07 02-22 23:15
PROVIDERS: ADMIT Hospitalist; ATTEND Hospitalist
PROC: PANENDO (2018-02-20 16:31)

== ENCOUNTER 2018-03-12 09:32 | Inpatient (IN) ==
[2018-03-12 10:34] LABS: Baso % (Auto) 0.3 % (0.0-2.0); Eos % (Auto) 0.3 % (0.0-4.0); Hematocrit 23.3 % (35.0-46.0); Hemoglobin 7.6 gm/dL (11.6-15.3); Lymph # (Auto) 0.7 th/mm3 (1.0-4.8); Lymph % (Auto) 5.5 % (9.0-44.0); Mean Corpuscular HGB Conc 32.8 % (32.0-36.0); Mean Corpuscular Volume 88.3 fL (80.0-100.0); Mean Platelet Volume 10.7 fL (7.0-11.0); Mono # (Auto) 0.4 th/mm3 (0.0-0.9); Neut # (Auto) 10.9 th/mm3 (1.8-7.7); Neut % (Auto) 90.9 % (16.0-70.0); Platelet Count 103 th/mm3 (150-450); Red Blood Count 2.64 mil/mm3 (4.00-5.30); Red Cell Distribution Width 17.3 % (11.6-17.2)
[2018-03-12 10:40] LABS: Bacteria,Urine Rare /hpf; Bilirubin,Urine Negative (Negative); Clarity,Urine Clear (Clear); Color,Urine Yellow (Yellw/Straw); Glucose,Urine (UA) Negative (Negative); Leukocyte Esterase,Urine Negative (Negative); Nitrite,Urine Negative (Negative); Prothrombin Time 9.9 sec (9.8-11.6); Specific Gravity,Urine 1.013 (1.002-1.035)
[2018-03-12 10:52] LABS: Albumin 3.3 g/dL (3.4-5.0); Anion Gap 13 meq/L (5-15); Aspartate Aminotransferase 27 U/L (15-37); Blood Urea Nitrogen 54 mg/dL (7-18); Calcium 8.9 mg/dL (8.5-10.1); Carbon Dioxide 21.2 meq/L (21.0-32.0); Chloride 103 meq/L (98-107); Glomerular Filtration Rate 42 mL/min (>89); Glucose,Random 174 mg/dL (74-106); Lipase 314 U/L (73-393); Potassium 4.9 meq/L (3.5-5.1); Sodium 137 meq/L (136-145)
[2018-03-12 10:53] LABS: Alanine Aminotransferase 25 U/L (10-53)
[2018-03-12 10:55] LABS: Alkaline Phosphatase 90 U/L (45-117); Total Protein 6.7 g/dL (6.4-8.2)
[2018-03-12] MEDS ORDERED: Pantoprazole Inj 40 MG Vial IV.PUSH ONE (11:06)
--- NOTE | 2018-03-12 11:20 | ED ---
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 She states is not as much as she was getting about 3 weeks ago when she was seen by Dr. Goel in the hospital. She denies any abdominal pains , chest pains, vomiting, or other issues. Related Data Home Medications Medication Instructions Recorded Confirmed atorvastatin 20 mg PO DAILY 01/31/18 02/19/18 furosemide 20 mg PO BID 01/31/18 02/19/18 glipizide 10 mg PO BID 01/31/18 02/19/18 metformin 1,000 mg PO BID 01/31/18 02/19/18 vitamin E 400 unit PO DAILY 01/31/18 02/19/18 nitazoxanide [Alinia] 500 mg PO BID 02/19/18 02/19/18 spironolactone 50 mg PO BID 02/19/18 02/19/18 Previous Rx's Medication Instructions Recorded sucralfate 1 gm PO ACHS #60 tab 02/03/18 pantoprazole 40 mg PO DAILY #30 tab 02/23/18 propranolol 10 mg PO BID #60 tab 02/23/18 Allergies Allergy/AdvReac Type Severity Reaction Status Date / Time No Known Allergies Allergy Verified 02/19/18 21:49 Review of Systems ROS: all other systems reviewed are negative [facility] Medical History Medical History Cirrhosis (Acute) Myelodysplastic syndrome (Acute) Hypertension (Acute) High cholesterol (Acute) Diabetes (Acute) Blood disorder (Acute) Surgical History Surgical History Total knee replacement status (Acute) History of open heart surgery (Acute) Family History Family History Father CHF (congestive heart failure) Mother Non Hodgkin's lymphoma Social History Social History Substance History: No History of Abuse Second Hand Smoke Exposure: No Smoking Status: Never smoker How Often Do You Have a Drink Containing Alcohol: Never Recent Travel in [facility] within the Last 8 Weeks: No Recent Out of Country Travel within the Last 8 Weeks: No Immunization History Tetanus Immunization: Unsure Hx Influenza Vaccine This Season: Yes Exam Narrative Exam Narrative: GENERAL: Well-developed elderly female patient currently in moderate distress, awake, disoriented, but answering questions somewhat appropriately with redirections. SKIN: Focused skin assessment warm/dry. HEAD: Atraumatic. Normocephalic. EYES: Pupils equal and round. No scleral icterus. No injection or drainage. ENT: No nasal bleeding or discharge. Mucous membranes pink and moist. NECK: Trachea midline. No JVD. CARDIOVASCULAR: Regular rate and rhythm. No murmur appreciated. RESPIRATORY: No accessory muscle use. Clear to auscultation. Breath sounds equal bilaterally. GASTROINTESTINAL: Abdomen soft, non-tender, nondistended. Hepatic and splenic margins not palpable. MUSCULOSKELETAL: No obvious deformities. No clubbing. No cyanosis. No edema. RECTAL EXAM: No masses or tenderness, stool is brown. Hemoccult positive per NEUROLOGICAL: Awake and alert. No obvious cranial nerve deficits. Motor grossly within normal limits. Normal speech. PSYCHIATRIC: Appropriate mood and affect; insight and judgment normal. Procedures Hemaprompt Stool Procedural Steps Taken: specimen placed in appropriate test area, developer placed on specimen and control areas and controls appropriately positive and negative Hemaprompt Stool Result: positive Course Initial Documented Vital Signs Temperature 98.2 F 03/12/18 09:41 Pulse Rate 94 H 03/12/18 09:41 Respiratory Rate 18 03/12/18 09:41 Blood Pressure 149/63 H 03/12/18 09:41 Pulse Oximetry 99 03/12/18 09:41 Last Documented Vital Signs Temperature 98.2 F 03/12/18 09:41 Pulse Rate 83 03/12/18 11:12 Respiratory Rate 18 03/12/18 11:12 Blood Pressure 131/86 03/12/18 11:12 Pulse Oximetry 100 03/12/18 11:12 Medical Decision Making [facility] Narrative Medical decision making narrative: Lab work shows significant anemia, she is Hemoccult positive again. Protonix and blood was ordered for the patient. At this point, plan to admit for further GI evaluation. Medical Screen Exam Complete: Yes Emergency Medical Condition: Yes Differential Diagnosis Differential Diagnosis: GI bleed versus dehydration versus symptomatic anemia versus electrolyte abnormalities Lab Data Lab results reviewed: Yes I reviewed the patient's lab results. Result diagrams: 03/12/18 10:20 03/12/18 10:20 Lab Results 03/12/18 03/12/18 03/12/18 Range/Units 10:20 10:20 10:20 WBC 12.0 H (4.0-11.0) th/mm3 RBC 2.64 L (4.00-5.30) mil/mm3 Hgb 7.6 L (11.6-15.3) gm/dL Hct 23.3 L (35.0-46.0) % MCV 88.3 (80.0-100.0) fL MCH 29.0 (27.0-34.0) pg MCHC 32.8 (32.0-36.0) % RDW 17.3 H (11.6-17.2) % Plt Count 103 L D (150-450) th/mm3 MPV 10.7 (7.0-11.0) fL Neut % (Auto) 90.9 H (16.0-70.0) % Lymph % (Auto) 5.5 L (9.0-44.0) % [place] % (Auto) 3.0 (0.0-8.0) % Eos % (Auto) 0.3 (0.0-4.0) % Baso % (Auto) 0.3 (0.0-2.0) % Neut # (Auto) 10.9 H (1.8-7.7) th/mm3 Lymph # (Auto) 0.7 L (1.0-4.8) th/mm3 [place] # (Auto) 0.4 (0.0-0.9) th/mm3 Eos # (Auto) 0.0 (0.0-0.4) th/mm3 Baso # (Auto) 0.0 (0.0-0.2) th/mm3 WBC Differential . Differential Comment Auto diff final PT (9.8-11.6) sec INR Ratio Sodium 137 (136-145) meq/L Potassium 4.9 (3.5-5.1) meq/L Chloride 103 (98-107) meq/L Carbon Dioxide 21.2 (21.0-32.0) meq/L Anion Gap 13 (5-15) meq/L BUN 54 H (7-18) mg/dL Creatinine 1.27 H (0.50-1.00) mg/dL Estimated GFR 42 L (>89) mL/min Random Glucose 174 H (74-106) mg/dL Calcium 8.9 (8.5-10.1) mg/dL Total Bilirubin 0.9 (0.2-1.0) mg/dL Direct Bilirubin 0.3 H (0.0-0.2) mg/dL Indirect Bilirubin 0.6 (0.0-0.8) mg/dL AST 27 (15-37) U/L ALT 25 (10-53) U/L Alkaline Phosphatase 90 (45-117) U/L Total Protein 6.7 (6.4-8.2) g/dL Albumin 3.3 L (3.4-5.0) g/dL Lipase 314 (73-393) U/L Urine Color (Yellw/Straw) Urine Clarity (Clear) Urine pH (5.0-8.5) Ur Specific [place] (1.002-1.035) Urine Protein (Neg-Trace) mg/dL Urine Glucose (UA) (Negative) mg/dL Urine Ketones (Negative) mg/dL Urine Occult Blood (Negative) Urine Nitrate (Negative) Urine Bilirubin (Negative) Urine Urobilinogen (Less than 2) mg/dL Ur Leukocyte Esterase (Negative) Urine RBC (0-3) /hpf Urine WBC (0-5) /hpf Urine Bacteria (None) /hpf Micro UA Comment Urine Culture Comments Blood Type O Positive Blood Type Recheck Not needed Antibody Screen Negative 03/12/18 03/12/18 Range/Units 10:20 10:20 WBC (4.0-11.0) th/mm3 RBC (4.00-5.30) mil/mm3 Hgb (11.6-15.3) gm/dL Hct (35.0-46.0) % MCV (80.0-100.0) fL MCH (27.0-34.0) pg MCHC (32.0-36.0) % RDW (11.6-17.2) % Plt Count (150-450) th/mm3 MPV (7.0-11.0) fL Neut % (Auto) (16.0-70.0) % Lymph % (Auto) (9.0-44.0) % [place] % (Auto) (0.0-8.0) % Eos % (Auto) (0.0-4.0) % Baso % (Auto) (0.0-2.0) % Neut # (Auto) (1.8-7.7) th/mm3 Lymph # (Auto) (1.0-4.8) th/mm3 [place] # (Auto) (0.0-0.9) th/mm3 Eos # (Auto) (0.0-0.4) th/mm3 Baso # (Auto) (0.0-0.2) th/mm3 WBC Differential Differential Comment PT 9.9 (9.8-11.6) sec INR 1.0 Ratio Sodium (136-145) meq/L Potassium (3.5-5.1) meq/L Chloride (98-107) meq/L Carbon Dioxide (21.0-32.0) meq/L Anion Gap (5-15) meq/L BUN (7-18) mg/dL Creatinine (0.50-1.00) mg/dL Estimated GFR (>89) mL/min Random Glucose (74-106) mg/dL Calcium (8.5-10.1) mg/dL Total Bilirubin (0.2-1.0) mg/dL Direct Bilirubin (0.0-0.2) mg/dL Indirect Bilirubin (0.0-0.8) mg/dL AST (15-37) U/L ALT (10-53) U/L Alkaline Phosphatase (45-117) U/L Total Protein (6.4-8.2) g/dL Albumin (3.4-5.0) g/dL Lipase (73-393) U/L Urine Color Yellow (Yellw/Straw) Urine Clarity Clear (Clear) Urine pH 7.0 (5.0-8.5) Ur Specific [place] 1.013 (1.002-1.035) Urine Protein Negative (Neg-Trace) mg/dL Urine Glucose (UA) Negative (Negative) mg/dL Urine Ketones Trace H (Negative) mg/dL Urine Occult Blood Negative (Negative) Urine Nitrate Negative (Negative) Urine Bilirubin Negative (Negative) Urine Urobilinogen 2.0 H (Less than 2) mg/dL Ur Leukocyte Esterase Negative (Negative) Urine RBC Less than 1 (0-3) /hpf Urine WBC Less than 1 (0-5) /hpf Urine Bacteria Rare H (None) /hpf Micro UA Comment Culture not ind Urine Culture Comments Culture not ind Blood Type Blood Type Recheck Antibody Screen Discharge Plan Discharge Disposition Patient Disposition: 30 Still Patient Discharge Condition Condition: Stable Discharge Details Anticipated Discharge Date: 03/12/18 Diagnosis: GI (gastrointestinal hemorrhage), Anemia Physicians Team ED Provider: Bandar Ackerman Primary Care Provider: Primary Care Emmy Pires Rxs /Orders / Referrals /Forms Prescriptions: No Action atorvastatin 20 mg Tablet 20 mg PO DAILY RF: 0 glipizide 10 mg Tablet 10 mg PO BID RF: 0 metformin 1,000 mg Tablet 1,000 mg PO BID RF: 0 furosemide 20 mg Tablet 20 mg PO BID RF: 0 vitamin E 100 unit Capsule 400 unit PO DAILY RF: 0 sucralfate 1 gram Tablet 1 gm PO ACHS Qty: 60 RF: 0 spironolactone 100 mg Tablet 50 mg PO BID RF: 0 nitazoxanide [Alinia] 500 mg Tablet 500 mg PO BID RF: 0 propranolol 10 mg Tablet 10 mg PO BID Qty: 60 RF: 0 pantoprazole 40 mg Tablet,Delayed Release (Dr/Ec) 40 mg PO DAILY Qty: 30 RF: 0 Discharge Interventions Interventions: Vital Signs Last Done: 03/12/18 11:12 Status ED Status: With Doctor
[2018-03-12] MEDS ORDERED: Sodium Chlor 0.9% Inj 250 ML IV.SIG SCH (12:00)
[2018-03-12] MEDS ORDERED: Sodium Chlor 0.9% Inj 500 ML IV.SIG ONE (12:44)
[2018-03-12] MEDS ORDERED: Potassium Chloride 25 MEQ Effervescent Tablet PO PRN (13:28)
[2018-03-12] MEDS ORDERED: Potassium Chlor 40 mEq Premix 40 MEQ/100 ML PIGGYBACK IV.SIG PRN ×2 (13:28)
[2018-03-12] MEDS ORDERED: Potassium Phosphate 500 MG Soluble Tablet PO PRN ×2 (13:28)
[2018-03-12] MEDS ORDERED: Magnesium Sulfate Inj 2 GM in Sodium Chlor 0.9% Inj 96 ML IV.SIG PRN (13:28)
[2018-03-12] MEDS ORDERED: Potassium Phosphate Inj 30 MMOL in Sodium Chlor 0.9% Inj 250 ML IV.SIG PRN (13:28)
[2018-03-12] MEDS ORDERED: Potassium Chlor 20 mEq Premix 20 MEQ/100 ML PIGGYBACK IV.SIG PRN ×2 (13:28)
[2018-03-12] MEDS ORDERED: Sodium Phosphate Inj 30 MMOL in Sodium Chlor 0.9% Inj 250 ML IV.SIG PRN (13:28)
[2018-03-12] MEDS ORDERED: Magnesium Oxide 400 MG Tablet PO PRN (13:28)
[2018-03-12] MEDS ORDERED: Magnesium Sulfate Inj 4 GM in Sodium Chlor 0.9% Inj 92 ML IV.SIG PRN (13:28)
[2018-03-12] MEDS ORDERED: Dextrose 50% in Water 50 ML Vial IV.PUSH PRN (13:36)
--- NOTE | 2018-03-12 14:09 | CT ---
EXAM DATE: 03/12/2018 1:41 PM EDT AGE/SEX: 68 years / Female INDICATIONS: Altered mental status. CLINICAL DATA: This is the patient's initial encounter. Patient reports that signs and symptoms have been present for 1 day and indicates a pain score of Nonresponsive. MEDICAL/SURGICAL HISTORY: Cirrhosis. Diabetes. Hypertension. . cardiac surgery RADIATION DOSE: 35.34 CTDI (mGy) COMPARISON: No prior exams available for comparison. TECHNIQUE: CT of the head without contrast. Using automated exposure control and adjustment of the mA and/or kV according to patient size, radiation dose was kept as low as reasonably achievable to ob tain optimal diagnostic quality images. DICOM format image data is available electronically for revi ew and comparison. FINDINGS: Cerebrum: There is mild generalized atrophy and ventricles are normal given the degree of atrophy. M ild periventricular white matter change is present. There is mineralization along the falx. No midlin e shift, mass lesion, hemorrhage or acute infarction. No extraaxial fluid collections are seen. Posterior Fossa: The cerebellum and brainstem demonstrate no acute abnormality. The 4th ventricle is midline. The cerebellopontine angle is within normal limits. Extracranial: The visualized sinuses are clear. Skull: The calvaria is intact. No skull fracture. CONCLUSION: No acute intracranial abnormality is identified. . Electronically signed by: Edilberto Hinojosa MD 03/12/2018 2:08 PM EDT
[2018-03-12] MEDS: Pantoprazole Inj 40 MG Vial IV.PUSH SCH (17:20)
--- NOTE | 2018-03-12 17:49 | P.CONGI ---
History of Present Illness Consult date: 03/12/18 Consult reason: GI bleed Elevated ammonia level with known cirrhosis Chief complaint: Symptomatic anemia/GI bleed History of Present Illness: This is a chronically ill appearing female who was admitted to the hospital on with increased confusion and lightheadedness noticed per family members over the past 3 weeks. Her symptoms include rectal bleeding which has waxed and waned in its amounts over the past 3 weeks. Patient has been seen by traveling phlebotomist on an outpatient basis Dr. Goel. Most of the information obtained is being gathered from the record and current family members that are in the room. Patient is continuing with increased confusion and random conversations. Current ammonia level is 217. Patient had positive Hemoccult stool and current hemoglobin on admission was 7.6 patient is receiving 2 units transfusion continues to be pale and weak. Current platelet count 103, AST 27 ALT 25 alkaline phosphatase 90 and albumin 3.3, GFR 42. Patient has had no obvious abdominal pain and no vomiting but does note some nausea off and on according to the family patient had paracentesis approximately 1 month ago and had EGD done on 02/25/[address] Cano showing polyps ulcers in the gastric antrum and gastropathy. Recommendation for follow-up EGD in 2 months which would be family notes there was discussion about doing a colonoscopy in the future, but none done recently. Patient does have a history of cirrhosis and myelodysplastic disorder. Family member who lives with patient is not present at this time for any further data. Patient's currently being monitored in the intensive care setting and currently has no obvious rectal bleeding noted per staff. <Letha Abreu - Last Filed: 03/12/18 17:52> Review of Systems All other systems reviewed negative except as stated in HPI <Letha Abreu - Last Filed: 03/12/18 17:52> PMFSH - History History Provided By: Patient - Medical History Medical History: Medical History (Last Reviewed 03/12/18 @ 11:17 by Bandar Ackerman MD) Cirrhosis (Acute) Myelodysplastic syndrome (Acute) Hypertension (Acute) High cholesterol (Acute) Diabetes (Acute) Blood disorder (Acute) - Surgical History Surgical History: Surgical History (Last Reviewed 03/12/18 @ 11:17 by Bandar Ackerman MD) Total knee replacement status (Acute) History of open heart surgery (Acute) - Family History Family History: Family History (Last Reviewed 03/12/18 @ 11:17 by Bandar Ackerman MD) Father CHF (congestive heart failure) Mother Non Hodgkin's lymphoma - Tobacco History Second Hand Smoke Exposure: No Tobacco Use In Past 30 Days: No Smoking Status: Never smoker - Alcohol History How Often Do You Have a Drink Containing Alcohol: Never - Substance Use History Substance History: No History of Abuse - Travel History Recent Travel in the [place] Within the Last 8 Weeks: No Recent Travel Out of the Country Within the Last 8 Weeks: No - Immunization History Tetanus Immunization: Unsure Hx Influenza Vaccine This Season: Yes <Letha Abreu - Last Filed: 03/12/18 17:52> - Medical History Medical History: Medical History (Last Reviewed 03/12/18 @ 11:17 by Bandar Ackerman MD) Cirrhosis (Acute) Myelodysplastic syndrome (Acute) Hypertension (Acute) High cholesterol (Acute) Diabetes (Acute) Blood disorder (Acute) - Surgical History Surgical History: Surgical History (Last Reviewed 03/12/18 @ 11:17 by Bandar Ackerman MD) Total knee replacement status (Acute) History of open heart surgery (Acute) - Family History Family History: Family History (Last Reviewed 03/12/18 @ 11:17 by Bandar Ackerman MD) Father CHF (congestive heart failure) Mother Non Hodgkin's lymphoma <You Tinoco - Last Filed: 03/12/18 19:29> Medications and Allergies Active Medications: Active Medications Albuterol (Duoneb Neb (Prn)) 1 ampul NEB Q2HR NEB PRN PRN Reason: WHEEZING Chlorhexidine Gluconate (Chlorhexidine 2% Cloth) 3 pack TOPICAL DAILY@0400 JUAN Stop: 03/18/18 03:59 Chlorhexidine Gluconate (Chlorhexidine 2% Cloth) 3 pack TOPICAL DAILY@0400 PRN PRN Reason: Extra cloth needed Stop: 03/18/18 03:59 Dextrose (D50w Vial) 50 ml IV.PUSH UNSCH PRN PRN Reason: PER HYPOGLYCEMIA PROTOCOL Glucagon (Glucagon Inj) 1 mg OTHER PRN PRN PRN Reason: for Hypoglycemia Protocol Sodium Chloride (Ns Inj) 250 mls @ 15 mls/hr IV.SIG ONCE JUAN Stop: 03/13/18 04:39 Last Admin: 03/12/18 16:50 Dose: 15 mls/hr Magnesium Sulfate Inj 2 gm/ (Sodium Chloride) 100 mls @ 50 mls/hr IV.SIG UNSCH PRN PRN Reason: For Magnesium 1.2 - 1.6 mg/dL Potassium Chloride (Kcl 20 Meq Premix Inj) 20 meq in 100 mls @ 50 mls/hr IV.SIG Q2H PRN PRN Reason: For Potassium 3.3 - 3.5 mEq/L Potassium Chloride (Kcl 40 Meq Premix Inj) 40 meq in 100 mls @ 25 mls/hr IV.SIG UNSCH PRN PRN Reason: For Potassium 3.3 - 3.5 mEq/L Potassium Phosphate 30 mmol/ (Sodium Chloride) 260 mls @ 42 mls/hr IV.SIG UNSCH PRN PRN Reason: SEE LABEL COMMENTS Sodium Phosphate 30 mmol/ (Sodium Chloride) 260 mls @ 42 mls/hr IV.SIG UNSCH PRN PRN Reason: For Phosphorus < 2.5 mg/dL Magnesium Sulfate Inj 4 gm/ (Sodium Chloride) 100 mls @ 50 mls/hr IV.SIG UNSCH PRN PRN Reason: For Magnesium 0.9 - 1.1 mg/dL Potassium Chloride (Kcl 40 Meq Premix Inj) 40 meq in 100 mls @ 25 mls/hr IV.SIG Q2H PRN PRN Reason: For Potassium 2.8 - 3.2 mEq/L Potassium Chloride (Kcl 20 Meq Premix Inj) 20 meq in 100 mls @ 50 mls/hr IV.SIG Q2H PRN PRN Reason: For Potassium 2.8 - 3.2 mEq/L Insulin Human Regular (Novolin R Correctional Sugar Inj) 0 units SQ Q6HR JUAN; Protocol Lactulose (Lactulose Liq) 30 ml PO Q6H JUAN Last Admin: 03/12/18 17:20 Dose: 30 ml Magnesium Oxide (Mag-Ox) 800 mg PO UNSCH PRN PRN Reason: For Magnesium 1.2 - 1.6 mg/dL Ondansetron HCl (Zofran Inj) 4 mg IV.PUSH Q6H PRN PRN Reason: NAUSEA OR VOMITING Pantoprazole Sodium (Protonix Inj) 40 mg IV.PUSH Q12H JUAN Last Admin: 03/12/18 17:20 Dose: 40 mg Potassium Bicarb/Potassium Chloride (K-Lyte Cl Eff) 50 meq PO UNSCH PRN PRN Reason: For Potassium 3.3 - 3.5 mEq/L Potassium Phosphate (K-Phos Original) 2,000 mg PO Q4H PRN PRN Reason: Phosphorus Less Than 2.5 mg/dL Potassium Phosphate (K-Phos Original) 2,000 mg PO UNSCH PRN PRN Reason: SEE LABEL COMMENTS Rifaximin (Xifaxan) 200 mg PO Q8HR JUAN Sodium Chloride (Ns Flush) 2 ml IV.FLUSH BID JUAN Sodium Chloride (Ns Flush) 2 ml IV.FLUSH PRN PRN PRN Reason: FLUSH AFTER USING IV ACCESS <Letha Abreu - Last Filed: 03/12/18 17:52> Active Medications: Active Medications Albuterol (Duoneb Neb (Prn)) 1 ampul NEB Q2HR NEB PRN PRN Reason: WHEEZING Chlorhexidine Gluconate (Chlorhexidine 2% Cloth) 3 pack TOPICAL DAILY@0400 [facility] Stop: 03/18/18 03:59 Chlorhexidine Gluconate (Chlorhexidine 2% Cloth) 3 pack TOPICAL DAILY@0400 PRN PRN Reason: Extra cloth needed Stop: 03/18/18 03:59 Dextrose (D50w Vial) 50 ml IV.PUSH UNSCH PRN PRN Reason: PER HYPOGLYCEMIA PROTOCOL Glucagon (Glucagon Inj) 1 mg OTHER PRN PRN PRN Reason: for Hypoglycemia Protocol Sodium Chloride (Ns Inj) 250 mls @ 15 mls/hr IV.SIG ONCE [facility] Stop: 03/13/18 04:39 Last Admin: 03/12/18 16:50 Dose: 15 mls/hr Magnesium Sulfate Inj 2 gm/ (Sodium Chloride) 100 mls @ 50 mls/hr IV.SIG UNSCH PRN PRN Reason: For Magnesium 1.2 - 1.6 mg/dL Potassium Chloride (Kcl 20 Meq Premix Inj) 20 meq in 100 mls @ 50 mls/hr IV.SIG Q2H PRN PRN Reason: For Potassium 3.3 - 3.5 mEq/L Potassium Chloride (Kcl 40 Meq Premix Inj) 40 meq in 100 mls @ 25 mls/hr IV.SIG UNSCH PRN PRN Reason: For Potassium 3.3 - 3.5 mEq/L Potassium Phosphate 30 mmol/ (Sodium Chloride) 260 mls @ 42 mls/hr IV.SIG UNSCH PRN PRN Reason: SEE LABEL COMMENTS Sodium Phosphate 30 mmol/ (Sodium Chloride) 260 mls @ 42 mls/hr IV.SIG UNSCH PRN PRN Reason: For Phosphorus < 2.5 mg/dL Magnesium Sulfate Inj 4 gm/ (Sodium Chloride) 100 mls @ 50 mls/hr IV.SIG UNSCH PRN PRN Reason: For Magnesium 0.9 - 1.1 mg/dL Potassium Chloride (Kcl 40 Meq Premix Inj) 40 meq in 100 mls @ 25 mls/hr IV.SIG Q2H PRN PRN Reason: For Potassium 2.8 - 3.2 mEq/L Potassium Chloride (Kcl 20 Meq Premix Inj) 20 meq in 100 mls @ 50 mls/hr IV.SIG Q2H PRN PRN Reason: For Potassium 2.8 - 3.2 mEq/L Insulin Human Regular (Novolin R Correctional Sugar Inj) 0 units SQ Q6HR JUAN; Protocol Last Admin: 03/12/18 18:24 Dose: Not Given Lactulose (Lactulose Liq) 30 ml PO Q6H JUAN Last Admin: 03/12/18 17:20 Dose: 30 ml Magnesium Oxide (Mag-Ox) 800 mg PO UNSCH PRN PRN Reason: For Magnesium 1.2 - 1.6 mg/dL Ondansetron HCl (Zofran Inj) 4 mg IV.PUSH Q6H PRN PRN Reason: NAUSEA OR VOMITING Pantoprazole Sodium (Protonix Inj) 40 mg IV.PUSH Q12H JUAN Last Admin: 03/12/18 17:20 Dose: 40 mg Potassium Bicarb/Potassium Chloride (K-Lyte Cl Eff) 50 meq PO UNSCH PRN PRN Reason: For Potassium 3.3 - 3.5 mEq/L Potassium Phosphate (K-Phos Original) 2,000 mg PO Q4H PRN PRN Reason: Phosphorus Less Than 2.5 mg/dL Potassium Phosphate (K-Phos Original) 2,000 mg PO UNSCH PRN PRN Reason: SEE LABEL COMMENTS Rifaximin (Xifaxan) 200 mg PO Q8HR JUAN Last Admin: 03/12/18 18:17 Dose: 200 mg Sodium Chloride (Ns Flush) 2 ml IV.FLUSH BID JUAN Sodium Chloride (Ns Flush) 2 ml IV.FLUSH PRN PRN PRN Reason: FLUSH AFTER USING IV ACCESS <You Tinoco E - Last Filed: 03/12/18 19:29> Allergies Allergy/AdvReac Type Severity Reaction Status Date / Time No Known Allergies Allergy Verified 02/19/18 21:49 Home Medications Medication Instructions Recorded Confirmed Type atorvastatin 20 mg PO DAILY 01/31/18 03/12/18 History furosemide 20 mg PO BID 01/31/18 03/12/18 History glipizide 10 mg PO BID 01/31/18 03/12/18 History metformin 1,000 mg PO BID 01/31/18 03/12/18 History vitamin E 400 unit PO DAILY 01/31/18 03/12/18 History nitazoxanide [Alinia] 500 mg PO BID 02/19/18 03/12/18 History spironolactone 50 mg PO BID 02/19/18 03/12/18 History Exam Vital signs: Vital Signs 03/12/18 09:41 03/12/18 11:12 03/12/18 13:57 Temperature 98.2 F 98.5 F Pulse Rate 94 H 83 86 Respiratory Rate 18 18 18 Blood Pressure 149/63 H 131/86 122/60 Pulse Oximetry 99 100 100 03/12/18 14:12 03/12/18 15:00 03/12/18 16:00 Temperature 98.4 F 98.4 F 97.7 F Pulse Rate 95 H 96 H 84 Respiratory Rate 18 15 15 Blood Pressure 136/60 140/65 130/72 Pulse Oximetry 100 100 03/12/18 16:43 03/12/18 17:00 03/12/18 17:02 Temperature 97.7 F 97.9 F 97.7 F Pulse Rate 85 93 H 91 H Respiratory Rate 15 15 15 Blood Pressure 130/72 131/74 Pulse Oximetry 100 100 Intake & Output 03/11/18 03/12/18 03/12/18 18:59 06:59 18:59 Intake Total 400 / 400 Output Total 0 / 0 Balance 400 / 400 Weight 49.895 kg Intake: Intake (Blood Product) Amt 400 / 400 Rbc As-3 Leukoreduced Unit 400 / 400 [id number] Rbc As-3 Leukoreduced Unit 0 / 0 [id number] Output: Urine 0 / 0 - Constitutional mild distress, chronically ill appearing - Routine HEENT Exam Head: Present: normocephalic - Routine Neck Exam Present: supple (Pale) - Routine Respiratory Exam Present: accessory muscle use (Diminished breath sounds in her bases) - Routine Cardiovascular Exam Present: S1, S2 (Regular rhythm sinus rhythm heart rate in the 90s) - Routine Abdominal Exam Present: soft (Round), normoactive bowel sounds, distended (Moderate distention no obvious tenderness) - Routine Skin Exam Present: dry, pallor - Routine Neurological Exam Present: altered mental status <Letha Abreu - Last Filed: 03/12/18 17:52> Vital signs: Vital Signs 03/12/18 09:41 03/12/18 11:12 03/12/18 13:57 Temperature 98.2 F 98.5 F Pulse Rate 94 H 83 86 Respiratory Rate 18 18 18 Blood Pressure 149/63 H 131/86 122/60 Pulse Oximetry 99 100 100 03/12/18 14:12 03/12/18 15:00 03/12/18 16:00 Temperature 98.4 F 98.4 F 97.7 F Pulse Rate 95 H 96 H 84 Respiratory Rate 18 15 15 Blood Pressure 136/60 140/65 130/72 Pulse Oximetry 100 100 03/12/18 16:43 03/12/18 17:00 03/12/18 17:02 Temperature 97.7 F 97.9 F 97.7 F Pulse Rate 85 93 H 91 H Respiratory Rate 15 15 15 Blood Pressure 130/72 131/74 Pulse Oximetry 100 100 03/12/18 18:00 Temperature Pulse Rate 94 H Respiratory Rate 15 Blood Pressure 155/70 H Pulse Oximetry 100 Intake & Output 03/12/18 03/12/18 03/13/18 06:59 18:59 06:59 Intake Total 400 / 400 Output Total 0 / 0 Balance 400 / 400 Weight 49.895 kg Intake: Intake (Blood Product) Amt 400 / 400 Rbc As-3 Leukoreduced Unit 400 / 400 [id number] Rbc As-3 Leukoreduced Unit 0 / 0 [id number] Output: Urine 0 / 0 <You Tinoco - Last Filed: 03/12/18 19:29> Results - Labs CBC & Chem 7: 03/12/18 10:20 03/12/18 10:20 Labs: Laboratory Results - last 24 hr 03/12/18 03/12/18 03/12/18 10:20 10:20 10:20 WBC 12.0 H RBC 2.64 L Hgb 7.6 L Hct 23.3 L MCV 88.3 MCH 29.0 MCHC 32.8 RDW 17.3 H Plt Count 103 L D MPV 10.7 Neut % (Auto) 90.9 H Lymph % (Auto) 5.5 L [place] % (Auto) 3.0 Eos % (Auto) 0.3 Baso % (Auto) 0.3 Neut # (Auto) 10.9 H Lymph # (Auto) 0.7 L [place] # (Auto) 0.4 Eos # (Auto) 0.0 Baso # (Auto) 0.0 WBC Differential . Differential Comment Auto diff final PT INR Sodium 137 Potassium 4.9 Chloride 103 Carbon Dioxide 21.2 Anion Gap 13 BUN 54 H Creatinine 1.27 H Estimated GFR 42 L Random Glucose 174 H Calcium 8.9 Total Bilirubin 0.9 Direct Bilirubin 0.3 H Indirect Bilirubin 0.6 AST 27 ALT 25 Alkaline Phosphatase 90 Ammonia Total Protein 6.7 Albumin 3.3 L Lipase 314 Urine Color Urine Clarity Urine pH Ur Specific [place] Urine Protein Urine Glucose (UA) Urine Ketones Urine Occult Blood Urine Nitrate Urine Bilirubin Urine Urobilinogen Ur Leukocyte Esterase Urine RBC Urine WBC Urine Bacteria Micro UA Comment Urine Culture Comments Blood Type O Positive Blood Type Recheck Not needed Antibody Screen Negative MTS Gel Crossmatch 03/12/18 03/12/18 03/12/18 10:20 10:20 12:30 WBC RBC Hgb Hct MCV MCH MCHC RDW Plt Count MPV Neut % (Auto) Lymph % (Auto) [place] % (Auto) Eos % (Auto) Baso % (Auto) Neut # (Auto) Lymph # (Auto) [place] # (Auto) Eos # (Auto) Baso # (Auto) WBC Differential Differential Comment PT 9.9 INR 1.0 Sodium Potassium Chloride Carbon Dioxide Anion Gap BUN Creatinine Estimated GFR Random Glucose Calcium Total Bilirubin Direct Bilirubin Indirect Bilirubin AST ALT Alkaline Phosphatase Ammonia 217 H Total Protein Albumin Lipase Urine Color Yellow Urine Clarity Clear Urine pH 7.0 Ur Specific [place] 1.013 Urine Protein Negative Urine Glucose (UA) Negative Urine Ketones Trace H Urine Occult Blood Negative Urine Nitrate Negative Urine Bilirubin Negative Urine Urobilinogen 2.0 H Ur Leukocyte Esterase Negative Urine RBC Less than 1 Urine WBC Less than 1 Urine Bacteria Rare H Micro UA Comment Culture not ind Urine Culture Comments Culture not ind Blood Type Blood Type Recheck Antibody Screen MTS Gel Crossmatch 03/12/18 12:47 WBC RBC Hgb Hct MCV MCH MCHC RDW Plt Count MPV Neut % (Auto) Lymph % (Auto) [place] % (Auto) Eos % (Auto) Baso % (Auto) Neut # (Auto) Lymph # (Auto) [place] # (Auto) Eos # (Auto) Baso # (Auto) WBC Differential Differential Comment PT INR Sodium Potassium Chloride Carbon Dioxide Anion Gap BUN Creatinine Estimated GFR Random Glucose Calcium Total Bilirubin Direct Bilirubin Indirect Bilirubin AST ALT Alkaline Phosphatase Ammonia Total Protein Albumin Lipase Urine Color Urine Clarity Urine pH Ur Specific [place] Urine Protein Urine Glucose (UA) Urine Ketones Urine Occult Blood Urine Nitrate Urine Bilirubin Urine Urobilinogen Ur Leukocyte Esterase Urine RBC Urine WBC Urine Bacteria Micro UA Comment Urine Culture Comments Blood Type Blood Type Recheck Antibody Screen MTS Gel Crossmatch See Detail - Imaging Impressions Head CT 03/12/18 12:32 CONCLUSION: No acute intracranial abnormality is identified. . <Letha Abreu M - Last Filed: 03/12/18 17:52> - Labs CBC & Chem 7: 03/12/18 10:20 03/12/18 10:20 Labs: Laboratory Results - last 24 hr 03/12/18 03/12/18 03/12/18 10:20 10:20 10:20 WBC 12.0 H RBC 2.64 L Hgb 7.6 L Hct 23.3 L MCV 88.3 MCH 29.0 MCHC 32.8 RDW 17.3 H Plt Count 103 L D MPV 10.7 Neut % (Auto) 90.9 H Lymph % (Auto) 5.5 L [place] % (Auto) 3.0 Eos % (Auto) 0.3 Baso % (Auto) 0.3 Neut # (Auto) 10.9 H Lymph # (Auto) 0.7 L [place] # (Auto) 0.4 Eos # (Auto) 0.0 Baso # (Auto) 0.0 WBC Differential . Differential Comment Auto diff final PT INR Sodium 137 Potassium 4.9 Chloride 103 Carbon Dioxide 21.2 Anion Gap 13 BUN 54 H Creatinine 1.27 H Estimated GFR 42 L POC Glucose Random Glucose 174 H Calcium 8.9 Total Bilirubin 0.9 Direct Bilirubin 0.3 H Indirect Bilirubin 0.6 AST 27 ALT 25 Alkaline Phosphatase 90 Ammonia Total Protein 6.7 Albumin 3.3 L Lipase 314 Urine Color Urine Clarity Urine pH Ur Specific [place] Urine Protein Urine Glucose (UA) Urine Ketones Urine Occult Blood Urine Nitrate Urine Bilirubin Urine Urobilinogen Ur Leukocyte Esterase Urine RBC Urine WBC Urine Bacteria Micro UA Comment Urine Culture Comments Blood Type O Positive Blood Type Recheck Not needed Antibody Screen Negative MTS Gel Crossmatch 03/12/18 03/12/18 03/12/18 10:20 10:20 12:30 WBC RBC Hgb Hct MCV MCH MCHC RDW Plt Count MPV Neut % (Auto) Lymph % (Auto) [place] % (Auto) Eos % (Auto) Baso % (Auto) Neut # (Auto) Lymph # (Auto) [place] # (Auto) Eos # (Auto) Baso # (Auto) WBC Differential Differential Comment PT 9.9 INR 1.0 Sodium Potassium Chloride Carbon Dioxide Anion Gap BUN Creatinine Estimated GFR POC Glucose Random Glucose Calcium Total Bilirubin Direct Bilirubin Indirect Bilirubin AST ALT Alkaline Phosphatase Ammonia 217 H Total Protein Albumin Lipase Urine Color Yellow Urine Clarity Clear Urine pH 7.0 Ur Specific [place] 1.013 Urine Protein Negative Urine Glucose (UA) Negative Urine Ketones Trace H Urine Occult Blood Negative Urine Nitrate Negative Urine Bilirubin Negative Urine Urobilinogen 2.0 H Ur Leukocyte Esterase Negative Urine RBC Less than 1 Urine WBC Less than 1 Urine Bacteria Rare H Micro UA Comment Culture not ind Urine Culture Comments Culture not ind Blood Type Blood Type Recheck Antibody Screen MTS Gel Crossmatch 03/12/18 03/12/18 12:47 18:22 WBC RBC Hgb Hct MCV MCH MCHC RDW Plt Count MPV Neut % (Auto) Lymph % (Auto) [place] % (Auto) Eos % (Auto) Baso % (Auto) Neut # (Auto) Lymph # (Auto) [place] # (Auto) Eos # (Auto) Baso # (Auto) WBC Differential Differential Comment PT INR Sodium Potassium Chloride Carbon Dioxide Anion Gap BUN Creatinine Estimated GFR POC Glucose 203 H Random Glucose Calcium Total Bilirubin Direct Bilirubin Indirect Bilirubin AST ALT Alkaline Phosphatase Ammonia Total Protein Albumin Lipase Urine Color Urine Clarity Urine pH Ur Specific [place] Urine Protein Urine Glucose (UA) Urine Ketones Urine Occult Blood Urine Nitrate Urine Bilirubin Urine Urobilinogen Ur Leukocyte Esterase Urine RBC Urine WBC Urine Bacteria Micro UA Comment Urine Culture Comments Blood Type Blood Type Recheck Antibody Screen MTS Gel Crossmatch See Detail - Imaging Impressions Head CT 03/12/18 12:32 CONCLUSION: No acute intracranial abnormality is identified. . <EarnestYou - Last Filed: 03/12/18 19:29> Assessment and Plan (1) Acute GI bleeding Status: Resolved Code(s): K92.2 - Gastrointestinal hemorrhage, unspecified (2) Symptomatic anemia Status: Resolved Code(s): D64.9 - Anemia, unspecified (3) Liver disease, chronic, with cirrhosis Status: Chronic Code(s): K74.60 - Unspecified cirrhosis of liver; K76.9 - Liver disease, unspecified (4) Rectal bleeding Status: Acute Code(s): K62.5 - Hemorrhage of anus and rectum (5) Ascites Status: Resolved Code(s): R18.8 - Other ascites (6) Varices, esophageal Status: Acute Code(s): I85.00 - Esophageal varices without bleeding (7) GAVE (gastric antral vascular ectasia) Status: Acute Code(s): K31.819 - Angiodysplasia of stomach and duodenum without bleeding - Plan 68-year-old chronic appearing female with a history of cirrhosis and myelodysplastic syndrome who has come to the hospital on 03/12/2018 with increased altered mental status worsening over the past 3 weeks, rectal bleeding off and on for the past 3 weeks which has waxed and waned and elevated ammonia level 217. Current hemoglobin on admission was 7.6 and patient is receiving transfusion 2 units. Platelet count 103, INR 1, AST 27, ALT 25, alkaline phosphatase 90, albumin 3.3. Patient is followed on an outpatient basis per Dr. Goel. Currently patient is receiving lactulose Xifaxan, Zofran, and Protonix IV. Currently there is no obvious rectal bleeding. Last paracentesis noted per family member was approximately 1 month ago and patient has had EGD done per Inés Dejesus on 02/25/2018 which showed polyps ulcers in the gastric antrum and gastropathy. Recommendation to repeat EGD in 2 months which would be 2017. patient does have a history of varices. Altered mental status currently secondary to patient's elevated ammonia level. Patient did deny any vomiting but does note occasional nausea over the past 24 hours. Patient's currently being managed in the intensive care setting. Plan Diet per attending Lactulose 30 mL every 6 hours Zofran IV Protonix IV Xifaxan Monitor labs with special attention to hemoglobin, LFTs, platelet, and PT/INR Transfuse as necessary Abdominal ultrasound to evaluate ascites Supportive care Further recommendations to follow Patient was evaluated per myself and Dr. Tinoco, note was written on his behalf <Letha Abreu - Last Filed: 03/12/18 17:52> (1) Acute GI bleeding Status: Resolved Code(s): K92.2 - Gastrointestinal hemorrhage, unspecified (2) Symptomatic anemia Status: Resolved Code(s): D64.9 - Anemia, unspecified (3) Liver disease, chronic, with cirrhosis Status: Chronic Code(s): K74.60 - Unspecified cirrhosis of liver; K76.9 - Liver disease, unspecified (4) Rectal bleeding Status: Acute Code(s): K62.5 - Hemorrhage of anus and rectum (5) Ascites Status: Resolved Code(s): R18.8 - Other ascites (6) Varices, esophageal Status: Acute Code(s): I85.00 - Esophageal varices without bleeding (7) GAVE (gastric antral vascular ectasia) Status: Acute Code(s): K31.819 - Angiodysplasia of stomach and duodenum without bleeding - Attending Attestation Patient seen and examined Continue with current supportive care Monitor labs We will passed care on Dr. Martinez <You Tinoco - Last Filed: 03/12/18 19:29> <You Tinoco E - Last Filed: 03/12/18 19:29> (5) Ascites Qualifiers:
[2018-03-12] MEDS: Insulin NovoLIN Regular Correctional Sugar Inj SQ SCH (18:24)
--- NOTE | 2018-03-12 19:26 | P.HPCC ---
History of Present Illness Service: Critical Care Primary Care Physician: UNKNOWN Chief Complaint: altered mental status History of Present Illness: 68yF with history of cirrhosis and chronic anemia presents for altered mental status to the ER. difficult to obtain history from patient due to her somnolence. she does state that she has had dark tarry stools x 1 week with worsening fatigue. ammonia in ER > 200. hgb low, but stable for patient. no additional information obtainable from patient due to her mental status. afebrile in ER. ROS unobtainable. Inpatient Certification: I certify that the inpatient services were ordered in accordance with Medicare regulations governing the order. This includes certification that hospital inpatient services are reasonable and necessary and in the case of services not specified as inpatient-only under 42 CFR 419.22(n), that they are appropriately provided as inpatient services in accordance to with the 2-midnight benchmark under 43 CFR 412.3(e) Estimated Total Length of Stay (Days): 2 Plans for Post Hospital Care: Not yet determined Review of Systems unobtainable due to mental condition, unobtainable due to mental status PMFSH - History History Provided By: Patient - Medical / Surgical Hx Neg / Unobtainable Medical Problems Denied: Unable to Obtain Surgical History: Unable to Obtain - Medical History Medical History: Medical History (Last Reviewed 03/12/18 @ 11:17 by Bandar Ackerman MD) Cirrhosis (Acute) Myelodysplastic syndrome (Acute) Hypertension (Acute) High cholesterol (Acute) Diabetes (Acute) Blood disorder (Acute) - Surgical History Surgical History: Surgical History (Last Reviewed 03/12/18 @ 11:17 by Bandar Ackerman MD) Total knee replacement status (Acute) History of open heart surgery (Acute) - Family History Family History: Family History (Last Reviewed 03/12/18 @ 11:17 by Bandar Ackerman MD) Father CHF (congestive heart failure) Mother Non Hodgkin's lymphoma - Tobacco History Second Hand Smoke Exposure: No Tobacco Use In Past 30 Days: No Smoking Status: Never smoker - Alcohol History How Often Do You Have a Drink Containing Alcohol: Never - Substance Use History Substance History: No History of Abuse - Travel History Recent Travel in the [place] Within the Last 8 Weeks: No Recent Travel Out of the Country Within the Last 8 Weeks: No - Immunization History Tetanus Immunization: Unsure Hx Influenza Vaccine This Season: Yes Medications and Allergies Active Medications: Active Medications Albuterol (Duoneb Neb (Prn)) 1 ampul NEB Q2HR NEB PRN PRN Reason: WHEEZING Chlorhexidine Gluconate (Chlorhexidine 2% Cloth) 3 pack TOPICAL DAILY@0400 JUAN Stop: 03/18/18 03:59 Chlorhexidine Gluconate (Chlorhexidine 2% Cloth) 3 pack TOPICAL DAILY@0400 PRN PRN Reason: Extra cloth needed Stop: 03/18/18 03:59 Dextrose (D50w Vial) 50 ml IV.PUSH UNSCH PRN PRN Reason: PER HYPOGLYCEMIA PROTOCOL Glucagon (Glucagon Inj) 1 mg OTHER PRN PRN PRN Reason: for Hypoglycemia Protocol Sodium Chloride (Ns Inj) 250 mls @ 15 mls/hr IV.SIG ONCE JUAN Stop: 03/13/18 04:39 Last Admin: 03/12/18 16:50 Dose: 15 mls/hr Magnesium Sulfate Inj 2 gm/ (Sodium Chloride) 100 mls @ 50 mls/hr IV.SIG UNSCH PRN PRN Reason: For Magnesium 1.2 - 1.6 mg/dL Potassium Chloride (Kcl 20 Meq Premix Inj) 20 meq in 100 mls @ 50 mls/hr IV.SIG Q2H PRN PRN Reason: For Potassium 3.3 - 3.5 mEq/L Potassium Chloride (Kcl 40 Meq Premix Inj) 40 meq in 100 mls @ 25 mls/hr IV.SIG UNSCH PRN PRN Reason: For Potassium 3.3 - 3.5 mEq/L Potassium Phosphate 30 mmol/ (Sodium Chloride) 260 mls @ 42 mls/hr IV.SIG UNSCH PRN PRN Reason: SEE LABEL COMMENTS Sodium Phosphate 30 mmol/ (Sodium Chloride) 260 mls @ 42 mls/hr IV.SIG UNSCH PRN PRN Reason: For Phosphorus < 2.5 mg/dL Magnesium Sulfate Inj 4 gm/ (Sodium Chloride) 100 mls @ 50 mls/hr IV.SIG UNSCH PRN PRN Reason: For Magnesium 0.9 - 1.1 mg/dL Potassium Chloride (Kcl 40 Meq Premix Inj) 40 meq in 100 mls @ 25 mls/hr IV.SIG Q2H PRN PRN Reason: For Potassium 2.8 - 3.2 mEq/L Potassium Chloride (Kcl 20 Meq Premix Inj) 20 meq in 100 mls @ 50 mls/hr IV.SIG Q2H PRN PRN Reason: For Potassium 2.8 - 3.2 mEq/L Insulin Human Regular (Novolin R Correctional Sugar Inj) 0 units SQ Q6HR [facility]; Protocol Last Admin: 03/12/18 18:24 Dose: Not Given Lactulose (Lactulose Liq) 30 ml PO Q6H [facility] Last Admin: 03/12/18 17:20 Dose: 30 ml Magnesium Oxide (Mag-Ox) 800 mg PO UNSCH PRN PRN Reason: For Magnesium 1.2 - 1.6 mg/dL Ondansetron HCl (Zofran Inj) 4 mg IV.PUSH Q6H PRN PRN Reason: NAUSEA OR VOMITING Pantoprazole Sodium (Protonix Inj) 40 mg IV.PUSH Q12H [facility] Last Admin: 03/12/18 17:20 Dose: 40 mg Potassium Bicarb/Potassium Chloride (K-Lyte Cl Eff) 50 meq PO UNSCH PRN PRN Reason: For Potassium 3.3 - 3.5 mEq/L Potassium Phosphate (K-Phos Original) 2,000 mg PO Q4H PRN PRN Reason: Phosphorus Less Than 2.5 mg/dL Potassium Phosphate (K-Phos Original) 2,000 mg PO UNSCH PRN PRN Reason: SEE LABEL COMMENTS Rifaximin (Xifaxan) 200 mg PO Q8HR [facility] Last Admin: 03/12/18 18:17 Dose: 200 mg Sodium Chloride (Ns Flush) 2 ml IV.FLUSH BID [facility] Sodium Chloride (Ns Flush) 2 ml IV.FLUSH PRN PRN PRN Reason: FLUSH AFTER USING IV ACCESS Allergies Allergy/AdvReac Type Severity Reaction Status Date / Time No Known Allergies Allergy Verified 02/19/18 21:49 Home Medications Medication Instructions Recorded Confirmed Type atorvastatin 20 mg PO DAILY 01/31/18 03/12/18 History furosemide 20 mg PO BID 01/31/18 03/12/18 History glipizide 10 mg PO BID 01/31/18 03/12/18 History metformin 1,000 mg PO BID 01/31/18 03/12/18 History vitamin E 400 unit PO DAILY 01/31/18 03/12/18 History nitazoxanide [Alinia] 500 mg PO BID 02/19/18 03/12/18 History spironolactone 50 mg PO BID 02/19/18 03/12/18 History Results - Labs CBC & Chem 7: 03/12/18 10:20 03/12/18 10:20 Labs: Short CBC 03/12/18 Range/Units 10:20 WBC 12.0 H (4.0-11.0) th/mm3 Hgb 7.6 L (11.6-15.3) gm/dL Hct 23.3 L (35.0-46.0) % Plt Count 103 L D (150-450) th/mm3 BMP 03/12/18 10:20 Sodium 137 Potassium 4.9 Chloride 103 Carbon Dioxide 21.2 BUN 54 H Creatinine 1.27 H Calcium 8.9 Liver Function 03/12/18 Range/Units 10:20 Total Bilirubin 0.9 (0.2-1.0) mg/dL Direct Bilirubin 0.3 H (0.0-0.2) mg/dL AST 27 (15-37) U/L ALT 25 (10-53) U/L Alkaline Phosphatase 90 (45-117) U/L Albumin 3.3 L (3.4-5.0) g/dL Urine 03/12/18 Range/Units 10:20 Urine Color Yellow (Yellw/Straw) Urine Clarity Clear (Clear) Urine pH 7.0 (5.0-8.5) Ur Specific Orient 1.013 (1.002-1.035) Urine Protein Negative (Neg-Trace) mg/dL Urine Glucose (UA) Negative (Negative) mg/dL - Imaging Impressions Head CT 03/12/18 12:32 CONCLUSION: No acute intracranial abnormality is identified. . Exam Vital signs: Vital Signs 03/12/18 09:41 03/12/18 11:12 03/12/18 13:57 Temperature 36.8 C 36.9 C Pulse Rate 94 H 83 86 Respiratory Rate 18 18 18 Blood Pressure 149/63 H 131/86 122/60 Pulse Oximetry 99 100 100 03/12/18 14:12 03/12/18 15:00 03/12/18 16:00 Temperature 36.9 C 36.9 C 36.5 C Pulse Rate 95 H 96 H 84 Respiratory Rate 18 15 15 Blood Pressure 136/60 140/65 130/72 Pulse Oximetry 100 100 03/12/18 16:43 03/12/18 17:00 03/12/18 17:02 Temperature 36.5 C 36.6 C 36.5 C Pulse Rate 85 93 H 91 H Respiratory Rate 15 15 15 Blood Pressure 130/72 131/74 Pulse Oximetry 100 100 03/12/18 18:00 Temperature Pulse Rate 94 H Respiratory Rate 15 Blood Pressure 155/70 H Pulse Oximetry 100 Intake & Output 03/12/18 03/12/18 03/13/18 06:59 18:59 06:59 Intake Total 400 / 400 Output Total 0 / 0 Balance 400 / 400 Weight 49.895 kg Intake: Intake (Blood Product) Amt 400 / 400 Rbc As-3 Leukoreduced Unit 400 / 400 [id number] Rbc As-3 Leukoreduced Unit 0 / 0 [id number] Output: Urine 0 / 0 Narrative: gen: middle-aged female who appears much older than stated age, lying in bed, confused. heent: icteric. perrl. mucous membranes moist. neck: no jvd. trachea midline. chest: equal chest rise. room air. cv: normal rate, regular rhythm. sinus. abd: soft, + fluid wave. nontender. no guarding. extr: no edema. distal pulses 2+. neuro: RASS -2. CAM+. confused. oriented to person. Caprini VTE Risk Assessment Caprini VTE Risk Assessment: Moderate/High Risk (score >= 2) VTE Pharmacological Exception Reason: Hemorrhage Caprini Risk Assessment Model: Point Value = 1 Point Value = 2 Point Value = 3 Point Value = 5 Age 41-60 Minor surgery BMI > 25 kg/m2 Swollen legs Varicose veins or History of unexplained or recurrent spontaneous Oral contraceptives or hormone replacement Sepsis (< 1 month) Serious lung disease, including pneumonia (< 1 month) Abnormal pulmonary function Acute myocardial infarction Congestive heart failure (< 1 month) History of inflammatory bowel disease Medical patient at bed rest Age 61-74 Arthroscopic surgery Major open surgery (> 45 min) Laparoscopic surgery (> 45 min) Malignancy Confined to bed (> 72 hours) Immobilizing plaster cast Central venous access Age >= 75 History of VTE Family history of VTE Factor V Leiden Prothrombin [id number] Lupus anticoagulant Anticardiolipin antibodies Elevated serum homocysteine Heparin-induced thrombocytopenia Other congenital or acquired thrombophilia Stroke (< 1 month) Elective arthroplasty Hip, pelvis, or leg fracture Acute spinal cord injury (< 1 month) Prophylaxis Regimen: Total Risk Factor Score Risk Level Prophylaxis Regimen 0-1 Low Early ambulation 2 Moderate Order ONE of the following: *Sequential Compression Device (SCD) *Heparin 5000 units SQ BID 3-4 Higher Order ONE of the following medications: *Heparin 5000 units SQ TID *Enoxaparin/Lovenox 40 mg SQ daily (WT < 150 kg, CrCl > 30 mL/min) *Enoxaparin/Lovenox 30 mg SQ daily (WT < 150 kg, CrCl > 10-29 mL/min) *Enoxaparin/Lovenox 30 mg SQ BID (WT < 150 kg, CrCl > 30 mL/min) AND/OR *Sequential Compression Device (SCD) 5 or more Highest Order ONE of the following medications: *Heparin 5000 units SQ TID (Preferred with Epidurals) *Enoxaparin/Lovenox 40 mg SQ daily (WT < 150 kg, CrCl > 30 mL/min) *Enoxaparin/Lovenox 30 mg SQ daily (WT < 150 kg, CrCl > 10-29 mL/min) *Enoxaparin/Lovenox 30 mg SQ BID (WT < 150 kg, CrCl > 30 mL/min) AND *Sequential Compression Device (SCD) Assessment and Plan - Assessment and Plan Plan: Assessment: 68yF with cirrhosis and myelodysplastic syndrome presents with acute metabolic encephalopathy secondary to hepatic encephalopathy and hyperammonemia. admit to ICU. treat with lactulose and rifaximin. hold beta blockers and start protonix iv BID. consult GI. unclear if having an active GI bleed, or if these are all old symptoms for patient. may be able to resume home meds if hgb remains stable. Hepatic Encephalopathy severe acute metabolic encephalopathy - frequent neuro checks - avoid long-acting sedatives - QID lactulose - rifaximin - daily ammonia levels Anemia: secondary to blood loss and chronic anemia secondary to MDS Myelodysplastic syndrome possible GI bleed - does not meet transfusion triggers at this time - trend H&H - protonix iv q12h - if h&h stable, may be able to restart home meds - consult GI to assist for possible GI bleed if remains stable, would advance diet tomorrow SCDS hold pharmacologic dvt prophylaxis currently with concerns for GI bleeding.
[2018-03-13] MEDS: Pantoprazole Inj 40 MG Vial IV.PUSH SCH ×2 (01:25→14:54)
[2018-03-13] MEDS: Insulin NovoLIN Regular Correctional Sugar Inj SQ SCH ×4 (01:26→17:00)
[2018-03-13 02:30] LABS: Hematocrit 26.6 % (35.0-46.0); Hemoglobin 8.8 gm/dL (11.6-15.3)
[2018-03-13] MEDS ORDERED: Chlorhexidine Gluconate 2% 1 Pack (2 Cloths) TOPICAL PRN (04:00)
[2018-03-13] MEDS: Chlorhexidine Gluconate 2% 1 Pack (2 Cloths) TOPICAL SCH (04:00)
[2018-03-13 07:00] LABS: Hematocrit 27.6 % (35.0-46.0); Hemoglobin 9.3 gm/dL (11.6-15.3); Mean Corpuscular HGB Conc 33.8 % (32.0-36.0); Mean Corpuscular Hemoglobin 29.9 pg (27.0-34.0); Mean Corpuscular Volume 88.7 fL (80.0-100.0); Mean Platelet Volume 10.7 fL (7.0-11.0); Platelet Count 55 th/mm3 (150-450); Red Blood Count 3.11 mil/mm3 (4.00-5.30); Red Cell Distribution Width 16.2 % (11.6-17.2); White Blood Count 5.8 th/mm3 (4.0-11.0)
[2018-03-13 07:03] LABS: Activated Partial Thrombo Time 22.2 sec (24.3-30.1); Prothrombin Time 10.4 sec (9.8-11.6)
[2018-03-13 07:21] LABS: Albumin 3.1 g/dL (3.4-5.0); Anion Gap 12 meq/L (5-15); Aspartate Aminotransferase 25 U/L (15-37); Blood Urea Nitrogen 47 mg/dL (7-18); Calcium 8.8 mg/dL (8.5-10.1); Carbon Dioxide 21.5 meq/L (21.0-32.0); Chloride 109 meq/L (98-107); Glomerular Filtration Rate 49 mL/min (>89); Glucose,Random 126 mg/dL (74-106); Sodium 142 meq/L (136-145)
[2018-03-13 07:35] LABS: Alanine Aminotransferase 23 U/L (10-53); Alkaline Phosphatase 83 U/L (45-117); Total Protein 6.5 g/dL (6.4-8.2)
--- NOTE | 2018-03-13 08:42 | MB ---
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 Faisal Goel. REASON FOR CONSULTATION: Altered mental status, liver cirrhosis. HISTORY OF PRESENT ILLNESS: This is a 60-year-old, very pleasant female, well-known to our service from recent hospitalizations, recent procedures, and outpatient office. She has a longstanding history of liver cirrhosis with myelodysplastic syndrome causing anemia. She has had several recent admissions, last one being 02/21/2018. During that admission, she underwent an upper endoscopy, which showed no evidence of esophageal varices, and shallow healing ulcerations in the stomach from a prior APC ablation. She was brought into the hospital this admission with the complaints by family of altered mental status and complaints of 1 episode of dark stool, as well as worsening fatigue. In the ER, she had further workup including lab work showing ammonia greater than 200. Due to this, she was brought into the hospital for further workup and evaluation. Overnight, she received transfusion of packed RBCs, as well as lactulose, and this morning appears to be lucid. Denies any nausea, vomiting, fevers, chills. She had 1 bowel movement today, and it was noted by nursing, this was brown without any blood. PAST MEDICAL HISTORY: Liver cirrhosis/myelodysplastic syndrome/hypertension dyslipidemia/diabetes mellitus. PAST SURGICAL HISTORY: Total knee replacement, open heart surgery. FAMILY HISTORY: No GI malignancies. Mother with history of non-Hodgkin lymphoma. SOCIAL HISTORY: Denies tobacco, alcohol or drug abuse. ALLERGIES: NO KNOWN DRUG ALLERGIES. HOME MEDICATIONS: Include: 1. Albuterol. 2. Lactulose. 3. Protonix. 4. Zofran. 5. Xifaxan. 6. Sucralfate. 7. Spironolactone 50 mg b.i.d. 8. Propranolol 10 mg b.i.d. 8. Lasix 20 mg b.i.d. 9. Atorvastatin 20 mg daily. REVIEW OF SYSTEMS: A 12-point review of system was obtained by me. It has been negative or noncontributory except for that mentioned in the HPI. PHYSICAL EXAMINATION: VITAL SIGNS: Temperature 98.2, heart rate of 109, respirations 20, blood pressure 154/83, 100% on room air. GENERAL: Alert, oriented. No focal deficits. No acute distress noted. HEENT: Extraocular movements are intact. Pupils equal, round, and reactive to light. Accommodation is normal. NECK: Supple, nontender. No carotid bruits. No thyromegaly appreciated. CARDIOVASCULAR: Regular rate and rhythm. No murmurs heard. LUNGS: CTAB. No wheeze. ABDOMEN: Soft, nontender, nondistended. No ascites. No fluid shift. Mild hepatomegaly appreciated. No rebound appreciated. EXTREMITIES: No edema noted. No ecchymosis. Mild jaundice noted. No CV angle tenderness. No lymphadenopathy. Equal strength in upper and lower extremities. NEUROLOGIC: Alert and oriented. No focal deficits. No asterixis identified. LABORATORY DATA: WBC 5.0, hemoglobin 9.3, platelet count of 55. INR 1.0. Sodium 142, potassium 4.0, chloride 109, bicarbonate 25, BUN 47, creatinine 1.1. Ammonia was 217 on admission, currently 57. AST 25, ALT 23, alkaline phosphatase 83. ASSESSMENT: 1. Mental status changes, likely secondary to hepatic encephalopathy, status post lactulose with improvement in her current status back to baseline. 2. History of gastrointestinal bleeding. May be multifactorial. The patient has had several endoscopies in the recent past, most recent one was 02/21/2018. No active esophageal varices were noted at that time. 3. Liver cirrhosis complicated by history of recurrent gastrointestinal bleeding and ascites, as well as encephalopathy. 4. 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 5. Hepatic encephalopathy. 6. Myelodysplastic syndrome. RECOMMENDATION: 1. Recommend advance diet to regular, low salt, less than 2 grams per day as tolerated. 2. Monitor stool for overt GI bleeding. 3. Restart home medications including Xifaxan 550 mg p.o. b.i.d., lactulose 15 mL p.o. b.i.d., sucralfate 1 gram p.o. q.a.c., spironolactone 50 mg p.o. b.i.d., Propranolol 10 mg b.i.d., Lasix 20 mg b.i.d. 4. Patient has had several recent endoscopies in the last 1 month. Therefore, I do not believe having to undergo a repeat endoscopy at this time will be beneficial. Recommend continued medical management, and if the patient is stable from medical standpoint, then no objection to discharge with outpatient followup with Dr. Goel in the office and will likely plan on having her undergo an endoscopy in approximately 1 month from her last endoscopy. Thank you for allowing [facility] to participate in the care of this patient. Please do not hesitate to contact us for any further questions. MD RICK Ewing/uriel , 08:11 AM , 08:25 AM
[2018-03-13] MEDS: rifAXIMin 550 MG Tablet PO SCH ×2 (08:44→21:10)
--- NOTE | 2018-03-13 10:08 | US ---
EXAM DATE: 03/13/2018 10:01 AM EDT AGE/SEX: 68 years / Female INDICATIONS: Abdominal pain. CLINICAL DATA: This is the patient's initial encounter. Patient reports that signs and symptoms have been present for 1 week and indicates a pain score of 0/10. MEDICAL/SURGICAL HISTORY: Cirrhosis. Diabetes. Hypertension. Chronic anemia. Hyperlipidemia. Myelodysplastic syndrome. . Total knee replacement. History of open heart surgery. COMPARISON: [facility] [place], CT ABDOMEN & PELVIS W CONTRAST, 01/31/2018. . MEASUREMENTS: Liver:__ 12.5 cm. Common Bile Duct:___ 4mm. Right Kidney:___9.3 x 5.0 x 4.7 cm. Left Kidney:___10.3 x 4.8 x 4.8 cm. Spleen:___14.0 cm. FINDINGS: Liver: Slightly heterogeneous liver without focal mass and there is mild ascites in the perihepatic space. Portal Vein: Hepatopedal flow seen in portal vein. Common Duct: No intraluminal mass or stone visualized. Gallbladder: Surgically absent. Pancreas: Slightly heterogeneous without a focal mass or any significant fluid collection surroundi ng it. Right Kidney: Normal echotexture and cortical thickness. No mass or hydronephrosis. Left Kidney: No hydronephrosis or any mass. Ascites: Tiny ascites in the perihepatic space. Pleural Effusion: None Spleen: No focal lesion. Aorta: Non aneurysmal. IVC: Within normal limits Other: None. CONCLUSION: 1. Heterogeneous and cirrhotic appearing liver and the pancreas appears heterogeneous as well. Sligh t ascites. Electronically signed by: Dinah Gamino MD 03/13/2018 10:06 AM EDT
[2018-03-13 12:35] LABS: Hematocrit 26.4 % (35.0-46.0); Hemoglobin 8.8 gm/dL (11.6-15.3)
[2018-03-13] MEDS: Sucralfate 1 GM Tablet PO SCH ×3 (12:46→21:10)
--- NOTE | 2018-03-13 19:19 | P.PN ---
Subjective Interval history: awake and alert no complains of pain, nausea or vomiting no report of rectal bleeding or melena Physical Exam Vital signs: Vital Signs 03/12/18 20:00 03/12/18 20:55 03/13/18 00:00 Temperature 98.5 F 98.3 F Pulse Rate 81 80 Respiratory Rate 17 19 Blood Pressure 127/76 124/60 Pulse Oximetry 100 100 100 03/13/18 04:00 03/13/18 08:00 03/13/18 09:15 Temperature 98.2 F 97.6 F Pulse Rate 109 H 94 H 108 H Respiratory Rate 20 19 19 Blood Pressure 154/83 H 136/65 Pulse Oximetry 100 100 100 03/13/18 10:00 03/13/18 11:00 03/13/18 11:40 Temperature Pulse Rate 109 H 99 H 115 H Respiratory Rate 24 21 Blood Pressure 156/77 H 145/71 H 156/74 H Pulse Oximetry 100 100 100 03/13/18 12:00 03/13/18 12:45 03/13/18 13:00 Temperature 98.7 F Pulse Rate 111 H 115 H Respiratory Rate 24 Blood Pressure 156/74 H Pulse Oximetry 100 98 100 03/13/18 13:34 03/13/18 14:00 03/13/18 15:00 Temperature Pulse Rate 122 H 128 H 106 H Respiratory Rate 28 H 34 H 21 Blood Pressure 137/78 134/68 Pulse Oximetry 100 98 100 03/13/18 16:00 03/13/18 17:00 03/13/18 17:36 Temperature 99.1 F Pulse Rate 96 H 93 H 107 H Respiratory Rate 23 17 Blood Pressure 164/71 H 122/62 Pulse Oximetry 100 100 Intake & Output 03/13/18 03/13/18 03/14/18 06:59 18:59 06:59 Intake Total 520 / 520 50 / 50 Output Total 1000 / 1000 Balance -480 / -480 50 / 50 Intake: IV 50 / 50 Oral 120 / 120 Intake (Blood Product) Amt 400 / 400 Rbc As-3 Leukoreduced Unit 400 / 400 [id number] Output: Urine 1000 / 1000 Other: # Voids 1 Date of Last Bowel Movement 03/13/18 03/13/18 # Bowel Movements 1 1 Narrative: awake and alert, oriented x 3 anicteric neck supple lungs- no rales regular rhythm abdomen -sfot, goodb owel sounds, mild fluid wave extremities no edema Results - Labs CBC & Chem 7: 03/13/18 12:20 03/13/18 06:09 Laboratory Results - last 24 hr 03/12/18 03/12/18 03/12/18 12:47 14:40 23:59 WBC RBC Hgb Hct MCV MCH MCHC RDW Plt Count MPV PT INR APTT Sodium Potassium Chloride Carbon Dioxide Anion Gap BUN Creatinine Estimated GFR POC Glucose 174 H Random Glucose Calcium Total Bilirubin AST ALT Alkaline Phosphatase Ammonia Total Protein Albumin Nasal Screen MRSA (PCR) Not detected MTS Gel Crossmatch See Detail 03/13/18 03/13/18 03/13/18 01:55 05:51 06:09 WBC 5.8 D RBC 3.11 L Hgb 8.8 L 9.3 L Hct 26.6 L 27.6 L MCV 88.7 MCH 29.9 MCHC 33.8 RDW 16.2 Plt Count 55 L D MPV 10.7 PT INR APTT Sodium Potassium Chloride Carbon Dioxide Anion Gap BUN Creatinine Estimated GFR POC Glucose 127 H Random Glucose Calcium Total Bilirubin AST ALT Alkaline Phosphatase Ammonia Total Protein Albumin Nasal Screen MRSA (PCR) MTS Gel Crossmatch 03/13/18 03/13/18 03/13/18 06:09 06:09 06:09 WBC RBC Hgb Hct MCV MCH MCHC RDW Plt Count MPV PT 10.4 INR 1.0 APTT 22.2 L Sodium 142 Potassium 4.0 D Chloride 109 H Carbon Dioxide 21.5 Anion Gap 12 BUN 47 H Creatinine 1.10 H Estimated GFR 49 L POC Glucose Random Glucose 126 H Calcium 8.8 Total Bilirubin 1.7 H AST 25 ALT 23 Alkaline Phosphatase 83 Ammonia 57 H Total Protein 6.5 Albumin 3.1 L Nasal Screen MRSA (PCR) MTS Gel Crossmatch 03/13/18 03/13/18 03/13/18 12:20 12:43 16:25 WBC RBC Hgb 8.8 L Hct 26.4 L MCV MCH MCHC RDW Plt Count MPV PT INR APTT Sodium Potassium Chloride Carbon Dioxide Anion Gap BUN Creatinine Estimated GFR POC Glucose 278 H 273 H Random Glucose Calcium Total Bilirubin AST ALT Alkaline Phosphatase Ammonia Total Protein Albumin Nasal Screen MRSA (PCR) MTS Gel Crossmatch - Imaging Impressions Abdomen Ultrasound 03/13/18 08:00 CONCLUSION: 1. Heterogeneous and cirrhotic appearing liver and the pancreas appears heterogeneous as well. Slight ascites. Assessment and Plan - Plan 68yF with cirrhosis and myelodysplastic syndrome presents with acute metabolic encephalopathy secondary to hepatic encephalopathy and hyperammonemia. admit to ICU. treat with lactulose and rifaximin. hold beta blockers and start protonix iv BID. consult GI. unclear if having an active GI bleed, or if these are all old symptoms for patient. may be able to resume home meds if hgb remains stable. Hepatic Encephalopathy- IMproved severe acute metabolic encephalopathy - frequent neuro checks - avoid long-acting sedatives - QID lactulose - rifaximin - daily ammonia levels - tolerating diet Anemia: secondary to blood loss and chronic anemia secondary to MDS Myelodysplastic syndrome possible GI bleed - does not meet transfusion triggers at this time - trend H&H - protonix iv q12h - if h&h stable, may be able to restart home meds in am- was on Aldactone and furosemide as OP - ultrasound- no ascites - GI ff Diabetes mellitus- type 2 - as OP onMetformin and Glipizide - change to ADA diet - Sliding scale insulin for now - check A1C in am SCDS hold pharmacologic dvt prophylaxis currently with concerns for GI bleeding.
[2018-03-13 21:28] LABS: Hematocrit 25.4 % (35.0-46.0); Hemoglobin 8.3 gm/dL (11.6-15.3)
[2018-03-14] MEDS: Insulin NovoLIN Regular Correctional Sugar Inj SQ SCH ×2 (01:32→06:41)
[2018-03-14 02:12] LABS: Hematocrit 23.9 % (35.0-46.0); Hemoglobin 7.9 gm/dL (11.6-15.3); Mean Corpuscular Hemoglobin 29.5 pg (27.0-34.0); Mean Corpuscular Volume 89.2 fL (80.0-100.0); Mean Platelet Volume 10.3 fL (7.0-11.0); Platelet Count 53 th/mm3 (150-450); Red Blood Count 2.68 mil/mm3 (4.00-5.30); Red Cell Distribution Width 16.8 % (11.6-17.2); White Blood Count 4.5 th/mm3 (4.0-11.0)
[2018-03-14 02:26] LABS: Activated Partial Thrombo Time 23.8 sec (24.3-30.1); INR 1.1 Ratio; Prothrombin Time 10.9 sec (9.8-11.6)
[2018-03-14 02:35] LABS: Alanine Aminotransferase 25 U/L (10-53); Albumin 2.8 g/dL (3.4-5.0); Alkaline Phosphatase 88 U/L (45-117); Anion Gap 10 meq/L (5-15); Aspartate Aminotransferase 28 U/L (15-37); Blood Urea Nitrogen 36 mg/dL (7-18); Calcium 8.3 mg/dL (8.5-10.1); Carbon Dioxide 21.5 meq/L (21.0-32.0); Chloride 111 meq/L (98-107); Glomerular Filtration Rate 57 mL/min (>89); Glucose,Random 156 mg/dL (74-106); Potassium 4.2 meq/L (3.5-5.1); Sodium 142 meq/L (136-145); Total Protein 5.7 g/dL (6.4-8.2)
[2018-03-14] MEDS: Pantoprazole Inj 40 MG Vial IV.PUSH SCH (04:48)
[2018-03-14] MEDS: Chlorhexidine Gluconate 2% 1 Pack (2 Cloths) TOPICAL SCH (06:18)
[2018-03-14] MEDS: Sucralfate 1 GM Tablet PO SCH (07:48)
[2018-03-14] MEDS: rifAXIMin 550 MG Tablet PO SCH (08:13)
--- NOTE | 2018-03-14 09:26 | P.PNIM ---
Subjective Interval history: 68yF with history of cirrhosis and chronic anemia presents for altered mental status to the ER. difficult to obtain history from patient due to her somnolence. she does state that she has had dark tarry stools x 1 week with worsening fatigue. ammonia in ER > 200. hgb low, but stable for patient. no additional information obtainable from patient due to her mental status. afebrile in ER. ROS unobtainable 03-13 awake and alert no complains of pain, nausea or vomiting no report of rectal bleeding or melena 03-14 CLEARED BY GI TO DC TO HOME HGB IN THE 7S BUT NO ACTIVE BLEEDING NOTED WANTS TO GO HOME WILL NEED XIFAXAN AND LACTULOSE AT HOME DW RN AND PT AND CM DC TO HOME HAS HX OF GAVE FOLLOW UP WITH DR CHEEMA Physical Exam Vital signs: Vital Signs 03/13/18 10:00 03/13/18 11:00 03/13/18 11:40 Temperature Pulse Rate 109 H 99 H 115 H Respiratory Rate 24 21 Blood Pressure 156/77 H 145/71 H 156/74 H Pulse Oximetry 100 100 100 03/13/18 12:00 03/13/18 12:45 03/13/18 13:00 Temperature 98.7 F Pulse Rate 111 H 115 H Respiratory Rate 24 Blood Pressure 156/74 H Pulse Oximetry 100 98 100 03/13/18 13:34 03/13/18 14:00 03/13/18 15:00 Temperature Pulse Rate 122 H 128 H 106 H Respiratory Rate 28 H 34 H 21 Blood Pressure 137/78 134/68 Pulse Oximetry 100 98 100 03/13/18 16:00 03/13/18 17:00 03/13/18 17:36 Temperature 99.1 F Pulse Rate 96 H 93 H 107 H Respiratory Rate 23 17 Blood Pressure 164/71 H 122/62 Pulse Oximetry 100 100 03/13/18 20:00 03/14/18 00:00 03/14/18 04:00 Temperature 98.8 F 98.6 F 99.3 F Pulse Rate 84 78 108 H Respiratory Rate 18 18 18 Blood Pressure 124/66 132/78 105/59 L Pulse Oximetry 100 99 99 03/14/18 07:15 Temperature Pulse Rate Respiratory Rate 12 Blood Pressure Pulse Oximetry Intake & Output 08/21/18 08/22/18 08/22/18 18:59 06:59 18:59 Intake Total 50 / 50 60 / 60 Balance 50 / 50 60 / 60 Intake: IV 50 / 50 Oral 60 / 60 Other: # Voids 1 3 Date of Last Bowel Movement 03/13/18 03/14/18 # Bowel Movements 1 1 Narrative: GENERAL: Awake alert and oriented 3 talkative and cooperative SKIN: Warm and dry. HEAD: Atraumatic. Normocephalic. EYES: Pupils equal and round. No scleral icterus. No injection or drainage. EOMI ENT: No nasal bleeding or discharge. Mucous membranes pink and moist. NECK: Trachea midline. No JVD. CARDIOVASCULAR: Regular rate and rhythm. S1-S2 no S3 or S4 RESPIRATORY: No accessory muscle use. Clear to auscultation. Breath sounds equal bilaterally. GASTROINTESTINAL: Abdomen soft, non-tender, nondistended. Hepatic and splenic margins not palpable. MUSCULOSKELETAL: Extremities without clubbing, cyanosis, or edema. No obvious deformities. NEUROLOGICAL: Awake and alert. No obvious cranial nerve deficits. Motor grossly within normal limits. Five out of 5 muscle strength in the arms and legs. Normal speech. PSYCHIATRIC: Appropriate mood and affect; insight and judgment normal. Results - Labs CBC & Chem 7: 03/14/18 01:47 03/14/18 01:47 Laboratory Results - last 24 hr 03/13/18 03/13/18 03/13/18 12:20 12:43 16:25 WBC RBC Hgb 8.8 L Hct 26.4 L MCV MCH MCHC RDW Plt Count MPV PT INR APTT Sodium Potassium Chloride Carbon Dioxide Anion Gap BUN Creatinine Estimated GFR POC Glucose 278 H 273 H Random Glucose Calcium Total Bilirubin AST ALT Alkaline Phosphatase Ammonia Total Protein Albumin 03/13/18 03/14/18 03/14/18 20:34 01:29 01:47 WBC 4.5 RBC 2.68 L Hgb 8.3 L 7.9 L Hct 25.4 L 23.9 L MCV 89.2 MCH 29.5 MCHC 33.0 RDW 16.8 Plt Count 53 L MPV 10.3 PT INR APTT Sodium Potassium Chloride Carbon Dioxide Anion Gap BUN Creatinine Estimated GFR POC Glucose 171 H Random Glucose Calcium Total Bilirubin AST ALT Alkaline Phosphatase Ammonia Total Protein Albumin 03/14/18 03/14/18 03/14/18 01:47 01:47 01:47 WBC RBC Hgb Hct MCV MCH MCHC RDW Plt Count MPV PT 10.9 INR 1.1 APTT 23.8 L Sodium 142 Potassium 4.2 Chloride 111 H Carbon Dioxide 21.5 Anion Gap 10 BUN 36 H Creatinine 0.97 Estimated GFR 57 L POC Glucose Random Glucose 156 H Calcium 8.3 L Total Bilirubin 1.2 H AST 28 ALT 25 Alkaline Phosphatase 88 Ammonia 39 H Total Protein 5.7 L D Albumin 2.8 L 03/14/18 06:40 WBC RBC Hgb Hct MCV MCH MCHC RDW Plt Count MPV PT INR APTT Sodium Potassium Chloride Carbon Dioxide Anion Gap BUN Creatinine Estimated GFR POC Glucose 143 H Random Glucose Calcium Total Bilirubin AST ALT Alkaline Phosphatase Ammonia Total Protein Albumin - Imaging Impressions Abdomen Ultrasound 03/13/18 08:00 CONCLUSION: 1. Heterogeneous and cirrhotic appearing liver and the pancreas appears heterogeneous as well. Slight ascites. - Procedures Blood transfusion Assessment and Plan - Plan 68yF with cirrhosis and myelodysplastic syndrome presents with acute metabolic encephalopathy secondary to hepatic encephalopathy and hyperammonemia. admit to ICU. treat with lactulose and rifaximin. hold beta blockers and start protonix iv BID. consult GI. unclear if having an active GI bleed, or if these are all old symptoms for patient. may be able to resume home meds if hgb remains stable. Hepatic Encephalopathy- IMproved severe acute metabolic encephalopathy - frequent neuro checks - avoid long-acting sedatives - QID lactulose - rifaximin - daily ammonia levels - tolerating diet Will need to be on rifaximin and lactulose Has history of GAVE -follows with Dr. CHEEMA Anemia: secondary to blood loss and chronic anemia secondary to MDS Myelodysplastic syndrome possible GI bleed - does not meet transfusion triggers at this time - trend H&H - protonix iv q12h - if h&h stable, may be able to restart home meds in am- was on Aldactone and furosemide as OP - ultrasound- no ascites - GI ff Hemoglobin remains stable in the 70s Diabetes mellitus- type 2 - as OP onMetformin and Glipizide - change to ADA diet - Sliding scale insulin for now - check A1C in am SCDS hold pharmacologic dvt prophylaxis currently with concerns for GI bleeding. We will discharge to home later today can follow-up with GI Code Status: Full code Discussed Condition With: RN and patient and case management Discharge Planning: Discharged home today
[2018-03-14 09:37] LABS: Hematocrit 24.5 % (35.0-46.0); Hemoglobin 8.3 gm/dL (11.6-15.3)
--- NOTE | 2018-03-14 09:37 | P.DS ---
Date of admission: 03/12/18 11:33 Primary care physician: UNKNOWN Attending physician on discharge: Edd Ogden Anticipated date of discharge: 03/14/18 Brief History from admission: 68yF with history of cirrhosis and chronic anemia presents for altered mental status to the ER. difficult to obtain history from patient due to her somnolence. she does state that she has had dark tarry stools x 1 week with worsening fatigue. ammonia in ER > 200. hgb low, but stable for patient. no additional information obtainable from patient due to her mental status. afebrile in ER. ROS unobtainable. 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 (7) High cholesterol Status: Chronic (8) History of open heart surgery Status: Chronic (9) Hypertension Status: Chronic (10) Myelodysplastic syndrome Status: Chronic (11) Varices, esophageal Status: Chronic (12) Liver disease, chronic, with cirrhosis Status: Chronic (13) Acute GI bleeding Status: Chronic (14) Symptomatic anemia Status: Chronic DS: Medications - Discharge Medications Prescriptions: atorvastatin 20 mg PO DAILY #30 tab furosemide 20 mg PO BID #60 tab lactulose 30 ml PO Q12HR #3600 ml pantoprazole 40 mg PO BID #60 tab propranolol 10 mg PO BID #60 tab rifaximin [Xifaxan] 550 mg PO Q12HR #60 tab spironolactone 50 mg PO BID #60 tab sucralfate 1 gm PO ACHS #120 tab DS: Summary Hospital Course: 68yF with history of cirrhosis and chronic anemia presents for altered mental status to the ER. difficult to obtain history from patient due to her somnolence. she does state that she has had dark tarry stools x 1 week with worsening fatigue. ammonia in ER > 200. hgb low, but stable for patient. no additional information obtainable from patient due to her mental status. afebrile in ER. ROS unobtainable 8- awake and alert no complains of pain, nausea or vomiting no report of rectal bleeding or melena 8- CLEARED BY GI TO DC TO HOME HGB IN THE 7S BUT NO ACTIVE BLEEDING NOTED WANTS TO GO HOME WILL NEED XIFAXAN AND LACTULOSE AT HOME DW RN AND PT AND CM DC TO HOME HAS HX OF GAVE FOLLOW UP WITH DR CHEEMA - Time Spent with Patient Total time spent providing and/or coordinating discharge services: Greater than 30 minutes - Quality: VTE Deep Vein Thrombosis/Pulmonary Embolism Present on Admission: No Exam Vital signs: Vital Signs 03/13/18 10:00 03/13/18 11:00 03/13/18 11:40 Temperature Pulse Rate 109 H 99 H 115 H Respiratory Rate 24 21 Blood Pressure 156/77 H 145/71 H 156/74 H Pulse Oximetry 100 100 100 03/13/18 12:00 03/13/18 12:45 03/13/18 13:00 Temperature 98.7 F Pulse Rate 111 H 115 H Respiratory Rate 24 Blood Pressure 156/74 H Pulse Oximetry 100 98 100 03/13/18 13:34 03/13/18 14:00 03/13/18 15:00 Temperature Pulse Rate 122 H 128 H 106 H Respiratory Rate 28 H 34 H 21 Blood Pressure 137/78 134/68 Pulse Oximetry 100 98 100 03/13/18 16:00 03/13/18 17:00 03/13/18 17:36 Temperature 99.1 F Pulse Rate 96 H 93 H 107 H Respiratory Rate 23 17 Blood Pressure 164/71 H 122/62 Pulse Oximetry 100 100 03/13/18 20:00 03/14/18 00:00 03/14/18 04:00 Temperature 98.8 F 98.6 F 99.3 F Pulse Rate 84 78 108 H Respiratory Rate 18 18 18 Blood Pressure 124/66 132/78 105/59 L Pulse Oximetry 100 99 99 03/14/18 07:15 Temperature Pulse Rate Respiratory Rate 12 Blood Pressure Pulse Oximetry Intake & Output 03/13/18 03/14/18 03/14/18 18:59 06:59 18:59 Intake Total 50 / 50 60 / 60 Balance 50 / 50 60 / 60 Intake: IV 50 / 50 Oral 60 / 60 Other: # Voids 1 3 Date of Last Bowel Movement 03/13/18 03/14/18 # Bowel Movements 1 1 Narrative: GENERAL: Awake alert and oriented 3 talkative and cooperative SKIN: Warm and dry. HEAD: Atraumatic. Normocephalic. EYES: Pupils equal and round. No scleral icterus. No injection or drainage. ENT: No nasal bleeding or discharge. Mucous membranes pink and moist. NECK: Trachea midline. No JVD. CARDIOVASCULAR: Regular rate and rhythm. S1-S2 no S3 or S4 RESPIRATORY: No accessory muscle use. Clear to auscultation. Breath sounds equal bilaterally. GASTROINTESTINAL: Abdomen soft, non-tender, nondistended. Hepatic and splenic margins not palpable. MUSCULOSKELETAL: Extremities without clubbing, cyanosis, or edema. No obvious deformities. NEUROLOGICAL: Awake and alert. No obvious cranial nerve deficits. Motor grossly within normal limits. Five out of 5 muscle strength in the arms and legs. Normal speech. PSYCHIATRIC: Appropriate mood and affect; insight and judgment normal. Results Procedures completed during hospitalization: Blood transfusion Completed studies during hospitalization: Laboratory Results WBC 4.5 th/mm3 (4.0-11.0) 03/14/18 01:47 RBC 2.68 mil/mm3 (4.00-5.30) L 03/14/18 01:47 Hgb 7.9 gm/dL (11.6-15.3) L 03/14/18 01:47 Hct 23.9 % (35.0-46.0) L 03/14/18 01:47 MCV 89.2 fL (80.0-100.0) 03/14/18 01:47 MCH 29.5 pg (27.0-34.0) 03/14/18 01:47 MCHC 33.0 % (32.0-36.0) 03/14/18 01:47 RDW 16.8 % (11.6-17.2) 03/14/18 01:47 Plt Count 53 th/mm3 (150-450) L 03/14/18 01:47 MPV 10.3 fL (7.0-11.0) 03/14/18 01:47 Neut % (Auto) 90.9 % (16.0-70.0) H 03/12/18 10:20 Lymph % (Auto) 5.5 % (9.0-44.0) L 03/12/18 10:20 [place] % (Auto) 3.0 % (0.0-8.0) 03/12/18 10:20 Eos % (Auto) 0.3 % (0.0-4.0) 03/12/18 10:20 Baso % (Auto) 0.3 % (0.0-2.0) 03/12/18 10:20 Neut # (Auto) 10.9 th/mm3 (1.8-7.7) H 03/12/18 10:20 Lymph # (Auto) 0.7 th/mm3 (1.0-4.8) L 03/12/18 10:20 [place] # (Auto) 0.4 th/mm3 (0.0-0.9) 03/12/18 10:20 Eos # (Auto) 0.0 th/mm3 (0.0-0.4) 03/12/18 10:20 Baso # (Auto) 0.0 th/mm3 (0.0-0.2) 03/12/18 10:20 WBC Differential . 03/12/18 10:20 Differential Comment Auto diff final 03/12/18 10:20 PT 10.9 sec (9.8-11.6) 03/14/18 01:47 INR 1.1 Ratio 03/14/18 01:47 APTT 23.8 sec (24.3-30.1) L 03/14/18 01:47 Sodium 142 meq/L (136-145) 03/14/18 01:47 Potassium 4.2 meq/L (3.5-5.1) 03/14/18 01:47 Chloride 111 meq/L (98-107) H 03/14/18 01:47 Carbon Dioxide 21.5 meq/L (21.0-32.0) 03/14/18 01:47 Anion Gap 10 meq/L (5-15) 03/14/18 01:47 BUN 36 mg/dL (7-18) H 03/14/18 01:47 Creatinine 0.97 mg/dL (0.50-1.00) 03/14/18 01:47 Estimated GFR 57 mL/min (>89) L 03/14/18 01:47 POC Glucose 143 mg/dl (68-110) H 03/14/18 06:40 Random Glucose 156 mg/dL (74-106) H 03/14/18 01:47 Calcium 8.3 mg/dL (8.5-10.1) L 03/14/18 01:47 Total Bilirubin 1.2 mg/dL (0.2-1.0) H 03/14/18 01:47 Direct Bilirubin 0.3 mg/dL (0.0-0.2) H 03/12/18 10:20 Indirect Bilirubin 0.6 mg/dL (0.0-0.8) 03/12/18 10:20 AST 28 U/L (15-37) 03/14/18 01:47 ALT 25 U/L (10-53) 03/14/18 01:47 Alkaline Phosphatase 88 U/L (45-117) 03/14/18 01:47 Ammonia 39 mcmol/L (11-32) H 03/14/18 01:47 Total Protein 5.7 g/dL (6.4-8.2) L D 03/14/18 01:47 Albumin 2.8 g/dL (3.4-5.0) L 03/14/18 01:47 Lipase 314 U/L (73-393) 03/12/18 10:20 Urine Color Yellow (Yellw/Straw) 03/12/18 10:20 Urine Clarity Clear (Clear) 03/12/18 10:20 Urine pH 7.0 (5.0-8.5) 03/12/18 10:20 Ur Specific [place] 1.013 (1.002-1.035) 03/12/18 10:20 Urine Protein Negative mg/dL (Neg-Trace) 03/12/18 10:20 Urine Glucose (UA) Negative mg/dL (Negative) 03/12/18 10:20 Urine Ketones Trace mg/dL (Negative) H 03/12/18 10:20 Urine Occult Blood Negative (Negative) 03/12/18 10:20 Urine Nitrate Negative (Negative) 03/12/18 10:20 Urine Bilirubin Negative (Negative) 03/12/18 10:20 Urine Urobilinogen 2.0 mg/dL (Less than 2) H 03/12/18 10:20 Ur Leukocyte Esterase Negative (Negative) 03/12/18 10:20 Urine RBC Less than 1 /hpf (0-3) 03/12/18 10:20 Urine WBC Less than 1 /hpf (0-5) 03/12/18 10:20 Urine Bacteria Rare /hpf (None) H 03/12/18 10:20 Micro UA Comment Culture not ind 03/12/18 10:20 Urine Culture Comments Culture not ind 03/12/18 10:20 Nasal Screen MRSA (PCR) Not detected (Negative) 03/12/18 14:40 Blood Type O Positive 03/12/18 10:20 Blood Type Recheck Not needed 03/12/18 10:20 Antibody Screen Negative 03/12/18 10:20 MTS Gel Crossmatch See Detail 03/12/18 12:[address] 03/12/18 12:32 CONCLUSION: No acute intracranial abnormality is identified. . Abdomen Ultrasound 03/13/18 08:00 CONCLUSION: 1. Heterogeneous and cirrhotic appearing liver and the pancreas appears heterogeneous as well. Slight ascites. Labs on day of discharge: Labs from last 24 hours 03/14/18 03/14/18 03/14/18 06:40 01:47 01:47 WBC RBC Hgb Hct MCV MCH MCHC RDW Plt Count MPV PT INR APTT Sodium Potassium Chloride Carbon Dioxide Anion Gap BUN Creatinine Estimated GFR POC Glucose 143 H Random Glucose Hemoglobin A1c Pending Calcium Total Bilirubin AST ALT Alkaline Phosphatase Ammonia 39 H Total Protein Albumin 03/14/18 03/14/18 03/14/18 01:47 01:47 01:47 WBC 4.5 RBC 2.68 L Hgb 7.9 L Hct 23.9 L MCV 89.2 MCH 29.5 MCHC 33.0 RDW 16.8 Plt Count 53 L MPV 10.3 PT 10.9 INR 1.1 APTT 23.8 L Sodium 142 Potassium 4.2 Chloride 111 H Carbon Dioxide 21.5 Anion Gap 10 BUN 36 H Creatinine 0.97 Estimated GFR 57 L POC Glucose Random Glucose 156 H Hemoglobin A1c Calcium 8.3 L Total Bilirubin 1.2 H AST 28 ALT 25 Alkaline Phosphatase 88 Ammonia Total Protein 5.7 L D Albumin 2.8 L 03/14/18 03/13/18 03/13/18 01:29 20:34 16:25 WBC RBC Hgb 8.3 L Hct 25.4 L MCV MCH MCHC RDW Plt Count MPV PT INR APTT Sodium Potassium Chloride Carbon Dioxide Anion Gap BUN Creatinine Estimated GFR POC Glucose 171 H 273 H Random Glucose Hemoglobin A1c Calcium Total Bilirubin AST ALT Alkaline Phosphatase Ammonia Total Protein Albumin 03/13/18 03/13/18 12:43 12:20 WBC RBC Hgb 8.8 L Hct 26.4 L MCV MCH MCHC RDW Plt Count MPV PT INR APTT Sodium Potassium Chloride Carbon Dioxide Anion Gap BUN Creatinine Estimated GFR POC Glucose 278 H Random Glucose Hemoglobin A1c Calcium Total Bilirubin AST ALT Alkaline Phosphatase Ammonia Total Protein Albumin - Impressions ITS Impressions Head CT 03/12/18 12:32 CONCLUSION: No acute intracranial abnormality is identified. . Abdomen Ultrasound 03/13/18 08:00 CONCLUSION: 1. Heterogeneous and cirrhotic appearing liver and the pancreas appears heterogeneous as well. Slight ascites. Discharge Plan - Discharge Disposition Patient Disposition: 01 Discharge Home - Discharge Condition Condition: Stable - Discharge Order Discharge Orders: Discharge Order (Routine); Ordered 03/14/18 Ordered By: Edd Ogden - Discharge Details Anticipated Discharge Date: 03/14/18 Discharge Comment: DC TO HOME TODAY - Physicians Team Primary Care Provider: UNKNOWN, Attending Provider: Edd Ogden Other Providers: You Tinoco MD ; RAMY HARMON DR. ; [employer], Insurance
== END 2018-03-14 12:50 | disposition home or self-care (01) ==
LOC: NEPE 09:32 → NEDA 11:33 → HIMC 14:35 → N05 03-13 19:21
PROVIDERS: ADMIT Hospitalist; ATTEND Hospitalist